=== PATIENT | male | born 1975 | race Caucasian/White ===

== ENCOUNTER 2018-06-25 14:58 | Emergency (ER) | payer SELFPAY ==
--- NOTE | 2018-06-25 15:42 | ER ---
Nurse's Notes [facility] Name: James Dupree Age: 42 yrs Sex: Male : 1975 Arrival Date: 06/25/2018 Time: 15:02 Bed 16 Private MD: None, None Diagnosis: anxiety Presentation: 06/25 15:22 Presenting complaint: Patient states: im having withdrawals from alcohol; last drink hj was yesterday at 5 pm; been drinking all day fo the last 2 weeks; reports abd pain; anxiety, shakiness; nausea;. Transition of care: patient was not received from another setting of care. Onset of symptoms was June 25, 2018. Risk Assessment: Do you want to hurt yourself or someone else? Patient reports no desire to harm self or others. Initial Sepsis Screen: Does the patient meet any 2 criteria? No. Patient's initial sepsis screen is negative. Does the patient have a suspected source of infection? No. Patient's initial sepsis screen is negative. Care prior to arrival: None. 15:22 Method Of Arrival: Ambulatory 15:22 Acuity: DORETHA 3 hj Triage Assessment: 15:24 General: Appears in no apparent distress. uncomfortable, Behavior is calm, cooperative, hj appropriate for age. Pain: Complains of pain in abdomen. Historical: - Allergies: 15:24 No Known Allergies; hj - Home Meds: 15:24 None [Active]; hj - PMHx: 15:24 Alcoholism; hj - PSHx: 15:24 None; hj - Immunization history:: Adult Immunizations not up to date. - Social history:: Smoking status: Patient uses tobacco products, Patient uses alcohol, on a daily basis. patient/guardian reports chronic longstanding heavy alcohol consumption. - Ebola Screening: : Patient negative for fever greater than or equal to 101.5 degrees Fahrenheit, and additional compatible Ebola Virus Disease symptoms Patient denies exposure to infectious person Patient denies travel to an Ebola-affected area in the 21 days before illness onset. Screenin:24 Abuse screen: Denies threats or abuse. Denies injuries from another. Nutritional hj screening: No deficits noted. Tuberculosis screening: No symptoms or risk factors identified. Fall Risk None identified. Assessment: 15:26 General: Appears in no apparent distress. Behavior is anxious. Pain: Denies pain. tw2 Neuro: Level of Consciousness is awake, alert, obeys commands, Oriented to person, place, time, situation. Cardiovascular: Heart tones S1 S2 Patient's skin is warm and dry. Respiratory: Airway is patent Respiratory effort is even, unlabored, Respiratory pattern is regular, symmetrical, Breath sounds are clear bilaterally. GI: No signs and/or symptoms were reported involving the gastrointestinal system. : No signs and/or symptoms were reported regarding the genitourinary system. EENT: No signs and/or symptoms were reported regarding the EENT system. Derm: No signs and/or symptoms reported regarding the dermatologic system. Musculoskeletal: Reports "i feel cem jittery and shaky but i just drank for like 2 weeks straight". 15:31 Reassessment: Dr. Hallman at bedside at this time. tw2 16:16 Reassessment: Patient appears in no apparent distress at this time. No changes from tw2 previously documented assessment. Patient and/or family updated on plan of care and expected duration. Pain level reassessed. Patient is alert, oriented x 3, equal unlabored respirations, skin warm/dry/pink. Psych: 15:26 Subjective: no apparent distress, pt seeking help today to prevent having withdrawals. tw2 Objective: Patient is cooperative. Interventions: pts vs stable. Suicide Risk Assessment: Sad Person Scale: Sex of patient: Male: Score 1 point. Age of patient: Score 0 point if patient falls outside of specified age parameters. Depression: Score 0 point if signs of depression are not present. Previous Attempt: Score 0 point if patient has not previously attempted suicide. Substance Abuse: Score 1 point if patient abuses alcohol or drugs. Rational Thinking: Score 0 point if patient has rational thinking. Social Support: Score 0 if social support is present/available. Organized Plan: Score 0 if patient did not have an organized plan in place. Relationship: Score 1 point if patient is , , , or for a single male Chronic Sickness: Score 0 point if patient does not have a chronic illness, debilitating, or severe disorder. Safety Checks: No visitors are present at this time. Patient uses Last use was yesterday at 5pm. 15:58 Commitment: Patient will be a voluntary commitment. tw2 Vital Signs: 15:25 BP 128 / 79; Pulse 79; Resp 18; Temp 97.7(O); Pulse Ox 100% on R/A; Weight 77.11 kg; hj Height 5 ft. 8 in. (172.72 cm); Pain 7/10; 16:16 BP 131 / 92; Pulse 67; Resp 17; Pulse Ox 100% on R/A; tw2 15:25 Body Mass Index 25.85 (77.11 kg, 172.72 cm) ED Course: 15:02 Patient arrived in ED. mr 15:02 None, None is Private Physician. mr 15:19 Tomasz Hallman MD is Attending Physician. ps1 15:23 Triage completed. hj 15:24 Arm band placed on left wrist. hj 15:26 Bed in low position. Call light in reach. Pulse ox on. NIBP on. tw2 15:31 Jaymie Huntley RN is Primary Nurse. tw2 15:54 Awaitin min observations after PO medication admin PRIOR to discharge. tw2 16:18 No provider procedures requiring assistance completed. Patient did not have IV access tw2 during this emergency room visit. Administered Medications: 15:54 Drug: Valium 5 mg Route: PO; tw2 16:16 Follow up: Response: No adverse reaction tw2 Outcome: 15:42 Discharge ordered by . ps1 16:18 Discharged to home ambulatory. tw2 16:18 Condition: stable 16:18 Discharge instructions given to patient, Instructed on discharge instructions, follow up and referral plans. no drinking with medication, no driving heavy equipment, medication usage, Demonstrated understanding of instructions, follow-up care, medications, Prescriptions given X 1. 16:18 Patient left the ED. tw2 Signatures: Josselyn Palm AlliJim RN RN Jaymie Huntley RN RN tw2 Tomasz Hallman MD MD ps1 Corrections: (The following items were deleted from the chart) 15:27 15:25 Pulse 79bpm; Resp 18bpm; Pulse Ox 100% RA; Temp 97.7F Oral; 77.11 kg; Height 5 hj ft. 8 in.; BMI: 25.8; Pain 7/10; hj 15:58 15:26 Patient uses Last use was Monday at 5pm. tw2 tw2
--- NOTE | 2018-06-25 15:43 | EDPHYS ---
Physician Documentation [facility] Name: James Dupree Age: 42 yrs Sex: Male : 1975 Arrival Date: 06/25/2018 Time: 15:02 Bed 16 Private MD: None, None ED Physician Tomasz Hallman HPI: 06/25 15:38 This 42 yrs old Male presents to ER via Ambulatory with complaints of ETOH ps1 Abuse. 15:38 patient has a history of group home alcohol abuse. He states that he has not had a drink ps1 since yesterday. He was attempting to get into [facility] for detox and was sent for evaluation of withdrawal. Patient states that he is anxious and tremulous. No hx of alcohol withdrawal seizures. . Historical: - Allergies: 15:24 No Known Allergies; hj - Home Meds: 15:24 None [Active]; hj - PMHx: 15:24 Alcoholism; hj - PSHx: 15:24 None; hj - Immunization history:: Adult Immunizations not up to date. - Social history:: Smoking status: Patient uses tobacco products, Patient uses alcohol, on a daily basis. patient/guardian reports chronic longstanding heavy alcohol consumption. - Ebola Screening: : Patient negative for fever greater than or equal to 101.5 degrees Fahrenheit, and additional compatible Ebola Virus Disease symptoms Patient denies exposure to infectious person Patient denies travel to an Ebola-affected area in the 21 days before illness onset. ROS: 15:38 Constitutional: Negative for fever, chills, and weight loss, Eyes: Negative for injury, ps1 pain, redness, and discharge, ENT: Negative for injury, pain, and discharge, Cardiovascular: Negative for chest pain, palpitations, and edema, Respiratory: Negative for shortness of breath, cough, wheezing, and pleuritic chest pain, Abdomen/GI: Negative for abdominal pain, nausea, vomiting, diarrhea, and constipation, MS/Extremity: Negative for injury and deformity, Skin: Negative for injury, rash, and discoloration, Neuro: Negative for headache, weakness, numbness, tingling, and seizure. 15:38 Psych: Positive for anxiety, tremor. Exam: 15:38 Constitutional: This is a well developed, well nourished patient who is awake, alert, ps1 and in no acute distress. Head/Face: Normocephalic, atraumatic. Eyes: Pupils equal round and reactive to light, extra-ocular motions intact. Lids and lashes normal. Conjunctiva and sclera are non-icteric and not injected. Chest/axilla: Normal chest wall appearance and motion. Nontender with no deformity. No lesions are appreciated. Cardiovascular: Regular rate and rhythm. No gallops, murmurs, or rubs. Normal PMI, no JVD. No pulse deficits. Respiratory: Lungs have equal breath sounds bilaterally, clear to auscultation and percussion. No rales, rhonchi or wheezes noted. No increased work of breathing, no retractions or nasal flaring. Abdomen/GI: Soft, non-tender, with normal bowel sounds. No distension or tympany. No guarding or rebound. No evidence of tenderness throughout. Skin: Warm, dry with normal turgor. Normal color with no rashes, no lesions, and no evidence of cellulitis. Neuro: Awake and alert, GCS 15, oriented to person, place, time, and situation. Cranial nerves II-XII grossly intact. Sensory grossly intact. 15:38 Psych: patient appears mildly anxious. He has slight tremor. CIWA score of 2. . Vital Signs: 15:25 BP 128 / 79; Pulse 79; Resp 18; Temp 97.7(O); Pulse Ox 100% on R/A; Weight 77.11 kg; hj Height 5 ft. 8 in. (172.72 cm); Pain 7/10; 16:16 BP 131 / 92; Pulse 67; Resp 17; Pulse Ox 100% on R/A; tw2 15:25 Body Mass Index 25.85 (77.11 kg, 172.72 cm) MDM: 15:42 Patient medically screened. ps1 Administered Medications: 15:54 Drug: Valium 5 mg Route: PO; tw2 16:16 Follow up: Response: No adverse reaction tw2 Disposition: 06/25/18 15:42 Discharged to Home. Impression: anxiety. - Condition is Stable. - Discharge Instructions: Alcohol Withdrawal, [id number]. - Prescriptions for chlordiazepoxide HCl 10 mg Oral capsule - take 1 capsule by ORAL route 3 times per day; 10 capsule. - Medication Reconciliation Form, Thank You Letter, Antibiotic Education, Prescription Opioid Use form. - Follow up: Private Physician; When: As needed; Reason: Recheck today's complaints, Continuance of care, Re-evaluation by your physician. Follow up: Emergency Department; When: As needed; Reason: Worsening of condition. - Problem is new. - Symptoms have improved. Signatures: Jim Carson, RN RN hj Jaymie Huntley RN RN tw2 Tomasz Hallman MD MD ps1 Corrections: (The following items were deleted from the chart) 16:18 15:42 06/25/2018 15:42 Discharged to Home. Impression: anxiety. Condition is Stable. tw2 Forms are Medication Reconciliation Form, Thank You Letter, Antibiotic Education, Prescription Opioid Use. Follow up: Private Physician; When: As needed; Reason: Recheck today's complaints, Continuance of care, Re-evaluation by your physician. Follow up: Emergency Department; When: As needed; Reason: Worsening of condition. Problem is new. Symptoms have improved. ps1
[2018-06-25] MEDS ORDERED: DIAZEPAM 5 MG TABLET ONE (16:00)
[2018-06-25 16:52] VITALS: TEMP 97.7; O2SAT 100
[2018-06-25 16:53] VITALS: BP 131/92
== END 2018-06-25 16:18 | disposition home or self-care (01) ==
LOC: ER 14:58
DX: F10.180 Alcohol abuse with alcohol-induced anxiety disorder (principal); Z72.0 Tobacco use
CPT/HCPCS: 99284

== ENCOUNTER 2018-08-27 19:10 | Emergency (ER) | payer OTHER, SELFPAY ==
--- NOTE | 2018-08-27 20:40 | ER ---
Nurse's Notes [facility] Name: James Dupree Age: 42 yrs Sex: Male : 1975 Arrival Date: 08/27/2018 Time: 19:15 Bed 17 Private MD: Diagnosis: Alcohol dependence with alcohol-induced anxiety disorder Presentation: 08/27 19:45 Presenting complaint: Patient states: drinks 12 pack daily, last drink at 1700. pt c/o ak1 abd cramps today. pt stated he wants Antabuse to take, "it worked before". Transition of care: patient was not received from another setting of care. Onset of symptoms is unknown. Risk Assessment: Do you want to hurt yourself or someone else? Patient reports no desire to harm self or others. Initial Sepsis Screen: Does the patient meet any 2 criteria? No. Patient's initial sepsis screen is negative. Does the patient have a suspected source of infection? No. Patient's initial sepsis screen is negative. Care prior to arrival: None. 19:45 Method Of Arrival: Ambulatory ak1 19:45 Acuity: DORETHA 3 ak1 Triage Assessment: 19:48 General: Appears in no apparent distress. Behavior is calm, cooperative. Pain: ak1 Complains of pain in abdomen. EENT: No signs and/or symptoms were reported regarding the EENT system. Neuro: Level of Consciousness is awake, alert, obeys commands, Oriented to person, place, time, situation, Nursing Home Administrator are equal bilaterally Moves all extremities. Gait is steady, Speech is normal, Facial symmetry appears normal. Cardiovascular: No deficits noted. Respiratory: No deficits noted. GI: Reports cramping, nausea. : No signs and/or symptoms were reported regarding the genitourinary system. Derm: No signs and/or symptoms reported regarding the dermatologic system. Musculoskeletal: No signs and/or symptoms reported regarding the musculoskeletal system. Historical: - Allergies: 19:48 No Known Allergies; ak1 - Home Meds: 19:48 None [Active]; ak1 - PMHx: 19:48 Alcoholism; ak1 - PSHx: 19:48 None; ak1 - Immunization history:: Adult Immunizations unknown. - Social history:: Smoking status: Patient/guardian denies using tobacco, Patient/guardian denies using street drugs, IV drugs, The patient lives with family. - Ebola Screening: : No symptoms or risks identified at this time. - Family history:: not pertinent. Screenin:49 Abuse screen: Denies threats or abuse. Denies injuries from another. Nutritional ak1 screening: No deficits noted. Tuberculosis screening: No symptoms or risk factors identified. Fall Risk None identified. Assessment: 20:03 General: Appears in no apparent distress. Behavior is calm, cooperative. Pain: ed1 Complains of pain in abdomen Pain currently is 0 out of 10 on a pain scale. at worst was 6 out of 10 on a pain scale. Quality of pain is described as crampy, Pain began 4 hours ago. Is intermittent, lasting a few minutes. Neuro: Level of Consciousness is awake, alert, obeys commands, Oriented to person, place, time, situation, Nursing Home Administrator are equal bilaterally Moves all extremities. Full function Gait is steady, Speech is normal, Facial symmetry appears normal, Pupils are PERRLA, Intact Denies weakness blurred vision dizziness, headache. Cardiovascular: Denies chest pain, Heart tones S1 S2 present Capillary refill < 3 seconds in bilateral fingers Patient's skin is warm and dry. Respiratory: Airway is patent Respiratory effort is even, unlabored, Respiratory pattern is regular, symmetrical, Breath sounds are clear bilaterally. GI: Abdomen is non-distended, Bowel sounds present X 4 quads. Abd is soft and non tender X 4 quads. Reports lower abdominal pain, upper abdominal pain, cramping, nausea, Patient currently denies cramping, vomiting. : No signs and/or symptoms were reported regarding the genitourinary system. EENT: No signs and/or symptoms were reported regarding the EENT system. Derm: Skin is intact, is healthy with good turgor, Skin is dry, Skin is normal, Skin temperature is warm. Musculoskeletal: Circulation, motion, and sensation intact. Range of motion: intact in all extremities. 20:56 Reassessment: Patient appears in no apparent distress at this time. No changes from ed1 previously documented assessment. Patient and/or family updated on plan of care and expected duration. Pain level reassessed. Patient is alert, oriented x 3, equal unlabored respirations, skin warm/dry/pink. Vital Signs: 19:48 BP 141 / 93; Pulse 80; Resp 16; Temp 98.3(O); Pulse Ox 99% on R/A; Weight 77.11 kg (R); ak1 Height 5 ft. 9 in. (175.26 cm) (R); Pain 0/10; 20:56 BP 143 / 90; Pulse 78; Resp 19; Pulse Ox 100% on R/A; Pain 0/10; ed1 19:48 Body Mass Index 25.10 (77.11 kg, 175.26 cm) ak1 ED Course: 19:15 Patient arrived in ED. es 19:18 Patient's name was called from ER lobby. No response. ak1 19:35 Patient's name was called from ER lobby. No response. ak1 19:47 Triage completed. ak1 19:48 Arm band placed on Patient placed in waiting room, Patient notified of wait time. ak1 19:49 Patient has correct armband on for positive identification. ak1 20:02 Sherly Alcantara, RN is Primary Nurse. ed1 20:03 Awaiting ED provider evaluation. ed1 20:12 Vanessa Allred MD is Attending Physician. ma2 20:56 No provider procedures requiring assistance completed. Patient did not have IV access ed1 during this emergency room visit. Administered Medications: No medications were administered Outcome: 20:39 Discharge ordered by . ma2 20:56 Discharged to home ambulatory. ed1 20:56 Condition: good 20:56 Discharge instructions given to patient, Instructed on discharge instructions, follow up and referral plans. medication usage, Demonstrated understanding of instructions, follow-up care, medications, Prescriptions given X 2. 20:58 Patient left the ED. ed1 Signatures: Lisa Rocha Erika, RN RN ed1 Francine Narvaez RN RN ak1 Vanessa Allred MD MD wi2
--- NOTE | 2018-08-27 20:40 | EDPHYS ---
Physician Documentation [facility] Name: James Dupree Age: 42 yrs Sex: Male : 1975 Arrival Date: 08/27/2018 Time: 19:15 Bed 17 Private MD: ED Physician Vanessa Allred HPI: 08/27 20:38 This 42 yrs old Male presents to ER via Ambulatory with complaints of ma2 Anxiety, WITHDRAWAL. 20:38 heavy alcohol drinking . Onset: The symptoms/episode began/occurred gradually, 2 day(s) ma2 ago. Severity of symptoms: At their worst the symptoms were mild in the emergency department the symptoms are unchanged. The patient has experienced similar episodes in the past. Historical: - Allergies: 19:48 No Known Allergies; ak1 - Home Meds: 19:48 None [Active]; ak1 - PMHx: 19:48 Alcoholism; ak1 - PSHx: 19:48 None; ak1 - Immunization history:: Adult Immunizations unknown. - Social history:: Smoking status: Patient/guardian denies using tobacco, Patient/guardian denies using street drugs, IV drugs, The patient lives with family. - Ebola Screening: : No symptoms or risks identified at this time. - Family history:: not pertinent. ROS: 20:38 Constitutional: Negative for fever, chills, and weight loss, Cardiovascular: Negative ma2 for chest pain, palpitations, and edema, Abdomen/GI: Negative for abdominal pain, nausea, diarrhea, and constipation. 20:38 Psych: Positive for anxiety. 20:38 All other systems are negative. Exam: 20:38 Constitutional: This is a well developed, well nourished patient who is awake, alert, ma2 and in no acute distress. Chest/axilla: Normal chest wall appearance and motion. Nontender with no deformity. No lesions are appreciated. Cardiovascular: Regular rate and rhythm with a normal S1 and S2. No gallops, murmurs, or rubs. Normal PMI, no JVD. No pulse deficits. Respiratory: Lungs have equal breath sounds bilaterally, clear to auscultation and percussion. No rales, rhonchi or wheezes noted. No increased work of breathing, no retractions or nasal flaring. Abdomen/GI: Soft, non-tender, with normal bowel sounds. No distension or tympany. No guarding or rebound. No evidence of tenderness throughout. Skin: Warm, dry with normal turgor. Normal color with no rashes, no lesions, and no evidence of cellulitis. MS/ Extremity: Pulses equal, no cyanosis. Neurovascular intact. Full, normal range of motion. Neuro: Awake and alert, GCS 15, oriented to person, place, time, and situation. Cranial nerves II-XII grossly intact. Motor strength 5/5 in all extremities. Sensory grossly intact. Cerebellar exam normal. Normal gait. Vital Signs: 19:48 BP 141 / 93; Pulse 80; Resp 16; Temp 98.3(O); Pulse Ox 99% on R/A; Weight 77.11 kg (R); ak1 Height 5 ft. 9 in. (175.26 cm) (R); Pain 0/10; 20:56 BP 143 / 90; Pulse 78; Resp 19; Pulse Ox 100% on R/A; Pain 0/10; ed1 19:48 Body Mass Index 25.10 (77.11 kg, 175.26 cm) ak1 MDM: 20:12 Patient medically screened. ma2 20:38 Differential Diagnosis alcohol withdrawal mild, ulikley dt or pancreatitis or si . Data ma2 reviewed: vital signs, nurses notes. Counseling: I had a detailed discussion with the patient and/or guardian regarding: the historical points, exam findings, and any diagnostic results supporting the discharge/admit diagnosis, the presence of at least one elevated blood pressure reading (>120/80) during this emergency department visit, the need for outpatient follow up. Administered Medications: No medications were administered Disposition: 08/27/18 20:39 Discharged to Home. Impression: Alcohol dependence with alcohol-induced anxiety disorder. - Condition is Stable. - Discharge Instructions: Finding Treatment for Addiction, Alcohol Use Disorder. - Prescriptions for Valium 10 mg Oral Tablet - take 1 tablet by ORAL route every 8 hours As needed; 20 tablet. Zofran 4 mg Oral Tablet - take 1 tablet by ORAL route every 12 hours As needed; 20 tablet. - Medication Reconciliation Form, Thank You Letter, Antibiotic Education, Prescription Opioid Use form. - Follow up: Private Physician; When: Tomorrow; Reason: Continuance of care. Signatures: Sherly Alcantara RN RN ed1 Francine Narvaez RN RN ak1 Vanessa Allred MD MD ma2 Corrections: (The following items were deleted from the chart) 20:58 20:39 08/27/2018 20:39 Discharged to Home. Impression: Alcohol dependence with ed1 alcohol-induced anxiety disorder. Condition is Stable. Forms are Medication Reconciliation Form, Thank You Letter, Antibiotic Education, Prescription Opioid Use. Follow up: Private Physician; When: Tomorrow; Reason: Continuance of care. ma2
== END 2018-08-27 20:58 | disposition home or self-care (01) ==
LOC: ER 19:10
DX: F10.280 Alcohol dependence with alcohol-induced anxiety disorder (principal)
CPT/HCPCS: 99282

== ENCOUNTER 2019-02-14 09:13 | Emergency (ER) | payer OTHER ==
[2019-02-14] MEDS ORDERED: NA CHLORIDE 0.9% 1,000 ML ONE (09:22)
[2019-02-14] MEDS ORDERED: DIAZEPAM 10 MG/2 ML INJ SYRINGE ONE ×2 (09:28→11:16)
[2019-02-14] MEDS ORDERED: ONDANSETRON 4 MG/2 ML VIAL ONE (09:28)
[2019-02-14 09:41] LABS: Absolute Lymphocytes (CBC) 1.8 K/uL (0.7-4.9); Hematocrit 45.9 % (39.6-49.0); Lymphocytes % 28.9 % (15.3-44.8); MPV 7.7 fL (7.6-11.3); RBC Red Blood Cell Count 4.78 M/uL (4.33-5.43)
[2019-02-14] MEDS ORDERED: NA CHLORIDE 0.9% 1,000 ML with FOLIC ACID 1 MG, THIAMINE HCL 100 MG, MULTIVITAMINS INJ ... IV SCH ×4 (09:45)
[2019-02-14 10:04] LABS: BUN Blood Urea Nitrogen 6 mg/dL (7-18); Bicarbonate 25 mmol/L (21-32); Glucose Level 87 mg/dL (74-106); Potassium 3.7 mmol/L (3.5-5.1); Sodium Level 142 mmol/L (136-145)
[2019-02-14] MEDS ORDERED: PROMETHAZINE 25 MG/ML VIAL ONE (11:15)
--- NOTE | 2019-02-14 12:01 | EDPHYS ---
Physician Documentation [facility] Name: James Dupree Age: 43 yrs Sex: Male : 1975 Arrival Date: 02/14/2019 Time: 09:17 Bed 7 Private MD: ED Physician Dakota Holliday HPI: 02/14 10:35 This 43 yrs old Male presents to ER via Unassigned with complaints of ETOH rn Abuse, nausea/vomiting. 10:35 The patient presents to the emergency department with nausea, vomiting. Onset: The rn symptoms/episode began/occurred yesterday. Possible causes: cessation of ETOH. The symptoms are aggravated by nothing. The symptoms are alleviated by nothing. Associated signs and symptoms: Pertinent positives: nausea, vomiting, Pertinent negatives: fever. Severity of symptoms: At their worst the symptoms were moderate in the emergency department the symptoms are unchanged. The patient has experienced similar episodes in the past. Reports alcoholic, binging lately, decided to stop drinking last night, since then sick to his stomach with vomiting, can't keep food down, hasn't been eating even prior to that, wants to quit. . Historical: - Allergies: 09:18 No Known Allergies; sg - PMHx: 09:18 Alcoholism; sg - PSHx: 09:18 None; sg - Immunization history:: Adult Immunizations up to date. - Social history:: Smoking status: Patient/guardian denies using tobacco. - Ebola Screening: : Patient negative for fever greater than or equal to 101.5 degrees Fahrenheit, and additional compatible Ebola Virus Disease symptoms Patient denies exposure to infectious person Patient denies travel to an Ebola-affected area in the 21 days before illness onset No symptoms or risks identified at this time. - Family history:: not pertinent. - Hospitalizations: : No recent hospitalization is reported. ROS: 10:35 Constitutional: Negative for fever, chills, and weight loss, Eyes: Negative for injury, rn pain, redness, and discharge, Neck: Negative for injury, pain, and swelling, Cardiovascular: Negative for chest pain, palpitations, and edema, Respiratory: Negative for shortness of breath, cough, wheezing, and pleuritic chest pain, Abdomen/GI: Negative for diarrhea, and constipation, MS/Extremity: Negative for injury and deformity, Skin: Negative for injury, rash, and discoloration, Neuro: Negative for headache, weakness, numbness, tingling, and seizure. Exam: 10:35 Constitutional: Thin male, appears anxious Head/Face: Normocephalic, atraumatic. rn Eyes: Pupils equal round and reactive to light, extra-ocular motions intact. Lids and lashes normal. Conjunctiva and sclera are non-icteric and not injected. Cornea within normal limits. Periorbital areas with no swelling, redness, or edema. ENT: dry MM Neck: Trachea midline, no thyromegaly or masses palpated, and no cervical lymphadenopathy. Supple, full range of motion without nuchal rigidity, or vertebral point tenderness. No Meningismus. Cardiovascular: Regular rate and rhythm. No pulse deficits. Respiratory: No increased work of breathing, no retractions or nasal flaring. Abdomen/GI: soft, non-tender MS/ Extremity: Pulses equal, no cyanosis. Neurovascular intact. Full, normal range of motion. Equal circumference. Neuro: Awake and alert, GCS 15, oriented to person, place, time, and situation. Cranial nerves II-XII grossly intact. Motor strength 5/5 in all extremities. Sensory grossly intact. Cerebellar exam normal. NO tongue fasciculations, no ext tremor. Vital Signs: 09:18 BP 124 / 84; Pulse 65; Resp 16; Temp 97.6; Pulse Ox 100% on R/A; Pain 7/10; sg 13:41 BP 127 / 86; Pulse 89; Resp 16; Pulse Ox 100% on R/A; Pain 0/10; iw MDM: 09:21 Patient medically screened. rn 11:57 Differential diagnosis: alcoholic ketosis, early withdrawal, malnutrition. Data rn reviewed: vital signs, nurses notes, lab test result(s), and as a result, I will discharge patient. Counseling: I had a detailed discussion with the patient and/or guardian regarding: the historical points, exam findings, and any diagnostic results supporting the discharge/admit diagnosis, lab results, the need for outpatient follow up, to return to the emergency department if symptoms worsen or persist or if there are any questions or concerns that arise at home. Response to treatment: the patient's symptoms have markedly improved after treatment, and as a result, I will discharge patient. Special discussion: I discussed with the patient/guardian in detail that at this point there is no indication for admission to the hospital. It is understood, however, that if the symptoms persist or worsen the patient needs to return immediately for re-evaluation. ED course: Had long discussion with patient, maybe relative early withdrawal, still some ETOH in system, normal vitals, bloodwork ok, no indication for emergent admission.. 02/14 09:22 Order name: Glucose, Ancillary Testing EDMS 02/14 09:22 Order name: CBC with Diff; Complete Time: 10:33 rn 02/14 09:22 Order name: Basic Metabolic Panel; Complete Time: 10:33 rn 02/14 09:22 Order name: ETOH Level; Complete Time: 10:33 rn 02/14 09:22 Order name: Ketone, Serum; Complete Time: :33 rn 02/14 09:22 Order name: IV Start; Complete Time: 09:23 rn Administered Medications: 09:35 Drug: Valium 10 mg Route: IVP; Site: left antecubital; sg 10:45 Follow up: Response: No adverse reaction; No change in condition sg 09:39 Drug: NS 0.9% 1000 ml Route: IV; Rate: 1000 ml; Site: left antecubital; sg 10:35 Follow up: Response: No adverse reaction; IV Status: Completed infusion sg 09:54 Drug: Banana Bag - (NS 0.9% 1000 ml, foLIC Acid 1 mg, Thiamine 100 mg, Multivitamin 1 aa5 amp) Route: IV; Rate: calculated rate; Site: left antecubital; 13:45 Follow up: Response: No adverse reaction; IV Status: Completed infusion; Order to sg discontinue infusion; IV Intake: 750ml 11:15 Drug: Valium 10 mg Route: IVP; Site: left antecubital; sg 13:40 Follow up: Response: No adverse reaction; Marked relief of symptoms iw 11:15 Drug: Phenergan 12.5 mg Route: IVP; Site: left antecubital; sg 13:41 Follow up: Response: No adverse reaction; Nausea is decreased iw 13:40 Not Given (Patient Refused): Zofran 4 mg IVP once; over 2 minutes iw Disposition: 02/14/19 12:00 Discharged to Home. Impression: Alcohol abuse, Vomiting, unspecified, Dehydration. - Condition is Stable. - Discharge Instructions: Alcohol Withdrawal, Dehydration, Adult, Nausea and Vomiting, Adult, Alcohol Abuse and Nutrition. - Prescriptions for Zofran ODT 4 mg Oral tablet,disintegrating - place 1 tablet by TRANSLINGUAL route every 8 hours As needed; 20 tablet. Valium 2 mg Oral Tablet - take 1 tablet by ORAL route every 8 hours As needed; 10 tablet. - Medication Reconciliation Form, Thank You Letter, Antibiotic Education, Prescription Opioid Use form. - Follow up: Private Physician; When: As needed; Reason: Recheck today's complaints, Re-evaluation by your physician. - Problem is new. - Symptoms have improved. Signatures: Dispatcher [employer] EDMS Matteo Scott RN Garima Lundberg RN Dakota Del Cid MD MD rn Calderon, Audri, RN RN aa5 Corrections: (The following items were deleted from the chart) 13:40 09:22 Urine Dipstick-Ancillary ordered. cristina cedillo 13:43 12:00 02/14/2019 12:00 Discharged to Home. Impression: Alcohol abuse; Vomiting, iw unspecified; Dehydration. Condition is Stable. Forms are Medication Reconciliation Form, Thank You Letter, Antibiotic Education, Prescription Opioid Use. Follow up: Private Physician; When: As needed; Reason: Recheck today's complaints, Re-evaluation by your physician. Problem is new. Symptoms have improved. rn
--- NOTE | 2019-02-14 12:01 | ER ---
Nurse's Notes [facility] Name: James Dupree Age: 43 yrs Sex: Male : 1975 Arrival Date: 02/14/2019 Time: 09:17 Bed 7 Private MD: Diagnosis: Alcohol abuse;Vomiting, unspecified;Dehydration Presentation: 02/14 09:19 Risk Assessment: Do you want to hurt yourself or someone else? Patient reports no sg desire to harm self or others. Initial Sepsis Screen: Does the patient meet any 2 criteria? No. Patient's initial sepsis screen is negative. Does the patient have a suspected source of infection? No. Patient's initial sepsis screen is negative. Care prior to arrival: Medication(s) given: Normal saline infusion, 100 mL zofran 4 mg, IV initiated. 18 GA, in the left antecubital area. 09:19 Acuity: DORETHA 3 sg 13:43 Method Of Arrival: EMS iw Historical: - Allergies: 09:18 No Known Allergies; sg - PMHx: 09:18 Alcoholism; sg - PSHx: 09:18 None; sg - Immunization history:: Adult Immunizations up to date. - Social history:: Smoking status: Patient/guardian denies using tobacco. - Ebola Screening: : Patient negative for fever greater than or equal to 101.5 degrees Fahrenheit, and additional compatible Ebola Virus Disease symptoms Patient denies exposure to infectious person Patient denies travel to an Ebola-affected area in the 21 days before illness onset No symptoms or risks identified at this time. - Family history:: not pertinent. - Hospitalizations: : No recent hospitalization is reported. Screenin:43 Abuse screen: Denies threats or abuse. Denies injuries from another. Nutritional sg screening: No deficits noted. Tuberculosis screening: No symptoms or risk factors identified. Never had TB. Fall Risk None identified. Assessment: 09:40 Reassessment: pt reports last alcohol use last night around 1999, pt reports his normal sg alcohol intake is beer drinking from 0500 throughout the day until sleeps at night. General: Appears in no apparent distress. well groomed, well developed, well nourished, Behavior is calm, cooperative, appropriate for age. Pain: Complains of pain in abdomen Quality of pain is described as aching. Neuro: Level of Consciousness is awake, alert, obeys commands, Oriented to person, place, time, Research Clerk are equal bilaterally Moves all extremities. Gait is steady, Speech is normal. Neuro: Reports tremors in the legs. Cardiovascular: Capillary refill is brisk in bilateral fingers Patient's skin is warm and dry. Chest pain is denied. Respiratory: Airway is patent Respiratory effort is even, unlabored, Respiratory pattern is regular, symmetrical, Denies cough, shortness of breath labored breathing. GI: Abdomen is flat, non-distended, Bowel sounds present X 4 quads. Reports nausea, vomiting. : No signs and/or symptoms were reported regarding the genitourinary system. EENT: No signs and/or symptoms were reported regarding the EENT system. Derm: Skin is pink, warm \T\ dry. Musculoskeletal: Circulation, motion, and sensation intact. Range of motion: intact in all extremities. 09:50 Reassessment: pt requesting we notify inés, a friend, that he is in the ED. sg 10:00 Reassessment: Patient appears in no apparent distress at this time. Inés contacted at sg [phone], notified pt in the department, Inés states that to please notify her if pt discharged to home because he has no place to go and she would like to help. 13:41 Reassessment: Patient appears in no apparent distress at this time. Patient and/or iw family updated on plan of care and expected duration. Pain level reassessed. Patient is alert, oriented x 3, equal unlabored respirations, skin warm/dry/pink. 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 Patient states feeling better. Patient states symptoms have improved. Vital Signs: 09:18 BP 124 / 84; Pulse 65; Resp 16; Temp 97.6; Pulse Ox 100% on R/A; Pain 7/10; sg 13:41 BP 127 / 86; Pulse 89; Resp 16; Pulse Ox 100% on R/A; Pain 0/10; iw ED Course: 09:17 Patient arrived in ED. sg 09:19 Triage completed. sg 09:19 Matteo Scott RN is Primary Nurse. sg 09:19 Arm band placed on. sg 09:21 Dakota Holliday MD is Attending Physician. rn 09:38 Initial lab(s) drawn, by me, sent to lab. Maintain EMS IV. Dressing intact. Good blood sg return noted. Site clean \T\ dry. Gauge \T\ site: 18 g. IV is patent, is intact, with fluids infusing freely, with good blood return. 13:42 No provider procedures requiring assistance completed. IV discontinued, intact, iw bleeding controlled, No redness/swelling at site. Pressure dressing applied. Administered Medications: 09:35 Drug: Valium 10 mg Route: IVP; Site: left antecubital; sg 10:45 Follow up: Response: No adverse reaction; No change in condition sg 09:39 Drug: NS 0.9% 1000 ml Route: IV; Rate: 1000 ml; Site: left antecubital; sg 10:35 Follow up: Response: No adverse reaction; IV Status: Completed infusion sg 09:54 Drug: Banana Bag - (NS 0.9% 1000 ml, foLIC Acid 1 mg, Thiamine 100 mg, Multivitamin 1 aa5 amp) Route: IV; Rate: calculated rate; Site: left antecubital; 13:45 Follow up: Response: No adverse reaction; IV Status: Completed infusion; Order to sg discontinue infusion; IV Intake: 750ml 11:15 Drug: Valium 10 mg Route: IVP; Site: left antecubital; sg 13:40 Follow up: Response: No adverse reaction; Marked relief of symptoms iw 11:15 Drug: Phenergan 12.5 mg Route: IVP; Site: left antecubital; sg 13:41 Follow up: Response: No adverse reaction; Nausea is decreased iw 13:40 Not Given (Patient Refused): Zofran 4 mg IVP once; over 2 minutes iw Intake: 13:45 IV: 750ml; Total: 750ml. sg Outcome: 12:00 Discharge ordered by . rn 13:42 Discharged to home ambulatory, with friend. iw 13:42 Condition: good 13:42 Discharge instructions given to patient, Instructed on discharge instructions, follow up and referral plans. medication usage, Demonstrated understanding of instructions, follow-up care, medications, Prescriptions given X 2. 13:43 Patient left the ED. iw Signatures: Matteo Scott RN KATHLEEN Garima Morrow RN RN Dakota Holliday MD MD rn Calderon, Audri, RN RN aa5
[2019-02-14 13:57] VITALS: TEMP 97.6; O2SAT 100
[2019-02-14 13:58] VITALS: BP 127/86
== END 2019-02-14 13:43 | disposition home or self-care (01) ==
LOC: ER 09:13
DX: F10.20 Alcohol dependence, uncomplicated (principal); E86.0 Dehydration
CPT/HCPCS: 96365; 85025; 80048; 36415; 80320; 82010; 82962; 96375; 99284; 96366; J2550; J3411; J3360 ×2; J7030 ×2; J2405

== ENCOUNTER 2019-09-15 15:42 | Emergency (ER) | payer SELFPAY ==
[2019-09-15] MEDS ORDERED: LIDOCAINE 1% MPF 5 ML VIAL ONE (15:55)
[2019-09-15] MEDS ORDERED: TETANUS & DIPHTHERIA TOX,ADULT 0.5 ML VIAL ONE (15:55)
--- NOTE | 2019-09-15 16:47 | EDPHYS ---
Physician Documentation [facility] Name: James Dupree Age: 44 yrs Sex: Male : 1975 Arrival Date: 09/15/2019 Time: 15:42 Bed 5 Private MD: ED Physician Dakota Holliday HPI: 09/14 15:58 This 44 yrs old Male presents to ER via Ambulatory with complaints of Left pm1 Hand Laceration. 15:58 The patient or guardian reports a laceration, irregular. The complaints affect the palm pm1 of left hand at base of left 2nd finger. Context: The problem was sustained outdoors, resulted from catching a throwing knife. Onset: The symptoms/episode began/occurred just prior to arrival. Modifying factors: The symptoms are alleviated by pressure to area, the symptoms are aggravated by nothing. Associated signs and symptoms: Pertinent negatives: cyanosis distally, decreased sensation distally, numbness distally, tingling distally. The patient has not experienced similar symptoms in the past. It is unknown whether or not the patient has recently seen a physician. Patient and his friend were playing catch with a throwing knife. Historical: - Allergies: 16:02 No Known Allergies; jl7 - Home Meds: 16:02 None [Active]; jl7 - PMHx: 16:02 Alcoholism; jl7 - PSHx: 16:02 None; jl7 - Immunization history:: Adult Immunizations up to date. - Social history:: Smoking status: unknown. ROS: 16:05 Constitutional: Negative for fever, chills, and weight loss, Cardiovascular: Negative pm1 for chest pain, palpitations, and edema, Respiratory: Negative for shortness of breath, cough, wheezing, and pleuritic chest pain. 16:05 MS/extremity: Positive for injury or acute deformity, laceration, of the palm of left hand, Negative for decreased range of motion, deformity. 16:05 Skin: Positive for laceration(s), of the left hand. 16:05 Neuro: Negative for numbness, tingling. Exam: 16:05 Constitutional: This is a well developed, well nourished patient who is awake, alert, pm1 and in no acute distress. Head/Face: Normocephalic, atraumatic. Chest/axilla: Normal chest wall appearance and motion. Nontender with no deformity. No lesions are appreciated. Cardiovascular: Regular rate and rhythm with a normal S1 and S2. No gallops, murmurs, or rubs. Normal PMI, no JVD. No pulse deficits. Respiratory: Lungs have equal breath sounds bilaterally, clear to auscultation and percussion. No rales, rhonchi or wheezes noted. No increased work of breathing, no retractions or nasal flaring. Back: No spinal tenderness. No costovertebral tenderness. Full range of motion. 16:05 Skin: Appearance: normal except for affected area, injury, laceration(s), the wound is approximately 2.5 cm(s), with a depth of 0.5 cm(s), of the palm of left hand. 16:05 Musculoskeletal/extremity: ROM: full active range of motion, in the left little finger, pm1 left ring finger, left middle finger, left index finger and left thumb. Vital Signs: 16:01 BP 125 / 92; Pulse 97; Resp 19 S; Pulse Ox 93% on R/A; jl7 16:56 BP 119 / 76; Pulse 94; Resp 16; Pulse Ox 97% ; ca1 Laceration: 16:40 Wound Repair of 2.5cm ( 1.0in ) subcutaneous laceration to palm of left hand. pm1 Irregularly shaped.. Distal neuro/vascular/tendon intact. Anesthesia: Local anesthetic administered with 3 mls of 1% lidocaine. Wound prep: Extensive cleansing with hibiclenz by me, Wound irrigation with saline by me, Wound explored extensively, Copious irrigation. Skin closed with 6 4-0 Prolene using simple sutures and sterile technique. Dressed with Neosporin, 4x4's. Patient tolerated well. MDM: 15:49 Patient medically screened. pm1 16:40 Data reviewed: vital signs. Counseling: I had a detailed discussion with the patient pm1 and/or guardian regarding: the historical points, exam findings, and any diagnostic results supporting the discharge/admit diagnosis, the need for outpatient follow up, to return to the emergency department if symptoms worsen or persist or if there are any questions or concerns that arise at home. 09/14 15:59 Order name: Prolene, Sutures; Complete Time: 16:01 pm1 09/14 15:59 Order name: Dressing - Wound; Complete Time: 16: pm1 09/14 15:59 Order name: Gloves, Sterile; Complete Time: 16:01 pm1 09/14 15:59 Order name: Setup Suture Tray; Complete Time: 16:01 pm1 Administered Medications: 16:00 Drug: Tetanus-Diphtheria Toxoid Adult 0.5 ml {Research Engineer: [email or web address]. Exp: jl7 06/27/2021. Lot #: [id number]. } Route: IM; Site: left deltoid; 16:15 Follow up: Response: No adverse reaction jl7 16:30 Drug: Lidocaine (1 %) 5 ml {Note: administered by Mayda.} Volume: 5 ml; Route: jl7 Infiltration; 17:00 Follow up: Response: No adverse reaction jl7 Disposition: 09/15/19 16:47 Discharged to Home. Impression: Laceration without foreign body of left hand. - Condition is Stable. - Discharge Instructions: Laceration Care, Adult. - Prescriptions for Keflex 500 mg Oral Capsule - take 1 capsule by ORAL route every 8 hours for 10 days; 30 capsule. - Medication Reconciliation Form, Thank You Letter, Antibiotic Education, Prescription Opioid Use form. - Follow up: Emergency Department; When: As needed; Reason: Worsening of condition. Follow up: Private Physician; When: 2 - 3 days; Reason: Recheck today's complaints, Continuance of care, Re-evaluation by your physician. - Problem is new. - Symptoms have improved. - Notes: Your sutures will need to be removed in 10-14 days Addendum: 09/17/2019 19:44 Co-signature as Attending Physician, Dakota Holliday MD. r n Signatures: Dakota Holliday MD MD rn Marinas, Patrick, NP HEART DOCTOR pm1 Shanti Hayden RN RN jl7 Corrections: (The following items were deleted from the chart) 09/14 19:19 16:47 09/15/2019 16:47 Discharged to Home. Impression: Laceration without foreign body jl7 of left hand. Condition is Stable. Forms are Medication Reconciliation Form, Thank You Letter, Antibiotic Education, Prescription Opioid Use. Follow up: Emergency Department; When: As needed; Reason: Worsening of condition. Follow up: Private Physician; When: 2 - 3 days; Reason: Recheck today's complaints, Continuance of care, Re-evaluation by your physician. Problem is new. Symptoms have improved. pm1
--- NOTE | 2019-09-15 16:47 | ER ---
Nurse's Notes [facility] Name: James Dupree Age: 44 yrs Sex: Male : 1975 Arrival Date: 09/15/2019 Time: 15:42 Bed 5 Private MD: Diagnosis: Laceration without foreign body of left hand Presentation: 09/14 15:51 Chief complaint: Patient states: laceration to left hand, friend was using a throwing iw knife and patient grabbed a hold of it. bleeding controlled, pt has been drinking today. Coronavirus screen: Proceed with normal triage. Ebola Screen: Patient negative for fever greater than or equal to 101.5 degrees Fahrenheit, and additional compatible Ebola Virus Disease symptoms Patient denies exposure to infectious person. Patient denies travel to an Ebola-affected area in the 21 days before illness onset. No symptoms or risks identified at this time. 15:51 Method Of Arrival: Ambulatory iw 15:55 Risk Assessment: Do you want to hurt yourself or someone else? Patient reports no iw desire to harm self or others. 15:55 Acuity: DORETHA 4 iw 16:01 Initial Sepsis Screen: Does the patient meet any 2 criteria? No. Patient's initial jl7 sepsis screen is negative. Does the patient have a suspected source of infection? No. Patient's initial sepsis screen is negative. Onset of symptoms was September 15, 2019. Historical: - Allergies: 16:02 No Known Allergies; jl7 - Home Meds: 16:02 None [Active]; jl7 - PMHx: 16:02 Alcoholism; jl7 - PSHx: 16:02 None; jl7 - Immunization history:: Adult Immunizations up to date. - Social history:: Smoking status: unknown. Screenin:00 Abuse screen: Denies threats or abuse. Denies injuries from another. Nutritional ca1 screening: No deficits noted. Tuberculosis screening: No symptoms or risk factors identified. Fall Risk None identified. Assessment: 16:00 General: Appears in no apparent distress. uncomfortable, Behavior is cooperative, ca1 crying. Pain: Complains of pain in left hand. Neuro: Level of Consciousness is awake, alert, obeys commands, Oriented to person, place, time, situation. Cardiovascular: Patient's skin is warm and dry. Respiratory: Airway is patent Respiratory effort is even, unlabored, Respiratory pattern is regular, symmetrical. Derm: Skin is pink, warm \\T\\ dry. Injury Description: Laceration sustained to left hand a small amount of bleeding noted at this time. 16:10 Reassessment: Pt reports "I drank a lot of alcohol today.". jl7 16:50 Reassessment: Attempted to discharge pt, pt hard to wake. Once he woke up he reports he jl7 doesn't have a ride here and doesn't know his rides phone number. Pt will be discharged once his ride is here. 18:00 Reassessment: Pt's friend Ian ([phone]) stated he will be here in 20 minutes to jl7 pick him up. 19:10 Reassessment: Attempted to call Ian back, no answer at this time. Pt sitting in bed jl7 eating a sandwich. Charge nurse notified. 19:18 Reassessment: Pt A\\T\\Ox4, discharged, ambulated out of ER with steady gate. jl7 Vital Signs: 16:01 BP 125 / 92; Pulse 97; Resp 19 S; Pulse Ox 93% on R/A; jl7 16:56 BP 119 / 76; Pulse 94; Resp 16; Pulse Ox 97% ; ca1 ED Course: 15:42 Patient arrived in ED. ag5 15:46 Romeo Hughes NP is PHCP. pm1 15:46 Dakota Holliday MD is Attending Physician. pm1 15:55 Triage completed. iw 16:00 Shanti Hayden, KATHLEEN is Primary Nurse. jl7 16:00 Patient has correct armband on for positive identification. Bed in low position. Call ca1 light in reach. Side rails up X2. teletypesetter monitor on. Pulse ox on. NIBP on. Warm blanket given. 16:02 Arm band placed on right wrist. jl7 16:30 Assist provider with laceration repair on left hand that was between 2.6 to 7.5 cm jl7 using sutures. Set up tray. Performed by Romeo Hughes NP Patient tolerated well. 16:54 Patient did not have IV access during this emergency room visit. ca1 Administered Medications: 16:00 Drug: Tetanus-Diphtheria Toxoid Adult 0.5 ml {Lime Burner: [employer]. Exp: jl7 06/27/2021. Lot #: [id number]. } Route: IM; Site: left deltoid; 16:15 Follow up: Response: No adverse reaction jl7 16:30 Drug: Lidocaine (1 %) 5 ml {Note: administered by Romeo.ANATOLY.} Volume: 5 ml; Route: jl7 Infiltration; 17:00 Follow up: Response: No adverse reaction jl7 Outcome: 16:47 Discharge ordered by MD. pm1 19:19 Discharged to home jl7 19:19 Condition: stable 19:19 Discharge instructions given to patient, Instructed on discharge instructions, follow up and referral plans. medication usage, Demonstrated understanding of instructions, follow-up care, medications, Prescriptions given X 1. 19:19 Patient left the ED. jl7 Signatures: Garima Morrow RN RN iw Romeo Hughes NP [employer] FINISHER pm1 Shanti Hayden RN RN jl7 Megha Wright RN RN ca1 Kamini Marinelli ag5 Corrections: (The following items were deleted from the chart) 16:57 16:54 No provider procedures requiring assistance completed. ca1 jl7 19:19 19:19 Discharge instructions given to patient, Instructed on discharge instructions, jl7 follow up and referral plans. medication usage, Demonstrated understanding of instructions, follow-up care, medications, Prescriptions given X 2, jl7
[2019-09-15 19:27] VITALS: BP 119/76; O2SAT 97
== END 2019-09-15 19:19 | disposition home or self-care (01) ==
LOC: ER 15:42
PROC: 0JQK0ZZ Repair Left Hand Subcutaneous Tissue and Fascia, Open Approach (ICD-10-PCS; principal; 2019-09-15)
DX: S61.412A Laceration without foreign body of left hand, initial encounter (principal); W26.0XXA Contact with knife, initial encounter; Y93.89 Activity, other specified; Y92.9 Unspecified place or not applicable; Z23 Encounter for immunization
CPT/HCPCS: 90471; 90714; 99284

== ENCOUNTER 2019-09-25 03:40 | Emergency (ER) | payer SELFPAY ==
[2019-09-25] MEDS ORDERED: NA CHLORIDE 0.9% 1,000 ML ONE ×2 (03:54→06:31)
--- NOTE | 2019-09-25 04:46 | ER ---
Nurse's Notes [facility] Name: James Dupree Age: 44 yrs Sex: Male : 1975 Arrival Date: 09/25/2019 Time: 03:41 Bed 3 Private MD: Diagnosis: Poisoning by and adverse effect of heroin;Alcohol abuse with intoxication Presentation: 09/24 03:48 Chief complaint: EMS states: Reports they were called out by pt's friends for overdose ea of heroine and alcohol. EMS reported pt was having agonal respirations. 18 G to LAC initiated by EMS 3 mg of narcan administered, and pt was placed on non rebreather. EMS reports pt woke up and was A and O x 3. Coronavirus screen: Proceed with normal triage. Ebola Screen: No symptoms or risks identified at this time. Initial Sepsis Screen: Does the patient meet any 2 criteria? No. Patient's initial sepsis screen is negative. Does the patient have a suspected source of infection? No. Patient's initial sepsis screen is negative. Risk Assessment: Do you want to hurt yourself or someone else? Patient reports no desire to harm self or others. Onset of symptoms. 03:48 Method Of Arrival: EMS: [facility] ea 03:48 Acuity: DORETHA 3 ea Triage Assessment: 03:58 General: Appears slender, Behavior is cooperative. Pain: Denies pain. Neuro: Level of ea Consciousness is Groggy. Oriented to person, place, situation. Cardiovascular: Patient's skin is warm and dry. Respiratory: Airway is patent Respiratory effort is even, unlabored, Respiratory pattern is regular, symmetrical. Derm: Skin is pink, warm \T\ dry. Historical: - Allergies: 03:58 No Known Allergies; ea - PMHx: 03:58 Alcoholism; ea - PSHx: 03:58 None; ea - Immunization history:: Adult Immunizations up to date. - Family history:: not pertinent. - Social history:: Smoking status: unknown Patient uses alcohol. - Hospitalizations: : No recent hospitalization is reported. Screenin:56 Abuse screen: Denies threats or abuse. Nutritional screening: No deficits noted. ea Tuberculosis screening: No symptoms or risk factors identified. Fall Risk None identified. Assessment: 03:59 Reassessment: see triage assessment. ea 04:00 Reassessment: Pt resting with eyes closed, respirations even and unlabored, chest ea expansions even and symmetrical. No s/s of pain or discomfort noted at this time. 05:50 Reassessment: Pt resting with eyes closed, respirations even and symmetrical, no s/s of ea pain or discomfort noted at this time. Attempted to call Arun Pitt (friend) [phone] for ride home, will try again later. 06:25 Reassessment: Patient appears in no apparent distress at this time. Patient is alert, rr5 oriented x 3, equal unlabored respirations, skin warm/dry/pink. complaints of nausea, ED provider aware with order made and carried out. 07:15 Reassessment: Patient appears in no apparent distress at this time. Patient is alert, rr5 oriented x 3, equal unlabored respirations, skin warm/dry/pink. discharge instruction given and instruction without complaints made, assisted via wheelchair endorsed to arun (friend) Patient states feeling better. Patient states symptoms have improved. Vital Signs: 03:48 BP 136 / 97; Pulse 113; Resp 14; Temp 96.6; Pulse Ox 100% on R/A; Weight 74.84 kg; ea Height 5 ft. 8 in. (172.72 cm); 05:56 BP 154 / 58; Pulse 58; Resp 18; Pulse Ox 95% on R/A; ea 06:00 BP 137 / 65; Pulse 56; Resp 18; Temp 97; Pulse Ox 95% ; ea 06:33 BP 110 / 80; Pulse 105; Resp 19; Pulse Ox 99% ; rr5 03:48 Body Mass Index 25.09 (74.84 kg, 172.72 cm) ea ED Course: 03:41 Patient arrived in ED. rn 03:41 Dakota Holliday MD is Attending Physician. rn 03:55 Inserted saline lock: 18 gauge in right hand, using aseptic technique. Blood collected. rr5 03:56 Triage completed. ea 03:56 Arm band placed on right wrist. ea 03:57 Patient has correct armband on for positive identification. Bed in low position. Call ea light in reach. Side rails up X2. 04:06 Litzy Don, KATHLEEN is Primary Nurse. ea 06:09 No provider procedures requiring assistance completed. ea 06:55 IV discontinued, intact, bleeding controlled, No redness/swelling at site. Pressure ea dressing applied. Administered Medications: 03:52 Drug: NS 0.9% 1000 ml Route: IV; Rate: 1000 ml; Site: left antecubital; ea 07:15 Follow up: IV Status: Completed infusion; IV Intake: 1000ml ea 06:32 Drug: Zofran (Ondansetron) 4 mg Route: IVP; Site: left antecubital; rr5 07:00 Follow up: Response: No adverse reaction ea 06:33 Drug: NS 0.9% 1000 ml Route: IV; Rate: 1 bolus; Site: left antecubital; rr5 Intake: 07:15 IV: 1000ml; Total: 1000ml. ea Outcome: 04:45 Discharge ordered by . rn 07:12 Discharged to home via wheelchair. ea 07:12 Condition: stable 07:12 Discharge instructions given to patient, Instructed on discharge instructions, follow up and referral plans. Demonstrated understanding of instructions, follow-up care. 07:15 Patient left the ED. ea Signatures: Dakota Holliday MD MD rn Antunez, Elena, RN RN ea Roque, Raymond RN RN rr5 Corrections: (The following items were deleted from the chart) 06:16 05:50 Reassessment: Pt resting with eyes closed, respirations even and symmetrical, no ea s/s of pain or discomfort noted at this time. Attempted to call Arun Pitt (friend) for ride home, will try again later. ea
--- NOTE | 2019-09-25 04:46 | EDPHYS ---
Physician Documentation [facility] Name: James Dupree Age: 44 yrs Sex: Male : 1975 Arrival Date: 09/25/2019 Time: 03:41 Bed 3 Private MD: ED Physician Dakota Holliday HPI: 09/24 03:52 This 44 yrs old Male presents to ER via Unassigned with complaints of rn overdose. 03:52 The patient presents to the emergency department after a known overdose, a result of rn recreational substance abuse. Context: Method: it is confirmed or suspected that the patient injected a substance, heroin, Time: the patient's OD/poisoning occurred at an unknown time, Extent: Severity of symptoms: At their worst the symptoms were severe in the emergency department the symptoms have improved. The patient has not experienced similar symptoms in the past. Reports was with friends, they talked him into using heroin for the first time, friend called 911 because was unresponsive, given 3mg narcan and woke up, talking, no seizure. Denies other drugs. Admits to ETOH. Well known to this ER for ETOH use. Patient denies pain or trauma. Feels better. . Historical: - Allergies: 03:58 No Known Allergies; ea - PMHx: 03:58 Alcoholism; ea - PSHx: 03:58 None; ea - Immunization history:: Adult Immunizations up to date. - Family history:: not pertinent. - Social history:: Smoking status: unknown Patient uses alcohol. - Hospitalizations: : No recent hospitalization is reported. ROS: 03:52 Constitutional: Negative for fever, chills, and weight loss, Eyes: Negative for injury, rn pain, redness, and discharge, Neck: Negative for injury, pain, and swelling, Cardiovascular: Negative for chest pain, palpitations, and edema, Respiratory: Negative for shortness of breath, cough, wheezing, and pleuritic chest pain, Abdomen/GI: Negative for abdominal pain, vomiting, diarrhea, and constipation, MS/Extremity: Negative for injury and deformity, Skin: Negative for injury, rash, and discoloration, Neuro: Negative for headache, weakness, numbness, tingling, and seizure, Psych: Negative for suicide ideation, homicidal ideation, and hallucinations. Exam: 03:52 Constitutional: This is a well developed, well nourished patient who is awake, alert, rn and in no acute distress. Head/Face: Normocephalic, atraumatic. Eyes: Pupils equal round and reactive to light, extra-ocular motions intact. Lids and lashes normal. Conjunctiva and sclera are non-icteric and not injected. Cornea within normal limits. Periorbital areas with no swelling, redness, or edema. ENT: dry MM Cardiovascular: Tachycardic, regular Respiratory: Speaking full sentences. No increased work of breathing, no retractions or nasal flaring. Abdomen/GI: soft, non-tender MS/ Extremity: Pulses equal, no cyanosis. Neurovascular intact. Full, normal range of motion. Equal circumference. Neuro: Awake and alert, GCS 15, oriented to person, place, time, and situation. Cranial nerves II-XII grossly intact. Motor strength 5/5 in all extremities. Sensory grossly intact. Cerebellar exam normal. Vital Signs: 03:48 BP 136 / 97; Pulse 113; Resp 14; Temp 96.6; Pulse Ox 100% on R/A; Weight 74.84 kg; ea Height 5 ft. 8 in. (172.72 cm); 05:56 BP 154 / 58; Pulse 58; Resp 18; Pulse Ox 95% on R/A; ea 06:00 BP 137 / 65; Pulse 56; Resp 18; Temp 97; Pulse Ox 95% ; ea 06:33 BP 110 / 80; Pulse 105; Resp 19; Pulse Ox 99% ; rr5 03:48 Body Mass Index 25.09 (74.84 kg, 172.72 cm) ea MDM: 03:41 Patient medically screened. rn 04:43 Differential diagnosis: Ingestion/exposure to heroin. Data reviewed: vital signs, rn nurses notes, lab test result(s), EKG, and as a result, I will discharge patient. Counseling: I had a detailed discussion with the patient and/or guardian regarding: the historical points, exam findings, and any diagnostic results supporting the discharge/admit diagnosis, lab results, the need for outpatient follow up, to return to the emergency department if symptoms worsen or persist or if there are any questions or concerns that arise at home. Response to treatment: the patient's symptoms have markedly improved after treatment, the patient's condition has returned to base line, the patient is now symptom free, patient is well hydrated. and as a result, I will discharge patient. Special discussion: I discussed with the patient/guardian in detail that at this point there is no indication for admission to the hospital. It is understood, however, that if the symptoms persist or worsen the patient needs to return immediately for re-evaluation. ED course: Pt improved, awake and alert, improved vitals, + ETOH and heroin intoxication, will dc home with instructions to avoid drugs/ETOH.. 09/24 03:42 Order name: ETOH Level; Complete Time: 04:43 rn 09/24 03:58 Order name: Glucose, Ancillary Testing; Complete Time: 04:43 EDMS 09/24 03:42 Order name: IV Start; Complete Time: 03:52 rn 09/24 03:42 Order name: Glucose Level; Complete Time: 03:52 rn Administered Medications: 03:52 Drug: NS 0.9% 1000 ml Route: IV; Rate: 1000 ml; Site: left antecubital; ea 07:15 Follow up: IV Status: Completed infusion; IV Intake: 1000ml ea 06:32 Drug: Zofran (Ondansetron) 4 mg Route: IVP; Site: left antecubital; rr5 07:00 Follow up: Response: No adverse reaction ea 06:33 Drug: NS 0.9% 1000 ml Route: IV; Rate: 1 bolus; Site: left antecubital; rr5 Disposition: 09/25/19 04:45 Discharged to Home. Impression: Poisoning by and adverse effect of heroin, Alcohol abuse with intoxication. - Condition is Stable. - Discharge Instructions: Alcohol Intoxication, Drug Overdose. - Medication Reconciliation Form, Thank You Letter, Antibiotic Education, Prescription Opioid Use form. - Follow up: Private Physician; When: As needed; Reason: Recheck today's complaints, Re-evaluation by your physician. - Problem is new. - Symptoms have improved. Signatures: Dispatcher [employer] EDMS Dakota Holliday MD MD rn Antunez, Elena, RN RN ea Roque, Raymond, RN RN rr5 Corrections: (The following items were deleted from the chart) 03:55 03:52 Constitutional: Negative for fever, chills, and weight loss, Eyes: Negative for rn injury, pain, redness, and discharge, Neck: Negative for injury, pain, and swelling, Cardiovascular: Negative for chest pain, palpitations, and edema, Respiratory: Negative for shortness of breath, cough, wheezing, and pleuritic chest pain, Abdomen/GI: Negative for abdominal pain, vomiting, diarrhea, and constipation, MS/Extremity: Negative for injury and deformity, Skin: Negative for injury, rash, and discoloration, Neuro: Negative for headache, weakness, numbness, tingling, and seizure, Psych: Negative for depression, anxiety, suicide ideation, homicidal ideation, and hallucinations, rn 07:15 04:45 09/25/2019 04:45 Discharged to Home. Impression: Poisoning by and adverse effect ea of heroin; Alcohol abuse with intoxication. Condition is Stable. Discharge Instructions: Drug Overdose. Forms are Medication Reconciliation Form, Thank You Letter, Antibiotic Education, Prescription Opioid Use. Follow up: Private Physician; When: As needed; Reason: Recheck today's complaints, Re-evaluation by your physician. Problem is new. Symptoms have improved. rn
[2019-09-25] MEDS ORDERED: ONDANSETRON 4 MG/2 ML VIAL ONE (06:36)
[2019-09-25 07:25] VITALS: TEMP 97
[2019-09-25 07:26] VITALS: BP 110/80; O2SAT 99
--- NOTE | 2019-09-25 12:50 | EKG ---
Test Date: 2019-09-25 Test Time: 03:53:47 National Sales Manager: CASE MEASUREMENT RESULTS: Intervals: Rate: 107 SD: 162 QRSD: 90 QT: 334 QTc: 445 [place]: P: 76 SD: 162 QRS: 94 T: 60 INTERPRETIVE STATEMENTS: Sinus tachycardia Rightward axis Borderline ECG Compared to ECG 06/21/2014 03:13:54 Right-axis deviation now present Sinus rhythm no longer present Electronically Signed On 09-25-19 12:49:42 CDT by Henry Negron
--- NOTE | 2019-09-25 12:50 | EKG ---
Test Date: 2019-09-25 Test Time: 03:54:27 Bicycle Repairer: CASE MEASUREMENT RESULTS: Intervals: Rate: 111 NH: 162 QRSD: 84 QT: 332 QTc: 451 [place]: P: 62 NH: 162 QRS: 93 T: 55 INTERPRETIVE STATEMENTS: Sinus tachycardia Rightward axis Borderline ECG Compared to ECG 09/25/2019 03:53:47 No significant changes Electronically Signed On 09-25-19 12:49:41 CDT by Henry Negron
== END 2019-09-25 07:15 | disposition home or self-care (01) ==
LOC: ER 03:40
DX: T40.1X1A Poisoning by heroin, accidental (unintentional), initial encounter (principal); F10.129 Alcohol abuse with intoxication, unspecified; X58.XXXA Exposure to other specified factors, initial encounter
CPT/HCPCS: 36415; 80320; 82947; 93005; 96361; 96374; 99284; J2405; J7030

== ENCOUNTER 2019-09-25 13:57 | Emergency (ER) | payer SELFPAY ==
--- NOTE | 2019-09-25 14:15 | ER ---
Nurse's Notes [facility] Name: James Dupree Age: 44 yrs Sex: Male : 1975 Arrival Date: 09/25/2019 Time: 14:00 Bed 20 Private MD: Diagnosis: Anxiety disorder, unspecified Presentation: 09/24 14:10 Chief complaint: Patient states: Severe anxiety after using Heroin for the first time ss last night. Pt states, "I've been drinking for three days straight, and I don't know what was in that needle, but I can't sleep and my anxiety is all messed up." PT reports he was seen in ER last night and given a prescription, but did not get it filled.". Coronavirus screen: Patient denies a cough. Patient reports shortness of breath or difficulty breathing. Patient denies measured and/or subjective temperature greater than 100.4F prior to today's visit. Patient denies travel on a cruise ship or to a country the [facility] currently lists as an affected area. Patient denies contact with known and/or suspected case of COVID-19. Ebola Screen: Patient denies exposure to infectious person. Patient denies travel to an Ebola-affected area in the 21 days before illness onset. Initial Sepsis Screen: Does the patient meet any 2 criteria? No. Patient's initial sepsis screen is negative. Does the patient have a suspected source of infection? No. Patient's initial sepsis screen is negative. Risk Assessment: Do you want to hurt yourself or someone else? Patient reports no desire to harm self or others. Onset of symptoms was September 24, 2019. 14:10 Method Of Arrival: Ambulatory ss 14:10 Acuity: DORETHA 4 ss Historical: - Allergies: 14:14 No Known Allergies; ss - PMHx: 14:14 Alcoholism; ss - PSHx: 14:14 None; ss - Immunization history:: Adult Immunizations up to date. - Social history:: Smoking status: Patient denies any tobacco usage or history of. Patient uses alcohol, on a daily basis. IV drugs, heroin. Screenin:42 Abuse screen: Denies threats or abuse. Denies injuries from another. Nutritional ss screening: No deficits noted. Tuberculosis screening: Never had TB. Fall Risk None identified. Assessment: 14:03 General: Appears uncomfortable, Behavior is cooperative, anxious, restless, Denies ss fever, feeling ill, fatigue. Pain: Denies pain. Neuro: Level of Consciousness is awake, alert, obeys commands, Oriented to person, place, time, situation, Moves all extremities. Full function Gait is steady, Speech is normal, Facial symmetry appears normal, Pupils are PERRLA. Cardiovascular: Capillary refill < 3 seconds is brisk in bilateral fingers. Respiratory: Airway is patent Respiratory effort is even, unlabored, Respiratory pattern is regular, symmetrical. GI: Abdomen is non-distended. : No signs and/or symptoms were reported regarding the genitourinary system. EENT: Nares are clear Oral mucosa is moist. Derm: Skin is intact, is healthy with good turgor, Skin is dry, Skin is pink, warm \\T\\ dry. normal. Musculoskeletal: Circulation, motion, and sensation intact. Range of motion: intact in all extremities, Swelling absent. 14:42 Reassessment: Patient appears anxious, is shaking intermittently. Pt is up for ss discharge, but is attempting to get ahold of family or friend that he can go be with while he comes down from the drugs he took last night. Vital Signs: 14:10 BP 143 / 91; Pulse 103; Resp 19; Temp 97.8(TE); Pulse Ox 99% on R/A; Pain 0/10; ss 14:55 BP 129 / 75; Pulse 79; Resp 17; ss ED Course: 14:00 Patient arrived in ED. mr 14:01 Tomasz Hallman MD is Attending Physician. ps1 14:13 Triage completed. ss 14:14 Arm band placed on right wrist. ss 14:17 Mercedes Barboza, RN is Primary Nurse. 14:19 Patient has correct armband on for positive identification. Bed in low position. Call mh5 light in reach. Side rails up X 1. Pulse ox on. NIBP on. 14:41 No provider procedures requiring assistance completed. Patient did not have IV access ss during this emergency room visit. Administered Medications: 14:18 Drug: hydrOXYzine 50 mg Route: PO; ss 14:55 Follow up: Response: No adverse reaction; No adverse reaction, pt reports that anxiety ss has decreased minimally Outcome: 14:14 Discharge ordered by . ps1 14:41 Condition: stable ss 14:41 Discharge instructions given to patient, Instructed on discharge instructions, follow up and referral plans. Demonstrated understanding of instructions, follow-up care. 14:54 Discharged to home ambulatory. 14:55 Patient left the ED. Signatures: Josselyn Palm Shelby, RN RN Ambar Negrete [facility] Tomasz Hallman MD MD ps1 Harris, Amy, RN RN
--- NOTE | 2019-09-25 14:15 | EDPHYS ---
Physician Documentation [facility] Name: James Dupree Age: 44 yrs Sex: Male : 1975 Arrival Date: 09/25/2019 Time: 14:00 Bed 20 Private MD: ED Physician Tomasz Hallman HPI: 09/24 14:10 This 44 yrs old Male presents to ER via Unassigned with complaints of Anxiety.ps1 14:10 patient is a known alcoholic that used heroin last night. Was given narcan. Now anxious ps1 about situation. Currently staying in a hotel but now stating that he is not going to pay. Wants somewhere to stay to chill out. Stating he is anxious.. Historical: - Allergies: 14:14 No Known Allergies; ss - PMHx: 14:14 Alcoholism; ss - PSHx: 14:14 None; ss - Immunization history:: Adult Immunizations up to date. - Social history:: Smoking status: Patient denies any tobacco usage or history of. Patient uses alcohol, on a daily basis. IV drugs, heroin. ROS: 14:10 Constitutional: Negative for fever, chills, and weight loss, Eyes: Negative for injury, ps1 pain, redness, and discharge, Cardiovascular: Negative for chest pain, palpitations, and edema, Abdomen/GI: Negative for abdominal pain, nausea, vomiting, diarrhea, and constipation, MS/Extremity: Negative for injury and deformity. 14:10 Psych: Positive for anxiety. Exam: 14:10 Constitutional: This is a well developed, well nourished patient who is awake, alert, ps1 and in no acute distress. Head/Face: Normocephalic, atraumatic. ENT: Nares patent. No nasal discharge, no septal abnormalities noted. Tympanic membranes are normal and external auditory canals are clear. Oropharynx with no redness, swelling, or masses, exudates, or evidence of obstruction, uvula midline. Mucous membranes moist. 14:10 Chest/axilla: Inspection: normal. 14:10 Cardiovascular: Rate: normal. 14:10 Respiratory: Respirations: normal. 14:10 Musculoskeletal/extremity: ROM: no acute changes. 14:10 Skin: Appearance: normal. Several tattoos. . 14:10 Psych: Behavior/mood is anxious, no SI/HI. Vital Signs: 14:10 BP 143 / 91; Pulse 103; Resp 19; Temp 97.8(TE); Pulse Ox 99% on R/A; Pain 0/10; ss 14:55 BP 129 / 75; Pulse 79; Resp 17; ss MDM: 14:10 Data reviewed: vital signs, nurses notes, and as a result, I will discharge patient. ps1 Counseling: I had a detailed discussion with the patient and/or guardian regarding: the historical points, exam findings, and any diagnostic results supporting the discharge/admit diagnosis, to return to the emergency department if symptoms worsen or persist or if there are any questions or concerns that arise at home. 14:14 Patient medically screened. ps1 Administered Medications: 14:18 Drug: hydrOXYzine 50 mg Route: PO; ss 14:55 Follow up: Response: No adverse reaction; No adverse reaction, pt reports that anxiety ss has decreased minimally Disposition: 09/25/19 14:14 Discharged to Home. Impression: Anxiety disorder, unspecified. - Condition is Stable. - Discharge Instructions: Panic Attacks, [id number]. - Medication Reconciliation Form, Thank You Letter, Antibiotic Education, Prescription Opioid Use form. - Problem is new. - Symptoms are unchanged. Signatures: Elba Kong RN RN ss Tomasz Hallman MD MD ps1 Corrections: (The following items were deleted from the chart) 14:55 14:14 09/25/2019 14:14 Discharged to Home. Impression: Anxiety disorder, unspecified. ss Condition is Stable. Forms are Medication Reconciliation Form, Thank You Letter, Antibiotic Education, Prescription Opioid Use. Problem is new. Symptoms are unchanged. ps1
[2019-09-25] MEDS ORDERED: hydrOXYzine HCL 25 MG TAB ONE (14:22)
[2019-09-25 15:01] VITALS: TEMP 97.8; O2SAT 99
[2019-09-25 15:03] VITALS: BP 129/75
== END 2019-09-25 14:55 | disposition home or self-care (01) ==
LOC: ER 13:57
DX: F41.9 Anxiety disorder, unspecified (principal); F10.20 Alcohol dependence, uncomplicated
CPT/HCPCS: 99283

== ENCOUNTER 2020-01-12 04:03 | Emergency (ER) | payer SELFPAY ==
--- NOTE | 2020-01-12 06:32 | ER ---
Nurse's Notes [facility] Name: James Dupree Age: 44 yrs Sex: Male : 1975 Arrival Date: 01/12/2020 Time: 04:04 Bed 19 Private MD: Diagnosis: Acute upper respiratory infection, unspecified Presentation: 01/11 04:10 Chief complaint: EMS states: Pt just got home from [place] now having SOB, cough, wh scratchy throat and chest pain. Pt denies fever. Coronavirus screen: Client denies travel out of the [place] in the last 14 days. cough unrelated to allergies, shortness of breath, sore throat, Client presents with at least one sign or symptom that may indicate coronavirus-19. Standard/surgical mask placed on the client. Ebola Screen: Patient negative for fever greater than or equal to 101.5 degrees Fahrenheit, and additional compatible Ebola Virus Disease symptoms Patient denies exposure to infectious person. Initial Sepsis Screen: Does the patient meet any 2 criteria? No. Patient's initial sepsis screen is negative. Does the patient have a suspected source of infection? Yes: Productive cough/pneumonia. Risk Assessment: Do you want to hurt yourself or someone else? Patient reports no desire to harm self or others. Onset of symptoms was January 12, 2020. 04:10 Method Of Arrival: EMS: [facility] 04:10 Acuity: DORETHA 3 Historical: - Allergies: 04:33 No Known Allergies; - Home Meds: 04:33 None [Active]; - PMHx: 04:33 None; - PSHx: 04:33 None; - Immunization history:: Adult Immunizations up to date. - Social history:: Smoking status: Patient/guardian denies using Patient uses alcohol, occasionally. Screenin:34 Abuse screen: Denies threats or abuse. Denies injuries from another. Nutritional screening: No deficits noted. Tuberculosis screening: No symptoms or risk factors identified. Fall Risk None identified. Assessment: 04:33 General: Appears in no apparent distress. Behavior is calm, cooperative, appropriate for age. Pain: Complains of pain in chest Pain does not radiate. Pain currently is 4 out of 10 on a pain scale. Quality of pain is described as pressure, Pain began 1 day ago. Neuro: Level of Consciousness is awake, alert, obeys commands, Oriented to person, place, time, situation, Appropriate for age. Cardiovascular: Heart tones S1 S2 Rhythm is regular. Respiratory: Airway is patent Respiratory effort is even, unlabored, Respiratory pattern is regular, symmetrical, Breath sounds are clear bilaterally. Respiratory: Reports shortness of breath cough that is. GI: Abdomen is flat, non-distended. : No signs and/or symptoms were reported regarding the genitourinary system. EENT: No signs and/or symptoms were reported regarding the EENT system. Derm: Skin is intact, is healthy with good turgor, Skin is pink, warm \T\ dry. normal. Musculoskeletal: Circulation, motion, and sensation intact. 05:35 Reassessment: Patient appears in no apparent distress at this time. No changes from previously documented assessment. Patient and/or family updated on plan of care and expected duration. Pain level reassessed. Patient is alert, oriented x 3, equal unlabored respirations, skin warm/dry/pink. 06:40 Reassessment: Patient appears in no apparent distress at this time. No changes from previously documented assessment. Patient and/or family updated on plan of care and expected duration. Pain level reassessed. Patient is alert, oriented x 3, equal unlabored respirations, skin warm/dry/pink. Vital Signs: 04:10 BP 136 / 93; Pulse 73; Resp 18; Temp 98.5; Pulse Ox 100% ; Weight 72.57 kg; Height 5 wh ft. 9 in. (175.26 cm); 05:30 BP 131 / 93; Pulse 78; Resp 18; Pulse Ox 100% on R/A; wh 06:40 BP 132 / 95; Pulse 79; Resp 18; Pulse Ox 100% on R/A; wh 04:10 Body Mass Index 23.63 (72.57 kg, 175.26 cm) ED Course: 04:04 Patient arrived in ED. cl3 04:05 Nancy Sesay is Primary Nurse. wh 04:06 Deo Aceves MD is Attending Physician. tw4 04:32 Triage completed. wh 04:34 Arm band placed on right wrist. 04:35 Patient has correct armband on for positive identification. Bed in low position. Call light in reach. Side rails up X 1. Pulse ox on. NIBP on. 05:52 Chest Single View In Process Unspecified. EDMS 06:41 No provider procedures requiring assistance completed. Patient did not have IV access during this emergency room visit. Administered Medications: No medications were administered Outcome: 06:32 Discharge ordered by . glory4 06:42 Discharged to home ambulatory. 06:42 Condition: stable 06:42 Discharge instructions given to patient, Instructed on discharge instructions, follow up and referral plans. medication usage, POC Demonstrated understanding of instructions, follow-up care, medications, POC Prescriptions given X 1. 06:42 Patient left the ED. Addendum: 01/15/2020 15:37 Addendum: COVID-19 Result: Negative result given to RN to notify pt. Attempted to s s contact pt regarding negative COVID-19 swab results. Unable to leave voice mail due to the number provided was either not a working number, the voice mail has not been set up, or the voice mailbox is full.. Other: not a working number. Signatures: Dispatcher [facility] HospitalElba Fernandez RN RN ss Nancy Sesay Terrence, MD MD tw4 Gayle Chen cl3 Corrections: (The following items were deleted from the chart) 15:37 15:36 Addendum: COVID-19 Result: Negative result given to RN to notify pt. Notified pt ss of negative COVID 19 swab results. Pt advised that even with a negative test result they should remain in isolation until symptom free for 3 days without medication. Pt also advised to return to the ED for worsening symptoms. ss
--- NOTE | 2020-01-12 06:33 | EDPHYS ---
Physician Documentation [facility] Name: James Dupree Age: 44 yrs Sex: Male : 1975 Arrival Date: 01/12/2020 Time: 04:04 Bed 19 Private MD: ED Physician Deo Aceves HPI: 01/11 05:49 This 44 yrs old Male presents to ER via EMS with complaints of Covid+. tw4 05:49 The patient or guardian reports cough. Onset: The symptoms/episode began/occurred tw4 today. Severity of symptoms: At their worst the symptoms were moderate, in the emergency department the symptoms are unchanged. Modifying factors: The symptoms are alleviated by nothing, the symptoms are aggravated by nothing. The patient has not experienced similar symptoms in the past. Historical: - Allergies: 04:33 No Known Allergies; wh - Home Meds: 04:33 None [Active]; wh - PMHx: 04:33 None; wh - PSHx: 04:33 None; - Immunization history:: Adult Immunizations up to date. - Social history:: Smoking status: Patient/guardian denies using Patient uses alcohol, occasionally. ROS: 05:49 Constitutional: Negative for fever, chills, and weight loss, Eyes: Negative for injury, tw4 pain, redness, and discharge, Cardiovascular: Negative for chest pain, palpitations, and edema, Abdomen/GI: Negative for abdominal pain, nausea, vomiting, diarrhea, and constipation, Back: Negative for injury and pain, MS/Extremity: Negative for injury and deformity, Skin: Negative for injury, rash, and discoloration, Neuro: Negative for headache, weakness, numbness, tingling, and seizure. 05:49 Respiratory: Positive for cough, shortness of breath. Exam: 05:49 Constitutional: This is a well developed, well nourished patient who is awake, alert, tw4 and in no acute distress. Head/Face: Normocephalic, atraumatic. Chest/axilla: Normal chest wall appearance and motion. Nontender with no deformity. No lesions are appreciated. Cardiovascular: Regular rate and rhythm with a normal S1 and S2. No gallops, murmurs, or rubs. Normal PMI, no JVD. No pulse deficits. Abdomen/GI: Soft, non-tender, with normal bowel sounds. No distension or tympany. No guarding or rebound. No evidence of tenderness throughout. Back: No spinal tenderness. No costovertebral tenderness. Full range of motion. MS/ Extremity: Pulses equal, no cyanosis. Neurovascular intact. Full, normal range of motion. Neuro: Awake and alert, GCS 15, oriented to person, place, time, and situation. Cranial nerves II-XII grossly intact. Motor strength 5/5 in all extremities. Sensory grossly intact. Cerebellar exam normal. Normal gait. Vital Signs: 04:10 BP 136 / 93; Pulse 73; Resp 18; Temp 98.5; Pulse Ox 100% ; Weight 72.57 kg; Height 5 wh ft. 9 in. (175.26 cm); 05:30 BP 131 / 93; Pulse 78; Resp 18; Pulse Ox 100% on R/A; wh 06:40 BP 132 / 95; Pulse 79; Resp 18; Pulse Ox 100% on R/A; wh 04:10 Body Mass Index 23.63 (72.57 kg, 175.26 cm) MDM: 04:17 Patient medically screened. tw4 05:49 Differential Diagnosis: Obstructed Airway Bronchitis Influenza Upper Respiratory tw4 Infection Pharyngitis Otitis Media. Data reviewed: vital signs, nurses notes. Data interpreted: Pulse oximetry: Interpretation: normal. Counseling: I had a detailed discussion with the patient and/or guardian regarding: the historical points, exam findings, and any diagnostic results supporting the discharge/admit diagnosis, lab results. Special discussion: I discussed with the patient/guardian in detail that at this point there is no indication for admission to the hospital. It is understood, however, that if the symptoms persist or worsen the patient needs to return immediately for re-evaluation. 01/11 04:07 Order name: COVID-19 tw4 01/11 05:01 Order name: Influenza Screen (A ; Complete Time: 06:30 EDMS 01/11 05:01 Order name: Group A Streptococcus Rapid Sc; Complete Time: 06:30 EDMS 01/11 05:01 Order name: CORONAVIRUS EDMS 01/11 04:07 Order name: Document PUI#; Complete Time: 04:44 tw4 01/11 04:07 Order name: Droplet/Contact Precautions; Complete Time: 04:44 tw4 01/11 04:07 Order name: Labs collected and sent; Complete Time: 04:44 tw4 01/11 04:07 Order name: [facility] [id number]/ ; Complete Time: 04:44 tw4 01/11 04:07 Order name: O2 Per Protocol; Complete Time: 04:44 tw4 01/11 04:51 Order name: Chest Single View [facility] 01/11 06:21 Order name: Throat Culture [facility] 01/11 04:15 Order name: EKG - Nurse/Tech; Complete Time: 04:43 EC:49 Rate is 75 beats/min. Rhythm is regular. QRS [place] is Normal. [place] interval is normal. QRS tw4 interval is normal. QT interval is normal. No Q waves. T waves are Normal. No ST changes noted. Clinical impression: Normal ECG. Interpreted by me. Reviewed by me. Administered Medications: No medications were administered Disposition: 01/12/20 06:32 Discharged to Home. Impression: Acute upper respiratory infection, unspecified. - Condition is Stable. - Discharge Instructions: Viral Respiratory Infection, Cool Mist Vaporizer. - Prescriptions for Tessalon Perles 100 mg Oral Capsule - take 1 capsule by ORAL route every 8 hours As needed; 15 capsule. - Medication Reconciliation Form, Thank You Letter, Antibiotic Education, Prescription Opioid Use form. - Follow up: Private Physician; When: Upon discharge from the Emergency Department; Reason: Recheck today's complaints, Continuance of care, Re-evaluation by your physician. - Problem is new. - Symptoms have improved. Signatures: Dispatcher [employer] [facility] Nancy Sesay Deo Aceves MD MD tw4 Corrections: (The following items were deleted from the chart) 06:42 06:32 01/12/2020 06:32 Discharged to Home. Impression: Acute upper respiratory wh infection, unspecified. Condition is Stable. Forms are Medication Reconciliation Form, Thank You Letter, Antibiotic Education, Prescription Opioid Use. Follow up: Private Physician; When: Upon discharge from the Emergency Department; Reason: Recheck today's complaints, Continuance of care, Re-evaluation by your physician. Problem is new. Symptoms have improved. tw4
[2020-01-12 06:48] VITALS: TEMP 98.5; O2SAT 100
[2020-01-12 06:51] VITALS: BP 132/95
--- NOTE | 2020-01-12 08:19 | RAD REPORT ---
EXAM DESCRIPTION: [place] Single View01/12/2020 5:52 am CLINICAL HISTORY: Chest pain COMPARISON: 2008 FINDINGS: The lungs appear clear of acute infiltrate. The heart is normal size IMPRESSION: No acute abnormalities displayed
== END 2020-01-12 06:42 | disposition home or self-care (01) ==
LOC: ER 04:03
DX: J06.9 Acute upper respiratory infection, unspecified (principal); Z20.828 Contact with and (suspected) exposure to other viral communicable diseases
CPT/HCPCS: 71045; 87070; 87081; 87804; 93005; 99284; U0001

== ENCOUNTER 2020-02-16 14:30 | Emergency (ER) | payer SELFPAY ==
[2020-02-16] MEDS ORDERED: DIAZEPAM 5 MG TABLET ONE (15:11)
[2020-02-16 15:14] LABS: Barbiturates NEGATIVE (NEGATIVE); Benzodiazepines NEGATIVE (NEGATIVE); Cocaine NEGATIVE (NEGATIVE); METHAMPHETAM NEGATIVE (NEGATIVE); Methadone NEGATIVE (NEGATIVE); Opiates NEGATIVE (NEGATIVE); Phencyclidine NEGATIVE (NEGATIVE); THC Cannibis POSITIVE (NEGATIVE)
--- NOTE | 2020-02-16 15:29 | EDPHYS ---
Physician Documentation [facility] Name: James Dupree Age: 44 yrs Sex: Male : 1975 Arrival Date: 02/16/2020 Time: 14:32 Bed 8 Private MD: ED Physician Vanessa Allred HPI: 02/15 15:02 This 44 yrs old Male presents to ER via EMS with complaints of Chest Pain, snw Drug Abuse. 15:02 Onset: The symptoms/episode began/occurred suddenly. Associated signs and symptoms: snw Pertinent positives: chest pain. Modifying factors: The patient symptoms are alleviated by nothing, the patient symptoms are aggravated by stimulation. The patient has experienced similar episodes in the past, multiple times. It is unknown whether or not the patient has recently seen a physician. pt states he usually just drinks too much ETOH, last night after a 4 day binge, pt used meth. Pt c/o chest pain, anxiety, insomnia.. Historical: - Allergies: 14:32 No Known Allergies; aa5 - PMHx: 14:32 Alcoholism; Seizures; aa5 - PSHx: 14:32 None; aa5 - Immunization history:: Adult Immunizations. - Social history:: Smoking status: Patient denies any tobacco usage or history of. Patient uses alcohol, on a daily basis. claims drinking about a 6 pack/day. street drugs, marijuana, Methamphetamine (Meth). ROS: 15:02 Eyes: Negative for injury, pain, redness, and discharge, ENT: Negative for injury, snw pain, and discharge, Neck: Negative for injury, pain, and swelling. 15:02 Respiratory: Negative for shortness of breath, cough, wheezing, and pleuritic chest pain, Abdomen/GI: Negative for abdominal pain, nausea, vomiting, diarrhea, and constipation, Back: Negative for injury and pain, : Negative for injury, bleeding, discharge, and swelling, MS/Extremity: Negative for injury and deformity, Skin: Negative for injury, rash, and discoloration, Neuro: Negative for headache, weakness, numbness, tingling, and seizure. 15:02 Constitutional: Positive for body aches. 15:02 Cardiovascular: Positive for chest pain, of the chest. 15:02 Psych: Positive for anxiety, drug dependence, alcohol dependence. Exam: 15:00 Head/Face: Normocephalic, atraumatic. Eyes: Pupils equal round and reactive to light, snw extra-ocular motions intact. Lids and lashes normal. Conjunctiva and sclera are non-icteric and not injected. Cornea within normal limits. Periorbital areas with no swelling, redness, or edema. ENT: Nares patent. No nasal discharge, no septal abnormalities noted. Tympanic membranes are normal and external auditory canals are clear. Oropharynx with no redness, swelling, or masses, exudates, or evidence of obstruction, uvula midline. Mucous membranes moist. Neck: Trachea midline, no thyromegaly or masses palpated, and no cervical lymphadenopathy. Supple, full range of motion without nuchal rigidity, or vertebral point tenderness. No Meningismus. Chest/axilla: Normal chest wall appearance and motion. Nontender with no deformity. No lesions are appreciated. 15:00 Respiratory: Lungs have equal breath sounds bilaterally, clear to auscultation and percussion. No rales, rhonchi or wheezes noted. No increased work of breathing, no retractions or nasal flaring. Abdomen/GI: Soft, non-tender, with normal bowel sounds. No distension or tympany. No guarding or rebound. No evidence of tenderness throughout. Back: No spinal tenderness. No costovertebral tenderness. Full range of motion. Skin: Warm, dry with normal turgor. Normal color with no rashes, no lesions, and no evidence of cellulitis. MS/ Extremity: Pulses equal, no cyanosis. Neurovascular intact. Full, normal range of motion. Neuro: Awake and alert, GCS 15, oriented to person, place, time, and situation. Cranial nerves II-XII grossly intact. Motor strength 5/5 in all extremities. Sensory grossly intact. Cerebellar exam normal. Normal gait. 15:00 Constitutional: The patient appears alert, awake, anxious. 15:00 Cardiovascular: Rate: tachycardic, Rhythm: regular, Pulses: no pulse deficits are appreciated. 15:00 Psych: Behavior/mood is anxious, remorseful. Affect is calm, Oriented to person, place, time. Vital Signs: 14:32 BP 141 / 86; Pulse 100; Resp 28 S; Temp 97.9(O); Pulse Ox 100% on R/A; aa5 15:22 BP 138 / 91; Pulse 77; Resp 22 S; Pulse Ox 100% on R/A; ca1 MDM: 14:41 Patient medically screened. snw 15:04 Response to treatment: the patient's symptoms have mildly improved after treatment. snw Special discussion: Based on the patient's history, exam, and Dx evaluation, there is no indication for emergent intervention or inpatient Tx. It is understood by the patient/guardian that if the Sx's persist or worsen they need to return immediately for re-evaluation. I have referred the patient to see his PCP for further evaluation of high blood pressure. Based on the history and exam findings, there is no indication for further emergent testing or inpatient evaluation. I discussed with the patient/guardian the need to see the primary care provider for further evaluation of the symptoms. I discussed with the patient/guardian the need to see the psychiatrist for further evaluation of the symptoms. ED course: pt states he is going back to rehab. 15:29 Data reviewed: vital signs, nurses notes. Data interpreted: Pulse oximetry: on room air snw is 100 %. Interpretation: normal. 02/15 14:38 Order name: Troponin I; Complete Time: 15:26 snw 02/15 14:38 Order name: UDS; Complete Time: 15:14 snw 02/15 14:38 Order name: EKG; Complete Time: 14:38 snw 02/15 14:38 Order name: EKG - Nurse/Tech; Complete Time: 14:46 snw EC:12 Rate is 73 beats/min. Rhythm is regular. [place] interval is normal. QRS interval is normal. snw Clinical impression: NSR w/ Non-specific ST/T Changes. Administered Medications: 14:56 Drug: Valium 10 mg Route: PO; ca1 15:47 Follow up: Response: No adverse reaction; Anxiety decreased ca1 Disposition: 16:23 Co-signature as Attending Physician, Vanessa Allred MD. ma2 Disposition: 02/16/20 15:28 Discharged to Home. Impression: Alcohol abuse, Adverse effect of other psychostimulants - amphetamines. - Condition is Stable. - Discharge Instructions: Nonspecific Chest Pain, Self-Destructive Behavior, Generalized Anxiety Disorder. - Medication Reconciliation Form, Thank You Letter, Antibiotic Education, Prescription Opioid Use form. - Follow up: Emergency Department; When: As needed; Reason: Worsening of condition. Follow up: Private Physician; When: 2 - 3 days; Reason: Recheck today's complaints, Continuance of care, Re-evaluation by your physician. Signatures: Dispatcher [employer] Criss Shah, [facility]OG[facility] NURSE-[facility] Teresita Hoffman, RN RN aa5 Vanessa Allred MD MD ma2 Megha Wright RN RN ca1 Corrections: (The following items were deleted from the chart) 15:56 15:28 02/16/2020 15:28 Discharged to Home. Impression: Alcohol abuse; Adverse effect of ca1 other psychostimulants - amphetamines. Condition is Stable. Discharge Instructions: Nonspecific Chest Pain, Self-Destructive Behavior, Generalized Anxiety Disorder. Forms are Medication Reconciliation Form, Thank You Letter, Antibiotic Education, Prescription Opioid Use. Follow up: Emergency Department; When: As needed; Reason: Worsening of condition. Follow up: Private Physician; When: 2 - 3 days; Reason: Recheck today's complaints, Continuance of care, Re-evaluation by your physician. snw
--- NOTE | 2020-02-16 15:29 | ER ---
Nurse's Notes [facility] Name: James Dupree Age: 44 yrs Sex: Male : 1975 Arrival Date: 02/16/2020 Time: 14:32 Bed 8 Private MD: Diagnosis: Alcohol abuse;Adverse effect of other psychostimulants-amphetamines Presentation: 02/15 14:32 Chief complaint: Patient states: "I was drinking last night and did some aa5 methamphetamines and now I am feeling very dizzy and nauseated and I just don't feel good". Pt restless and anxious during triage. Pt c/o chest pressure. 14:32 Coronavirus screen: Client denies travel out of the [place] in the last 14 days. At this aa5 time, the client does not indicate any symptoms associated with coronavirus-19. The client reports previous COVID testing was negative. Ebola Screen: Patient negative for fever greater than or equal to 101.5 degrees Fahrenheit, and additional compatible Ebola Virus Disease symptoms. Initial Sepsis Screen: Does the patient meet any 2 criteria? No. Patient's initial sepsis screen is negative. Does the patient have a suspected source of infection? No. Patient's initial sepsis screen is negative. Risk Assessment: Do you want to hurt yourself or someone else? Patient reports no desire to harm self or others. Onset of symptoms was February 16, 2020. 14:32 Acuity: DORETHA 3 aa5 14:32 Method Of Arrival: EMS: [facility] aa5 Historical: - Allergies: 14:32 No Known Allergies; aa5 - PMHx: 14:32 Alcoholism; Seizures; aa5 - PSHx: 14:32 None; aa5 - Immunization history:: Adult Immunizations. - Social history:: Smoking status: Patient denies any tobacco usage or history of. Patient uses alcohol, on a daily basis. claims drinking about a 6 pack/day. street drugs, marijuana, Methamphetamine (Meth). Screenin:19 Abuse screen: Denies threats or abuse. Denies injuries from another. Nutritional ca1 screening: No deficits noted. Tuberculosis screening: No symptoms or risk factors identified. Fall Risk IV access (20 points). Assessment: 15:19 General: Appears in no apparent distress. comfortable, Behavior is cooperative, ca1 anxious, fussy. Pain: Complains of pain in chest Pain does not radiate. Pain began. Neuro: Level of Consciousness is awake, alert, obeys commands, Oriented to person, place, time, situation, Appropriate for age. Cardiovascular: Heart tones S1 S2 present Capillary refill < 3 seconds Patient's skin is warm and dry. Rhythm is sinus rhythm. Respiratory: Airway is patent Trachea midline Respiratory effort is even, unlabored, Respiratory pattern is regular, symmetrical. GI: Abdomen is flat, non-distended, Bowel sounds present X 4 quads. Abd is soft and non tender X 4 quads. : No signs and/or symptoms were reported regarding the genitourinary system. EENT: No signs and/or symptoms were reported regarding the EENT system. Derm: Skin is intact, is healthy with good turgor, Skin is pink, warm \\T\\ dry. Musculoskeletal: Circulation, motion, and sensation intact. Capillary refill < 3 seconds. 15:45 General: Behavior is calm, cooperative, appropriate for age. ca1 15:46 Reassessment: Patient appears in no apparent distress at this time. Patient is alert, ca1 oriented x 3, equal unlabored respirations, skin warm/dry/pink. Vital Signs: 14:32 BP 141 / 86; Pulse 100; Resp 28 S; Temp 97.9(O); Pulse Ox 100% on R/A; aa5 15:22 BP 138 / 91; Pulse 77; Resp 22 S; Pulse Ox 100% on R/A; ca1 ED Course: 14:32 Patient arrived in ED. ca1 14:32 Arm band placed on. aa5 14:35 [facility]C [facility]. snw 14:36 Vanessa Allred MD is Attending Physician. snw 14:42 Megha Wright, KATHLEEN is Primary Nurse. ca1 14:48 Patient has correct armband on for positive identification. Bed in low position. Call 5 light in reach. Side rails up X2. Warm blanket given. classroom monitor on. Pulse ox on. NIBP on. 14:48 EKG done, by ED staff, reviewed by Criss GRIJALVA. Inserted saline lock: 20 gauge mh5 in right upper arm, using aseptic technique. 14:50 Triage completed. aa5 14:56 UDS Sent. mh5 14:56 Troponin I Sent. mh5 15:19 Patient maintains SpO2 saturation greater than 95% on room air. ca1 15:54 No provider procedures requiring assistance completed. IV discontinued, intact, ca1 bleeding controlled, No redness/swelling at site. Pressure dressing applied. Administered Medications: 14:56 Drug: Valium 10 mg Route: PO; ca1 15:47 Follow up: Response: No adverse reaction; Anxiety decreased ca1 Outcome: 15:28 Discharge ordered by . mallika 15:54 Discharged to home ambulatory. ca1 15:54 Condition: stable 15:54 Discharge instructions given to patient, Instructed on discharge instructions, follow up and referral plans. Demonstrated understanding of instructions, follow-up care. 15:56 Patient left the ED. ca1 Signatures: Criss Carey, MIDDLEWARE DEVELOPER-C MIDDLEWARE DEVELOPER-Csnw Teresita Hoffman, KATHLEEN RN Ambar Rocha [facility] Megha Wright RN RN ca1
[2020-02-17 13:26] VITALS: TEMP 97.9; O2SAT 100
[2020-02-17 13:27] VITALS: BP 138/91
--- NOTE | 2020-02-18 20:04 | EKG ---
Test Date: 2020-02-16 Test Time: 14:34:03 Pump And Still Operator: ANI MEASUREMENT RESULTS: Intervals: Rate: 73 PA: 154 QRSD: 88 QT: 388 QTc: 427 [place]: P: 55 PA: 154 QRS: 99 T: 76 INTERPRETIVE STATEMENTS: Sinus rhythm with premature supraventricular complexes Rightward axis Borderline ECG Compared to ECG 01/12/2020 04:09:12 Atrial premature complex(es) now present Right-axis deviation now present Electronically Signed On 02-18-20 19:59:44 CDT by Henry Negron
== END 2020-02-16 15:56 | disposition home or self-care (01) ==
LOC: ER 14:30
DX: F10.20 Alcohol dependence, uncomplicated (principal); T43.625A Adverse effect of amphetamines, initial encounter
CPT/HCPCS: 36415; 80307; 84484; 93005; 99285

== ENCOUNTER 2020-08-27 12:10 | Emergency (ER) | payer SELFPAY ==
--- OUTSIDE RECORDS SUMMARY | 2020-08-27 12:13 | XMS REPORT | Continuity of Care Document ---
:1975 Author Organization [facility] t Address [address] [place] [address] Care Team Providers Name Role Phone Quinn REYES W Attending Clinician Problems This patient has no known problems. Allergies, Adverse Reactions, Alerts This patient has no known allergies or adverse reactions. Medications This patient has no known medications. Procedures This patient has no known procedures. Encounters Start End Encounter Admission Attending Care Care Encounter Source Date/Time Date/Time Type Type Clinicians Facility Department ID 2020-07-09 2020-07-10 Emergency Romeo Ball [facility] [id number] 23:44:00 06:08:00 Patricia Doe [id number] [place] [id number] [place] [id number] Results This patient has no known results.
[2020-08-27 12:58] LABS: Absolute Lymphocytes (CBC) 0.8 K/uL (0.7-4.9); Basophils % 0.3 % (0-1.3); Hematocrit 42.5 % (39.6-49.0); Lymphocytes % 11.7 % (15.3-44.8); MPV 7.8 fL (7.6-11.3); RBC Red Blood Cell Count 4.22 M/uL (4.33-5.43)
[2020-08-27 13:13] LABS: Protime INR 1.03
--- NOTE | 2020-08-27 13:17 | RAD REPORT ---
EXAM DESCRIPTION: RAD - Chest Single View - 08/27/2020 1:00 pm CLINICAL HISTORY: CHEST PAIN, left side COMPARISON: Portable January 2020 TECHNIQUE: AP portable chest image was obtained 08/27/2020 1:00 pm . FINDINGS: No focal lung parenchymal process. Interstitial pattern matches comparison. Heart and vasc ulature are normal. No measurable pleural effusion and no pneumothorax. No acute bony abnormality see n. No acute aortic findings suspected. IMPRESSION: No acute cardiopulmonary process. No significant change from comparison study.
[2020-08-27] MEDS ORDERED: NA CHLORIDE 0.9% 1,000 ML ONE (13:23)
[2020-08-27] MEDS ORDERED: FOLIC ACID 1 MG, THIAMINE HCL 100 MG, MULTIVITAMINS INJ 10 ML in NA CHLORIDE 0.9% 1,000 ML IV ONE (13:30)
[2020-08-27] MEDS ORDERED: LORazepam 2 MG/ML VIAL ONE ×2 (13:32→16:14)
[2020-08-27] MEDS ORDERED: DIPHENHYDRAMINE 50 MG/ML VIAL ONE (16:43)
[2020-08-27] MEDS ORDERED: HALOPERIDOL LACT 5 MG/ML INJ ONE (16:43)
[2020-08-27 18:47] LABS: Barbiturates NEGATIVE (NEGATIVE); Benzodiazepines NEGATIVE (NEGATIVE); Cocaine NEGATIVE (NEGATIVE); METHAMPHETAM POSITIVE (NEGATIVE); Methadone NEGATIVE (NEGATIVE); Opiates NEGATIVE (NEGATIVE); Phencyclidine NEGATIVE (NEGATIVE); THC Cannibis NEGATIVE (NEGATIVE)
[2020-08-27 19:01] LABS: ALT/SGPT 36 U/L (12-78); AST/SGOT 55 U/L (15-37); BUN Blood Urea Nitrogen 9 mg/dL (7-18); Bicarbonate 25 mmol/L (21-32); Bilirubin Direct 0.6 mg/dL (0-0.2); Bilirubin Total 2.1 mg/dL (0.2-1.0); Glucose Level 79 mg/dL (74-106); Magnesium 1.9 mg/dL (1.8-2.4); NT PRO-BNP 14 pg/mL (<125); Potassium 3.9 mmol/L (3.5-5.1); Sodium Level 137 mmol/L (136-145); Troponin (Emerg Dept Use Only) < 0.02 ng/mL (0.0-0.045)
[2020-08-27 19:02] LABS: Alkaline Phosphatase ND U/L (45-117)
--- NOTE | 2020-08-27 20:39 | ER ---
Nurse's Notes [facility] Name: James Dupree Age: 44 yrs Sex: Male : 1975 Arrival Date: 08/27/2020 Time: 12:13 Bed 17 Private MD: Diagnosis: Drug abuse counseling and surveillance;Hallucinations, unspecified Presentation: 08/27 12:13 Chief complaint: EMS states: Pt c/o Left lateral chest pain that began today, pain does vg1 not radiate. Coronavirus screen: Client denies travel out of the [place] in the last 14 days. Ebola Screen: Patient negative for fever greater than or equal to 101.5 degrees Fahrenheit, and additional compatible Ebola Virus Disease symptoms. Initial Sepsis Screen: Does the patient meet any 2 criteria? No. Patient's initial sepsis screen is negative. Does the patient have a suspected source of infection? No. Patient's initial sepsis screen is negative. Risk Assessment: Do you want to hurt yourself or someone else? Patient reports no desire to harm self or others. Onset of symptoms was August 27, 2020. 12:13 Method Of Arrival: EMS: [facility] vg1 12:13 Acuity: DORETHA 2 vg1 Historical: - Allergies: 12:15 No Known Allergies; vg1 - PMHx: 12:15 Alcoholism; Seizures; vg1 - Immunization history:: Adult Immunizations up to date. - Social history:: Smoking status: Patient denies any tobacco usage or history of. Patient uses alcohol, on a daily basis. street drugs, Methamphetamine (Meth). Screenin:18 Abuse screen: Denies threats or abuse. Nutritional screening: No deficits noted. vg1 Tuberculosis screening: No symptoms or risk factors identified. Fall Risk No fall in past 12 months (0 pts). No secondary diagnosis (0 pts). IV access (20 points). Ambulatory Aid- None/Bed Rest/Nurse Assist (0 pts). Gait- Normal/Bed Rest/Wheelchair (0 pts) Mental Status- Oriented to own ability (0 pts). Total Lopez Fall Scale indicates No Risk (0-24 pts). Assessment: 12:16 General: Appears in no apparent distress. uncomfortable, Behavior is agitated, anxious. vg1 Pain: Complains of pain in left lateral anterior chest Pain does not radiate. Pain currently is 7 out of 10 on a pain scale. Quality of pain is described as sharp, Pain began 1 hour ago. Neuro: Level of Consciousness is awake, alert, obeys commands, Oriented to person, place, time, situation. Cardiovascular: Patient's skin is warm and dry. Chest pain quality is sharp. Respiratory: Airway is patent Respiratory effort is even, unlabored, Respiratory pattern is regular, symmetrical. GI: Pt is actively vomiting Reports nausea. : No signs and/or symptoms were reported regarding the genitourinary system. EENT: No signs and/or symptoms were reported regarding the EENT system. Derm: Skin is intact, Skin is pink, warm \T\ dry. Musculoskeletal: Circulation, motion, and sensation intact. 13:44 Reassessment: Patient appears in no apparent distress at this time. No changes from 1 previously documented assessment. Patient and/or family updated on plan of care and expected duration. Pain level reassessed. Patient is alert, oriented x 3, equal unlabored respirations, skin warm/dry/pink. 14:10 Reassessment: Pt is having visual hallucinations. Stated there is another woman in the vg1 room; there is no other person in the room at the time. Pt denies SI, HI. Provider notified. 14:51 Reassessment: Patient appears in no apparent distress at this time. Patient and/or vg1 family updated on plan of care and expected duration. Pain level reassessed. Patient is alert, oriented x 3, equal unlabored respirations, skin warm/dry/pink. Denies Chest pain but stated that chest feels sore. 15:55 Reassessment: pt with visual hallucinations, getting out of bed, thinks there is a man iw coming through the window, pt appears agitated despite verbal reassurance, LAUREEN Ruiz notified, verbal order for Ativan 2 mg IVP given now. 16:16 Reassessment: pt still agitated, out of bed, sees people trying to come through window, iw LAUREEN Ruiz at bedside to assess pt. 16:34 Reassessment: new orders given per MAR, security at bedside to watch pt. Pt appears iw drowsy, fighting sleep. 16:40 Reassessment: pt sleeping, respirations even and unlabored, VSS, still tachycardic. iw 17:09 Reassessment: Reassessment: pt remains sleeping, respirations even and unlabored, VSS. iw 18:26 Reassessment: straight cath urine collected, attempt X 2, UDS sent to lab , pt iw tolerated fairly , pt sleeping after procedure. Vital Signs: 12:13 BP 129 / 86; Pulse 125; Resp 22; Temp 98.2; Pulse Ox 100% on R/A; Weight 72.57 kg; vg1 Height 5 ft. 9 in. (175.26 cm); Pain 7/10; 13:45 BP 138 / 86; Pulse 120; Resp 20; Pulse Ox 100% on R/A; vg1 14:52 BP 133 / 92; Pulse 108; Resp 18; Pulse Ox 100% on R/A; vg1 16:38 BP 129 / 81; Pulse 113; Resp 16; Pulse Ox 100% on R/A; iw 17:08 BP 118 / 78; Pulse 106; Resp 18 S; Pulse Ox 97% on R/A; iw 17:35 BP 118 / 78; Pulse 103; Resp 16 S; Pulse Ox 99% on R/A; iw 18:24 BP 115 / 71; Pulse 106; Resp 16; Pulse Ox 99% on R/A; iw 12:13 Body Mass Index 23.63 (72.57 kg, 175.26 cm) vg1 ED Course: 12:13 Patient arrived in ED. vg1 12:15 Triage completed. vg1 12:18 Patient has correct armband on for positive identification. Bed in low position. Call vg1 light in reach. Side rails up X 1. 12:18 school lunch monitor on. Pulse ox on. NIBP on. vg1 12:18 Patient maintains SpO2 saturation greater than 95% on room air. vg1 12:32 Blanca Lovell, RN is Primary Nurse. vg1 12:32 Joseph Ruby PA is PHCP. jr8 12:32 Deo Aceves MD is Attending Physician. jr8 12:35 Inserted saline lock: 22 gauge in left forearm, using aseptic technique. Blood kj1 collected. 12:42 Lab(s) recollected, by ED staff, sent to lab. kj1 13:00 XRAY Chest (1 view) In Process Unspecified. EDMS 13:51 Lab(s) recollected, by me, sent to lab. vg1 15:00 Arm band placed on. iw 18:25 Primary Nurse role handed off by Blanca Lovell, KATHLEEN iw 18:25 Garima Morrow, RN is Primary Nurse. iw 18:25 UDS Sent. iw 21:35 No provider procedures requiring assistance completed. IV discontinued, intact, em bleeding controlled, No redness/swelling at site. Pressure dressing applied. Administered Medications: 13:12 Drug: NS 0.9% 1000 ml Route: IV; Rate: 1000 ml; Site: left wrist; vg1 13:43 Drug: Ativan 1 mg Route: IVP; Site: left wrist; vg1 16:00 Follow up: Response: No adverse reaction iw 14:04 Drug: Banana Bag - (NS 0.9% 1000 ml, foLIC Acid 1 mg, Thiamine 100 mg, Multivitamin 1 vg1 amp) Route: IV; Rate: 500 ml/hr; Site: left wrist; 16:00 Drug: Ativan 2 mg Route: IVP; Site: left wrist; iw 18:01 Follow up: Response: No adverse reaction iw 16:31 Drug: HALdol 5 mg Route: IVP; Site: left forearm; iw 18:01 Follow up: Response: No adverse reaction iw 16:31 Drug: Benadryl 25 mg Route: IVP; Site: left forearm; iw 18:01 Follow up: Response: No adverse reaction Outcome: 20:39 Discharge ordered by MD. croft 21:35 Discharged to home ambulatory. em 21:35 Condition: improved 21:35 Discharge instructions given to patient, Instructed on discharge instructions, follow up and referral plans. Demonstrated understanding of instructions, follow-up care. 21:36 Patient left the ED. em Signatures: Dispatcher [employer] Arnulfo Alvarez RN RN em Garima Morrow RN RN Joseph Ruby PA PA jr8 Jackson, Kandis kj1 Blanca Lovell, KATHLEEN RN vg1 Corrections: (The following items were deleted from the chart) 12:32 12:13 Acuity: DORETHA 3 vg1 vg1 14:15 14:10 Reassessment: Pt is having visual hallucinations. Provider notified. vg1 vg1 16:39 16:38 Pulse 113bpm; Resp 16bpm; Pulse Ox 100% RA; iw iw 18:24 17:09 Reassessment: iw iw 18 18:24 BP 115 / 7; iw iw
--- NOTE | 2020-08-27 20:39 | EDPHYS ---
Physician Documentation [facility] Name: James Dupree Age: 44 yrs Sex: Male : 1975 Arrival Date: 08/27/2020 Time: 12:13 Bed 17 Private MD: ED Physician Deo Aceves HPI: 08/27 20:37 This 44 yrs old Male presents to ER via EMS with complaints of Chest Pain. jr8 13:05 Associated signs and symptoms: Pertinent positives: chest pain, Anxiety. Patient guerda reports drinking for 5 days straight and did meth yesterday. He now has CP, anxiety, and cant stop moving. . Historical: - Allergies: 12:15 No Known Allergies; vg1 - PMHx: 12:15 Alcoholism; Seizures; vg1 - Immunization history:: Adult Immunizations up to date. - Social history:: Smoking status: Patient denies any tobacco usage or history of. Patient uses alcohol, on a daily basis. street drugs, Methamphetamine (Meth). ROS: 13:08 Constitutional: Positive for Anxiety. jr8 13:08 Cardiovascular: Positive for chest pain, with movement, palpitations. 13:08 Respiratory: Positive for shortness of breath. 13:08 Neuro: Positive for Anxiety. 20:37 All other systems are negative. jr8 Exam: 13:09 Abdomen/GI: Soft, non-tender, with normal bowel sounds. No distension or tympany. No jr8 guarding or rebound. No evidence of tenderness throughout. Skin: Warm, dry with normal turgor. Normal color with no rashes, no lesions, and no evidence of cellulitis. 13:09 Constitutional: The patient appears diaphoretic, smells of alcohol, restless. 13:09 Cardiovascular: Rate: tachycardic, actual rate is 127 bpm, Rhythm: regular. 13:09 Neuro: Orientation: is normal, Mentation: is normal, Memory: is normal. 13:09 Psych: Behavior/mood is anxious. 20:37 Eyes: Pupils equal round and reactive to light, extra-ocular motions intact. Lids and jr8 lashes normal. Conjunctiva and sclera are non-icteric and not injected. Cornea within normal limits. Periorbital areas with no swelling, redness, or edema. ENT: Nares patent. No nasal discharge, no septal abnormalities noted. Tympanic membranes are normal and external auditory canals are clear. Oropharynx with no redness, swelling, or masses, exudates, or evidence of obstruction, uvula midline. Mucous membranes moist. Neck: Trachea midline, no thyromegaly or masses palpated, and no cervical lymphadenopathy. Supple, full range of motion without nuchal rigidity, or vertebral point tenderness. No Meningismus. Vital Signs: 12:13 BP 129 / 86; Pulse 125; Resp 22; Temp 98.2; Pulse Ox 100% on R/A; Weight 72.57 kg; vg1 Height 5 ft. 9 in. (175.26 cm); Pain 7/10; 13:45 BP 138 / 86; Pulse 120; Resp 20; Pulse Ox 100% on R/A; vg1 14:52 BP 133 / 92; Pulse 108; Resp 18; Pulse Ox 100% on R/A; vg1 16:38 BP 129 / 81; Pulse 113; Resp 16; Pulse Ox 100% on R/A; iw 17:08 BP 118 / 78; Pulse 106; Resp 18 S; Pulse Ox 97% on R/A; iw 17:35 BP 118 / 78; Pulse 103; Resp 16 S; Pulse Ox 99% on R/A; iw 18:24 BP 115 / 71; Pulse 106; Resp 16; Pulse Ox 99% on R/A; iw 12:13 Body Mass Index 23.63 (72.57 kg, 175.26 cm) vg1 MDM: 12:32 Patient medically screened. [facility] 13:11 Data reviewed: vital signs, nurses notes, lab test result(s), EKG, radiologic studies. jr8 Data interpreted: monitor car operator: rate is 127 beats/min, rhythm is regular, Pulse oximetry: on room air is 100 %. Interpretation: normal. 20:36 Counseling: I had a detailed discussion with the patient and/or guardian regarding: the jr8 historical points, exam findings, and any diagnostic results supporting the discharge/admit diagnosis, lab results, the need for outpatient follow up, a family practitioner, to return to the emergency department if symptoms worsen or persist or if there are any questions or concerns that arise at home. ED course: Patient after having haldol and sleeping for 4 hours, now is alert and oriented x 4 with no hallucinations. Feels much better. Will d/c home to f/u with PCP. Counseled him on drug abuse and rehabilitation . 08/27 12:34 Order name: Basic Metabolic Panel [facility] 08/27 12:34 Order name: CBC with Diff [facility] 08/27 12:34 Order name: LFT's [facility] 08/27 12:34 Order name: Magnesium [facility] 08/27 12:34 Order name: NT PRO-BNP; Complete Time: 19:11 [facility] 08/27 12:34 Order name: PT-INR; Complete Time: 13:14 [facility] 08/27 12:34 Order name: Troponin (emerg Dept Use Only); Complete Time: 19:11 8 08/27 12:34 Order name: ETOH Level; Complete Time: 13:38 [facility] 08/27 12:34 Order name: UDS; Complete Time: 18:48 [facility] 08/27 12:34 Order name: TSH; Complete Time: 19:11 [facility] 08/27 12:35 Order name: Basic Metabolic Panel; Complete Time: 19:11 [facility] 08/27 12:35 Order name: CBC with Automated Diff; Complete Time: 13:01 [facility] 08/27 12:35 Order name: Liver (Hepatic) Function; Complete Time: 19:11 EDMS 08/27 12:35 Order name: Magnesium; Complete Time: 19:11 EDNM 08/27 12:34 Order name: XRAY Chest (1 view); Complete Time: 13:20 [facility] 08/27 12:34 Order name: EKG; Complete Time: 12:35 [facility] 08/27 12:34 Order name: Cardiac monitoring; Complete Time: 12:42 [facility] 08/27 12:34 Order name: EKG - Nurse/Tech; Complete Time: 12:42 [facility] 08/27 12:34 Order name: IV Saline Lock; Complete Time: 12:42 8 08/27 12:34 Order name: Labs collected and sent; Complete Time: 12:42 [facility] 08/27 12:34 Order name: O2 Per Protocol; Complete Time: 12:42 [facility] 08/27 12:34 Order name: O2 Sat Monitoring; Complete Time: 12:42 [facility] 08/27 13:27 Order name: Labs - recollect needed: chemistry recollect; Complete Time: 13:43 eb Administered Medications: 13:12 Drug: NS 0.9% 1000 ml Route: IV; Rate: 1000 ml; Site: left wrist; vg1 13:43 Drug: Ativan 1 mg Route: IVP; Site: left wrist; vg1 16:00 Follow up: Response: No adverse reaction iw 14:04 Drug: Banana Bag - (NS 0.9% 1000 ml, foLIC Acid 1 mg, Thiamine 100 mg, Multivitamin 1 vg1 amp) Route: IV; Rate: 500 ml/hr; Site: left wrist; 16:00 Drug: Ativan 2 mg Route: IVP; Site: left wrist; iw 18:01 Follow up: Response: No adverse reaction iw 16:31 Drug: HALdol 5 mg Route: IVP; Site: left forearm; iw 18:01 Follow up: Response: No adverse reaction iw 16:31 Drug: Benadryl 25 mg Route: IVP; Site: left forearm; iw 18:01 Follow up: Response: No adverse reaction iw Disposition: 08/28 19:33 Co-signature as Attending Physician, Deo Aceves MD I agree with the assessment and 4 plan of care. Disposition: 08/27/20 20:39 Discharged to Home. Impression: Drug abuse counseling and surveillance, Hallucinations, unspecified. - Condition is Stable. - Discharge Instructions: Drug Overdose, Drug Toxicity. - Medication Reconciliation Form, Thank You Letter, Antibiotic Education, Prescription Opioid Use form. - Follow up: Private Physician; When: 5 - 6 days; Reason: Recheck today's complaints, Continuance of care, Re-evaluation by your physician. - Problem is new. - Symptoms have improved. Signatures: Dispatcher [employer] Arnulfo Alvarez RN RN Garima Morrow RN RN Elba Kong RN RN ss Roszak, Josh, PA PA 8 Deo Aceves MD MD tw4 Conchis Howell Victoria, RN RN vg1 Corrections: (The following items were deleted from the chart) 08/27 21:36 20:39 08/27/2020 20:39 Discharged to Home. Impression: Drug abuse counseling and em surveillance; Hallucinations, unspecified. Condition is Stable. Forms are Medication Reconciliation Form, Thank You Letter, Antibiotic Education, Prescription Opioid Use. Follow up: Private Physician; When: 5 - 6 days; Reason: Recheck today's complaints, Continuance of care, Re-evaluation by your physician. Problem is new. Symptoms have improved. jr8
[2020-08-27 21:59] VITALS: TEMP 98.2
[2020-08-27 22:08] VITALS: O2SAT 99
[2020-08-27 22:10] VITALS: BP 115/71
== END 2020-08-27 21:36 | disposition home or self-care (01) ==
LOC: ER 12:10
DX: R44.3 Hallucinations, unspecified (principal); Z71.51 Drug abuse counseling and surveillance of drug abuser; F10.20 Alcohol dependence, uncomplicated
CPT/HCPCS: 36415; 71045; 80048; 80076; 80307; 80320; 83735; 83880; 84443; 84484; 85025; 85610; 93005; 99285; J1200; J1630; J3411; J7030

== ENCOUNTER 2021-02-14 09:19 | Emergency (ER) | payer SELFPAY ==
--- OUTSIDE RECORDS SUMMARY | 2021-02-14 09:22 | XMS REPORT | Continuity of Care Document ---
:1975 Author Organization [facility] t Address [address] [place] [address] Care Team Providers Name Role Phone Quinn [...] Clinicians Facility Department ID 2020-07-09 2020-07-10 Emergency Romoe Ball [facility] [id number] 23:44:00 06:08:00 Patricia Doe [id number] [place] [id number] [place] [id number] Results This patient has no known results.
[2021-02-14] MEDS ORDERED: ONDANSETRON 4 MG/2 ML VIAL ONE (11:14)
[2021-02-14] MEDS ORDERED: LORazepam 2 MG/ML VIAL ONE (11:14)
[2021-02-14] MEDS ORDERED: MULTIVITAMINS 10 ML VIAL (INJ) IV ONE (11:14)
[2021-02-14] MEDS ORDERED: NA CHLORIDE 0.9% 2,000 ML ONE (11:15)
[2021-02-14 11:49] LABS: Basophils % 0.9 % (0-1.3); Hematocrit 47.8 % (39.6-49.0); Lymphocytes % 18.5 % (15.3-44.8); MPV 7.7 fL (7.6-11.3); RBC Red Blood Cell Count 4.88 M/uL (4.33-5.43)
[2021-02-14 11:58] LABS: Protime INR 1.01
[2021-02-14 12:03] LABS: ALT/SGPT 53 U/L (12-78); Albumin 4.3 g/dL (3.4-5.0); Alkaline Phosphatase 70 U/L (45-117); BUN Blood Urea Nitrogen 8 mg/dL (7-18); Bicarbonate 22 mmol/L (21-32); Bilirubin Direct 0.2 mg/dL (0-0.2); Glucose Level 79 mg/dL (74-106); Protein, Total 8.7 g/dL (6.4-8.2); Sodium Level 141 mmol/L (136-145)
[2021-02-14 12:05] LABS: AST/SGOT 54 U/L (15-37); Potassium 3.6 mmol/L (3.5-5.1)
[2021-02-14 14:05] LABS: Urine Blood Negative (Negative); Urine Glucose Negative (Negative); Urine Protein 1+ (Negative); Urine Specific Gravity 1.025 (1.005-1.030); Urine pH 6.5 (5.0-7.0)
[2021-02-14 14:15] LABS: Troponin I < 0.02 ng/mL (0.0-0.045)
[2021-02-14 14:20] LABS: Barbiturates NEGATIVE (NEGATIVE); Benzodiazepines NEGATIVE (NEGATIVE); Cocaine NEGATIVE (NEGATIVE); METHAMPHETAM POSITIVE (NEGATIVE); Methadone NEGATIVE (NEGATIVE); Opiates NEGATIVE (NEGATIVE); Phencyclidine NEGATIVE (NEGATIVE); THC Cannibis NEGATIVE (NEGATIVE)
[2021-02-14 14:49] LABS: Urine Appearance CLEAR (Clear); Urine Bilirubin NEGATIVE (Negative); Urine Blood NEGATIVE (Negative); Urine Color YELLOW (Yellow); Urine Glucose NEGATIVE (Negative); Urine Microscopic Reflex ORDER UMIC; Urine Protein TRACE (Negative); Urine pH 6.5 (5.0-7.0)
[2021-02-14 14:56] LABS: Urine Bacteria NONE SEEN /HPF (NONE SEEN); Urine RBC NONE SEEN /HPF (NONE SEEN)
--- NOTE | 2021-02-14 15:50 | ER ---
Nurse's Notes [facility] Name: James Dupree Age: 45 yrs Sex: Male : 1975 Arrival Date: 02/14/2021 Time: 13:03 Bed 16 Private MD: Diagnosis: Alcohol abuse;Other stimulant abuse-Methamphetamine abuse Presentation: 02/14 13:06 Chief complaint: Patient states: Complaint of N/V after drinking heavily x 5 days and ch5 doing Smoking Meth last night. Coronavirus screen: Vaccine status: Patient reports being unvaccinated. Ebola Screen: Patient negative for fever greater than or equal to 101.5 degrees Fahrenheit, and additional compatible Ebola Virus Disease symptoms Patient denies exposure to infectious person. Patient denies travel to an Ebola-affected area in the 21 days before illness onset. Initial Sepsis Screen: Does the patient meet any 2 criteria? No. Patient's initial sepsis screen is negative. Does the patient have a suspected source of infection? No. Patient's initial sepsis screen is negative. Risk Assessment: Do you want to hurt yourself or someone else? Patient reports no desire to harm self or others. Onset of symptoms is unknown. 13:06 Method Of Arrival: Ambulatory 5 13:06 Acuity: DORETHA 2 5 Triage Assessment: 13:09 General: Appears uncomfortable, Behavior is anxious. Pain: Complains of pain in scalp. ch5 - Immunization history:: Adult Immunizations unknown. - Social history:: Smoking status: Patient uses alcohol, street drugs, Methamphetamine (Meth). Screenin:37 Abuse screen: Denies threats or abuse. Denies injuries from another. Nutritional 5 screening: No deficits noted. Tuberculosis screening: No symptoms or risk factors identified. Fall Risk None identified. Assessment: 13:37 Reassessment: HR 88, resting in bed. Call light in reach. 5 Vital Signs: 13:06 BP 129 / 92; Pulse 88; Resp 18; Temp 98; Pulse Ox 99% ; Weight 77.11 kg; Height 5 ft. ch5 10 in. (177.80 cm); Pain 0/10; 13:36 BP 129 / 92; Pulse 82; Resp 18; Pulse Ox 100% on R/A; ch5 14:12 BP 134 / 93; Pulse 90; Resp 18; Pulse Ox 98% on R/A; ch5 14:54 BP 133 / 89; Pulse 86; Resp 18; Pulse Ox 99% on R/A; ch5 13:06 Body Mass Index 24.39 (77.11 kg, 177.80 cm) ch5 ED Course: 13:03 Patient arrived in ED. iw 13:05 Romeo Hughes NP is PHCP. pm1 13:05 Mary Phan MD is Attending Physician. pm1 13:05 James Peña, RN is Primary Nurse. ch5 13:08 Triage completed. ch5 13:09 Arm band placed on left wrist. EKG completed in triage. Results shown to MD. ch5 13:37 No provider procedures requiring assistance completed. Inserted saline lock: 22 gauge ch5 in left wrist, using aseptic technique. 14:54 Patient has correct armband on for positive identification. Side rails up X 1. ch5 Administered Medications: No medications were administered Outcome: 15:23 Discharge ordered by MD. pm1 15:51 Discharged to home ch5 15:51 Condition: good 15:51 Discharge instructions given to Prescriptions given X 2. 15:52 Patient left the ED. ch5 Signatures: Garima Morrow, RN RN Romeo Hughes NP LOOM TUNER pm1 James Peña RN RN [facility]
--- NOTE | 2021-02-14 15:50 | EDPHYS ---
Physician Documentation [facility] Name: James Dupree Age: 45 yrs Sex: Male : 1975 Arrival Date: 02/14/2021 Time: 13:03 Bed 16 Private MD: ED Physician Mary Phan HPI: 02/14 15:21 This 45 yrs old Male presents to ER via Ambulatory with complaints of Chest pm1 pain. 15:21 The patient or guardian reports chest pain that is located primarily in the mid-sternal pm1 area. 15:21 Onset: last night. The pain does not radiate. Associated signs and symptoms: Pertinent pm1 positives: nausea, vomiting, For the past 5 days due to alcohol consumption. Chest pain onset yesterday after use of methamphetamine. The chest pain is described as burning. Duration: The patient or guardian reports a single episode, that is still ongoing. Modifying factors: the symptoms are aggravated by Use of methamphetamine. The patient has not experienced similar symptoms in the past, Denies prior methamphetamine use. Patient uses alcohol every weekend. The patient has not recently seen a physician. - Immunization history:: Adult Immunizations unknown. - Social history:: Smoking status: Patient uses alcohol, street drugs, Methamphetamine (Meth). ROS: 15:21 Constitutional: Negative for fever, chills, and weight loss. pm1 15:21 Respiratory: Negative for shortness of breath, cough, wheezing, and pleuritic chest pain. 15:21 Back: Negative for injury and pain, MS/Extremity: Negative for injury and deformity, Skin: Negative for injury, rash, and discoloration, Neuro: Negative for headache, weakness, numbness, tingling, and seizure. 15:21 Cardiovascular: Positive for chest pain, Negative for edema, palpitations. 15:21 Abdomen/GI: Positive for nausea and vomiting, Negative for abdominal pain, diarrhea, constipation. 15:21 All other systems are negative. Exam: 15:21 Constitutional: This is a well developed, well nourished patient who is awake, alert, pm1 and in no acute distress. Head/Face: Normocephalic, atraumatic. Cardiovascular: Regular rate and rhythm with a normal S1 and S2. No gallops, murmurs, or rubs. Normal PMI, no JVD. No pulse deficits. Respiratory: Lungs have equal breath sounds bilaterally, clear to auscultation and percussion. No rales, rhonchi or wheezes noted. No increased work of breathing, no retractions or nasal flaring. 15:21 Skin: Warm, dry with normal turgor. Normal color with no rashes, no lesions, and no evidence of cellulitis. MS/ Extremity: Pulses equal, no cyanosis. Neurovascular intact. Full, normal range of motion. 15:21 Eyes: Exam is negative for acute changes, Extraocular movements: no acute changes, Sclera: no acute changes, icterus, is not appreciated. 15:21 ENT: Exam is negative for acute changes, Mouth: Lips: normal, Oral mucosa: normal, pink and intact, moist. 15:21 Abdomen/GI: Exam negative for acute changes, Inspection: abdomen appears normal, Palpation: abdomen is soft and non-tender, in all quadrants. 15:21 Neuro: Exam negative for acute changes, Orientation: is normal, Mentation: is normal, Motor: is normal, moves all fours. Vital Signs: 13:06 BP 129 / 92; Pulse 88; Resp 18; Temp 98; Pulse Ox 99% ; Weight 77.11 kg; Height 5 ft. ch5 10 in. (177.80 cm); Pain 0/10; 13:36 BP 129 / 92; Pulse 82; Resp 18; Pulse Ox 100% on R/A; ch5 14:12 BP 134 / 93; Pulse 90; Resp 18; Pulse Ox 98% on R/A; ch5 14:54 BP 133 / 89; Pulse 86; Resp 18; Pulse Ox 99% on R/A; ch5 13:06 Body Mass Index 24.39 (77.11 kg, 177.80 cm) ch5 MDM: 13:06 Patient medically screened. pm1 15:21 Data reviewed: vital signs. Data interpreted: Pulse oximetry: on room air is 99 %. pm1 Interpretation: normal. Counseling: I had a detailed discussion with the patient and/or guardian regarding: the historical points, exam findings, and any diagnostic results supporting the discharge/admit diagnosis, lab results, the need for outpatient follow up, to return to the emergency department if symptoms worsen or persist or if there are any questions or concerns that arise at home. 18:03 ED course: Called fede Scanlon of patient. No answer and mailbox is full. She and pm1 the patient requested she be called for the covid results. 18:08 Counseling: I had a detailed discussion with the patient and/or guardian regarding: lab pm1 results, Covid result reported to the patient when he called back. 02/14 14:57 Order name: COVID-19 : Document "Date of Symptom Onset" if Symptomatic. pm1 02/14 15:45 Order name: CBC with Automated Diff; Complete Time: 16:48 EDMS 02/14 15:45 Order name: Basic Metabolic Panel; Complete Time: 16:48 EDMS 02/14 15:45 Order name: Liver (Hepatic) Function; Complete Time: 16:48 EDMS 02/14 15:45 Order name: Troponin I; Complete Time: 16:48 EDMS 02/14 15:45 Order name: Protime (+INR); Complete Time: 16:48 EDMS 02/14 15:45 Order name: PTT, Activated Partial Thromb; Complete Time: 16:48 EDMS 02/14 15:45 Order name: Urinalysis; Complete Time: 16:48 EDMS 02/14 15:45 Order name: Urine Microscopic Only; Complete Time: 16:48 EDMS 02/14 15:45 Order name: Urine Drug Screen; Complete Time: 16:48 EDMS 02/14 15:45 Order name: Urine Dipstick-Ancillary; Complete Time: 16:48 EDMS Administered Medications: No medications were administered Disposition Summary: 02/14/21 15:23 Discharge Ordered Location: Home pm1 Problem: new pm1 Symptoms: have improved pm1 Condition: Stable pm1 Diagnosis - Alcohol abuse pm1 - Other stimulant abuse - Methamphetamine abuse pm1 Followup: pm1 - With: Emergency Department - When: As needed - Reason: Worsening of condition Followup: pm1 - With: Private Physician - When: 2 - 3 days - Reason: Recheck today's complaints, Continuance of care, Re-evaluation by your physician Discharge Instructions: - Discharge Summary Sheet pm1 - Alcohol Use Disorder pm1 - Alcohol Abuse and Nutrition pm1 - Methamphetamines Use Disorder pm1 - Alcohol Abuse and Dependence Information, Adult pm1 Forms: - Medication Reconciliation Form pm1 - Thank You Letter pm1 - Antibiotic Education pm1 - Prescription Opioid Use pm1 Prescriptions: - chlordiazepoxide HCl 25 mg Oral capsule - take 1 capsule by ORAL route every 6 hours for 5 days Day 1: Librium 25 mg pm1 every 6 hours scheduled, Day 2: LIbrium 25 mg every 8 hours scheduled, Day 3: Librium 25 mg every 12 hours, Day 4: Librium 25 mg at bedtime scheduled, Day 5: Librium 25 mg at bedtime scheduled; 11 capsule; Refills: 0, Product Selection Permitted - Pepcid 20 mg Oral Tablet - take 1 tablet by ORAL route every 12 hours for 10 days; 20 tablet; Refills: 0, pm1 Product Selection Permitted Addendum: 02/16/2021 08:53 Co-signature as Attending Physician, Mary Phan MD I agree with the assessment and s p3 plan of care. Signatures: Dispatcher [employer] EDRI Romeo Hughes, DISTRIBUTION DISPATCHER DISTRIBUTION DISPATCHER pm1 Mary Phan MD MD sp3 James Peña RN RN ch5
[2021-02-14 18:23] VITALS: TEMP 98
[2021-02-14 18:26] VITALS: BP 133/89; O2SAT 99
--- NOTE | 2021-02-16 11:01 | EKG ---
Test Date: 2021-02-14 Test Time: 10:13:38 Biometrician: ANI MEASUREMENT RESULTS: Intervals: Rate: 119 GA: 160 QRSD: 82 QT: 320 QTc: 450 [place]: P: 71 GA: 160 QRS: 95 T: 64 INTERPRETIVE STATEMENTS: Sinus tachycardia Rightward axis Borderline ECG Compared to ECG 08/27/2020 12:21:07 No significant changes Electronically Signed On 02-16-21 10:54:37 CDT by Henry Negron
== END 2021-02-14 15:52 | disposition home or self-care (01) ==
LOC: ER 09:19
DX: U07.1 COVID-19 (principal); F10.10 Alcohol abuse, uncomplicated; F15.10 Other stimulant abuse, uncomplicated
CPT/HCPCS: 36415; 80048; 80076; 80307; 81003; 81015; 84484; 85025; 85610; 85730; 93005; 99283; J2405; J7030; U0003

== ENCOUNTER 2021-04-18 06:26 | Emergency (ER) | payer SELFPAY ==
[2021-04-18] MEDS ORDERED: THIAMINE 200 MG/2 ML INJ ONE (06:45)
[2021-04-18] MEDS ORDERED: LORazepam 2 MG/ML VIAL ONE (06:45)
[2021-04-18] MEDS ORDERED: MULTIVITAMINS 10 ML VIAL (INJ) IV ONE (06:46)
[2021-04-18] MEDS ORDERED: ONDANSETRON 4 MG/2 ML VIAL ONE (06:46)
[2021-04-18] MEDS ORDERED: FOLIC ACID 5 MG/ML VIAL ONE (06:48)
[2021-04-18] MEDS ORDERED: NA CHLORIDE 0.9% 2,000 ML ONE (06:48)
[2021-04-18 06:58] LABS: Absolute Lymphocytes (CBC) 1.1 K/uL (0.7-4.9); Hematocrit 46.5 % (39.6-49.0); Lymphocytes % 20.5 % (15.3-44.8); MPV 6.9 fL (7.6-11.3); RBC Red Blood Cell Count 4.62 M/uL (4.33-5.43)
[2021-04-18 07:01] LABS: Protime INR 0.92
[2021-04-18 07:21] LABS: ALT/SGPT 35 U/L (12-78); AST/SGOT 55 U/L (15-37); Albumin 4.3 g/dL (3.4-5.0); Alkaline Phosphatase 87 U/L (45-117); BUN Blood Urea Nitrogen 7 mg/dL (7-18); Bicarbonate 29 mmol/L (21-32); Bilirubin Direct 0.2 mg/dL (0-0.2); Bilirubin Total 0.6 mg/dL (0.2-1.0); Glucose Level 105 mg/dL (74-106); Potassium 3.8 mmol/L (3.5-5.1); Protein, Total 8.9 g/dL (6.4-8.2); Sodium Level 142 mmol/L (136-145)
--- NOTE | 2021-04-18 07:43 | ER ---
Nurse's Notes [facility] Name: James Dupree Age: 45 yrs Sex: Male : 1975 Arrival Date: 04/18/2021 Time: 06:28 Bed 20 Private MD: Diagnosis: Alcohol abuse Presentation: 04/18 06:37 Chief complaint: Patient states: " alcohol withdrawals" Have drank a case of beer dc2 everyday for 5 days. Last drink yesterday ( Monday at 7pm). Went to bed and woke up at 3am today and doesn't feel well , co N \\T\\ V. Coronavirus screen: Vaccine status: Patient reports being unvaccinated. Ebola Screen: Patient negative for fever greater than or equal to 101.5 degrees Fahrenheit, and additional compatible Ebola Virus Disease symptoms Patient denies exposure to infectious person. Patient denies travel to an Ebola-affected area in the 21 days before illness onset. Initial Sepsis Screen: Does the patient meet any 2 criteria? No. Patient's initial sepsis screen is negative. Does the patient have a suspected source of infection? No. Patient's initial sepsis screen is negative. Risk Assessment: Do you want to hurt yourself or someone else? Patient reports no desire to harm self or others. Onset of symptoms was April 18, 2021 at 03:00. 06:37 Method Of Arrival: Ambulatory dc2 06:37 Acuity: DORETHA 3 dc2 Historical: - Allergies: 06:35 No Known Allergies; dc2 - Home Meds: 06:35 None [Active]; dc2 - PMHx: 06:35 None; dc2 - PSHx: 06:35 None; dc2 - Immunization history:: Adult Immunizations up to date, Client reports having NOT received the Covid vaccine. Flu vaccine is not up to date. - Social history:: Smoking status: Patient/guardian denies using street drugs, IV drugs, tobacco products. Screenin:40 Abuse screen: Denies threats or abuse. Denies injuries from another. Nutritional dc2 screening: No deficits noted. Tuberculosis screening: No symptoms or risk factors identified. Never had TB. Fall Risk None identified. No fall in past 12 months (0 pts). Assessment: 06:40 General: Appears uncomfortable, slender, well groomed, Behavior is cooperative, dc2 anxious, restless, Attempting to vomit, gagging. No emesis. . 06:40 Pain: Denies pain. Neuro: No deficits noted. Level of Consciousness is awake, alert, dc2 obeys commands, Oriented to person, place, time, situation. Cardiovascular: No deficits noted. Denies chest pain, shortness of breath, Heart tones present. Respiratory: No deficits noted. Airway is patent Breath sounds are clear bilaterally. GI: Bowel sounds present X 4 quads. Reports nausea, Patient currently denies pain, vomiting. : No signs and/or symptoms were reported regarding the genitourinary system. Derm: No deficits noted. No signs and/or symptoms reported regarding the dermatologic system. Skin is intact, is healthy with good turgor. Musculoskeletal: No deficits noted. No signs and/or symptoms reported regarding the musculoskeletal system. Vital Signs: 06:37 Temp 98.1; Weight 74.84 kg; Height 5 ft. 9 in. (175.26 cm); Pain 0/10; dc2 06:45 BP 142 / 94; Pulse 76; Resp 24; Temp 98.1; Pulse Ox 100% on R/A; Pain 0/10; dc2 07:30 BP 140 / 89; Pulse 85; Resp 18; Temp 98.2; Pulse Ox 100% ; sl2 08:00 BP 136 / 88; Pulse 98; Resp 18; Temp 98.2; Pulse Ox 100% ; sl2 06:37 Body Mass Index 24.37 (74.84 kg, 175.26 cm) dc2 ED Course: 06:28 Patient arrived in ED. wm 06:34 Brianda Scott [facility]NP-C [facility] kb 06:34 Sherman Esquivel MD is Attending Physician. kb 06:39 Triage completed. dc2 06:45 Inserted saline lock: 20 gauge in right upper arm, using aseptic technique. Blood dc2 collected. 06:45 Arm band placed on right wrist. dc2 06:45 Patient has correct armband on for positive identification. Placed in gown. Bed in low dc2 position. Call light in reach. Side rails up X 1. conveyor monitor on. Pulse ox on. NIBP on. Door closed. Lights dimmed. 06:55 Acetaminophen Sent. dc2 06:55 Basic Metabolic Panel Sent. dc2 06:55 CBC with Diff Sent. dc2 06:55 ETOH Level Sent. dc2 06:55 Hepatic Function Sent. dc2 06:55 PT-INR Sent. dc2 06:55 Ptt, Activated Sent. dc2 06:55 Salicylate Sent. dc2 07:00 No provider procedures requiring assistance completed. dc2 07:05 Report given to KATHLEEN Ludwig. dc2 07:31 Vani iMr RN is Primary Nurse. sl2 08:24 IV discontinued, intact, bleeding controlled, No redness/swelling at site. Pressure sl2 dressing applied. Administered Medications: 06:50 Drug: NS 0.9% 1000 ml Route: IV; Rate: 1000 ml; Infused Over: 1 hrs; Site: right upper dc2 arm; Delivery: Primary tubing; 07:45 Follow up: IV Status: Completed infusion; IV Intake: 1000ml sl2 06:51 Drug: Zofran (Ondansetron) 4 mg Route: IVP; Site: right upper arm; dc2 07:30 Follow up: Response: No adverse reaction sl2 06:51 Drug: Ativan (LORazepam) 1 mg Route: IVP; Site: right upper arm; dc2 07:30 Follow up: Response: No adverse reaction sl2 07:02 Drug: Banana Bag - (NS 0.9% 1000 ml, foLIC Acid 1 mg, Thiamine 100 mg, Multivitamin 1 dc2 amp) Route: IV; Rate: calculated rate; Site: right upper arm; Delivery: Primary tubing; 07:50 Follow up: Response: No adverse reaction; IV Status: Completed infusion; IV Intake: sl2 1000ml Intake: 07:45 IV: 1000ml; Total: 1000ml. sl2 07:50 IV: 1000ml; Total: 2000ml. sl2 Outcome: 07:43 Discharge ordered by MD. granados 08:24 Discharged to home ambulatory. sl2 08:24 Condition: stable 08:24 Discharge instructions given to patient, Instructed on discharge instructions, follow up and referral plans. medication usage, Demonstrated understanding of instructions, follow-up care, medications, Prescriptions given X 1. 08:33 Patient left the ED. sl2 Signatures: Brianda Scott, CABLE SPLICER APPRENTICE-C CABLE SPLICER APPRENTICE-CkRajani Mix, KATHLEEN Bang RN ky2 Vani Mir RN RN 2
--- NOTE | 2021-04-18 07:43 | EDPHYS ---
Physician Documentation [facility] Name: James Dupree Age: 45 yrs Sex: Male : 1975 Arrival Date: 04/18/2021 Time: 06:28 Bed 20 Private MD: ED Physician Sherman Esquivel HPI: 04/18 06:38 This 45 yrs old Male presents to ER via Unassigned with complaints of Alcohol kb Withdrawal. 06:38 The patient presents to the emergency department alcohol ingestion. Context: Method: kb the patient has a confirmed or suspected ingestion, of alcohol, Time: over the last 5 days, Extent: moderate ingestion, the OD/poisoning occurred at at home. Associated signs and symptoms: Pertinent positives: nausea, vomiting. Severity of symptoms: At their worst the symptoms were moderate in the emergency department the symptoms are unchanged. The patient has experienced a previous episode. The patient has not recently seen a physician. Pt states he has been drinking beers nonstop for the last 5 days. States he stopped at 1900 last night and decided that he wasn't going to drink anymore. Reports he woke up at 0300 with nausea and vomiting that hasn't stopped. States he feels like he's falling when he lays down. . Historical: - Allergies: 06:35 No Known Allergies; dc2 - Home Meds: 06:35 None [Active]; dc2 - PMHx: 06:35 None; dc2 - PSHx: 06:35 None; dc2 - Immunization history:: Adult Immunizations up to date, Client reports having NOT received the Covid vaccine. Flu vaccine is not up to date. - Social history:: Smoking status: Patient/guardian denies using street drugs, IV drugs, tobacco products. ROS: 06:40 Constitutional: Negative for fever, chills, and weight loss. kb 06:40 Abdomen/GI: Positive for nausea and vomiting, Negative for abdominal pain. 06:40 Neuro: Positive for dizziness. 06:40 All other systems are negative. Exam: 06:40 Constitutional: This is a well developed, well nourished patient who is awake, alert, kb and in no acute distress. Head/Face: Normocephalic, atraumatic. ENT: Moist Mucous membranes Cardiovascular: Regular rate and rhythm with a normal S1 and S2. No gallops, murmurs, or rubs. No pulse deficits. Respiratory: Respirations even and unlabored. No increased work of breathing, no retractions or nasal flaring. Abdomen/GI: Soft, non-tender. No distention Skin: Warm, dry with normal turgor. Normal color. MS/ Extremity: Pulses equal, no cyanosis. Neurovascular intact. Full, normal range of motion. Neuro: Awake and alert, GCS 15, oriented to person, place, time, and situation. Moves all extremities. Normal gait. Psych: Awake, alert, with orientation to person, place and time. Behavior, mood, and affect are within normal limits. 06:47 ECG was reviewed by the Attending Physician. kb Vital Signs: 06:37 Temp 98.1; Weight 74.84 kg; Height 5 ft. 9 in. (175.26 cm); Pain 0/10; dc2 06:45 BP 142 / 94; Pulse 76; Resp 24; Temp 98.1; Pulse Ox 100% on R/A; Pain 0/10; dc2 07:30 BP 140 / 89; Pulse 85; Resp 18; Temp 98.2; Pulse Ox 100% ; sl2 08:00 BP 136 / 88; Pulse 98; Resp 18; Temp 98.2; Pulse Ox 100% ; sl2 06:37 Body Mass Index 24.37 (74.84 kg, 175.26 cm) dc2 MDM: 06:34 Patient medically screened. kb 06:38 Data reviewed: vital signs, nurses notes. Data interpreted: Pulse oximetry: on room air kb is 100 %. Interpretation: normal. 07:35 Counseling: I had a detailed discussion with the patient and/or guardian regarding: the kb historical points, exam findings, and any diagnostic results supporting the discharge/admit diagnosis, lab results, the need for outpatient follow up, a family practitioner, to return to the emergency department if symptoms worsen or persist or if there are any questions or concerns that arise at home. 07:46 ED course: MANUFACTURING CONTROLS ENGINEER aware reviewed. . kb 04/18 06:37 Order name: Acetaminophen; Complete Time: 07:24 kb 04/18 06:37 Order name: Basic Metabolic Panel; Complete Time: 07:24 kb 04/18 06:37 Order name: CBC with Diff; Complete Time: 07:05 kb 04/18 06:37 Order name: ETOH Level; Complete Time: 07:24 kb 04/18 06:37 Order name: Hepatic Function; Complete Time: 07:24 kb 04/18 06:37 Order name: PT-INR; Complete Time: 07:05 kb 04/18 06:37 Order name: Ptt, Activated; Complete Time: 07:05 kb 04/18 06:37 Order name: Salicylate; Complete Time: 07:24 kb 04/18 06:37 Order name: EKG; Complete Time: 06:38 kb 04/18 06:37 Order name: EKG - Nurse/Tech; Complete Time: 06:53 kb 04/18 06:37 Order name: IV Saline Lock; Complete Time: 06:54 kb 04/18 06:37 Order name: Labs collected and sent; Complete Time: 06:54 kb EC:47 Rate is 83 beats/min. Rhythm is regular. QRS [place] is Normal. LA interval is normal at kb 152 msec. QRS interval is normal at 94 msec. QT interval is normal at 354 msec. Administered Medications: 06:50 Drug: NS 0.9% 1000 ml Route: IV; Rate: 1000 ml; Infused Over: 1 hrs; Site: right upper sd2 arm; Delivery: Primary tubing; 07:45 Follow up: IV Status: Completed infusion; IV Intake: 1000ml sl2 06:51 Drug: Zofran (Ondansetron) 4 mg Route: IVP; Site: right upper arm; dc2 07:30 Follow up: Response: No adverse reaction sl2 06:51 Drug: Ativan (LORazepam) 1 mg Route: IVP; Site: right upper arm; dc2 07:30 Follow up: Response: No adverse reaction sl2 07:02 Drug: Banana Bag - (NS 0.9% 1000 ml, foLIC Acid 1 mg, Thiamine 100 mg, Multivitamin 1 dc2 amp) Route: IV; Rate: calculated rate; Site: right upper arm; Delivery: Primary tubing; 07:50 Follow up: Response: No adverse reaction; IV Status: Completed infusion; IV Intake: sl2 1000ml Disposition Summary: 04/18/21 07:43 Discharge Ordered Location: Home kb Condition: Stable kb Diagnosis - Alcohol abuse kb Followup: kb - With: Emergency Department - When: As needed - Reason: Worsening of condition Followup: kb - With: Private Physician - When: 2 - 3 days - Reason: Recheck today's complaints, Continuance of care, Re-evaluation by your physician Discharge Instructions: - Discharge Summary Sheet kb - Alcohol Intoxication, [id number] kb - Alcohol Withdrawal Syndrome, [id number] kb Forms: - Medication Reconciliation Form kb - Thank You Letter kb - Antibiotic Education kb - Prescription Opioid Use kb - Work release form eb Prescriptions: - chlordiazepoxide HCl 10 mg Oral capsule - take 1 capsule by ORAL route 4 times per day; 16 capsule; Refills: 0, Product kb Selection Permitted - Zofran 4 mg Oral Tablet - take 1 tablet by ORAL route every 6 hours As needed; 20 tablet; Refills: 0, kb Product Selection Permitted Addendum: 04/20/2021 07:03 Co-signature as Attending Physician, Sherman newsome Signatures: Dispatcher [employer] EDTX Brianda Scott, LIFE SCIENCE TEACHER-C LIFE SCIENCE TEACHER-Sherman Lorenzo MD MD pkl Polina, KATHLEEN Bang RN dc2 Vani Mir RN sl2 Corrections: (The following items were deleted from the chart) 04/18 07:43 07:43 Alcohol abuse with intoxication kb kb
[2021-04-18 08:48] VITALS: O2SAT 100
[2021-04-18 08:50] VITALS: TEMP 98.2
[2021-04-18 08:52] VITALS: BP 136/88
--- NOTE | 2021-04-19 18:28 | EKG ---
Test Date: 2021-04-18 Test Time: 07:46:26 Ag Equipment Field Service Technician: TUNG MEASUREMENT RESULTS: Intervals: Rate: 83 VA: 152 QRSD: 94 QT: 354 QTc: 415 [place]: P: 59 [place]: 152 QRS: 76 T: 60 INTERPRETIVE STATEMENTS: Normal sinus rhythm with sinus arrhythmia Normal ECG Compared to ECG 02/14/2021 10:13:38 Sinus tachycardia no longer present Right-axis deviation no longer present Electronically Signed On 04-19-21 18:23:55 CRULLER MAKER MACHINE by Henry Negron
--- OUTSIDE RECORDS SUMMARY | 2021-04-24 15:01 | XMS REPORT | Continuity of Care Document ---
:1975 Author Organization [facility] t Address [address] [place] [address] Care Team Providers Name Role Phone Patricia Ball MD Attending Clinician Patricia BALL Attending Clinician Unavailable Payers Payer Name Policy Type Policy Number Effective Date Expiration Date elian [place] [facility] [id number] 2012 00:00:00 [facility] [id number] 2012 00:00:00 Problems This patient has no known problems. Allergies, Adverse Reactions, Alerts Allergy Allergy Status Severity Reaction(s) Onset Inactive Treating Comm ents Source Name Type Date Date Clinician NO KNOWN Drug Active [facility] ALLERGIE Class [facility] Medications This patient has no known medications. Procedures This patient has no known procedures. Encounters Start End Encounter Admission Attending Care Care Encounter Source Date/Time Date/Time Type Type Clinicians Facility Department ID 2020-07-09 2020-07-10 Emergency Romeo Ball [facility] [id number] 23:44:00 06:08:00 Patricia Doe [id number] [place] [id number] [place] [id number] 2020-07-09 2020-07-09 Emergency X ROMEO BALL [facility] ERT [id number] [facility] 23:44:00 23:44:00 [facility] Results This patient has no known results.
== END 2021-04-18 08:33 | disposition home or self-care (01) ==
LOC: ER 06:26
DX: F10.10 Alcohol abuse, uncomplicated (principal)
CPT/HCPCS: 36415; 80048; 80076; 80320; 80329; 85025; 85610; 85730; 93005; 96365; 96375; 99284; J2405; J3411; J7030

== ENCOUNTER 2021-04-26 09:47 | Emergency (ER) | payer SELFPAY ==
--- OUTSIDE RECORDS SUMMARY | 2021-04-26 09:50 | XMS REPORT | Continuity of Care Document ---
:1975 Author Organization [facility] t Address [address] [place] [address] Care Team Providers Name Role Phone Patricia Ball MD Attending Clinician Patricia BALL Attending Clinician Unavailable Payers Payer Name Policy Type Policy Number Effective Date Expiration Date [facility] [id number] 2012 00:00:00 [facility] [id number] 2012 00:00:00 Problems This patient has no known problems. Allergies, Adverse Reactions, Alerts Allergy Allergy Status Severity Reaction(s) Onset Inactive Treating Comm ents Source Name Type Date Date Clinician NO KNOWN Drug Active [facility] ALLERGIE Class [facility] Medications This patient has no known medications. Procedures This patient has no known procedures. Encounters Start End Encounter Admission Attending Care Care Encounter Source Date/Time Date/Time Type Type Clinicians Facility Department ID 2020-07-09 2020-07-10 Emergency Romeo Ball [facility] [id number] 23:44:00 06:08:00 Patricia Doe [id number] [place] [id number] [place] [id number] 2020-07-09 2020-07-09 Emergency X ROMEO BALL [facility] ERT [id number] [facility] 23:44:00 23:44:00 [facility] Results This patient has no known results.
[2021-04-26] MEDS ORDERED: ONDANSETRON 4 MG/2 ML VIAL ONE (10:08)
[2021-04-26] MEDS ORDERED: Ringers Lactate 1,000 ML IV ONE (10:08)
[2021-04-26] MEDS ORDERED: LORazepam 2 MG/ML VIAL ONE ×2 (10:20→11:23)
[2021-04-26 10:35] LABS: RBC Red Blood Cell Count 4.53 M/uL (4.33-5.43)
[2021-04-26 10:36] LABS: Absolute Lymphocytes (CBC) 1.4 K/uL (0.7-4.9); Basophils % 0.5 % (0-1.3); Hematocrit 45.3 % (39.6-49.0); MPV 7.4 fL (7.6-11.3)
[2021-04-26 10:40] LABS: Protime INR 0.92
[2021-04-26] MEDS ORDERED: NA CHLORIDE 0.9% 1,000 ML with FOLIC ACID 1 MG, THIAMINE HCL 100 MG, MULTIVITAMINS INJ ... IV ONE ×4 (11:00)
[2021-04-26 11:04] LABS: ALT/SGPT 34 U/L (12-78); AST/SGOT 65 U/L (15-37); Albumin 4.2 g/dL (3.4-5.0); Alkaline Phosphatase 86 U/L (45-117); BUN Blood Urea Nitrogen 7 mg/dL (7-18); Bicarbonate 20 mmol/L (21-32); Bilirubin Direct 0.3 mg/dL (0-0.2); Glucose Level 87 mg/dL (74-106); Potassium 3.7 mmol/L (3.5-5.1); Protein, Total 8.7 g/dL (6.4-8.2); Sodium Level 143 mmol/L (136-145)
[2021-04-26 11:22] LABS: Urine Blood Negative (Negative); Urine Glucose Negative (Negative); Urine Protein 1+ (Negative); Urine Specific Gravity >=1.030 (1.005-1.030); Urine pH 6.5 (5.0-7.0)
[2021-04-26] MEDS ORDERED: PROMETHAZINE INJ 25 MG/ML AMP ONE (11:23)
[2021-04-26 12:24] LABS: Barbiturates NEGATIVE (NEGATIVE); Benzodiazepines POSITIVE (NEGATIVE); Cocaine NEGATIVE (NEGATIVE); METHAMPHETAM NEGATIVE (NEGATIVE); Methadone NEGATIVE (NEGATIVE); Opiates NEGATIVE (NEGATIVE); Phencyclidine NEGATIVE (NEGATIVE); THC Cannibis NEGATIVE (NEGATIVE)
--- NOTE | 2021-04-26 14:37 | EDPHYS ---
Physician Documentation [facility] Name: James Dupree Age: 45 yrs Sex: Male : 1975 Arrival Date: 04/26/2021 Time: 09:48 Bed 6 Private MD: ED Physician Dakota Holliday HPI: 04/26 13:38 This 45 yrs old Male presents to ER via Ambulatory with complaints of Alcohol jr8 Withdrawal. 13:38 Onset: The symptoms/episode began/occurred acutely, today. The patient has experienced jr8 similar episodes in the past, a few times. The patient has not recently seen a physician. This is a 45-year-old male patient with a history of alcohol abuse and withdrawal in the past that came into the emergency room today in acute withdrawal. Last alcoholic beverage was last night. Stated that he had at minimum to 12 packs of beer per night for the last 3 nights. Stated that he started to vomit at home and cannot stop.. Historical: - Allergies: 09:56 No Known Allergies; tw2 - Home Meds: 09:55 None [Active]; tw2 - PMHx: 09:55 None; tw2 - PSHx: 09:55 None; tw2 - Immunization history:: Client reports having NOT received the Covid vaccine. - Social history:: Patient uses alcohol, on a daily basis. claims drinking about a 6 pack/day. Smoking status: . ROS: 13:38 Eyes: Negative for injury, pain, redness, and discharge, ENT: Negative for injury, jr8 pain, and discharge, Neck: Negative for injury, pain, and swelling, Cardiovascular: Negative for chest pain, palpitations, and edema, Respiratory: Negative for shortness of breath, cough, wheezing, and pleuritic chest pain. 13:38 Back: Negative for injury and pain, MS/Extremity: Negative for injury and deformity, Skin: Negative for injury, rash, and discoloration. 13:38 Neuro: Negative for headache, weakness, numbness, tingling, and seizure. 13:38 Abdomen/GI: Positive for nausea and vomiting, Negative for abdominal pain. 13:38 Psych: Positive for anxiety, alcohol dependence. Exam: 13:38 Eyes: Pupils equal round and reactive to light, extra-ocular motions intact. Lids and jr8 lashes normal. Conjunctiva and sclera are non-icteric and not injected. Cornea within normal limits. Periorbital areas with no swelling, redness, or edema. ENT: Nares patent. No nasal discharge, no septal abnormalities noted. Tympanic membranes are normal and external auditory canals are clear. Oropharynx with no redness, swelling, or masses, exudates, or evidence of obstruction, uvula midline. Mucous membranes moist. Neck: Trachea midline, no thyromegaly or masses palpated, and no cervical lymphadenopathy. Supple, full range of motion without nuchal rigidity, or vertebral point tenderness. No Meningismus. 13:38 Respiratory: Lungs have equal breath sounds bilaterally, clear to auscultation and percussion. No rales, rhonchi or wheezes noted. No increased work of breathing, no retractions or nasal flaring. Abdomen/GI: Soft, non-tender, with normal bowel sounds. No distension or tympany. No guarding or rebound. No evidence of tenderness throughout. Back: No spinal tenderness. No costovertebral tenderness. Full range of motion. Skin: Warm, dry with normal turgor. Normal color with no rashes, no lesions, and no evidence of cellulitis. MS/ Extremity: Pulses equal, no cyanosis. Neurovascular intact. Full, normal range of motion. Neuro: Awake and alert, GCS 15, oriented to person, place, time, and situation. Cranial nerves II-XII grossly intact. Motor strength 5/5 in all extremities. Sensory grossly intact. 13:38 Cardiovascular: Rate: tachycardic, Rhythm: regular, Pulses: Pulses are 2+ in right radial artery and left radial artery. Heart sounds: normal, normal S1and S2, no S3 or S4, no murmur, no rub, no gallop, Edema: is not appreciated, JVD: is not appreciated. 13:38 Psych: Behavior/mood is anxious, Affect is calm, Oriented to person, place, time, Patient has no thoughts/intents to harm self or others. Judgement / Insight is normal. Memory is normal. Delusions/hallucinations are not present. Vital Signs: 09:56 Pulse 162; Resp 20; Temp 98.1(O); Pulse Ox 100% on R/A; Weight 74.84 kg (R); Height 5 tw2 ft. 9 in. (175.26 cm); Pain 8/10; 10:01 BP 129 / 92; tw2 11:32 BP 131 / 93; Pulse 138; Resp 20; Pulse Ox 100% ; jl7 13:40 BP 138 / 94; Pulse 116; Resp 18; Pulse Ox 99% ; jl7 09:56 Body Mass Index 24.37 (74.84 kg, 175.26 cm) tw2 MDM: 09:58 Patient medically screened. 8 13:38 Data reviewed: vital signs, nurses notes, lab test result(s), EKG. Data interpreted: jr8 Pulse oximetry: on room air is 99 %. Interpretation: normal. Counseling: I had a detailed discussion with the patient and/or guardian regarding: the historical points, exam findings, and any diagnostic results supporting the discharge/admit diagnosis, lab results. 14:35 ED course: Patient overall feeling markedly better. More stable but still slightly jr8 tachycardic. Discussed with patient that it would be better if he were to be observed overnight as he was acutely withdrawing. Patient was wanting to go home and rest. Patient understands that we cannot continue benzo treatment at home at this time. Patient understands this and knows that he can come back at any point time if he were to acutely worsen.. 04/26 10:07 Order name: Acetaminophen [facility] 04/26 10:07 Order name: Basic Metabolic Panel [facility] 04/26 10:07 Order name: CBC with Diff; Complete Time: 11:16 [facility] 04/26 10:07 Order name: ETOH Level; Complete Time: 11:16 [facility] 04/26 10:07 Order name: Hepatic Function; Complete Time: 11:16 [facility] 04/26 10:07 Order name: PT-INR; Complete Time: 11:16 [facility] 04/26 10:07 Order name: Ptt, Activated; Complete Time: 11:16 [facility] 04/26 10:07 Order name: Salicylate; Complete Time: 11:16 [facility] 04/26 10:07 Order name: Urine Drug Screen; Complete Time: 12:31 [facility] 04/26 10:07 Order name: Acetaminophen Level; Complete Time: 11:16 EDMN 04/26 10:07 Order name: Basic Metabolic Panel; Complete Time: 11:16 EDMN 04/26 11:21 Order name: Urine Dipstick-Ancillary; Complete Time: 11:27 EDMS 04/26 10:07 Order name: EKG; Complete Time: 10: jr8 04/26 10:07 Order name: EKG - Nurse/Tech; Complete Time: 10:16 8 04/26 10:07 Order name: IV Saline Lock; Complete Time: 10:16 8 04/26 10:07 Order name: Labs collected and sent; Complete Time: 10: jr8 04/26 10:07 Order name: Suicide Screening ([place]); Complete Time: :04/26 10:07 Order name: Urine Dipstick-Ancillary (obtain specimen); Complete Time: 11:22 jr8 Administered Medications: 10:16 Drug: Ringers - Lactated Ringers Solution 1000 ml Route: IV; Rate: bolus; Site: left as6 hand; 12:00 Follow up: IV Status: Completed infusion; IV Intake: 1000ml jl7 10:16 Drug: Zofran (Ondansetron) 4 mg Route: IVP; Site: left hand; as6 11:15 Follow up: Response: No adverse reaction; Nausea unchanged as6 10:22 Drug: Ativan (LORazepam) 1 mg Route: IVP; Site: left hand; as6 11:10 Follow up: Response: No adverse reaction; Anxiety unchanged; RASS: Restless (+1) as6 10:40 Drug: Banana Bag - (NS 0.9% 1000 ml, foLIC Acid 1 mg, Thiamine 100 mg, Multivitamin 1 as6 amp) Route: IV; Rate: 500 ml/hr; Site: left hand; 12:40 Follow up: IV Status: Completed infusion; IV Intake: 1000ml jl7 11:29 Drug: Ativan (LORazepam) 2 mg Route: IVP; Site: left hand; as6 11:30 Drug: Promethazine 12.5 mg Route: IVP; Site: left hand; as6 Disposition: 15:26 Co-signature as Attending Physician, Dakota Holliday MD I agree with the assessment and rn plan of care. Attestation: The patient's history, exam findings, diagnostics, and a summary of any interventions or procedures was reviewed in detail with Joseph GARDUNO. Disposition Summary: 04/26/21 14:36 Discharge Ordered Location: Home jr8 Problem: new jr8 Symptoms: have improved jr8 Condition: Stable jr8 Diagnosis - Alcohol dependence with withdrawal jr8 Followup: jr8 - With: Private Physician - When: 2 - 3 days - Reason: Recheck today's complaints, Continuance of care, Re-evaluation by your physician Discharge Instructions: - Discharge Summary Sheet jr8 - Alcohol Withdrawal Syndrome jr8 Forms: - Medication Reconciliation Form jr8 - Thank You Letter jr8 - Antibiotic Education jr8 - Prescription Opioid Use jr8 Prescriptions: - chlordiazepoxide HCl 25 mg Oral capsule - take 2 capsule by ORAL route 4 times per day; 24 capsule; Refills: 0, Product jr8 Selection Permitted - Zofran 4 mg Oral Tablet - take 1 tablet by ORAL route every 12 hours As needed; 20 tablet; Refills: 0, jr8 Product Selection Permitted Signatures: Dispatcher [employer] EDDakota Cortes MD MD rn Roszak, Josh, PA PA jr8 Jaymie Huntley RN RN tw2 Maximino Bruce RN RN as6 Shanti Hayden RN jl7 Corrections: (The following items were deleted from the chart) 09:56 09:55 PMHx: None; tw2 tw2
--- NOTE | 2021-04-26 14:37 | ER ---
Nurse's Notes [facility] Name: James Dupree Age: 45 yrs Sex: Male : 1975 Arrival Date: 04/26/2021 Time: 09:48 Bed 6 Private MD: Diagnosis: Alcohol dependence with withdrawal Presentation: 04/26 09:51 Note pt in restroom at this time. tw2 09:55 Chief complaint: Patient states: drank all weekend cases of beer. i normally drink tw2 until i get this way and i cant drink no more. Coronavirus screen: At this time, the client does not indicate any symptoms associated with coronavirus-19. Onset of symptoms was April 26, 2021. 09:55 Method Of Arrival: Ambulatory tw2 09:55 Acuity: DORETHA 2 tw2 09:57 Ebola Screen: Patient denies travel to an Ebola-affected area in the 21 days before tw2 illness onset. Initial Sepsis Screen: Does the patient meet any 2 criteria? HR > 90 bpm. Does the patient have a suspected source of infection? No. Patient's initial sepsis screen is negative. Risk Assessment: Do you want to hurt yourself or someone else? Patient reports no desire to harm self or others. Triage Assessment: 09:56 General: Appears uncomfortable, Behavior is agitated, anxious. Pain: Complains of pain tw2 in chest and abdomen. GI: Pt is actively vomiting. Historical: - Allergies: 09:56 No Known Allergies; tw2 - Home Meds: 09:55 None [Active]; tw2 - PMHx: 09:55 None; tw2 - PSHx: 09:55 None; tw2 - Immunization history:: Client reports having NOT received the Covid vaccine. - Social history:: Patient uses alcohol, on a daily basis. claims drinking about a 6 pack/day. Smoking status: . Screenin:51 Abuse screen: Denies threats or abuse. Nutritional screening: No deficits noted. tw2 Tuberculosis screening: No symptoms or risk factors identified. Fall Risk None identified. Assessment: 10:10 General: Appears uncomfortable, ill, Behavior is anxious, restless. Pain: Complains of as6 pain in abdomen. Neuro: Level of Consciousness is awake, alert, obeys commands, Oriented to person, place, time, situation, Reports headache. Cardiovascular: Capillary refill < 3 seconds. Respiratory: Airway is patent Respiratory effort is even, unlabored, Respiratory pattern is regular, symmetrical. GI: Reports lower abdominal pain, upper abdominal pain, nausea, vomiting, since this morning. Derm: Skin is clammy, diaphoretic, Skin is pale. 11:15 Reassessment: pt still vomiting and anxious, notified joseph, new order for Ativan and as6 Phenergan. 14:46 Reassessment: Patient is alert, oriented x 3, equal unlabored respirations, skin aa5 warm/dry/pink. Patient states feeling better. Vital Signs: 09:56 Pulse 162; Resp 20; Temp 98.1(O); Pulse Ox 100% on R/A; Weight 74.84 kg (R); Height 5 tw2 ft. 9 in. (175.26 cm); Pain 8/10; 10:01 BP 129 / 92; tw2 11:32 BP 131 / 93; Pulse 138; Resp 20; Pulse Ox 100% ; jl7 13:40 BP 138 / 94; Pulse 116; Resp 18; Pulse Ox 99% ; jl7 09:56 Body Mass Index 24.37 (74.84 kg, 175.26 cm) tw2 ED Course: 09:48 Patient arrived in ED. as 09:51 Arm band placed on. tw2 09:55 Triage completed. tw2 09:58 Maximino Bruce, KATHLEEN is Primary Nurse. as6 09:58 Joseph Ruby PA is PHCP. jr8 09:58 Dakota Holliday MD is Attending Physician. jr8 10:20 Inserted saline lock: 20 gauge in left hand, using aseptic technique. Blood collected. as6 Missed attempt(s): 20 gauge in left wrist. Bleeding controlled, band aid applied, catheter tip intact. 10:41 Basic Metabolic Panel Sent. mh5 10:41 Acetaminophen Level Sent. mh5 10:41 Acetaminophen Sent. mh5 10:41 Basic Metabolic Panel Sent. mh5 10:42 Patient has correct armband on for positive identification. Bed in low position. Call as6 light in reach. Side rails up X 1. Seizure precautions initiated. Pulse ox on. NIBP on. 14:46 No provider procedures requiring assistance completed. IV discontinued, intact, aa5 bleeding controlled, No redness/swelling at site. Pressure dressing applied. Administered Medications: 10:16 Drug: Ringers - Lactated Ringers Solution 1000 ml Route: IV; Rate: bolus; Site: left as6 hand; 12:00 Follow up: IV Status: Completed infusion; IV Intake: 1000ml jl7 10:16 Drug: Zofran (Ondansetron) 4 mg Route: IVP; Site: left hand; as6 11:15 Follow up: Response: No adverse reaction; Nausea unchanged as6 10:22 Drug: Ativan (LORazepam) 1 mg Route: IVP; Site: left hand; as6 11:10 Follow up: Response: No adverse reaction; Anxiety unchanged; RASS: Restless (+1) as6 10:40 Drug: Banana Bag - (NS 0.9% 1000 ml, foLIC Acid 1 mg, Thiamine 100 mg, Multivitamin 1 as6 amp) Route: IV; Rate: 500 ml/hr; Site: left hand; 12:40 Follow up: IV Status: Completed infusion; IV Intake: 1000ml jl7 11:29 Drug: Ativan (LORazepam) 2 mg Route: IVP; Site: left hand; as6 11:30 Drug: Promethazine 12.5 mg Route: IVP; Site: left hand; as6 Intake: 12:00 IV: 1000ml; Total: 1000ml. jl7 12:40 IV: 1000ml; Total: 2000ml. jl7 Outcome: 14:36 Discharge ordered by . jr8 14:46 Discharged to home ambulatory, with significant other. aa5 14:46 Condition: improved 14:46 Discharge instructions given to patient, Instructed on discharge instructions, follow up and referral plans. medication usage, Demonstrated understanding of instructions, follow-up care, medications, Prescriptions given X 2. 14:47 Patient left the ED. aa5 Signatures: Edna Negrete Audri RN RN aa5 Joseph Ruby PA PA jr8 Jaymie Huntley RN RN tw2 Ambar Negrete 5 Shanti Hayden RN RN jl7 Maximino Bruce RN RN as6 Corrections: (The following items were deleted from the chart) 09:56 09:55 PMHx: None; tw2 tw2 11:38 10:43 Reassessment: as6 as6
[2021-04-26 15:42] VITALS: TEMP 98.1
[2021-04-26 15:43] VITALS: BP 138/94; O2SAT 99
--- NOTE | 2021-04-27 16:55 | EKG ---
Test Date: 2021-04-26 Test Time: 10:16:54 Personal Financial Counselor: HERMILA MEASUREMENT RESULTS: Intervals: Rate: 142 CA: 148 QRSD: 80 QT: 266 QTc: 409 [place]: P: 72 CA: 148 QRS: 118 T: 51 INTERPRETIVE STATEMENTS: Sinus tachycardia Left posterior fascicular block Anterior infarct, age undetermined Abnormal ECG Compared to ECG 04/18/2021 07:46:26 Left posterior fascicular block now present Myocardial infarct finding now present Sinus rhythm no longer present Sinus arrhythmia no longer present Electronically Signed On 04-27-21 16:51:29 AUTOMATIC CHIEF by Henry Negron
== END 2021-04-26 14:47 | disposition home or self-care (01) ==
LOC: ER 09:47
DX: F10.239 Alcohol dependence with withdrawal, unspecified (principal)
CPT/HCPCS: 36415; 80048; 80076; 80307; 80320; 80329; 81003; 85025; 85610; 85730; 93005; 96365; 96375; 99284; J2405; J2550; J3411; J7030; J7120

== ENCOUNTER 2021-07-21 12:29 | Emergency (ER) | payer OTHER, SELFPAY ==
--- OUTSIDE RECORDS SUMMARY | 2021-07-21 12:35 | XMS REPORT | Continuity of Care Document ---
:1975 Author Organization [facility] t Address [address] [place] [address] Care Team Providers Name Role Phone Rajan Phan Attending Clinician Unavailable Quinn REYES, W Attending Clinician Patricia BALL Attending Clinician Unavailable Payers Payer Name Policy Type Policy Number Effective Date Expiration Date S elian [employer] [employer] [facility] [id number] 2012 00:00:00 [facility] [id number] 2012 00:00:00 Problems This patient has no known problems. Allergies, Adverse Reactions, Alerts Allergy Allergy Status Severity Reaction(s) Onset Inactive Treating Comm ents Source Name Type Date Date Clinician NO KNOWN Drug Active [facility]ERG[facility] Class [facility] Medications This patient has no known medications. Procedures This patient has no known procedures. Encounters Start End Encounter Admission Attending Care Care Encounter Source Date/Time Date/Time Type Type Clinicians Facility Department ID 2021-07-07 Outpatient JOHN Phan [facility] [id number] [facility] 14:15:22 Zi [id number] [facility] 2021-07-09 2021-07-09 [facility] [id number] [facility] 2021-05-10 2021-05-10 ambulatory [facility] [id number] [facility] 2021-05-05 2021-05-05 ambulatory [facility] [id number] [facility] 2021-04-29 2021-04-29 ambulatory [facility] [id number] [facility] 2021-04-29 2021-04-29 ambulatory [facility] [id number] [facility] 2020-07-09 2020-07-10 Emergency Romeo Ball [facility] [id number] 23:44:00 06:08:00 [place] [id number] [place] [id number] [place] [id number] 2020-07-09 2020-07-09 Emergency X ROMEO BALL [facility] ERT [id number] [facility] 23:44:00 23:44:00 [facility] Results This patient has no known results.
[2021-07-21 13:32] LABS: Protime INR 0.91
[2021-07-21 13:48] LABS: Absolute Lymphocytes (CBC) 1.3 K/uL (0.7-4.9); Lymphocytes % 34.9 % (15.3-44.8); MPV 6.9 fL (7.6-11.3); RBC Red Blood Cell Count 4.48 M/uL (4.33-5.43)
[2021-07-21 13:55] LABS: ALT/SGPT 104 U/L (12-78); AST/SGOT 170 U/L (15-37); Albumin 3.8 g/dL (3.4-5.0); Alkaline Phosphatase 92 U/L (45-117); BUN Blood Urea Nitrogen 5 mg/dL (7-18); Bicarbonate 24 mmol/L (21-32); Bilirubin Direct 0.3 mg/dL (0-0.2); Glucose Level 71 mg/dL (74-106); Lipase 219 U/L (73-393); NT PRO-BNP 9 pg/mL (<125); Potassium 3.4 mmol/L (3.5-5.1); Sodium Level 137 mmol/L (136-145)
[2021-07-21] MEDS ORDERED: THIAMINE 200 MG/2 ML INJ ONE (13:56)
[2021-07-21] MEDS ORDERED: KETOROLAC 30 MG/ML INJ ONE (13:56)
[2021-07-21] MEDS ORDERED: ONDANSETRON 4 MG/2 ML VIAL ONE (13:57)
[2021-07-21] MEDS ORDERED: BACI/NEOMYCIN/POLY OINT 15GM TOP ONE (13:58)
[2021-07-21] MEDS ORDERED: TETANUS & DIPHTHERIA TOX,ADULT 0.5 ML VIAL ONE (13:58)
--- NOTE | 2021-07-21 13:59 | RAD REPORT ---
EXAM DESCRIPTION: CT - Head C Spine Cap W Con - 07/21/2021 1:45 pm CLINICAL HISTORY: PAIN, altered mental status, unresponsive, head, neck, chest and abdomen pain COMPARISON: No comparisons TECHNIQUE: Axial [address] head images were obtained. Axial [address] cervical spine images were obtaine d with sagittal and coronal reconstruction images reviewed. During dynamic enhancement of 100mL non-i onic contrast, axial 5 mm images of the chest, abdomen and pelvis were obtained. Biphasic technique p erformed of the abdomen and pelvis. All CT scans are performed using dose optimization technique as appropriate and may include automated exposure control or mA/KV adjustment according to patient size. FINDINGS: No intracranial hemorrhage, mass or edema. No midline shift or abnormal fluid collection. Mastoid air cells are clear. Mucosal thickening is seen throughout the paranasal sinuses without ai r-fluid levels identified. No skull fracture. CT cervical spine imaging shows normal height. Normal alignment of the vertebrae. C4-5, C5-6 and C6-7 disc space narrowing present. Facet joint degenerative changes are present. Uncovertebral joint hype rtrophy causes a mild right foraminal stenosis C4-5. Bilateral foraminal stenosis present at C5-6 and C6-7. This is mild in degree. No paraspinal mass or hematoma seen. Central canal detail is inherentl y limited. Concerns for traumatic disc herniation or traumatic cord injury can be further addressed w ith MR imaging. CT chest shows no pneumothorax, pulmonary contusion or pleural fluid collection. No mediastinal hemat tao and the aorta and pulmonary arteries are unremarkable. No chest will mass or abnormal axillary fi nding. No displaced rib fracture or other significant bony finding. CT abdomen and pelvis show no injury to solid abdominal viscera. Gallbladder and biliary tree are unr emarkable. No bowel injury or significant finding. No free air, free fluid or abnormal stranding. Uri nary broader is quite full with the dome of the bladder extending superiorly to the level of the umbi licus. No prostate enlargement or focal prostate abnormality. No significant bony finding. No significant vascular finding. IMPRESSION: No significant CT Head finding. No significant CT Cervical Spine finding. No significant CT Chest finding. No acute traumatic injury to the abdomen or pelvis. Urinary bladder is quite full with the dome exten ding to the level of the umbilicus.
--- NOTE | 2021-07-21 14:11 | ER ---
Nurse's Notes [facility] Name: James Dupree Age: 45 yrs Sex: Male : 1975 Arrival Date: 07/21/2021 Time: 12:34 Bed 18 Private MD: Diagnosis: Fall on same level, unspecified;Contusion of right front wall of thorax;Unspecified injury of head, initial encounter-contusion / abrasion;Alcohol abuse with intoxication;Hypokalemia Presentation: 07/21 13:00 Chief complaint: Patient states: Found unresponsive on the floor of [employer] parking. [facility] doesn't know how patient got on the floor. Abrasion noted on forehead HR 87 139/86 99% Blood glucose 89, no STEMI ETCO2 38, ETOH positive. Received 1000 ml NS . 13:00 Coronavirus screen: Vaccine status:. Ebola Screen: No symptoms or risks identified at [facility] this time. Initial Sepsis Screen: Does the patient meet any 2 criteria? No. Patient's initial sepsis screen is negative. Does the patient have a suspected source of infection? No. Patient's initial sepsis screen is negative. Risk Assessment: Do you want to hurt yourself or someone else? Patient reports no desire to harm self or others. Onset of symptoms is unknown. 13:00 Method Of Arrival: EMS: [facility] 13:00 Acuity: DORETHA 3 ke Triage Assessment: 13:00 General: Behavior is uncooperative. Pain: Unable to use pain scale. Patient is [facility] disoriented. 14:41 General: Appears ill. [facility] - Immunization history:: Adult Immunizations unknown, Last tetanus immunization:. - Family history:: not pertinent. - Social history:: Patient uses alcohol, on a daily basis. unable to assess, Smoking status: unknown. Screenin:41 Abuse screen: Denies threats or abuse. Nutritional screening: No deficits noted. [facility] Tuberculosis screening: No symptoms or risk factors identified. Fall Risk Fall in past 12 months (25 points). Secondary diagnosis (15 points) IV access (20 points). Gait- Mental Status-. Assessment: 13:44 General: see triage note. [facility] [place] Coma Score: 12:56 Eye Response: spontaneous(4). Verbal Response: oriented(5). Motor Response: obeys rivka commands(6). Total: 15. 13:01 Eye Response: spontaneous(4). Verbal Response: oriented(5). Motor Response: obeys rivka commands(6). Total: 15. ED Course: 12:34 Patient arrived in ED. jl7 12:35 Nahid Stark MD is Attending Physician. rivka 12:42 Romeo Eid, RN is Primary Nurse. bp 13:43 Triage completed. ke1 13:44 CT Traumagram (Head C Spine CAP W Con) In Process Unspecified. EDMS 14:17 XRAY Chest (1 view) In Process Unspecified. EDMS 14:43 Arm band placed on right wrist. ke1 14:44 No provider procedures requiring assistance completed. IV discontinued. ke1 14:45 Patient has correct armband on for positive identification. Fall risk band placed. 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 Exp: ke1 10/23/2022. Lot #: [id number]. } Route: IM; Site: left deltoid; 14:32 Drug: Neosporin (knvafoax-pdjiijifli-qgfmghppz) Ointment 1 application Route: Topical; ke1 Site: affected area; Outcome: 14:11 Discharge ordered by . rivka 14:38 Patient left the ED. ke1 14:40 Discharged to home ke1 14:40 Condition: improved 14:40 Discharge instructions given to patient, Patient refused to take instructions + prescriptions at discharge Signatures: Dispatcher [employer] EDMS Nahid Stark MD MD cha Leal, Jahala, RN RN jl7 Romeo Eid, KATHLEEN WANG Marily Rondon RN RN ke1 Corrections: (The following items were deleted from the chart) 13:43 13:19 Chief complaint: Patient states: Found unresponsive on the floor of [employer] [facility] parking. EMS doesn't know how patient got on the floor. Abrasion noted on forehead HR 87 139/86 99% Blood glucose 89, no STEMI ETCO2 38, ETOH positive. Received 1000 ml NS . ke1
--- NOTE | 2021-07-21 14:12 | EDPHYS ---
Physician Documentation [facility] Name: James Dupree Age: 45 yrs Sex: Male : 1975 Arrival Date: 07/21/2021 Time: 12:34 Bed 18 Private MD: ED Physician Nahid Stark HPI: 07/21 12:56 This 45 yrs old Male presents to ER via Unassigned with complaints of rivka Unresponsive. 12:56 The patient or guardian reports abrasion, swelling, tenderness. The complaints affect rivka the top of head and forehead. Context of injury: The problem was sustained at a parking lot. Onset: The symptoms/episode began/occurred just prior to arrival. Associated signs and symptoms: Loss of consciousness: This patient did not experience any loss of consciousness. Pertinent positives: patient admits to or smells of alcohol consumption. Details of fall: The patient fell from an upright position, while standing, while walking. Associated injuries: The patient sustained injury to the head, injury to the chest. Severity of symptoms: At their worst the symptoms were mild, in the emergency department the symptoms are unchanged. - Immunization history:: Adult Immunizations unknown, Last tetanus immunization:. - Family history:: not pertinent. - Social history:: Patient uses alcohol, on a daily basis. unable to assess, Smoking status: unknown. ROS: 12:56 Constitutional: Negative for fever, chills, and weight loss, Eyes: Negative for injury, rivka pain, redness, and discharge, ENT: Negative for injury, pain, and discharge, Neck: Negative for injury, pain, and swelling, Cardiovascular: Negative for chest pain, palpitations, and edema, Respiratory: Negative for shortness of breath, cough, wheezing, and pleuritic chest pain, Back: Negative for injury and pain, : Negative for injury, bleeding, discharge, and swelling, MS/Extremity: Negative for injury and deformity, Skin: Negative for injury, rash, and discoloration, Neuro: Negative for headache, weakness, numbness, tingling, and seizure, Psych: Negative for depression, anxiety, suicide ideation, homicidal ideation, and hallucinations, Allergy/Immunology: Negative for hives, rash, and allergies, Endocrine: Negative for neck swelling, polydipsia, polyuria, polyphagia, and marked weight changes, Hematologic/Lymphatic: Negative for swollen nodes, abnormal bleeding, and unusual bruising. 12:56 Abdomen/GI: Positive for abdominal pain, of the right upper quadrant and right lower quadrant. Exam: 12:56 Constitutional: This is a well developed, well nourished patient who is awake, alert, rivka and in no acute distress. Eyes: Pupils equal round and reactive to light, extra-ocular motions intact. Lids and lashes normal. Conjunctiva and sclera are non-icteric and not injected. Cornea within normal limits. Periorbital areas with no swelling, redness, or edema. ENT: Nares patent. No nasal discharge, no septal abnormalities noted. Tympanic membranes are normal and external auditory canals are clear. Oropharynx with no redness, swelling, or masses, exudates, or evidence of obstruction, uvula midline. Mucous membranes moist. Neck: Trachea midline, no thyromegaly or masses palpated, and no cervical lymphadenopathy. Supple, full range of motion without nuchal rigidity, or vertebral point tenderness. No Meningismus. Cardiovascular: Regular rate and rhythm with a normal S1 and S2. No gallops, murmurs, or rubs. Normal PMI, no JVD. No pulse deficits. Respiratory: Lungs have equal breath sounds bilaterally, clear to auscultation and percussion. No rales, rhonchi or wheezes noted. No increased work of breathing, no retractions or nasal flaring. Abdomen/GI: Soft, non-tender, with normal bowel sounds. No distension or tympany. No guarding or rebound. No evidence of tenderness throughout. Back: No spinal tenderness. No costovertebral tenderness. Full range of motion. Male : Normal genitalia with no discharge or lesions. Skin: Warm, dry with normal turgor. Normal color with no rashes, no lesions, and no evidence of cellulitis. MS/ Extremity: Pulses equal, no cyanosis. Neurovascular intact. Full, normal range of motion. Neuro: Awake and alert, GCS 15, oriented to person, place, time, and situation. Cranial nerves II-XII grossly intact. Motor strength 5/5 in all extremities. Sensory grossly intact. Cerebellar exam normal. Normal gait. Psych: Awake, alert, with orientation to person, place and time. Behavior, mood, and affect are within normal limits. 12:56 Head/face: Noted is abrasion(s), that are moderate, of the top of head and forehead. 12:56 Chest/axilla: Inspection: normal, Palpation: tenderness, that is moderate, of the right supraclavicular area, right clavicle, anterior aspect of right upper chest, right lateral anterior chest, right lateral posterior chest and right breast. 14:20 ECG was reviewed by the Attending Physician. [facility] Coma Score: 12:56 Eye Response: spontaneous(4). Verbal Response: oriented(5). Motor Response: obeys rivka commands(6). Total: 15. 13:01 Eye Response: spontaneous(4). Verbal Response: oriented(5). Motor Response: obeys rivka commands(6). Total: 15. MDM: 12:35 Patient medically screened. [facility] 13:01 Differential diagnosis: Contusion of Hematoma on Laceration of Intracranial bleed- rivka Concussion Blunt Chest Trauma Chest Wall Contusion Pneumomediastinum Pneumopericardium Pneumothorax Pulmonary Contusion Rib Fracture. Differential diagnosis: abrasion, closed head injury, contusion, fracture, sprain. Data reviewed: vital signs, nurses notes, lab test result(s), EKG, radiologic studies, CT scan, plain films. Data interpreted: residential monitor: rate is 86 beats/min, rhythm is regular, Pulse oximetry: on room air is 110 %. Test interpretation: by ED physician or midlevel provider: ECG, plain radiologic studies. Counseling: I had a detailed discussion with the patient and/or guardian regarding: the historical points, exam findings, and any diagnostic results supporting the discharge/admit diagnosis, lab results, radiology results, the need for outpatient follow up, for definitive care, 07/21 12:48 Order name: Basic Metabolic Panel [facility] 07/21 12:48 Order name: CBC with Diff; Complete Time: 13:59 [facility] 07/21 12:48 Order name: LFT's 07/21 12:48 Order name: Magnesium 07/21 12:48 Order name: NT PRO-BNP 07/21 12:48 Order name: PT-INR; Complete Time: 13:59 [facility] 07/21 12:48 Order name: Troponin HS [facility] 07/21 12:48 Order name: Acetaminophen 07/21 12:48 Order name: ETOH Level; Complete Time: 13:59 [facility] 07/21 12:48 Order name: Ptt, Activated; Complete Time: 13:59 [facility] 07/21 12:48 Order name: Salicylate [facility] 07/21 12:48 Order name: Lipase [facility] 07/21 12:49 Order name: Basic Metabolic Panel EDMS 07/21 12:48 Order name: XRAY Chest (1 view) [facility] 07/21 12:48 Order name: EKG; Complete Time: 12:49 [facility] 07/21 12:48 Order name: Cardiac monitoring [facility] 07/21 12:48 Order name: EKG - Nurse/Tech [facility] 07/21 12:48 Order name: IV Saline Lock [facility] 07/21 12:48 Order name: Labs collected and sent [facility] 07/21 12:48 Order name: O2 Per Protocol [facility] 07/21 12:48 Order name: O2 Sat Monitoring [facility] 07/21 12:48 Order name: CT Traumagram (Head C Spine CAP W Con) [facility] 07/21 12:48 Order name: Suicide Screening ([place]); Complete Time: 13:50 [facility] EC:20 Rate is 85 beats/min. Rhythm is regular. QRS [place] is Normal. AL interval is normal. QRS rivka interval is normal. QT interval is normal. No Q waves. T waves are Normal. No ST changes noted. Clinical impression: Normal ECG and No evidence of ischemia. Interpreted by me. Reviewed by me. 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 Exp: ke1 10/23/2022. Lot #: [id number]. } Route: IM; Site: left deltoid; 14:32 Drug: Neosporin (baicocss-efdjyafidi-jssbqyanc) Ointment 1 application Route: Topical; ke1 Site: affected area; Disposition Summary: 07/21/21 14:11 Discharge Ordered Location: Home rivka Problem: new rivka Symptoms: have improved rivka Condition: Stable rivka Diagnosis - Fall on same level, unspecified rivka - Contusion of right front wall of thorax rivka - Unspecified injury of head, initial encounter - contusion / abrasion rivka - Alcohol abuse with intoxication rivka - Hypokalemia rivka Followup: rivka - With: Private Physician - When: 2 - 3 days - Reason: Recheck today's complaints, Continuance of care, Re-evaluation by your physician Discharge Instructions: - Discharge Summary Sheet rivka - Alcohol Intoxication rivka - Chest Wall Pain rivka - Head Injury, Adult rivka - Fall Prevention in the Home, Adult rivka - Potassium Content of Foods rivka - Chest Wall Pain, Wmmq-nt-Hrsw rivka - Alcohol Intoxication, Khoj-at-Vtxz rivka - Alcohol Abuse and Nutrition rivka - Head Injury, Adult, Zowi-bw-Nxts rivka - Hypokalemia rivka Forms: - Medication Reconciliation Form rivka - Thank You Letter rivka - Antibiotic Education rivka - Prescription Opioid Use rivka Prescriptions: - Ibuprofen 600 mg Oral Tablet - take 1 tablet by ORAL route every 6 hours As needed take with food; 20 tablet; rivka Refills: 0, Product Selection Permitted Signatures: Dispatcher [employer] Nahid Rivera MD MD cha Ebrottie, Kouassi RN RN ke1
--- NOTE | 2021-07-21 14:32 | RAD REPORT ---
EXAM DESCRIPTION: RAD - Chest Single View - 07/21/2021 2:17 pm CLINICAL HISTORY: BLUNT CHEST TRAUMA COMPARISON: Chest Single View dated 08/27/2020; Chest Single View dated 01/12/2020; CHEST SINGLE VIEW d ated 01/06/2009 FINDINGS: Lines: None. Lungs: No evidence of edema or pneumonia. Pleural: No significant pleural effusions or pneumothorax. Cardiac: The heart size is within normal limits. Bones: No acute fractures. Other: IMPRESSION: No acute cardiopulmonary disease.
== END 2021-07-21 14:38 | disposition home or self-care (01) ==
LOC: ER 12:29
DX: S00.81XA Abrasion of other part of head, initial encounter (principal); F10.129 Alcohol abuse with intoxication, unspecified; S20.211A Contusion of right front wall of thorax, initial encounter; E87.6 Hypokalemia; W18.30XA Fall on same level, unspecified, initial encounter
CPT/HCPCS: 36415; 70450; 71045; 71260; 72125; 74177; 80048; 80076; 80320; 80329; 82565; 83690; 83735; 83880; 84484; 85025; 85610; 85730; 90471; 90714; 96374; 96375; 99284; J2405; J3411; Q9967

== ENCOUNTER 2021-07-30 19:59 | Emergency (ER) | payer SELFPAY ==
--- OUTSIDE RECORDS SUMMARY | 2021-07-30 20:01 | XMS REPORT | Continuity of Care Document ---
:1975 Author Organization [facility] t Address [address] [place] [address] Care Team Providers Name Role Phone Rajan Phan Attending Clinician Unavailable Quinn REYES, W Attending Clinician Patricia BALL Attending Clinician Unavailable Payers Payer Name Policy Type Policy Number Effective Date Expiration Date S elian [employer] [id number] 2012 00:00:00 [facility] [id number] 2012 00:00:00 Problems This patient has no known problems. Allergies, Adverse Reactions, Alerts Allergy Allergy Status Severity Reaction(s) Onset Inactive Treating Comm ents Source Name Type Date Date Clinician NO KNOWN Drug Active [facility] ALLERGIE Class ity of S [facility] Medications This patient has no known medications. Procedures This patient has no known procedures. Encounters Start End Encounter Admission Attending Care Care Encounter Source Date/Time Date/Time Type Type Clinicians Facility Department ID 2021-07-07 Outpatient JOHN Phan [facility] [id number] 14:15:22 Zi [id number] [facility] 2021-07-09 2021-07-09 amb[facility] [id number] [facility] 2021-05-10 2021-05-10 [facility] [id number] [facility] 2021-05-05 2021-05-05 ambulatory [facility] [id number] [facility] 2021-04-29 2021-04-29 ambulatory [facility] [id number] [facility] 2021-04-29 2021-04-29 ambulatory [facility] [id number] [facility] 2020-07-09 2020-07-10 Emergency Romeo Ball [facility] [id number] 23:44:00 06:08:00 [place] [id number] [place] [id number] [place] [id number] 2020-07-09 2020-07-09 Emergency X ROMEO BALL [facility] ERT [id number] [facility] 23:44:00 23:44:00 [facility] Results This patient has no known results.
--- NOTE | 2021-07-30 21:23 | ER ---
Nurse's Notes [facility] Name: James Dupree Age: 45 yrs Sex: Male : 1975 Arrival Date: 07/30/2021 Time: 20:01 Bed 19 Private MD: Diagnosis: Depression, homeless Presentation: 07/30 20:45 Chief complaint: Patient states: States feeling depressed, "I don't like life, I have ll3 no where to live, I've been homeless for about 3-5 days", "I feel like a failure". Coronavirus screen: Vaccine status: Patient reports receiving the 2nd dose of the covid vaccine. At this time, the client does not indicate any symptoms associated with coronavirus-19. Ebola Screen: No symptoms or risks identified at this time. Initial Sepsis Screen: Does the patient meet any 2 criteria? No. Patient's initial sepsis screen is negative. Does the patient have a suspected source of infection? No. Patient's initial sepsis screen is negative. Risk Assessment: Do you want to hurt yourself or someone else? Patient reports no desire to harm self or others. Onset of symptoms is unknown. 20:45 Method Of Arrival: Law Enforcement: [employer] ll3 20:45 Acuity: DORETHA 4 ll3 Triage Assessment: 20:48 General: Appears in no apparent distress. comfortable, Behavior is calm, cooperative, ll3 combative, Smells of alcohol. Pain: Denies pain. Neuro: Level of Consciousness is awake, alert, obeys commands, Oriented to person, place, time, situation. Neuro: Reports States feeling depressed. Cardiovascular: Patient's skin is warm and dry. Respiratory: Respiratory effort is even, unlabored, Respiratory pattern is regular, symmetrical. Derm: Skin is pink, warm \\T\\ dry. Historical: - Allergies: 20:48 No Known Allergies; ll3 - Home Meds: 20:48 propranolol 20 mg/5 mL (4 mg/mL) Oral soln nightly [Active]; Protonix 20 mg Oral TbEC ll3 [Active]; gabapentin 300 mg oral cap [Active]; - PMHx: 20:48 None; ll3 - PSHx: 20:48 None; ll3 - Immunization history:: Client reports receiving the 2nd dose of the Covid vaccine. - Social history:: Smoking status: Patient reports the use of cigarette tobacco products, denies chronic smoking, but will smoke occasionally. Screenin:31 Abuse screen: Denies threats or abuse. Denies injuries from another. Nutritional sm5 screening: No deficits noted. Tuberculosis screening: No symptoms or risk factors identified. Fall Risk None identified. Assessment: 21:28 General: Appears in no apparent distress. Behavior is cooperative. Neuro: Level of sm5 Consciousness is awake, alert, Oriented to person, place, time, situation. Cardiovascular: Capillary refill < 3 seconds Patient's skin is warm and dry. Respiratory: No deficits noted. Airway is patent Trachea midline Respiratory effort is even, unlabored. Psych: 21:32 [place] Suicide Severity Screening: In the past month, have you wished you were sm5 or wished you could go to sleep and not wake up? Patient responds "No." "In the past month, have you actually had any thoughts of killing yourself?" Patient responds "no." "In your lifetime, have you ever done anything, started to do anything, or prepared to do anything to end your life?" Patient responds "no.". Subjective: Delusions are denied, Hallucinations are denied. Objective: Patient is cooperative, Speech is normal. Interventions: Urine collected and sent for urine drug test. Safety Checks: Personal items have been removed. Door is open. Patient uses. Patient uses of beer. Commitment: none. Vital Signs: 20:45 BP 133 / 85; Pulse 88; Resp 17; Pulse Ox 100% on R/A; Weight 72.57 kg (R); Height 5 ft. ll3 8 in. (172.72 cm) (R); Pain 0/10; 20:45 Body Mass Index 24.33 (72.57 kg, 172.72 cm) ll3 ED Course: 20:01 Patient arrived in ED. ja2 20:05 Dandre Pandey MD is Attending Physician. kdr 20:48 Triage completed. ll3 20:48 Arm band placed on Patient placed in an exam room, on a stretcher, in view of staff 3 members, on oxygen, on manager cardiac cath, on pulse oximetry. 20:50 Sun Church RN is Primary Nurse. sm5 21:32 Patient has correct armband on for positive identification. Bed in low position. Side sm5 rails up X2. 21:32 No provider procedures requiring assistance completed. Patient did not have IV access sm5 during this emergency room visit. 21:33 Alcohol Serum/Plasma Sent. 5 21:33 ETOH Level Sent. 5 21:34 UDS Sent. 5 Administered Medications: No medications were administered Outcome: 21:22 Discharge ordered by . kdr 21:33 Discharged to home ambulatory. 5 21:33 Condition: stable 21:33 Discharge instructions given to patient, Instructed on discharge instructions, follow up and referral plans. Demonstrated understanding of instructions, follow-up care. 21:34 Patient left the ED. 5 Signatures: Dandre Pandey MD MD kdr Alexander, Jessica ja2 Loubet, Lynsea RN RN 3 Sun Church RN RN 5
--- NOTE | 2021-07-30 21:23 | EDPHYS ---
Physician Documentation [facility] Name: James Dupree Age: 45 yrs Sex: Male : 1975 Arrival Date: 07/30/2021 Time: 20:01 Bed 19 Private MD: ED Physician Dandre Pandey HPI: 07/30 21:26 This 45 yrs old Male presents to ER via Law Enforcement with complaints of Psych kdr Problem. 21:26 The patient presents to the emergency department with depression, Patient has long kdr history of depression is currently homeless. He is still drinking states his last drink was earlier today he states that he is not had suicidal thoughts nor has he had any prior attempts at suicide either. In reviewing his record of his visits to date to this facility, none have seemed to indicate that he is a threat to himself or others. Historical: - Allergies: 20:48 No Known Allergies; ll3 - Home Meds: 20:48 propranolol 20 mg/5 mL (4 mg/mL) Oral soln nightly [Active]; Protonix 20 mg Oral TbEC ll3 [Active]; gabapentin 300 mg oral cap [Active]; - PMHx: 20:48 None; ll3 - PSHx: 20:48 None; ll3 - Immunization history:: Client reports receiving the 2nd dose of the Covid vaccine. - Social history:: Smoking status: Patient reports the use of cigarette tobacco products, denies chronic smoking, but will smoke occasionally. ROS: 21:26 Constitutional: Negative for fever, chills, and weight loss, Eyes: Negative for injury, kdr pain, redness, and discharge, Neck: Negative for injury, pain, and swelling, Cardiovascular: Negative for chest pain, palpitations, and edema, Respiratory: Negative for shortness of breath, cough, wheezing, and pleuritic chest pain, Abdomen/GI: Negative for abdominal pain, nausea, vomiting, diarrhea, and constipation, Back: Negative for injury and pain, MS/Extremity: Negative for injury and deformity, Skin: Negative for injury, rash, and discoloration, Allergy/Immunology: Negative for hives, rash, and allergies, Endocrine: Negative for neck swelling, polydipsia, polyuria, polyphagia, and marked weight changes, Hematologic/Lymphatic: Negative for swollen nodes, abnormal bleeding, and unusual bruising. 21:26 Psych: Positive for depression, alcohol dependence, Negative for auditory hallucinations, visual hallucinations, homicidal ideation, suicide gesture, suicidal ideation. Exam: 21:26 Constitutional: This is a well developed, well nourished patient who is awake, alert, kdr and in no acute distress. 21:26 Psych: Behavior/mood is pleasant, cooperative, depressed, Affect is calm, flat, Oriented to person, place, time, Oriented to situation. Patient has no thoughts/intents to harm self or others. Judgement / Insight is Delusions/hallucinations are not present. Vital Signs: 20:45 BP 133 / 85; Pulse 88; Resp 17; Pulse Ox 100% on R/A; Weight 72.57 kg (R); Height 5 ft. ll3 8 in. (172.72 cm) (R); Pain 0/10; 20:45 Body Mass Index 24.33 (72.57 kg, 172.72 cm) ll3 MDM: 21:22 Patient medically screened. kdr 21:30 Data reviewed: vital signs, nurses notes. Counseling: I had a detailed discussion with kdr the patient and/or guardian regarding: the historical points, exam findings, and any diagnostic results supporting the discharge/admit diagnosis, the need for outpatient follow up. 07/30 20:52 Order name: UDS [facility] 07/30 20:52 Order name: ETOH Level [facility] 07/30 20:53 Order name: Urine Drug Screen [facility] 07/30 20:53 Order name: Alcohol Serum/Plasma EDHI Administered Medications: No medications were administered Disposition Summary: 07/30/21 21:22 Discharge Ordered Location: Home kdr Problem: an ongoing problem kdr Symptoms: are unchanged kdr Condition: Stable kdr Diagnosis - Depression, homeless kdr Followup: kdr - With: Private Physician - When: 2 - 3 days - Reason: Wound Recheck, Recheck today's complaints, Continuance of care, Re-evaluation by your physician Discharge Instructions: - Discharge Summary Sheet kdr - Managing Depression, Adult kdr Forms: - Medication Reconciliation Form kdr - Thank You Letter kdr Signatures: Dispatcher [employer] Dandre Phelps MD MD kdr Loubet, Lynsea RN RN ll3
[2021-07-30 21:30] LABS: Barbiturates NEGATIVE (NEGATIVE); Benzodiazepines NEGATIVE (NEGATIVE); Cocaine NEGATIVE (NEGATIVE); METHAMPHETAM NEGATIVE (NEGATIVE); Methadone NEGATIVE (NEGATIVE); Opiates NEGATIVE (NEGATIVE); Phencyclidine NEGATIVE (NEGATIVE); THC Cannibis NEGATIVE (NEGATIVE)
[2021-07-30 21:39] VITALS: BP 133/85; O2SAT 100
== END 2021-07-30 21:34 | disposition home or self-care (01) ==
LOC: ER 19:59
DX: F32.A Depression, unspecified (principal); Z59.00 Homelessness unspecified; F17.210 Nicotine dependence, cigarettes, uncomplicated
CPT/HCPCS: 36415; 80307; 80320; 99285

== ENCOUNTER 2021-09-01 14:14 | Emergency (ER) | payer SELFPAY ==
--- OUTSIDE RECORDS SUMMARY | 2021-09-01 14:17 | XMS REPORT | Continuity of Care Document ---
:1975 Author Organization [facility] t Address [address] [place] [address] Care Team Providers Name Role Phone Rajan Phan Attending Clinician Unavailable Quinn REYES, W Attending Clinician Patricia BALL Attending Clinician Unavailable Payers Payer Name Policy Type Policy Number Effective Date Expiration Date S elian [employer] [id number] 2012 00:00:00 [facility] [id number] 2012 00:00:00 Problems This patient has no known problems. Allergies, Adverse Reactions, Alerts Allergy Allergy Status Severity Reaction(s) Onset Inactive Treating Comm ents Source Name Type Date Date Clinician NO KNOWN Drug Active [facility] ALLERG[facility] Class ity of S [facility] Medications This patient has no known medications. Procedures This patient has no known procedures. Encounters Start End Encounter Admission Attending Care Care Encounter Source Date/Time Date/Time Type Type Clinicians Facility Department ID 2021-07-07 Outpatient JOHN Phan [facility] [id number] [address] 14:15:22 Zi [id number] [facility] 2021-07-09 2021-07-09 amb[facility] [id number] [facility] 2021-05-10 2021-05-10 ambulatory [facility] [id number] [facility] 2021-05-05 2021-05-05 ambulatory [facility] [id number] [facility] 2021-04-29 2021-04-29 ambulatory [facility] [id number] [facility] 2021-04-29 2021-04-29 ambulatory [facility] [id number] [facility] 2020-07-09 2020-07-10 Emergency Romeo Ball [facility] [id number] 23:44:00 06:08:00 [place] [id number] [place] [id number] [place] [id number] 2020-07-09 2020-07-09 Emergency X ROMEO BALL [facility] ERT [id number] [facility] 23:44:00 23:44:00 [facility] Results This patient has no known results.
[2021-09-01] MEDS ORDERED: DIAZEPAM 10 MG/2 ML INJ SYRINGE ONE (14:55)
[2021-09-01] MEDS ORDERED: FOLIC ACID 1 MG, THIAMINE HCL 100 MG, MULTIVITAMINS INJ 10 ML in NA CHLORIDE 0.9% 1,000 ML IV ONE (15:00)
[2021-09-01 15:05] LABS: Urine Blood 1+ (Negative); Urine Glucose Negative (Negative); Urine Protein 2+ (Negative); Urine Specific Gravity >=1.030 (1.005-1.030)
[2021-09-01 15:07] LABS: Absolute Lymphocytes (CBC) 1.2 K/uL (0.7-4.9); Hematocrit 47.9 % (39.6-49.0); Lymphocytes % 12.5 % (15.3-44.8); MPV 7.3 fL (7.6-11.3); RBC Red Blood Cell Count 4.75 M/uL (4.33-5.43)
[2021-09-01 15:20] LABS: Protime INR 0.95
[2021-09-01 15:21] LABS: Barbiturates NEGATIVE (NEGATIVE); Benzodiazepines NEGATIVE (NEGATIVE); Cocaine NEGATIVE (NEGATIVE); METHAMPHETAM NEGATIVE (NEGATIVE); Methadone NEGATIVE (NEGATIVE); Opiates NEGATIVE (NEGATIVE); Phencyclidine NEGATIVE (NEGATIVE); THC Cannibis POSITIVE (NEGATIVE)
[2021-09-01 15:48] LABS: ALT/SGPT 36 U/L (12-78); AST/SGOT 74 U/L (15-37); Albumin 4.4 g/dL (3.4-5.0); Alkaline Phosphatase 97 U/L (45-117); BUN Blood Urea Nitrogen 6 mg/dL (7-18); Bicarbonate 23 mmol/L (21-32); Bilirubin Direct 0.3 mg/dL (0-0.2); Bilirubin Total 1.2 mg/dL (0.2-1.0); Glucose Level 92 mg/dL (74-106); Potassium 3.5 mmol/L (3.5-5.1); Protein, Total 8.8 g/dL (6.4-8.2); Sodium Level 138 mmol/L (136-145)
[2021-09-01] MEDS ORDERED: HALOPERIDOL LACT 5 MG/ML INJ ONE (16:05)
--- NOTE | 2021-09-01 17:22 | EDPHYS ---
Physician Documentation [facility] Name: James Dupree Age: 46 yrs Sex: Male : 1975 Arrival Date: 09/01/2021 Time: 14:19 Bed 8 Private MD: ED Physician Dakota Holliday HPI: 09/01 14:44 This 46 yrs old Male presents to ER via Ambulatory with complaints of Alcohol jmm Withdrawal. 14:44 The patient presents to the emergency department with vomiting. Onset: The jmm symptoms/episode began/occurred acutely, this morning. This is a 46-year-old male with a history of alcoholism that presents emerged part with complaints of vomiting abdominal pain, anxiety. Patient states that he last drank alcohol earlier this morning around 3:57 AM. Patient states that he is withdrawing.. Historical: - Allergies: 14:27 No Known Allergies; ab2 - PMHx: 14:27 Alcoholism; ab2 - PSHx: 14:27 None; ab2 - Immunization history:: Adult Immunizations up to date. - Social history:: Smoking status: unknown Patient uses alcohol, on a daily basis. patient/guardian reports recent binge of alcohol consumption. ROS: 14:44 Constitutional: Negative for fever, chills, and weight loss, Cardiovascular: Negative jmm for chest pain, palpitations, and edema, Respiratory: Negative for shortness of breath, cough, wheezing, and pleuritic chest pain. 14:44 Abdomen/GI: Positive for vomiting. 14:44 All other systems are negative. Exam: 14:44 Constitutional: This is a well developed, well nourished patient who is awake, alert, jmm and in no acute distress. Head/Face: atraumatic. Eyes: EOMI, no conjunctival erythema appreciated ENT: Moist Mucus Membranes Neck: Trachea midline, Supple Chest/axilla: Normal chest wall appearance and motion. 14:44 Respiratory: Normal respirations, no respiratory distress appreciated Abdomen/GI: Non distended, soft Skin: General appearance color normal MS/ Extremity: Moves all extremities, no obvious deformities appreciated, no edema noted to the lower extremities Neuro: Awake and alert Psych: Behavior is normal, Mood is normal, Patient is cooperative and pleasant 14:44 Constitutional: The patient appears alert, awake, anxious. 14:44 Cardiovascular: Rate: tachycardic, Rhythm: regular. 14:44 Abdomen/GI: Inspection: abdomen appears normal, Bowel sounds: normal, Palpation: abdomen is soft and non-tender, in all quadrants. Vital Signs: 14:24 BP 135 / 85; Pulse 154; Resp 17; Temp 98.8(TE); Weight 74.84 kg; Height 5 ft. 9 in. ab2 (175.26 cm); Pain 7/10; 15:23 Pulse 117; Pulse Ox 99% on R/A; ap3 15:45 BP 143 / 105; Pulse 105; Resp 22 S; Pulse Ox 97% on R/A; jg9 16:04 BP 145 / 107; Pulse 107; Resp 20 S; Pulse Ox 100% on R/A; jg9 17:00 BP 158 / 90; Pulse 88; Resp 17 S; Pulse Ox 99% on R/A; jg9 14:24 Body Mass Index 24.37 (74.84 kg, 175.26 cm) ab2 MDM: 14:44 Patient medically screened. kim 17:19 Data reviewed: vital signs, nurses notes. Counseling: I had a detailed discussion with kim the patient and/or guardian regarding: the historical points, exam findings, and any diagnostic results supporting the discharge/admit diagnosis, lab results, the need for outpatient follow up, to return to the emergency department if symptoms worsen or persist or if there are any questions or concerns that arise at home. Response to treatment: the patient's symptoms have markedly improved after treatment. Refusal of service: The patient/guardian displays adequate decision making capability and despite a detailed discussion of alternatives, benefits, risks, and consequences refuses: Admission to the hospital for further work-up and treatment. 09/01 14:45 Order name: Acetaminophen; Complete Time: 15:56 [facility] 09/01 14:45 Order name: Basic Metabolic Panel; Complete Time: 15:56 [facility] 09/01 14:45 Order name: CBC with Diff; Complete Time: 15:26 [facility] 09/01 14:45 Order name: ETOH Level; Complete Time: 15:56 [facility] 09/01 14:45 Order name: Hepatic Function; Complete Time: 15:56 [facility] 09/01 14:45 Order name: PT-INR; Complete Time: 15:56 [facility] 09/01 14:45 Order name: Ptt, Activated; Complete Time: 15:56 [facility] 09/01 14:45 Order name: Salicylate; Complete Time: 15:56 [facility] 09/01 14:45 Order name: Urine Drug Screen; Complete Time: 15:56 [facility] 09/01 14:48 Order name: Lipase; Complete Time: 15:56 [facility] 09/01 15:05 Order name: Urine Dipstick-Ancillary; Complete Time: 15:26 [facility] 09/01 14:45 Order name: EKG; Complete Time: 14:46 [facility] 09/01 14:45 Order name: EKG - Nurse/Tech; Complete Time: 15:24 [facility] 09/01 14:45 Order name: IV Saline Lock; Complete Time: 14:49 [facility] 09/01 14:45 Order name: Labs collected and sent; Complete Time: 14:49 [facility] 09/01 14:45 Order name: Urine Dipstick-Ancillary (obtain specimen); Complete Time: 15:24 [facility] Administered Medications: 14:58 Drug: Valium (diazepam) 5 mg Route: IVP; Site: right antecubital; ap3 15:28 Follow up: Response: No adverse reaction ap3 15:28 Drug: Banana Bag - (NS 0.9% 1000 ml, foLIC Acid 1 mg, Thiamine 100 mg, Multivitamin 1 ap3 amp) Route: IV; Rate: calculated rate; Site: right antecubital; 16:07 Follow up: IV Status: Completed infusion; IV Intake: 1000ml ss 16:07 Drug: HALdol (haloperidol) 5 mg Route: IVP; Site: right antecubital; ss 17:03 Follow up: Response: No adverse reaction jg9 Disposition: 18:46 Co-signature as Attending Physician, Dakota Holliday MD. rn Disposition Summary: 09/01/21 17:21 Discharge Ordered Location: Home jm Condition: Stable jmm Diagnosis - Alcohol abuse jmm - Tachycardia jmm Followup: [facility] - With: Private Physician - When: 2 - 3 days - Reason: Recheck today's complaints, Continuance of care, Re-evaluation by your physician Discharge Instructions: - Discharge Summary Sheet jmm - Alcohol Withdrawal Syndrome jmm - Delirium Tremens jmm Forms: - Medication Reconciliation Form jm - Thank You Letter jmm - Antibiotic Education jmm - Prescription Opioid Use jmm Prescriptions: - chlordiazepoxide HCl 5 mg Oral capsule - take 1 capsule by ORAL route 3 times per day; 30 capsule; Refills: 0, Product [facility] Selection Permitted - ondansetron 4 mg Oral tablet,disintegrating - place 1 tablet by TRANSLINGUAL route every 4-6 hours; 20 tablet; Refills: 0, [facility] Product Selection Permitted Signatures: Dispatcher [employer] Pedro Boucher PA PA [facility] Dakota Holliday MD MD rn Smirch, Shelby, RN RN ss Prokisch, Amanda, RN RN ap3 Trevor Arciniega Jennifer RN jg9
--- NOTE | 2021-09-01 17:22 | ER ---
Nurse's Notes [facility] Name: James Dupree Age: 46 yrs Sex: Male : 1975 Arrival Date: 09/01/2021 Time: 14:19 Bed 8 Private MD: Diagnosis: Alcohol abuse;Tachycardia Presentation: 09/01 14:24 Chief complaint: Patient states: "Im going through alcoholic withdrawal." Pt states ab2 last drink was at 2100 last night. Pt states since he was 18 he will binge drink and then stop and do it again but wants help this time. Coronavirus screen: Vaccine status: Patient reports receiving the 2nd dose of the covid vaccine. Client denies travel out of the [place] in the last 14 days. At this time, the client does not indicate any symptoms associated with coronavirus-19. Ebola Screen: Patient negative for fever greater than or equal to 101.5 degrees Fahrenheit, and additional compatible Ebola Virus Disease symptoms Patient denies exposure to infectious person. Patient denies travel to an Ebola-affected area in the 21 days before illness onset. No symptoms or risks identified at this time. Initial Sepsis Screen: Does the patient meet any 2 criteria? HR > 90 bpm. Does the patient have a suspected source of infection? No. Patient's initial sepsis screen is negative. Risk Assessment: Do you want to hurt yourself or someone else? Patient reports no desire to harm self or others. Onset of symptoms is unknown. 14:24 Method Of Arrival: Ambulatory ab2 14:24 Acuity: DORETHA 3 ab2 Triage Assessment: 14:28 General: Appears in no apparent distress. uncomfortable, Behavior is anxious. Pain: ab2 Complains of pain in abdomen Pain currently is 7 out of 10 on a pain scale. Historical: - Allergies: 14:27 No Known Allergies; ab2 - PMHx: 14:27 Alcoholism; ab2 - PSHx: 14:27 None; ab2 - Immunization history:: Adult Immunizations up to date. - Social history:: Smoking status: unknown Patient uses alcohol, on a daily basis. patient/guardian reports recent binge of alcohol consumption. Screenin:05 Abuse screen: Denies threats or abuse. Denies injuries from another. Nutritional jg9 screening: Hx of alcoholism. 16:06 Tuberculosis screening: No symptoms or risk factors identified. Fall Risk None jg9 identified. Assessment: 15:23 General: Appears distressed, Behavior is anxious, restless. Neuro: Level of ap3 Consciousness is awake, alert, obeys commands. Cardiovascular: Patient's skin is warm and dry. Respiratory: Airway is patent Respiratory effort is even, unlabored, Respiratory pattern is regular, symmetrical. 15:23 Reassessment: Patient and/or family updated on plan of care and expected duration. Pain ap3 level reassessed. Patient is alert, oriented x 3, equal unlabored respirations, skin warm/dry/pink. patient pacing in room. patient educated on need to remain in bed for safety. Patients bed is locked in lowest position, side rails up X's 2, call light is within reach. 16:19 Reassessment: Patient and/or family updated on plan of care and expected duration. Pain ap3 level reassessed. Patient is alert, oriented x 3, equal unlabored respirations, skin warm/dry/pink. 17:03 Reassessment: Patient is alert, oriented x 3, equal unlabored respirations, skin jg9 warm/dry/pink. Patient states feeling better. Patient states symptoms have improved. Patient reports he is feeling better and ready to leave, he has to meet someone at 1800. Vital Signs: 14:24 BP 135 / 85; Pulse 154; Resp 17; Temp 98.8(TE); Weight 74.84 kg; Height 5 ft. 9 in. ab2 (175.26 cm); Pain 7/10; 15:23 Pulse 117; Pulse Ox 99% on R/A; ap3 15:45 BP 143 / 105; Pulse 105; Resp 22 S; Pulse Ox 97% on R/A; jg9 16:04 BP 145 / 107; Pulse 107; Resp 20 S; Pulse Ox 100% on R/A; jg9 17:00 BP 158 / 90; Pulse 88; Resp 17 S; Pulse Ox 99% on R/A; jg9 14:24 Body Mass Index 24.37 (74.84 kg, 175.26 cm) ab2 ED Course: 14:19 Patient arrived in ED. kz 14:27 Triage completed. ab2 14:28 Arm band placed on right wrist. ab2 14:32 Pedro Alberts PA is PHCP. [facility] 14:33 Dakota Holliday MD is Attending Physician. [facility] 14:58 Kamila Barahona, RN is Primary Nurse. ap3 16:06 Patient has correct armband on for positive identification. Bed in low position. Call jg9 light in reach. 17:03 No apparent distress. Resting quietly. jg9 17:38 No provider procedures requiring assistance completed. IV discontinued, intact, ap3 bleeding controlled, No redness/swelling at site. Pressure dressing applied. Administered Medications: 14:58 Drug: Valium (diazepam) 5 mg Route: IVP; Site: right antecubital; ap3 15:28 Follow up: Response: No adverse reaction ap3 15:28 Drug: Banana Bag - (NS 0.9% 1000 ml, foLIC Acid 1 mg, Thiamine 100 mg, Multivitamin 1 ap3 amp) Route: IV; Rate: calculated rate; Site: right antecubital; 16:07 Follow up: IV Status: Completed infusion; IV Intake: 1000ml ss 16:07 Drug: HALdol (haloperidol) 5 mg Route: IVP; Site: right antecubital; ss 17:03 Follow up: Response: No adverse reaction jg9 Intake: 16:07 IV: 1000ml; Total: 1000ml. ss Outcome: 17:21 Discharge ordered by MD. [facility] 17:38 Discharged to home ambulatory. ap3 17:38 Condition: improved 17:38 Discharge instructions given to patient, Instructed on discharge instructions, follow up and referral plans. medication usage, Demonstrated understanding of instructions, follow-up care, medications, Prescriptions given X 2. 17:38 Patient left the ED. ap3 Signatures: Pedro Alberts PA PA [facility] Elba Kong RN RN ss Kamila Barahona RN RN ap3 Marlin Park RN RN jg9 Trevor Arciniega Kelly kz
[2021-09-01 17:56] VITALS: TEMP 98.8
[2021-09-01 18:01] VITALS: BP 158/90; O2SAT 99
--- NOTE | 2021-09-02 07:44 | EKG ---
Test Date: 2021-09-01 Test Time: 14:57:52 Veneer Lathe Operator: [place] MEASUREMENT RESULTS: Intervals: Rate: 119 [place]: 158 QRSD: 82 QT: 314 QTc: 441 [place]fall: P: 74 [place]: 158 QRS: 100 T: 57 INTERPRETIVE STATEMENTS: Sinus tachycardia Rightward axis Borderline ECG Compared to ECG 07/21/2021 14:15:09 Right-axis deviation now present Sinus rhythm no longer present Electronically Signed On 09-02-21 07:41:30 CDT by Henry Negron
== END 2021-09-01 17:38 | disposition home or self-care (01) ==
LOC: ER 14:14
DX: F10.20 Alcohol dependence, uncomplicated (principal); R00.0 Tachycardia, unspecified
CPT/HCPCS: 36415; 80048; 80076; 80307; 80320; 80329; 81003; 83690; 85025; 85610; 85730; 93005; 96365; 96375; 99283; J1630; J3360; J3411; J7030

== ENCOUNTER 2021-09-20 17:08 | Emergency (ER) | payer SELFPAY ==
--- OUTSIDE RECORDS SUMMARY | 2021-09-20 17:10 | XMS REPORT | Continuity of Care Document ---
:1975 Author Organization [facility] t Address [address] [place] [address] Care Team Providers Name Role Phone Rajan Phan Attending Clinician Unavailable Quinn REYES, W Attending Clinician Patricia BALL Attending Clinician Unavailable Payers Payer Name Policy Type Policy Number Effective Date Expiration Date S elian [employer] H [id number] 2012 00:00:00 [facility] [id number] 2012 00:00:00 Problems This patient has no known problems. Allergies, Adverse Reactions, Alerts Allergy Allergy Status Severity Reaction(s) Onset Inactive Treating Comm ents Source Name Type Date Date Clinician NO KNOWN Drug Active [facility] ALLERG[facility] Class ity of S [facility] Medications This patient has no known medications. Procedures This patient has no known procedures. Encounters Start End Encounter Admission Attending Care Care Encounter Source Date/Time Date/Time Type Type Clinicians Facility Department ID 2021-07-07 Outpatient JOHN Phna [facility] [id number] 14:15:22 Zi [id number] [facility] 2021-07-09 2021-07-09 [facility] [id number] [facility] 2021-05-10 2021-05-10 ambulatory [facility] [id number] [facility] 2021-05-05 2021-05-05 ambulatory [facility] [id number] [facility] 2021-04-29 2021-04-29 ambulatory [facility] [id number] [facility] 2021-04-29 2021-04-29 ambulatory [facility] [id number] [facility] 2020-07-09 2020-07-10 Emergency Romeo Ball [facility] [id number] 23:44:00 06:08:00 [place] [id number] [place] [id number] [place] [id number] 2020-07-09 2020-07-09 Emergency X ROMEO BALL [facility] ERT [id number] [facility] 23:44:00 23:44:00 [facility] Results This patient has no known results.
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
[2021-09-20 18:00] LABS: Absolute Lymphocytes (CBC) 1.1 K/uL (0.7-4.9); Hematocrit 43.4 % (39.6-49.0); Lymphocytes % 30.4 % (15.3-44.8); MPV 6.5 fL (7.6-11.3)
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
[2021-09-20 18:16] LABS: Protime INR 0.85
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
[2021-09-20 18:29] LABS: ALT/SGPT 59 U/L (12-78); AST/SGOT 85 U/L (15-37); Albumin 3.7 g/dL (3.4-5.0); Alkaline Phosphatase 104 U/L (45-117); BUN Blood Urea Nitrogen 4 mg/dL (7-18); Bicarbonate 26 mmol/L (21-32); Bilirubin Direct 0.2 mg/dL (0-0.2); Bilirubin Total 0.7 mg/dL (0.2-1.0); Glucose Level 120 mg/dL (74-106); Potassium 3.4 mmol/L (3.5-5.1); Protein, Total 7.6 g/dL (6.4-8.2); Sodium Level 138 mmol/L (136-145)
[2021-09-20 21:28] VITALS: BP 128/76; TEMP 97.6; O2SAT 99
== END 2021-09-20 18:28 | disposition home or self-care (01) ==
LOC: ER 17:08
DX: Z04.71 Encounter for examination and observation following alleged adult physical abuse (principal); M79.641 Pain in right hand; F10.229 Alcohol dependence with intoxication, unspecified; Z72.0 Tobacco use
CPT/HCPCS: 70450; 72125; 80048; 80076; 80320; 80329; 85025; 85610; 85730; 93005; 99284

== ENCOUNTER 2021-11-29 21:54 | Emergency (ER) | payer SELFPAY ==
--- OUTSIDE RECORDS SUMMARY | 2021-11-29 22:28 | XMS REPORT | Continuity of Care Document ---
:1975 Author Organization [facility] t Address [address] [place] [address] Care Team Providers Name Role Phone Rajan Phan Attending Clinician Unavailable Quinn REYES W Attending Clinician Patricia BALL Attending Clinician Unavailable Payers Payer Name Policy Type Policy Number Effective Date Expiration Date S elian [employer] [facility] [id number] 2012 00:00:00 [facility] [id number] 2012 00:00:00 Problems This patient has no known problems. Allergies, Adverse Reactions, Alerts Allergy Allergy Status Severity Reaction(s) Onset Inactive Treating Comm ents Source Name Type Date Date Clinician NO KNOWN Drug Active [facility] ALLERGIE Class ity of [facility] Medications This patient has no known medications. Procedures This patient has no known procedures. Encounters Start End Encounter Admission Attending Care Care Encounter Source Date/Time Date/Time Type Type Clinicians Facility Department ID 2021-07-[address] [facility] [id number] Common 14:15:22 Zi [id number] [facility] 2021-07-09 2021-07-09 [facility] [id number] Common 00:00:00 00:00:00 [facility] 2021-05-10 2021-05-[address] [facility] [id number] Common 00:00:00 00:00:00 [facility] 2021-05-05 2021-05-05 ambulatory [facility] [id number] Common 00:00:00 00:00:00 [facility] 2021-04-29 2021-04-29 ambulatory [facility] [id number] Common 00:00:00 00:00:00 [facility] 2021-04-29 2021-04-29 ambulatory [facility] [id number] Common 00:00:00 00:00:00 [facility] 2020-07-09 2020-07-10 Emergency Romeo Ball [id number] 23:44:00 06:08:00 Patricia Doe [id number] [place] [id number] [place] [id number] 2020-07-09 2020-07-09 Emergency X ROMEO BALL [facility] ERT [id number] [facility] 23:44:00 23:44:00 [facility] Results This patient has no known results.
[2021-11-29] MEDS ORDERED: MULTIVITAMINS 10 ML VIAL (INJ) IV ONE (23:45)
[2021-11-29] MEDS ORDERED: THIAMINE 200 MG/2 ML INJ ONE (23:45)
[2021-11-29] MEDS ORDERED: NA CHLORIDE 0.9% 1,000 ML ONE (23:45)
[2021-11-29] MEDS ORDERED: FOLIC ACID 5 MG/ML VIAL ONE (23:46)
[2021-11-30 01:00] LABS: Absolute Lymphocytes (CBC) 1.4 K/uL (0.7-4.9); Hematocrit 43.9 % (39.6-49.0); Lymphocytes % 26.7 % (15.3-44.8); MPV 6.6 fL (7.6-11.3)
[2021-11-30 01:01] LABS: Protime INR 0.97
[2021-11-30 01:11] LABS: Barbiturates NEGATIVE (NEGATIVE); Benzodiazepines NEGATIVE (NEGATIVE); Cocaine NEGATIVE (NEGATIVE); METHAMPHETAM POSITIVE (NEGATIVE); Methadone NEGATIVE (NEGATIVE); Opiates NEGATIVE (NEGATIVE); Phencyclidine NEGATIVE (NEGATIVE); THC Cannibis NEGATIVE (NEGATIVE)
[2021-11-30] MEDS ORDERED: MAGNES/ALUMIN/SIMET 30ML UCUP ONE (01:11)
[2021-11-30] MEDS ORDERED: LIDOCAINE VISCOUS 2% SOLN 15 ML UDC ONE (01:11)
[2021-11-30 01:29] LABS: ALT/SGPT 29 U/L (12-78); AST/SGOT 40 U/L (15-37); Albumin 4.4 g/dL (3.4-5.0); Alkaline Phosphatase 71 U/L (45-117); BUN Blood Urea Nitrogen 7 mg/dL (7-18); Bicarbonate 27 mmol/L (21-32); Bilirubin Direct 0.2 mg/dL (0-0.2); Bilirubin Total 0.6 mg/dL (0.2-1.0); Glomerular Filtration Rate 91 ml/min (=/>90); Glucose Level 90 mg/dL (74-106); Potassium 3.3 mmol/L (3.5-5.1); Protein, Total 8.5 g/dL (6.4-8.2); Sodium Level 139 mmol/L (136-145); Troponin High Sensitivity 4.3 pg/mL (<58.9)
--- NOTE | 2021-11-30 01:35 | EDPHYS ---
Physician Documentation [facility] Name: James Dupree Age: 46 yrs Sex: Male : 1975 Arrival Date: 11/29/2021 Time: 21:59 Bed 18 Private MD: ED Physician Dandre Pandey HPI: 11/29 22:23 This 46 yrs old Male presents to ER via Ambulatory with complaints of Chest Pain, pm1 Breathing Difficulty, Headache. 22:23 The patient or guardian reports chest pain that is located primarily in the mid-sternal pm1 area. Onset: this morning. The pain does not radiate. Associated signs and symptoms: Pertinent positives: headache, shortness of breath. The chest pain is described as a pressure, sharp. Duration: The patient or guardian reports a single episode, that is still ongoing. Modifying factors: the symptoms are aggravated by Abuse, patient smokes meth this morning prior to chest pain and has been drinking vodka. Severity of pain: in the emergency department the pain is actually worse. The patient has not experienced similar symptoms in the past. The patient has not recently seen a physician. Historical: - Allergies: 22:23 No Known Allergies; ld1 - Home Meds: 22:23 Protonix 20 mg Oral TbEC [Active]; ld1 - PMHx: 22:23 Alcoholism; Drug abuse; ld1 - PSHx: 22:23 None; ld1 - Immunization history:: Adult Immunizations up to date, Client reports having NOT received the Covid vaccine. - Social history:: Smoking status: Patient denies any tobacco usage or history of. Patient uses street drugs, marijuana, Methamphetamine (Meth). ROS: 22:23 Constitutional: Negative for fever, chills, and weight loss. pm1 22:23 Abdomen/GI: Negative for abdominal pain, nausea, vomiting, diarrhea, and constipation, Back: Negative for injury and pain, MS/Extremity: Negative for injury and deformity, Skin: Negative for injury, rash, and discoloration. 22:23 Cardiovascular: Positive for chest pain, Negative for edema. 22:23 Respiratory: Positive for shortness of breath. 22:23 Neuro: Positive for headache. 22:23 All other systems are negative. Exam: 22:23 Constitutional: This is a well developed, well nourished patient who is awake, alert, pm1 and in no acute distress. Head/Face: Normocephalic, atraumatic. 22:23 Back: No spinal tenderness. No costovertebral tenderness. Full range of motion. Skin: Warm, dry with normal turgor. Normal color with no rashes, no lesions, and no evidence of cellulitis. MS/ Extremity: Pulses equal, no cyanosis. Neurovascular intact. Full, normal range of motion. 22:23 Cardiovascular: Exam negative for acute changes, Rate: tachycardic, Rhythm: regular, Pulses: no pulse deficits are appreciated, Heart sounds: normal, Edema: is not appreciated. 22:23 Respiratory: Exam negative for acute changes, respiratory distress, shortness of breath. 22:23 Abdomen/GI: Exam negative for acute changes, Inspection: abdomen appears normal, Palpation: abdomen is soft and non-tender, in all quadrants. 22:23 Neuro: Exam negative for acute changes, Orientation: is normal, Mentation: is normal. Vital Signs: 22:21 BP 134 / 94; Pulse 112; Resp 18; Temp 98.6(TE); Pulse Ox 98% on R/A; Weight 72.57 kg; ld1 Height 5 ft. 9 in. (175.26 cm); Pain 7/10; 11/30 01:47 BP 140 / 88; Pulse 81; Resp 19; Pulse Ox 99% on R/A; lg3 11/29 22:21 Body Mass Index 23.63 (72.57 kg, 175.26 cm) ld1 MDM: 11/29 22:26 Data reviewed: vital signs. pm1 22:27 Patient medically screened. pm1 11/30 01:34 Counseling: I had a detailed discussion with the patient and/or guardian regarding: the pm1 historical points, exam findings, and any diagnostic results supporting the discharge/admit diagnosis, lab results, radiology results, the need for outpatient follow up, a family practitioner, alcohol and drug rehabilitation, to return to the emergency department if symptoms worsen or persist or if there are any questions or concerns that arise at home. 11/29 22:24 Order name: Acetaminophen pm1 11/29 22:24 Order name: Basic Metabolic Panel pm1 11/29 22:24 Order name: CBC with Diff; Complete Time: 01:11 pm1 11/29 22:24 Order name: ETOH Level; Complete Time: 01:19 pm11/29 22:24 Order name: Hepatic Function pm11/29 22:24 Order name: PT-INR; Complete Time: 01:05 pm11/29 22:24 Order name: Ptt, Activated; Complete Time: 01:05 pm11/29 22:24 Order name: Salicylate; Complete Time: 01:13 pm11/29 22:24 Order name: Urine Drug Screen; Complete Time: 01:12 pm11/29 22:24 Order name: EKG; Complete Time: 22:25 pm11/29 22:24 Order name: Troponin High Sensitivity pm11/29 22:24 Order name: EKG - Nurse/Tech; Complete Time: 22:24 pm11/29 22:24 Order name: IV Saline Lock; Complete Time: 00:12 pm11/29 22:24 Order name: Labs collected and sent; Complete Time: 00:53 pm1 Administered Medications: 11/29 23:55 Drug: Banana Bag - (NS 0.9% 1000 ml, foLIC Acid 1 mg, Thiamine 100 mg, Multivitamin 1 as6 amp) Route: IV; Rate: calculated rate; Site: left hand; 11/30 01:18 Follow up: Response: No adverse reaction; IV Status: Completed infusion; IV Intake: lg3 200ml 01:09 Drug: GI Cocktail without - (Maalox Suspension 30 ml, Lidocaine Liquid 2 % 15 lg3 ml) Route: PO; 01:09 Follow up: Response: No adverse reaction lg3 01:47 Drug: Ativan (LORazepam) 1 mg Route: PO; lg3 01:47 Follow up: Response: No adverse reaction; RASS: Alert and Calm (0) lg3 Disposition: 06:49 Co-signature as Attending Physician, Dandre Pandey MD I agree with the assessment and kdr plan of care. Disposition Summary: 11/30/21 01:34 Discharge Ordered Location: Home pm1 Problem: new pm1 Symptoms: have improved pm1 Condition: Stable pm1 Diagnosis - Chest pain, unspecified pm1 - Other stimulant abuse - methamphetamine abuse pm1 - Alcohol abuse pm1 Followup: pm1 - With: Emergency Department - When: As needed - Reason: Worsening of condition Followup: pm1 - With: Private Physician - When: 2 - 3 days - Reason: Recheck today's complaints, Continuance of care, Re-evaluation by your physician Discharge Instructions: - Discharge Summary Sheet pm1 - Nonspecific Chest Pain, Adult pm1 - Alcohol Abuse and Nutrition pm1 - Methamphetamines Use Disorder pm1 Forms: - Medication Reconciliation Form pm1 - Thank You Letter pm1 - Antibiotic Education pm1 - Prescription Opioid Use pm1 Signatures: Dispatcher [employer] EDDandre Alexander MD MD kdr Marinas, Patrick, NP MOUNTING MACHINE OPERATOR pm1 Alexandra Aleman RN RN lg3 Susu Mchugh RN RN ld1 Maximino Bruce RN RN as6
--- NOTE | 2021-11-30 01:35 | ER ---
Nurse's Notes [facility] Name: James Dupree Age: 46 yrs Sex: Male : 1975 Arrival Date: 11/29/2021 Time: 21:59 Bed 18 Private MD: Diagnosis: Chest pain, unspecified;Other stimulant abuse-methamphetamine abuse;Alcohol abuse Presentation: 11/29 22:21 Chief complaint: Patient states: Drug abuse this morning - c/o headache, anxiety, chest ld1 pain, jittery feeling. Alcohol abuse. Coronavirus screen: At this time, the client does not indicate any symptoms associated with coronavirus-19. Ebola Screen: No symptoms or risks identified at this time. Initial Sepsis Screen: Does the patient meet any 2 criteria? No. Patient's initial sepsis screen is negative. Does the patient have a suspected source of infection? No. Patient's initial sepsis screen is negative. Risk Assessment: Do you want to hurt yourself or someone else? Patient reports no desire to harm self or others. Onset of symptoms was November 29, 2021. 22:21 Method Of Arrival: Ambulatory ld1 22:21 Acuity: DORETHA 3 ld1 Triage Assessment: 22:23 General: Appears in no apparent distress. uncomfortable, Behavior is cooperative, ld1 anxious. Pain: Complains of pain in chest Pain does not radiate. Pain currently is 10 out of 10 on a pain scale. Quality of pain is described as throbbing. EENT: No signs and/or symptoms were reported regarding the EENT system. Neuro: Level of Consciousness is awake, alert, obeys commands, Oriented to person, place, time, situation. Cardiovascular: Capillary refill < 3 seconds Patient's skin is warm and dry. Rhythm is sinus tachycardia. Respiratory: Airway is patent Respiratory effort is even, unlabored. GI: Abdomen is flat, non-distended. : No signs and/or symptoms were reported regarding the genitourinary system. Derm: No signs and/or symptoms reported regarding the dermatologic system. Musculoskeletal: No signs and/or symptoms reported regarding the musculoskeletal system. Historical: - Allergies: 22:23 No Known Allergies; ld1 - Home Meds: 22:23 Protonix 20 mg Oral TbEC [Active]; ld1 - PMHx: 22:23 Alcoholism; Drug abuse; ld1 - PSHx: 22:23 None; ld1 - Immunization history:: Adult Immunizations up to date, Client reports having NOT received the Covid vaccine. - Social history:: Smoking status: Patient denies any tobacco usage or history of. Patient uses street drugs, marijuana, Methamphetamine (Meth). Screenin/21 00:00 Abuse screen: Denies threats or abuse. Denies injuries from another. Nutritional lg3 screening: No deficits noted. Tuberculosis screening: No symptoms or risk factors identified. Fall Risk None identified. Assessment: 00:00 General: Appears in no apparent distress. uncomfortable, Behavior is anxious, fussy. lg3 Pain: Complains of pain in mid-sternal area and chest Pain began 1 day ago. Neuro: No deficits noted. Varela Agitation-Sedation Scale (RASS): +1 Restless Level of Consciousness is awake, alert, obeys commands, Oriented to person, place, time, situation. Cardiovascular: Reports chest pain, Capillary refill < 3 seconds Clubbing of nail beds is absent JVD is absent Patient's skin is warm and dry. Respiratory: No deficits noted. Airway is patent Trachea midline Respiratory effort is even, unlabored, Respiratory pattern is regular, symmetrical. GI: No deficits noted. No signs and/or symptoms were reported involving the gastrointestinal system. Abdomen is round non-distended. : No deficits noted. No signs and/or symptoms were reported regarding the genitourinary system. EENT: No deficits noted. No signs and/or symptoms were reported regarding the EENT system. Derm: Skin is intact, is healthy with good turgor, Skin is diaphoretic, Skin temperature is warm. Musculoskeletal: No deficits noted. No signs and/or symptoms reported regarding the musculoskeletal system. Circulation, motion, and sensation intact. Range of motion: intact in all extremities. 01:14 General: Appears in no apparent distress. Behavior is agitated, anxious, fussy, lg3 restless, uncooperative. 01:15 General: pt uncooperative with treatment at this time stating "nobody is listening to lg3 me. i am fixing to have a seizure or something." denies any previous history of seizures. pt currently compulsively cleaning room and pacing. . Vital Signs: 11/29 22:21 BP 134 / 94; Pulse 112; Resp 18; Temp 98.6(TE); Pulse Ox 98% on R/A; Weight 72.57 kg; ld1 Height 5 ft. 9 in. (175.26 cm); Pain 7/10; 11/30 01:47 BP 140 / 88; Pulse 81; Resp 19; Pulse Ox 99% on R/A; lg3 11/29 22:21 Body Mass Index 23.63 (72.57 kg, 175.26 cm) ld1 ED Course: 11/29 21:59 Patient arrived in ED. ag3 22:23 Triage completed. ld1 22:23 Romeo Hughes, ANATOLY is PHCP. pm1 22:23 Dandre Pandey MD is Attending Physician. pm1 22:23 Arm band placed on right wrist. EKG completed in triage. Results shown to MD. ld1 23:34 Alexandra Aleman, RN is Primary Nurse. lg3 23:50 Inserted saline lock: 22 gauge in left hand, using aseptic technique. as6 11/30 00:00 Patient has correct armband on for positive identification. Bed in low position. Call lg3 light in reach. Client placed on continuous cardiac and pulse oximetry monitoring. NIBP monitoring applied. 00:00 Patient maintains SpO2 saturation greater than 95% on room air. lg3 00:08 No provider procedures requiring assistance completed. Patient did not have IV access lg3 during this emergency room visit. 00:53 Troponin High Sensitivity Sent. lg3 00:54 Acetaminophen Sent. lg3 00:54 Basic Metabolic Panel Sent. lg3 00:54 CBC with Diff Sent. lg3 00:54 ETOH Level Sent. lg3 00:54 PT-INR Sent. lg3 00:54 Ptt, Activated Sent. lg3 00:54 Salicylate Sent. lg3 00:54 Urine Drug Screen Sent. lg3 Administered Medications: 11/29 23:55 Drug: Banana Bag - (NS 0.9% 1000 ml, foLIC Acid 1 mg, Thiamine 100 mg, Multivitamin 1 as6 amp) Route: IV; Rate: calculated rate; Site: left hand; 11/30 01:18 Follow up: Response: No adverse reaction; IV Status: Completed infusion; IV Intake: lg3 200ml 01:09 Drug: GI Cocktail without - (Maalox Suspension 30 ml, Lidocaine Liquid 2 % 15 lg3 ml) Route: PO; 01:09 Follow up: Response: No adverse reaction lg3 01:47 Drug: Ativan (LORazepam) 1 mg Route: PO; lg3 01:47 Follow up: Response: No adverse reaction; RASS: Alert and Calm (0) lg3 Medication: 00:00 VIS not applicable for this client. lg3 Intake: 01:18 IV: 200ml; Total: 200ml. lg3 Outcome: 01:34 Discharge ordered by MD. pm1 01:50 Discharged to home ambulatory. lg3 01:50 Condition: stable 01:50 Discharge instructions given to patient, Instructed on discharge instructions, Demonstrated understanding of instructions. 01:51 Patient left the ED. lg3 Signatures: Romeo Hughes, RACK PUSHER RACK PUSHER pm1 Medina Cabrera ag3 Alexandra Aleman RN RN lg3 Susu Mchugh RN RN ld1 Maximino Bruce RN RN as6 Corrections: (The following items were deleted from the chart) 01:17 01:15 General: pt uncooperative with treatment at this time stating "nobody is lg3 listening to me. i am fixing to have a seizure or something." denies any previous history of seizures. pt currently compulsively cleaning room and pacing in room. . lg3 01:49 00:08 Condition: stable lg3 lg3 01:49 00:08 Discharged to home ambulatory, with significant other, lg3 lg3 01:49 00:08 Discharge instructions given to patient, Instructed on discharge instructions, lg3 Demonstrated understanding of instructions, lg3
[2021-11-30] MEDS ORDERED: LORAZEPAM 1 MG TABLET ONE (01:43)
[2021-11-30 03:11] VITALS: TEMP 98.6
[2021-11-30 03:15] VITALS: BP 140/88; O2SAT 99
--- NOTE | 2021-12-01 07:23 | EKG ---
Test Date: 2021-11-29 Test Time: 22:17:03 Round Cutter Operator: GABRIEL MEASUREMENT RESULTS: Intervals: Rate: 110 OR: 174 QRSD: 90 QT: 330 QTc: 446 [place]: P: 76 OR: 174 QRS: 97 T: 75 INTERPRETIVE STATEMENTS: Sinus tachycardia Rightward axis Borderline ECG Compared to ECG 09/01/2021 14:57:52 No significant changes Electronically Signed On 12-01-21 07:19:04 CDT by Hnery Negron
== END 2021-11-30 01:51 | disposition home or self-care (01) ==
LOC: ER 21:54
DX: R07.9 Chest pain, unspecified (principal); F15.10 Other stimulant abuse, uncomplicated; F10.20 Alcohol dependence, uncomplicated
CPT/HCPCS: 36415; 80048; 80076; 80307; 80320; 80329; 84484; 85025; 85610; 85730; 93005; 96365; 99285; J3411; J7030

== ENCOUNTER 2022-03-24 14:44 | Emergency (ER) | payer SELFPAY ==
--- OUTSIDE RECORDS SUMMARY | 2022-03-24 14:46 | XMS REPORT | Continuity of Care Document ---
:1975 Author Organization [facility] t Address [address] [place] [address] Care Team Providers Name Role Phone MUNA AHMADI Primary Care Physician Unavailable Zi Phan Attending Clinician Unavailable Carlos Cramer Attending Clinician CARLOS MARADIAGA Attending Clinician Unavailable Janice Jurado RN Attending Clinician Unavailable Rosalind Ball MD Attending Clinician ROSALIND BALL Attending Clinician Unavailable Payers Payer Name Policy Type Policy Number Effective Date Expiration Date S ource Problems Condition Condition Condition Status Onset Resolution Last Treating Co mments Source Name Details Category Date Date Treatment Clinician Date No known No known Disease Unive rs active active ity of problems problems [facility] Allergies, Adverse Reactions, Alerts Allergy Allergy Status Severity Reaction(s) Onset Inactive Treating Comm ents Source Name Type Date Date Clinician NO KNOWN Drug Active Univers ALLERGIE Class ity of S [facility] Social History Social Habit Start Date Stop Date Quantity Comments Source Exposure to 2021-12-09 2021-12-19 Yes [facility] SARS-CoV-2 (event) 00:00:00 11:33:00 Medica l Branch Sex Assigned At [birth year] [facility] [place] 00:00:00 00:00:00 Medical Branch Smoking Status Start Date Stop Date Source Tobacco smoking consumption [facility] unknown Branch Medications Ordered Filled Start Stop Current Ordering Indication Dosage Frequency Signature Comments Components Source Medication Medication Date Date Medication? Clinician (SIG) Name Name ondansetron No 4mg 4 mg, Univ ers (ZOFRAN-ODT 7-10 07-10 Oral, ity of ) 17:45: 16:43 ONCE, 1 [place] disintegrat 00 :00 dose, On Medi madeline ing tablet [place] 4 mg 12/19/21 at 1245, Routine ondansetron Yes [id number] 4mg Take 1 Univers 4 mg 7-10 tablet by ity of disintegrat 00:00: mouth [place] ing tablet 00 every 8 Medica l (eight) Branch hours as needed for Nausea and Vomiting (N/V). ondansetron Yes [id number] 4mg Take 1 Univers 4 mg 7-10 tablet by ity of disintegrat 00:00: mouth [place] ing tablet 00 every 8 Medica l (eight) Branch hours as needed for Nausea and Vomiting (N/V). Vital Signs Vital Name Observation Time Observation Value Comments Source Systolic [facility] 2021-12-19 16:46:11 [facility] 2021-12-19 16:46:11 98 mm[Hg] [facility] Heart rate 2021-12-19 16:32:00 107 /min [facility] Body temperature 2021-12-19 16:32:00 37.11 Yamile [facility] Respiratory rate 2021-12-19 16:32:00 20 /min [facility] Body height 2021-12-19 16:32:00 175.3 cm [facility] Body weight 2021-12-19 16:32:00 72.576 kg [facility] BMI 2021-12-19 16:32:00 23.63 kg/m2 [facility] Oxygen saturation in 2021-12-19 16:32:00 99 /min [facility] Arterial blood by [place] [employer] [facility] Pulse oximetry Branch Procedures This patient has no known procedures. Encounters Start End Encounter Admission Attending Care Care Encounter Source Date/Time Date/Time Type Type Clinicians Facility Department ID 2021-07-07 Outpatient Phan, STLMLC STLMLC [id number] Common 14:15:22 [facility] [id number] [facility] 2021-12-19 2021-12-19 Emergency [facility] [id number] Univers 11:37:00 12:29:00 Carlos LATONIA [id number] i ty [facility] [id number] [facility] [id number] [facility] 084 Branch 2021-12-19 2021-12-19 Emergency X [facility] ERT [id number] Univers 11:37:00 12:29:00 CARLOS christybabatunde [facility] 2021-12-19 2021-12-19 Letter Janice Jurado [id number] Univers 00:00:00 00:00:00 (Out) CELIA [id number] it [facility] [id number] [facility] [id number] [facility] 019 Branch 2021-07-09 2021-07-09 ambulatory STLMLC STLMLC [id number] Common 00:00:00 00:00:00 [facility] 2021-05-10 2021-05-10 ambulatory STLMLC STLMLC [id number] Common 00:00:00 00:00:00 [facility] 2021-05-05 2021-05-05 ambulatory STLMLC STLMLC [id number] Common 00:00:00 00:00:00 [facility] 2021-04-29 2021-04-29 ambulatory STLMLC STLMLC [id number] Common 00:00:00 00:00:00 [facility] 2021-04-29 2021-04-29 ambulatory STLMLC STLMLC [id number] Common 00:00:00 00:00:00 [facility] 2020-07-09 2020-07-10 Emergency Rosalind Ball [facility] [id number] 23:44:00 06:08:00 [place] [id number] [place] [id number] [place] [id number] 2020-07-09 2020-07-09 Emergency X ROSALIND BALL [facility] [id number] Univers 23:44:00 23:44:00 [facility] Results This patient has no known results.
[2022-03-24] MEDS ORDERED: ZIPRASIDONE MESYLA 20 MG/VIAL IM ONE (15:17)
--- NOTE | 2022-03-24 17:37 | ER ---
Nurse's Notes [facility] Name: James Dupree Age: 46 yrs Sex: Male : 1975 Arrival Date: 03/24/2022 Time: 14:50 Bed 20 Private MD: Diagnosis: Bipolar disorder, unspecified Presentation: 03/24 14:56 Chief complaint: Patient states: he is here because he is out of his pysch meds and mb8 feels like he is spinning, denies SI or HI. Coronavirus screen: Vaccine status: Patient reports receiving the 2nd dose of the covid vaccine. Ebola Screen: Patient negative for fever greater than or equal to 101.5 degrees Fahrenheit, and additional compatible Ebola Virus Disease symptoms Patient denies exposure to infectious person. Patient denies travel to an Ebola-affected area in the 21 days before illness onset. Initial Sepsis Screen: Does the patient meet any 2 criteria? No. Patient's initial sepsis screen is negative. Does the patient have a suspected source of infection? No. Patient's initial sepsis screen is negative. Risk Assessment: Do you want to hurt yourself or someone else? Patient reports no desire to harm self or others. 14:56 Method Of Arrival: EMS mb8 14:56 Acuity: DORETHA 3 mb8 Historical: - PMHx: 14:58 Alcoholism; drug abuse; mb8 - Social history:: Smoking status: Patient reports the use of cigarette tobacco products. - Family history:: not pertinent. - Hospitalizations: : No recent hospitalization is reported. Screenin:59 Abuse screen: Denies threats or abuse. Denies injuries from another. Nutritional mb8 screening: No deficits noted. Tuberculosis screening: No symptoms or risk factors identified. Fall Risk None identified. Assessment: 14:59 Pain: Denies pain. Neuro: Level of Consciousness is awake, alert, obeys commands, mb8 Oriented to person, place, time, situation, Appropriate for age. 16:02 Reassessment: Patient and/or family updated on plan of care and expected duration. Pain mb8 level reassessed. Patient is alert, oriented x 3, equal unlabored respirations, skin warm/dry/pink. Patient states feeling better. 17:10 Reassessment: Patient and/or family updated on plan of care and expected duration. Pain mb8 level reassessed. Patient is alert, oriented x 3, equal unlabored respirations, skin warm/dry/pink. 17:31 General: Patient was wanting to be transferred to psych hospital for help. I went to [facility] obtain blood and covid sample as ordered. Patient refused blood work and covid swab and reports he just wants to go home now. . Psych: 14:59 [facility] Suicide Severity Screening: In the past month, have you wished you were mb or wished you could go to sleep and not wake up? Patient responds "No." "In the past month, have you actually had any thoughts of killing yourself?" Patient responds "no." "In your lifetime, have you ever done anything, started to do anything, or prepared to do anything to end your life?" Patient responds "no.". Subjective: Patient's mood is anxious Delusions are denied, Hallucinations are denied. Objective: Patient is cooperative, restless, Speech is normal. Pt denies substance abuse. Vital Signs: 14:56 BP 135 / 74; Pulse 88; Resp 16; Temp 97; Pulse Ox 99% ; Pain 0/10; mb8 15:27 BP 126 / 92; Pulse 66; Resp 18; Pulse Ox 98% on R/A; mb8 16:02 BP 130 / 70; Pulse 70; Resp 14; Pulse Ox 98% ; mb8 17:09 BP 116 / 68; Pulse 90; Resp 14; Pulse Ox 100% on R/A; mb8 ED Course: 14:50 Patient arrived in ED. iw 14:56 Dakota Holliday MD is Attending Physician. rn 14:56 Kalyan Arvizu RN is Primary Nurse. mb8 14:58 Triage completed. mb8 14:59 Arm band placed on. mb8 14:59 No provider procedures requiring assistance completed. mb8 17:46 Patient did not have IV access during this emergency room visit. mb8 Administered Medications: 15:26 Drug: Geodon (ziprasidone) 10 mg Route: IM; Site: left deltoid; mb8 17:47 Follow up: Response: No adverse reaction; Marked relief of symptoms mb8 Medication: 14:59 VIS not applicable for this client. mb8 Outcome: 17:36 Discharge ordered by . rn 17:46 Discharged to home ambulatory. mb8 17:46 Condition: stable 17:46 Discharge instructions given to patient, Instructed on discharge instructions, follow up and referral plans. medication usage, Demonstrated understanding of instructions, follow-up care, medications, Prescriptions given X 2. 17:47 Patient left the ED. mb8 Signatures: Garima Morrow RN RN iw Nieto, Roman, MD MD rn Bates, Michael, RN RN mb8
--- NOTE | 2022-03-24 17:37 | EDPHYS ---
Physician Documentation [facility] Name: James Dupree Age: 46 yrs Sex: Male : 1975 Arrival Date: 03/24/2022 Time: 14:50 Bed 20 Private MD: ED Physician Dakota Holliday HPI: 03/24 15:28 This 46 yrs old Male presents to ER via EMS with complaints of Psych Problem. rn 15:28 The patient presents to the emergency department with anxiety, over unknown rn circumstances. Onset: The symptoms/episode began/occurred at an unknown time. Associated signs and symptoms: Pertinent positives; anxiety, Pertinent negatives: fever, hallucinations, homicidal ideation, suicide ideation. Severity of symptoms: At their worst the symptoms were moderate in the emergency department the symptoms have improved. The patient has experienced similar episodes in the past. The patient has not recently seen a physician. Pt reports off his meds, feels like he is "cycling" with his bipolar disorder. The place he was staying closed, and he is feeling very anxious and emotional. Denies suicidal ideation and homicidal ideation. Denies medical illness. States does not want to be transferred to psychiatric facility as he does not see them as helpful. . Historical: - PMHx: 14:58 Alcoholism; drug abuse; mb8 - Social history:: Smoking status: Patient reports the use of cigarette tobacco products. - Family history:: not pertinent. - Hospitalizations: : No recent hospitalization is reported. ROS: 15:28 Constitutional: Negative for fever, chills, and weight loss, Eyes: Negative for injury, rn pain, redness, and discharge, Cardiovascular: Negative for chest pain, palpitations, and edema, Respiratory: Negative for shortness of breath, cough, wheezing, and pleuritic chest pain, Abdomen/GI: Negative for abdominal pain, nausea, vomiting, diarrhea, and constipation, Back: Negative for injury and pain, MS/Extremity: Negative for injury and deformity, Skin: Negative for injury, rash, and discoloration, Neuro: Negative for headache, weakness, numbness, tingling, and seizure, Psych: Negative for uicide ideation, homicidal ideation, and hallucinations Exam: 15:28 Constitutional: This is a well developed, well nourished patient who is awake, alert, rn and in no acute distress. Head/Face: Normocephalic, atraumatic. Cardiovascular: Regular rate and rhythm. No pulse deficits. Respiratory: No increased work of breathing, no retractions or nasal flaring. Abdomen/GI: Soft, non-tender Skin: Warm, dry MS/ Extremity: Pulses equal, no cyanosis. Neuro: Awake and alert, GCS 15, oriented to person, place, time, and situation. Vital Signs: 14:56 BP 135 / 74; Pulse 88; Resp 16; Temp 97; Pulse Ox 99% ; Pain 0/10; mb8 15:27 BP 126 / 92; Pulse 66; Resp 18; Pulse Ox 98% on R/A; mb8 16:02 BP 130 / 70; Pulse 70; Resp 14; Pulse Ox 98% ; mb8 17:09 BP 116 / 68; Pulse 90; Resp 14; Pulse Ox 100% on R/A; mb8 MDM: 14:56 Patient medically screened. rn 16:31 ED course: Pt calm and resting. No acute distress. Stable vitals. . rn 17:33 Differential diagnosis: anxiety, bipolar disorder. Data reviewed: vital signs, nurses rn notes, old medical records, and as a result, I will discharge patient. Counseling: I had a detailed discussion with the patient and/or guardian regarding: the historical points, exam findings, and any diagnostic results supporting the discharge/admit diagnosis, the need for outpatient follow up, to return to the emergency department if symptoms worsen or persist or if there are any questions or concerns that arise at home. Response to treatment: the patient's symptoms have markedly improved after treatment. ED course: Pt states feels much better after Geodon. Pt still denies suicidal or homicidal ideations. Does not want to be transferred for psychiatric care. [facility] has money for refills. . 03/24 17:26 Order name: EKG; Complete Time: 17:27 rn 03/24 17:26 Order name: EKG - Nurse/Tech rn 03/24 17:26 Order name: IV Saline Lock rn 03/24 17:26 Order name: SARS RAPID rn 03/24 17:26 Order name: Labs collected and sent rn 03/24 17:26 Order name: Suicide Screening ([place]) rn 03/24 17:26 Order name: Urine Dipstick-Ancillary (obtain specimen) rn Administered Medications: 15:26 Drug: Geodon (ziprasidone) 10 mg Route: IM; Site: left deltoid; mb8 17:47 Follow up: Response: No adverse reaction; Marked relief of symptoms mb8 Disposition Summary: 03/24/22 17:36 Discharge Ordered Location: Home rn Problem: an ongoing problem rn Symptoms: have improved rn Condition: Stable rn Diagnosis - Bipolar disorder, unspecified rn Followup: rn - With: Private Physician - When: As needed - Reason: Recheck today's complaints, Re-evaluation by your physician Discharge Instructions: - Discharge Summary Sheet rn - Managing Bipolar Disorder rn Forms: - Medication Reconciliation Form rn - Thank You Letter rn - Antibiotic internet sourcer - Prescription Opioid Use rn Prescriptions: - Geodon 20 mg Oral capsule - take 1 capsule by ORAL route 2 times per day with food; 30 capsule; Refills: 0, rn Product Selection Permitted - buspirone 5 mg Oral tablet - take 1 tablet by ORAL route 2 times per day; 30 tablet; Refills: 0, Product rn Selection Permitted Signatures: Dispatcher [employer] Dakota Vallejo MD MD rn Bates, Michael, RN RN mb8
[2022-03-24 17:51] VITALS: TEMP 97
[2022-03-24 17:55] VITALS: BP 116/68; O2SAT 100
== END 2022-03-24 17:47 | disposition home or self-care (01) ==
LOC: ER 14:44
DX: F31.9 Bipolar disorder, unspecified (principal); F17.210 Nicotine dependence, cigarettes, uncomplicated
CPT/HCPCS: 96372; 99284; J3486

== ENCOUNTER 2022-03-29 14:42 | Emergency (ER) | payer SELFPAY ==
--- OUTSIDE RECORDS SUMMARY | 2022-03-29 14:46 | XMS REPORT | Continuity of Care Document ---
:1975 Author Organization [facility] t Address [address] [place] [address] Care Team Providers Name Role Phone MUNA AHMADI Primary Care Physician Unavailable Zi Phan Attending Clinician Unavailable Carlos Cramer Attending Clinician CARLOS MARADIAGA Attending Clinician Unavailable Adrien WANG, Janice Attending Clinician Unavailable Rosalind Ball MD Attending Clinician ROSALIND BALL Attending Clinician Unavailable Payers Payer Name Policy Type Policy Number Effective Date Expiration Date Ann plummer Ambetter from [id number] 2021 Common [facility] 00:00:00 - [facility] Ambetter from [id number] 2021 Common [facility] 00:00:00 - [facility] Ambetter from [id number] 2021 Common Spi [facility] 00:00:00 - [facility] Ambetter from [id number] 2021 Common Spi [facility] 00:00:00 - [facility] Problems Condition Condition Condition Status Onset Resolution Last Treating Co mments Source Name Details Category Date Date Treatment Clinician Date [id number] Panic Problem Active 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 [id number] Generalize Problem Active Com mon d anxiety Spirit disorder - [facility] [id number] Gastroesop Problem Active Co mmon hageal Spirit reflux - [facility] disease [facility] esophagiti [facility] unspecifie d whether hemorrhage [id number] Alcohol Problem Active Commo n withdrawal Spirit syndrome - [facility] with complicati [facility] [id number] Alcohol Problem Active Comm on dependence Spirit with - [facility]I unspecifie [facility] alcohol-in Medica l duced Center disorder No known No known Disease Unive rs active active ity of problems problems [facility] Allergies, Adverse Reactions, Alerts Allergy Allergy Status Severity Reaction(s) Onset Inactive Treating Comm ents Source Name Type Date Date Clinician NO KNOWN Drug Active Univers ALLERGIE Class ity of S [facility] Social History Social Habit Start Date Stop Date Quantity Comments Source History of Tobacco Common Spirit - [facility] Use [facility] Sex Assigned At Common Sp hamida - [facility] Exposure to 2021-12-09 2021-12-19 Yes [facility] SARS-CoV-2 (event) 00:00:00 11:33:00 Medica l Branch Smoking Status Start Date Stop Date Source Tobacco smoking consumption [facility] Never Smoker Common [facility] Medications Ordered Filled Start Stop Current Ordering Indication Dosage Frequency Signature Comments Components Source Medication Medication Date Date Medication? Clinician (SIG) Name Name ondansetron 2021- No 4mg 4 mg, Univ ers (ZOFRAN-ODT 12-19 Oral, ity of ) 17:45: 16:43 ONCE, 1 [place] disintegrat 00 :00 dose, On Medi madeline ing tablet [place] [facility] 4 mg 12/19/21 at 1245, Routine ondansetron Yes [id number] 4mg Take 1 Univers 4 mg 7-10 tablet by ity of disintegrat 00:00: mouth [place] ing tablet 00 every 8 Medica l (eight) Branch hours as needed for Nausea and Vomiting (N/V). ondansetron Yes [id number] 4mg Take 1 Univers 4 mg 7-10 tablet by ity of disintegrat 00:00: mouth [place] ing tablet 00 every 8 Medica l (eight) Branch hours as needed for Nausea and Vomiting (N/V). Pantoprazol Pantoprazol 2020-06 No 1{table QD Pantoprazo e Sodium 40 e Sodium 40 1-18 t} le Sodium MG MG 00:00: 40 MG 00 chlordiazeP chlordiazeP 2020-06 No chlordiaze OXIDE HCl OXIDE HCl 1-18 POXIDE HCl 25 MG 25 MG 00:00: 25 MG 00 Pantoprazol Pantoprazol 2020-06 No 1{table QD Pantoprazo e Sodium 40 e Sodium 40 1-18 t} le Sodium MG MG 00:00: 40 MG 00 chlordiazeP chlordiazeP 2020-06 No chlordiaze OXIDE HCl OXIDE HCl 1-18 POXIDE HCl 25 MG 25 MG 00:00: 25 MG 00 Pantoprazol Pantoprazol 2020-06 No 1{table QD Pantoprazo e Sodium 40 e Sodium 40 1-18 t} le Sodium MG MG 00:00: 40 MG 00 chlordiazeP chlordiazeP 2020-06 No chlordiaze OXIDE HCl OXIDE HCl 1-18 POXIDE HCl 25 MG 25 MG 00:00: 25 MG 00 Pantoprazol Pantoprazol 2020-06 No 1{table QD Pantoprazo e Sodium 40 e Sodium 40 1-18 t} le Sodium MG MG 00:00: 40 MG 00 chlordiazeP chlordiazeP 2020-06 No chlordiaze OXIDE HCl OXIDE HCl 1-18 POXIDE HCl 25 MG 25 MG 00:00: 25 MG 00 chlordiazeP chlordiazeP 2020-06 No chlordiaze OXIDE HCl OXIDE HCl 1-18 POXIDE HCl 25 MG 25 MG 00:00: 25 MG 00 Zofran Zofran No Zofran Librium Librium No Librium ALPRAZolam ALPRAZolam No 1{table ALPRAZolam 0.25 MG 0.25 MG t} 0.25 MG Protonix Protonix No Protonix Ondansetron Ondansetron No 1{table QD Ondansetro HCl 4 MG HCl 4 MG t_as_ne n HCl 4 MG eded} Zofran Zofran No Zofran Librium Librium No Librium ALPRAZolam ALPRAZolam No 1{table ALPRAZolam 0.25 MG 0.25 MG t} 0.25 MG Protonix Protonix No Protonix Ondansetron Ondansetron No 1{table QD Ondansetro HCl 4 MG HCl 4 MG t_as_ne n HCl 4 MG eded} Zofran Zofran No Zofran Librium Librium No Librium ALPRAZolam ALPRAZolam No 1{table ALPRAZolam 0.25 MG 0.25 MG t} 0.25 MG Protonix Protonix No Protonix Ondansetron Ondansetron No 1{table QD Ondansetro HCl 4 MG HCl 4 MG t_as_ne n HCl 4 MG eded} Zofran Zofran No Zofran Librium Librium No Librium ALPRAZolam ALPRAZolam No 1{table ALPRAZolam 0.25 MG 0.25 MG t} 0.25 MG Protonix Protonix No Protonix Ondansetron Ondansetron No 1{table QD Ondansetro HCl 4 MG HCl 4 MG t_as_ne n HCl 4 MG eded} Zofran Zofran No Zofran Librium Librium No Librium ALPRAZolam ALPRAZolam No 1{table ALPRAZolam 0.25 MG 0.25 MG t} 0.25 MG Pantoprazol Pantoprazol No Pantoprazo e Sodium 40 e Sodium 40 le Sodium MG MG 40 MG Protonix Protonix No Protonix Ondansetron Ondansetron No 1{table QD Ondansetro HCl 4 MG HCl 4 MG t_as_ne n HCl 4 MG eded} Vital Signs Vital Name Observation Time Observation Value Comments Source Systolic blood 2021-12-19 16:46:11 134 mm[Hg] [facility] [place] [facility] Diastolic blood 2021-12-19 16:46:11 98 mm[Hg] [facility] Heart rate 2021-12-19 16:32:00 107 /min [facility] Body temperature 2021-12-19 16:32:00 37.11 [facility] Respiratory rate 2021-12-19 16:32:00 20 /min [facility] Body height 2021-12-19 16:32:00 175.3 cm Universi [facility] Body weight 2021-12-19 16:32:00 72.576 kg Universi [facility] BMI 2021-12-19 16:32:00 23.63 kg/m2 [facility] Oxygen saturation in 2021-12-19 16:32:00 99 /min [facility] blood by [facility] Pulse oximetry Branch blood pressure 2021-04-29 14:00:00 70 mm[Hg] Common [facility] diastolic [facility] height 2021-04-29 14:00:00 69 [in_i] [facility] weight 2021-04-29 14:00:00 175.1 [lb_av] [facility] temperature 2021-04-29 14:00:00 98.2 [degF] [facility] bmi 2021-04-29 14:00:00 25.85 kg/m2 [facility] oximetry 2021-04-29 14:00:00 97 % [facility] respiratory rate 2021-04-29 14:00:00 18 /min Comm on [facility] blood pressure 2021-04-29 14:00:00 135 mm[Hg] Common [facility] systolic [facility] Procedures This patient has no known procedures. Encounters Start End Encounter Admission Attending Care Care Encounter Source Date/Time Date/Time Type Type Clinicians Facility Department ID 2021-07-07 Outpatient Phan, [facility] [id number] Common 14:15:22 [facility] [address] [facility] 2021-12-19 2021-12-19 Emergency [facility], [facility] [id number] Univers 11:37:00 12:29:00 Carlos DOE [id number] i ty [facility] [id number] [facility] [id number] [facility] 084 Branch 2021-12-19 2021-12-19 Emergency X HIREN, [facility] ERT [id number] Univers 11:37:00 12:29:00 CARLOS hutchison [facility] 2021-12-19 2021-12-19 Letter Janice Jurado [id number] Univers 00:00:00 00:00:00 (Out) CELIA [id number] [facility] [id number] [facility] as [id number] [address] 2021-07-09 2021-07-09 (TEL) STLMLC STLMLC [id number] Co mmon 00:00:00 00:00:00 [facility] 2021-05-10 2021-05-10 (TEL) STLMLC STLMLC [id number] Co mmon 00:00:00 00:00:00 [facility] 2021-05-05 2021-05-05 (TEL) STLMLC STLMLC [id number] Co mmon 00:00:00 00:00:00 [facility] 2021-04-29 2021-04-29 OFFICE STLMLC STLMLC [id number] Co mmon 00:00:00 00:00:00 VISIT NEW Spir it PT LEVEL 4 [facility] 2021-04-29 2021-04-29 (TEL) STLMLC STLMLC [id number] Co mmon 00:00:00 00:00:00 [facility] 2020-07-09 2020-07-10 Emergency Rosalind Ball [facility] [id number] 23:44:00 06:08:00 Patricia Doe [id number] [place] [id number] [place] [id number] 2020-07-09 2020-07-09 Emergency X ORSALIND BALL [facility] ERT [id number] Univers 23:44:00 23:44:00 [facility] Results This patient has no known results.
--- NOTE | 2022-03-29 15:35 | ER ---
Nurse's Notes [facility] Name: James Dupree Age: 46 yrs Sex: Male : 1975 Arrival Date: 03/29/2022 Time: 14:43 Bed Waiting Private MD: Diagnosis: Alcohol abuse counseling and surveillance Presentation: 03/29 14:50 Chief complaint: Patient states: CP for a few days. Dry heaves, anxiety, shaky today. ll1 Hasn't drank alcohol in two days. Coronavirus screen: Vaccine status: Patient reports receiving the 1st dose of the Covid vaccine. Client denies travel out of the [place] in the last 14 days. At this time, the client does not indicate any symptoms associated with coronavirus-19. Ebola Screen: Patient denies travel to an Ebola-affected area in the 21 days before illness onset. Initial Sepsis Screen: Does the patient meet any 2 criteria? No. Patient's initial sepsis screen is negative. 14:50 Method Of Arrival: Ambulatory ll1 14:52 Initial Sepsis Screen: Does the patient have a suspected source of infection? No. ll1 Patient's initial sepsis screen is negative. Risk Assessment: Do you want to hurt yourself or someone else? Patient reports no desire to harm self or others. Onset of symptoms was March 27, 2022. 14:52 Acuity: DORETHA 3 ll1 Triage Assessment: 14:52 General: Appears uncomfortable, Behavior is cooperative, appropriate for age. Pain: ll1 Complains of pain in chest. Cardiovascular: Reports chest pain. GI: Reports nausea, vomiting. Historical: - Allergies: 14:52 No Known Drug Allergies; ll1 - PMHx: 14:52 Alcoholism; drug abuse; ll1 - PSHx: 14:52 None; ll1 - Immunization history:: Client reports receiving the 2nd dose of the Covid vaccine. - Social history:: Smoking status: Patient/guardian denies using tobacco, Stopped _ months ago .2. Screenin:32 Abuse screen: Denies threats or abuse. Nutritional screening: No deficits noted. ll1 Tuberculosis screening: No symptoms or risk factors identified. Fall Risk Total Lopez Fall Scale indicates No Risk (0-24 pts). Assessment: 15:34 Pain: Pain does not radiate. Pain began suddenly. ll1 Vital Signs: 14:50 BP 145 / 92; Pulse 68; Resp 17; Temp 97.5; Pulse Ox 100% ; Weight 72.57 kg; Height 5 ll1 ft. 8 in. (172.72 cm); Pain 8/10; 14:50 Body Mass Index 24.33 (72.57 kg, 172.72 cm) ll1 ED Course: 14:43 Patient arrived in ED. am2 14:52 Triage completed. ll1 15:00 Arm band placed on. EKG completed in triage. Results shown to MD. ss 15:16 Criss Carey FNP-C is PHCP. snw 15:16 Nahid Stark MD is Attending Physician. snw 15:33 Patient has correct armband on for positive identification. Bed in low position. Call ll1 light in reach. Side rails up X 1. Cardiac monitoring not applicable on this patient. 15:33 No provider procedures requiring assistance completed. Patient did not have IV access ll1 during this emergency room visit. Patient maintains SpO2 saturation greater than 95% on room air. Administered Medications: 15:34 Not Given (Patient Refused): Valium (diazepam) 10 mg PO once snw 15:34 Not Given (Patient Refused): Phenergan (promethazine) 25 mg IM once snw Medication: 15:34 VIS not applicable for this client. ll1 Outcome: 15:33 Discharged to home ambulatory. ll1 15:33 Condition: stable 15:33 Discharge instructions given to patient, Instructed on discharge instructions, follow up and referral plans. Demonstrated understanding of instructions, follow-up care. 15:35 Discharge ordered by MD. snw 15:38 Patient left the ED. ll1 Signatures: Criss Carey FNP-C ACCOUNT SUPPORT SPECIALIST-Csnw Elba Kong, RN RN Kamila Higginbotham amAshu Galindo RN RN ll1
--- NOTE | 2022-03-29 15:35 | EDPHYS ---
Physician Documentation [facility] Name: James Dupree Age: 46 yrs Sex: Male : 1975 Arrival Date: 03/29/2022 Time: 14:43 Bed Waiting Private MD: ROBERTO Physician Nahid Stark HPI: 03/29 16:17 This 46 yrs old Male presents to ER via Ambulatory with complaints of Chest snw Pain, Anxiety, Alcohol Withdrawal. 16:17 The patient presents to the emergency department with anxiety, a history of substance snw abuse, Alcohol for long duration, binged this weekend. Onset: The symptoms/episode began/occurred acutely. Associated signs and symptoms: Pertinent positives; anxiety, chest pain. Severity of symptoms: At their worst the symptoms were moderate severe in the emergency department the symptoms have resolved and did so earlier today. The patient has experienced similar episodes in the past, chronically. It is unknown whether or not the patient has recently seen a physician. Historical: - Allergies: 14:52 No Known Drug Allergies; ll1 - PMHx: 14:52 Alcoholism; drug abuse; ll1 - PSHx: 14:52 None; ll1 - Immunization history:: Client reports receiving the 2nd dose of the Covid vaccine. - Social history:: Smoking status: Patient/guardian denies using tobacco, Stopped _ months ago .2. ROS: 16:14 Eyes: Negative for injury, pain, redness, and discharge, ENT: Negative for injury, snw pain, and discharge, Neck: Negative for injury, pain, and swelling, Cardiovascular: Negative for chest pain, palpitations, and edema, Respiratory: Negative for shortness of breath, cough, wheezing, and pleuritic chest pain, Abdomen/GI: Negative for abdominal pain, nausea, vomiting, diarrhea, and constipation, Back: Negative for injury and pain, : Negative for injury, bleeding, discharge, and swelling, MS/Extremity: Negative for injury and deformity, Skin: Negative for injury, rash, and discoloration. 16:14 Constitutional: Positive for panic attack. 16:14 Neuro: Positive for pt reports he had a dangerous, alcohol fueled weekend. Pt made it back down to the area from [place] last pm and will go to [facility] tomorrow via a Sponsor. States this am he had a panic attack and came to the ED for eval but feels better now and would like to leave. Exam: 15:00 Constitutional: This is a well developed, well nourished patient who is awake, alert, snw and in no acute distress. Head/Face: Normocephalic, atraumatic. Eyes: Pupils equal round and reactive to light, extra-ocular motions intact. Lids and lashes normal. Conjunctiva and sclera are non-icteric and not injected. Cornea within normal limits. Periorbital areas with no swelling, redness, or edema. ENT: Nares patent. No nasal discharge, no septal abnormalities noted. Tympanic membranes are normal and external auditory canals are clear. Oropharynx with no redness, swelling, or masses, exudates, or evidence of obstruction, uvula midline. Mucous membranes moist. Neck: Trachea midline, no thyromegaly or masses palpated, and no cervical lymphadenopathy. Supple, full range of motion without nuchal rigidity, or vertebral point tenderness. No Meningismus. Chest/axilla: Normal chest wall appearance and motion. Nontender with no deformity. No lesions are appreciated. Cardiovascular: Regular rate and rhythm with a normal S1 and S2. No gallops, murmurs, or rubs. Normal PMI, no JVD. No pulse deficits. Respiratory: Lungs have equal breath sounds bilaterally, clear to auscultation and percussion. No rales, rhonchi or wheezes noted. No increased work of breathing, no retractions or nasal flaring. Abdomen/GI: Soft, non-tender, with normal bowel sounds. No distension or tympany. No guarding or rebound. No evidence of tenderness throughout. Back: No spinal tenderness. No costovertebral tenderness. Full range of motion. Skin: Warm, dry with normal turgor. Normal color with no rashes, no lesions, and no evidence of cellulitis. MS/ Extremity: Pulses equal, no cyanosis. Neurovascular intact. Full, normal range of motion. Neuro: Awake and alert, GCS 15, oriented to person, place, time, and situation. Cranial nerves II-XII grossly intact. Motor strength 5/5 in all extremities. Sensory grossly intact. Cerebellar exam normal. Normal gait. Psych: Awake, alert, with orientation to person, place and time. Behavior, mood, and affect are within normal limits. Vital Signs: 14:50 BP 145 / 92; Pulse 68; Resp 17; Temp 97.5; Pulse Ox 100% ; Weight 72.57 kg; Height 5 ll1 ft. 8 in. (172.72 cm); Pain 8/10; 14:50 Body Mass Index 24.33 (72.57 kg, 172.72 cm) ll1 MDM: 15:25 Patient medically screened. snw 16:16 Data reviewed: vital signs, nurses notes. Data interpreted: Pulse oximetry: on room air snw is 100 %. Interpretation: normal. Counseling: I had a detailed discussion with the patient and/or guardian regarding: the historical points, exam findings, and any diagnostic results supporting the discharge/admit diagnosis, the presence of at least one elevated blood pressure reading (>120/80) during this emergency department visit, the need for outpatient follow up, to return to the emergency department if symptoms worsen or persist or if there are any questions or concerns that arise at home. Special discussion: Based on the history and exam findings, there is no indication for further emergent testing or inpatient evaluation. I discussed with the patient/guardian the need to see the psychiatrist for further evaluation of the symptoms, [facility]. 03/29 15:00 Order name: EKG; Complete Time: 15:00 ss 03/29 15:00 Order name: EKG - Nurse/Tech; Complete Time: 15:00 ss EC:00 Rate is 72 beats/min. Rhythm is regular. ME interval is normal. QRS interval is normal. snw QT interval is normal. Clinical impression: NSR w/ Non-specific ST/T Changes. Administered Medications: 15:34 Not Given (Patient Refused): Valium (diazepam) 10 mg PO once snw 15:34 Not Given (Patient Refused): Phenergan (promethazine) 25 mg IM once snw Disposition Summary: 03/29/22 15:35 Discharge Ordered Location: Home snw Condition: Stable snw Diagnosis - Alcohol abuse counseling and surveillance snw Followup: snw - With: Emergency Department - When: As needed - Reason: Worsening of condition Followup: snw - With: Private Physician - When: Tomorrow - Reason: Recheck today's complaints, Continuance of care, Re-evaluation by your physician Discharge Instructions: - Discharge Summary Sheet snw - Alcohol Use Disorder snw - Alcohol Abuse and Nutrition snw Forms: - Medication Reconciliation Form snw - Thank You Letter snw - Antibiotic Education snw - Prescription Opioid Use snw Signatures: Criss Carey, BONUS CLERK-C BONUS CLERK-Csnw Elba Kong, RN RN ss Ashu Chen RN RN ll1
[2022-03-29 16:12] VITALS: BP 145/92; TEMP 97.5; O2SAT 100
--- NOTE | 2022-03-31 16:19 | EKG ---
Test Date: 2022-03-29 Test Time: 15:00:50 [employer]: THERON MEASUREMENT RESULTS: Intervals: Rate: 72 RI: 150 QRSD: 102 QT: 394 QTc: 431 [place]: P: 34 RI: 150 QRS: 94 T: 71 INTERPRETIVE STATEMENTS: Normal sinus rhythm with sinus arrhythmia Rightward axis Borderline ECG Compared to ECG 11/29/2021 22:17:03 Sinus tachycardia no longer present Electronically Signed On 03-31-22 16:15:52 CDT by Hubert Prajapati
== END 2022-03-29 15:38 | disposition home or self-care (01) ==
LOC: ER 14:42
DX: Z71.41 Alcohol abuse counseling and surveillance of alcoholic (principal)
CPT/HCPCS: 93005; 99284

== ENCOUNTER 2022-06-27 14:28 | Emergency (ER) | payer SELFPAY ==
--- OUTSIDE RECORDS SUMMARY | 2022-06-27 14:31 | XMS REPORT | Continuity of Care Document ---
:1975 Author Organization [facility] t Address [address] [place] [address] Care Team Providers Name Role Phone MUNA AHMADI Primary Care Physician Unavailable Zi Phan Attending Clinician Unavailable Carlos Cramer Attending Clinician CARLOS HOLM Attending Clinician Unavailable Janice Jurado RN Attending Clinician Unavailable Rosalind Ball MD Attending Clinician ROSALIND BALL Attending Clinician Unavailable Payers Payer Name Policy Type Policy Number Effective Date Expiration Date Ann plummer Ambetter from [id number] 2021 [facility] 00:00:00 - [facility] Ambetter from [id number] 2021 [facility] 00:00:00 - [facility] Ambetter from [id number] 2021 Common [facility]pi [facility] 00:00:00 - [facility] Ambetter from [id number] 2021 Common Spi [facility] 00:00:00 - [facility] Problems Condition Condition Condition Status Onset Resolution Last Treating Co mments Source Name Details Category Date Date Treatment Clinician Date [id number] Panic Problem Active Common disorder Spirit [episodic - [facility] paroxysmal St anxiety] [facility] [id number] Generalize Problem Active Com mon d anxiety Spirit disorder - [facility] [id number] Gastroesop Problem Active Co mmon hageal Spirit reflux - [facility] disease with [facility] esophagiti [facility] Center unspecifie d whether hemorrhage [id number] Alcohol Problem Active Commo n withdrawal Spirit syndrome - [facility] with complicati [facility] [id number] Alcohol Problem Active Comm on dependence Spirit with - CHI unspecifie [facility] alcohol-in Medica l duced Center disorder No known No known Disease Unive rs active active ity of problems problems [facility] Allergies, Adverse Reactions, Alerts Allergy Allergy Status Severity Reaction(s) Onset Inactive Treating Comm ents Source Name Type Date Date Clinician NO KNOWN Drug Active Univers ALLERGIE Class ity of S [facility] Social History Social Habit Start Date Stop Date Quantity Comments Source History of Tobacco Common Spirit - [facility] Use [facility] Sex Assigned At Common Sp hamida - CHI [facility] Exposure to 2021-12-09 2021-12-19 Yes [facility] SARS-CoV-2 (event) 00:00:00 11:33:00 Medica l Branch Smoking Status Start Date Stop Date Source Tobacco smoking consumption [facility] Branch Never Smoker [facility] Medications Ordered Filled Start Stop Current Ordering Indication Dosage Frequency Signature Comments Components Source Medication Medication Date Date Medication? Clinician (SIG) Name Name ondansetron 2021- No 4mg 4 mg, Univ ers (ZOFRAN-ODT -12-19 Oral, ity of ) 17:45: 16:43 ONCE, 1 [place] disintegrat 00 :00 dose, On Medi madeline ing tablet [place] 4 mg 12/19/21 at 1245, Routine ondansetron Yes [id number] 4mg Take 1 Univers 4 mg 7-10 tablet by ity of disintegrat 00:00: mouth [place] ing tablet 00 every 8 Medica l (eight) Branch hours as needed for Nausea and Vomiting (N/V). ondansetron Yes [id number] 4mg Take 1 Univers 4 mg 7-10 [...] Source Systolic blood 2021-12-19 16:46:11 134 mm[Hg] [facility] Diastolic blood 2021-12-19 16:46:11 98 mm[Hg] [facility] Heart rate 2021-12-19 16:32:00 107 /min General acute hospital Body temperature 2021-12-19 16:32:00 37.11 Yamile [facility] Res[facility] rate 2021-12-19 16:32:00 20 /min [facility] Body height 2021-12-19 16:32:00 175.3 cm [facility] Body weight 2021-12-19 16:32:00 72.576 kg Universi [facility] BMI 2021-12-19 16:32:00 23.63 kg/m2 [facility] Oxygen saturation in 2021-12-19 16:32:00 99 /min [facility] blood by [facility] Pulse oximetry Branch height 2021-04-29 14:00:00 69 [in_i] [facility] weight 2021-04-29 14:00:00 175.1 [lb_av] [facility] temperature 2021-04-29 14:00:00 98.2 [degF] [facility] bmi 2021-04-29 14:00:00 25.85 kg/m2 [facility] oximetry 2021-04-29 14:00:00 97 % [facility] respiratory rate 2021-04-29 14:00:00 18 /min Comm on [facility] blood pressure 2021-04-29 14:00:00 135 mm[Hg] Common [facility] systolic [facility] blood pressure 2021-04-29 14:00:00 70 mm[Hg] [facility] diastolic [facility] Procedures This patient has no known procedures. Encounters Start End Encounter Admission Attending Care Care Encounter Source Date/Time Date/Time Type Type Clinicians Facility Department ID 2021-07-07 [facility] [id number] Common 14:15:22 Replaced By [facility] [address] [facility] 2022-04-01 2022-04-01 Outpatient SFA SFA [id number] Thiago 15:13:12 15:13:12 1021 F Vini 2021-12-19 2021-12-19 Emergency Holm, [facility] [[email or web address]] [id number] [facility] 11:37:00 12:29:00 Carlos LINCOLN [id number] i ty of [place] [id number] [facility] [id number] Medi madeline 084 Branch 2021-12-19 2021-12-19 Emergency X HIREN [facility] [[email or web address] ERT [id number] Univers 11:37:00 12:29:00 CARLOS [facility] 2021-12-19 2021-12-19 Janice Beckman [id number] Univers 00:00:00 00:00:00 (Out) CELIA [id number] it [facility] [id number] [facility] as [id number] [facility] 019 Branch 2021-07-09 2021-07-09 (TEL) STLMLC STLMLC [id number] Co mmon 00:00:00 00:00:00 [facility] 2021-05-10 2021-05-10 (TEL) STLMLC STLMLC [id number] Co mmon 00:00:00 00:00:00 [facility] 2021-05-05 2021-05-05 (TEL) STLMLC STLMLC [id number] Co mmon 00:00:00 00:00:00 [facility] 2021-04-29 2021-04-29 OFFICE STLMLC STLMLC [id number] Co mmon 00:00:00 00:00:00 VISIT [facility] it PT LEVEL 4 [facility] 2021-04-29 2021-04-29 (TEL) STLMLC STLMLC [id number] Co mmon 00:00:00 00:00:00 [facility] 2020-07-09 2020-07-10 Emergency Rosalind Ball [facility] [[email or web address]] [id number] 23:44:00 06:08:00 W N[place] [id number] [place] [id number] [place] [id number] 2020-07-09 2020-07-09 Emergency X ROSALIND BALL [facility] [[email or web address]] ERT [id number] Univers 23:44:00 23:44:00 it[facility] Results This patient has no known results.
[2022-06-27] MEDS ORDERED: DIPHENHYDRAMINE 25 MG TAB/CAP ONE (14:45)
[2022-06-27] MEDS ORDERED: dexAMETHasone 10 MG/ML VIAL ONE (14:45)
--- NOTE | 2022-06-27 15:14 | RAD REPORT ---
EXAM DESCRIPTION: RAD - Hand Right 3 View - 06/27/2022 2:58 pm CLINICAL HISTORY: SWELLING COMPARISON: Hand Right 3 View dated 09/20/2021 FINDINGS: Abnormal configuration of the fifth metacarpal likely related to a previous fracture with bony remodeling. No acute fracture seen.
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
--- NOTE | 2022-06-27 15:21 | ER ---
Nurse's Notes [facility] Name: James Dupree Age: 46 yrs Sex: Male : 1975 Arrival Date: 06/27/2022 Time: 14:30 Bed 12 Private MD: Diagnosis: Allergic contact dermatitis due to plants, except food;Contusion of right hand Presentation: 06/27 14:33 Chief complaint: Patient states: poison lurdes 4 days ago; both arms and legs. Coronavirus [facility] screen: Vaccine status: Patient reports being unvaccinated. Client denies travel out of the [place] in the last 14 days. Ebola Screen: Patient negative for fever greater than or equal to 101.5 degrees Fahrenheit, and additional compatible Ebola Virus Disease symptoms Patient denies exposure to infectious person. Patient denies travel to an Ebola-affected area in the 21 days before illness onset. Onset: The symptoms/episode began/occurred today. Anaphylaxis evaluation, no signs or symptoms of anaphylaxis were noted. Initial Sepsis Screen: Does the patient meet any 2 criteria? No. Patient's initial sepsis screen is negative. Does the patient have a suspected source of infection? No. Patient's initial sepsis screen is negative. Risk Assessment: Do you want to hurt yourself or someone else? Patient reports no desire to harm self or others. 14:33 Method Of Arrival: Ambulatory [facility] 14:33 Acuity: DORETHA 3 5 15:32 Onset of symptoms was June 25, 2022. kr3 Triage Assessment: 14:36 General: Appears in no apparent distress. Behavior is calm, cooperative, appropriate [facility] for age. Pain: Complains of pain in left hand. Historical: - PMHx: 14:36 Alcoholism; drug abuse; 5 - Immunization history:: Adult Immunizations up to date. - Social history:: Smoking status: Patient denies any tobacco usage or history of. Screenin:30 [facility] ED Fall Risk Assessment (Adult) History of falling in the last 3 months, kr3 including since admission No falls in past 3 months (0 pts) Confusion or Disorientation No (0 pts) Intoxicated or Sedated No (0 pts) Impaired Gait No (0 pts) Mobility Assist Device Used No (0 pt) Altered Elimination No (0 pt) Score/Fall Risk Level 0 - 2 = Low Risk. Abuse screen: Denies threats or abuse. Nutritional screening: No deficits noted. Tuberculosis screening: No symptoms or risk factors identified. Assessment: 15:31 Respiratory: Airway is patent Respiratory effort is even, unlabored. kr3 15:32 Respiratory: kr3 Vital Signs: 14:33 BP 132 / 95; Pulse 78; Resp 18; Temp 98.6; Pulse Ox 97% ; Weight 74.84 kg; Height 5 ft. jh5 9 in. (175.26 cm); Pain 6/10; 14:33 Body Mass Index 24.37 (74.84 kg, 175.26 cm) 5 ED Course: 14:30 Patient arrived in ED. am2 14:30 Marlin Ayala FNP is [facility]. jh7 14:30 Yuval Dewitt MD is Attending Physician. 7 14:36 Triage completed. 5 14:36 Arm band placed on right wrist. 5 14:39 Julianne Rose, KATHLEEN is Primary Nurse. kr3 15:00 XRAY Hand RIGHT 3 View In Process Unspecified. EDMS 15:31 Bed in low position. Call light in reach. Side rails up X 1. kr3 15:31 No provider procedures requiring assistance completed. Patient did not have IV access kr3 during this emergency room visit. Administered Medications: 14:50 Drug: Decadron (dexamethasone) 10 mg Route: IM; Site: right deltoid; kr3 15:33 Follow up: Response: No adverse reaction kr3 14:50 Drug: Benadryl (diphenhydrAMINE) 25 mg Route: PO; kr3 15:33 Follow up: Response: No adverse reaction kr3 Medication: 15:31 VIS not applicable for this client. kr3 Outcome: 15:20 Discharge ordered by . jh7 15:27 Patient left the ED. kr3 15:31 Discharged to home ambulatory. kr3 15:31 Condition: stable 15:31 Discharge instructions given to patient, Instructed on discharge instructions, follow up and referral plans. medication usage, Demonstrated understanding of instructions, follow-up care, medications, Prescriptions given X 2. Signatures: Dispatcher [employer] [facility] Kamila Higginbotham am2 France Cedeno RN RN 5 Marlin Ayala FNP [employer] [facility] Julianne Rose, KATHLEEN RN 3
[2022-06-27 15:43] VITALS: BP 132/95; TEMP 98.6; O2SAT 97
== END 2022-06-27 15:27 | disposition home or self-care (01) ==
LOC: ER 14:28
DX: L23.7 Allergic contact dermatitis due to plants, except food (principal); S60.221A Contusion of right hand, initial encounter
CPT/HCPCS: 96372; 99283; J1100

== ENCOUNTER 2022-07-01 21:11 | Emergency (ER) | payer SELFPAY ==
--- OUTSIDE RECORDS SUMMARY | 2022-07-01 21:15 | XMS REPORT | Continuity of Care Document ---
:1975 Author Organization [facility] t Address [address] [place] [address] Care Team Providers Name Role Phone MUNA AHMADI Primary Care Physician Unavailable Zi Phan Attending Clinician Unavailable Carlos Cramer Attending Clinician CARLOS HOLM Attending Clinician Unavailable Janice Jurado RN Attending Clinician Unavailable Rosalind Ball MD Attending Clinician ROSALIND BALL Attending Clinician Unavailable Payers Payer Name Policy Type Policy Number Effective Date Expiration Date Ann plummer Ambetter from [id number] 2021 [facility] 00:00:00 - [facility] Ambetter from [id number] 2021 [facility] 00:00:00 - [facility] Ambetter from [id number] 2021 [facility] 00:00:00 - [facility] Ambetter from [id number] 2021 [facility] 00:00:00 - [facility] Problems Condition Condition Condition Status Onset Resolution Last Treating Co mments Source Name Details Category Date Date Treatment Clinician Date [id number] Panic Problem Active Common disorder Spirit [episodic - [facility] paroxysmal [facility] anxiety] [facility] [id number] Generalize Problem Active Com mon d anxiety Spirit disorder - [facility] [id number] Gastroesop Problem Active Co mmon hageal Spirit reflux - [facility] disease [facility] esophagiti [facility] unspecifie d whether hemorrhage [id number] Alcohol Problem Active Commo n withdrawal Spirit syndrome - [facility] with complicati [facility] [id number] Alcohol Problem Active Comm on dependence Spirit with - [facility] unspecifie [facility] alcohol-in Medica l duced Center disorder No known No known Disease Unive rs active active ity of problems problems [facility] Allergies, Adverse Reactions, Alerts Allergy Allergy Status Severity Reaction(s) Onset Inactive Treating Comm ents Source Name Type Date Date Clinician NO KNOWN Drug Active Univers ALLERGIE Class ity of S [facility] Social History Social Habit Start Date Stop Date Quantity Comments Source History of Tobacco Common Spirit - [facility] Use [facility] Sex Assigned At Common Sp hamida - [facility] Exposure to 2021-12-09 2021-12-19 Yes [facility] SARS-CoV-2 (event) 00:00:00 11:33:00 Medica l Branch Smoking Status Start Date Stop Date Source Tobacco smoking consumption [facility] Never Smoker Common Spirit [facility] Medications Ordered Filled Start Stop Current Ordering Indication Dosage Frequency Signature Comments Components Source Medication Medication Date Date Medication? Clinician (SIG) Name Name ondansetron 2021- No 4mg 4 mg, Univ ers (ZOFRAN-ODT 12-19 Oral, ity of ) 17:45: 16:43 ONCE, 1 [place] disintegrat 00 :00 dose, On Medi madeline ing tablet [place] [facility] 4 mg 12/19/21 at 1245, Routine ondansetron Yes [id number] 4mg Take 1 Univers 4 mg 7-10 tablet by ity of disintegrat 00:00: mouth [place] ing tablet 00 every 8 Medica l (eight) Branch hours as needed for Nausea and Vomiting (N/V). ondansetron Yes [id number] 4mg Take 1 Univers 4 mg 7-10 [...] Source Systolic blood 2021-12-19 16:46:11 134 mm[Hg[facility] Diastolic blood 2021-12-19 16:46:11 98 mm[Hg] [facility] rate 2021-12-19 16:32:00 107 /min [facility] Body temperature 2021-12-19 16:32:00 37.11 Yamile [facility] Respiratory rate 2021-12-19 16:32:00 20 /min [facility] Body height 2021-12-19 16:32:[address] [facility] Body weight 2021-12-19 16:32:[address] [facility] BMI 2021-12-19 16:32:00 23.63 kg/m2 [facility] Oxygen saturation in 2021-12-19 16:32:00 99 /min [facility] blood by [facility] Pulse oximetry Branch blood pressure 2021-04-29 14:00:00 135 mm[Hg] Common [facility] - systolic [facility] blood pressure 2021-04-29 14:00:00 70 mm[Hg] Common [facility] - diastolic [facility] height 2021-04-29 14:00:00 69 [in_i] [facility] weight 2021-04-29 14:00:00 175.1 [lb_av] [facility] temperature 2021-04-29 14:00:00 98.2 [degF] [facility] bmi 2021-04-29 14:00:00 25.85 kg/m2 [facility] oximetry 2021-04-29 14:00:00 97 % [facility] respiratory rate 2021-04-29 14:00:00 18 /min Comm on [facility] [place] Procedures This patient has no known procedures. Encounters Start End Encounter Admission Attending Care Care Encounter Source Date/Time Date/Time Type Type Clinicians Facility Department ID 2021-07-[address] [facility] [id number] Common 14:15:22 [facility] [id number] [facility] [place] 2022-04-01 2022-04-01 Outpatient SFA SFA [id number] Thiago 15:13:12 15:13:12 1021 F Vini 2021-12-19 2021-12-19 Emergency Holm, [facility] [id number] [facility] 11:37:00 12:29:00 Carlos LINCOLN [id number] i ty of [place] [id number] [facility] [id number] [facility] 084 Branch 2021-12-19 2021-12-19 Emergency X HIREN [facility] ERT [id number] Univers 11:37:00 12:29:00 CARLOS ity [facility] 2021-12-19 2021-12-19 Janice Beckman [id number] Univers 00:00:00 00:00:00 (Out) CELIA [id number] it y [facility] [id number] [facility] as [id number] [address] 2021-07-09 2021-07-09 (TEL) STLMLC STLMLC [id number] Co mmon 00:00:00 00:00:00 [facility] [place] 2021-05-10 2021-05-10 (TEL) STLMLC STLMLC [id number] Co mmon 00:00:00 00:00:00 [facility] [place] 2021-05-05 2021-05-05 (TEL) STLMLC STLMLC [id number] Co mmon 00:00:00 00:00:00 [facility] [place] 2021-04-29 2021-04-29 (TEL) STLMLC STLMLC [id number] Co mmon 00:00:00 00:00:00 [facility] [place] 2021-04-29 2021-04-29 OFFICE STLMLC STLMLC [id number] Co mmon 00:00:00 00:00:00 VISIT [facility] it PT LEVEL 4 - [facility] 2020-07-09 2020-07-10 Emergency Rosalind Ball [facility] [id number] 23:44:00 06:08:00 W [place] [id number] [place] [id number] [place] [id number] [facility] 2020-07-09 2020-07-09 Emergency X ROSALIND BALL [facility] ERT [id number] Univers 23:44:00 23:44:00 ity [facility] Results This patient has no known results.
--- NOTE | 2022-07-01 23:50 | ER ---
Nurse's Notes [facility] Name: James Dupree Age: 46 yrs Sex: Male : 1975 Arrival Date: 07/01/2022 Time: 21:11 Bed 17 Private MD: Diagnosis: Allergic contact dermatitis, unspecified cause;Dermatitis, unspecified Presentation: 07/01 22:04 Chief complaint: Patient states: rash started a few days ago. i came in and got a lg3 steroid shot. i have quit drinking and it has gotten worse. i have a constant headache and feel like i have a fever, im depressed and im pretty sure im going through alcohol withdraws. Coronavirus screen: Client denies travel out of the [place] in the last 14 days. At this time, the client does not indicate any symptoms associated with coronavirus-19. Ebola Screen: No symptoms or risks identified at this time. Initial Sepsis Screen: Does the patient meet any 2 criteria? No. Patient's initial sepsis screen is negative. Does the patient have a suspected source of infection? No. Patient's initial sepsis screen is negative. Risk Assessment: Do you want to hurt yourself or someone else? Patient reports no desire to harm self or others. Onset of symptoms is unknown. 22:04 Method Of Arrival: Ambulatory lg3 22:04 Acuity: DORETHA 4 lg3 Triage Assessment: 22:08 General: Appears in no apparent distress. comfortable, Behavior is cooperative, lg3 anxious. Pain: Denies pain. EENT: No deficits noted. No signs and/or symptoms were reported regarding the EENT system. Neuro: No deficits noted. Varela Agitation-Sedation Scale (RASS): 0 - Alert and Calm Level of Consciousness is awake, alert, obeys commands, Oriented to person, place, time, situation. Cardiovascular: No deficits noted. Denies chest pain, shortness of breath, Capillary refill < 3 seconds Clubbing of nail beds is absent JVD is absent Patient's skin is warm and dry. Respiratory: No deficits noted. Airway is patent Trachea midline Respiratory effort is even, unlabored, Respiratory pattern is regular, symmetrical. GI: Reports upper abdominal pain, cramping, epigastric pain, indigestion, nausea. : No deficits noted. No signs and/or symptoms were reported regarding the genitourinary system. Derm: Rash noted that is red, urticaria, on back and left arm. Musculoskeletal: Circulation, motion, and sensation intact. Range of motion: intact in all extremities. Historical: - Allergies: 22:08 No Known Allergies; lg3 - Home Meds: 22:08 None [Active]; lg3 - PMHx: 22:08 Alcoholism; drug abuse; lg3 - PSHx: 22:08 None; lg3 - Immunization history:: Adult Immunizations up to date, Client reports receiving the 1st dose of the Covid vaccine, Flu vaccine is not up to date. - Social history:: Smoking status: Patient reports the use of cigarette tobacco products, smokes one-half pack cigarettes per day, Patient uses alcohol, patient/guardian reports chronic longstanding heavy alcohol consumption. - Family history:: not pertinent. Screenin/21 00:12 Abuse screen: Denies threats or abuse. Denies injuries from another. Nutritional ha1 screening: No deficits noted. Tuberculosis screening: No symptoms or risk factors identified. Assessment: 07/01 22:18 General: Appears uncomfortable, Behavior is calm, cooperative. Neuro: Level of ha1 Consciousness is awake, alert, obeys commands, Oriented to person, place, time, situation. Cardiovascular: Patient's skin is warm and dry. Respiratory: Airway is patent Respiratory effort is even, unlabored, Respiratory pattern is regular, symmetrical. Derm: Rash noted that is itchy, red, on left arm. 22:18 GI: No signs and/or symptoms were reported involving the gastrointestinal system. : ha1 No signs and/or symptoms were reported regarding the genitourinary system. 23:18 Reassessment: Patient and/or family updated on plan of care and expected duration. Pain ha1 level reassessed. Patient is alert, oriented x 3, equal unlabored respirations, skin warm/dry/pink. 07/02 00:13 Reassessment: Patient and/or family updated on plan of care and expected duration. Pain ha1 level reassessed. Patient is alert, oriented x 3, equal unlabored respirations, skin warm/dry/pink. Patient states symptoms have improved. Vital Signs: 07/01 22:04 BP 129 / 96; Pulse 87; Resp 19 S; Temp 98.5(O); Pulse Ox 99% on R/A; Weight 72.57 kg lg3 (R); Height 5 ft. 8 in. (172.72 cm) (R); Pain 0/10; 22:17 BP 129 / 90; Pulse 87; Resp 16 S; Pulse Ox 99% on R/A; ha1 23:18 BP 133 / 85; Pulse 87; Resp 16 S; Pulse Ox 99% on R/A; ha1 22:04 Body Mass Index 24.33 (72.57 kg, 172.72 cm) lg3 ED Course: 21:11 Patient arrived in ED. [email or web address] 21:17 Nahid Stark MD is Attending Physician. [facility] 22:08 Triage completed. lg3 22:08 Arm band placed on right wrist. lg3 22:16 Patient has correct armband on for positive identification. Placed in gown. Bed in low ha1 position. Call light in reach. Side rails up X 1. Adult w/ patient. 23:24 Sabine Henry, RN is Primary Nurse. ha1 07/02 00:12 No provider procedures requiring assistance completed. ha1 00:13 Patient did not have IV access during this emergency room visit. ha1 Administered Medications: 07/01 23:36 Drug: Pepcid (famotidine) 40 mg Route: PO; ha1 07/02 00:10 Follow up: Response: No adverse reaction ha1 07/01 23:39 Drug: Decadron (dexamethasone) 10 mg Route: IM; Site: right ventrogluteal; ha1 07/02 00:10 Follow up: Response: No adverse reaction ha1 00:11 Drug: Benadryl (diphenhydrAMINE) 50 mg Route: IM; Site: right ventrogluteal; 1 Medication: 00:13 VIS not applicable for this client. ha1 Outcome: 07/01 23:49 Discharge ordered by . [facility] 07/02 00:12 Condition: stable ha1 00:12 Discharged to home ambulatory. ha1 00:12 Discharge instructions given to patient. 00:13 Patient left the ED. ha1 Signatures: Nahid Stark MD MD cha Gibson, Lacie, KATHLEEN RN 3 Marlin Jordan j6 Sabine Henry RN RN ha1
--- NOTE | 2022-07-01 23:50 | EDPHYS ---
Physician Documentation [facility] Name: James Dupree Age: 46 yrs Sex: Male : 1975 Arrival Date: 07/01/2022 Time: 21:11 Bed 17 Private MD: ROBERTO Physician Nahid Stark HPI: 07/01 23:35 This 46 yrs old Male presents to ER via Ambulatory with complaints of Rash. rivka 23:35 The patient's rash thought to be caused by Dermatitis. The rash is located on the back, rivka chest, right arm and left arm. The rash can be described as erythematous, raised. Onset: The symptoms/episode began/occurred 5 day(s) ago. Associated signs and symptoms: Pertinent positives: burning sensation, itching. Severity of symptoms: At their worst the symptoms were mild in the emergency department the symptoms are unchanged. Treatment given at home: Benadryl. The patient has experienced similar episodes in the past, multiple times. Historical: - Allergies: 22:08 No Known Allergies; lg3 - Home Meds: 22:08 None [Active]; lg3 - PMHx: 22:08 Alcoholism; drug abuse; lg3 - PSHx: 22:08 None; lg3 - Immunization history:: Adult Immunizations up to date, Client reports receiving the 1st dose of the Covid vaccine, Flu vaccine is not up to date. - Social history:: Smoking status: Patient reports the use of cigarette tobacco products, smokes one-half pack cigarettes per day, Patient uses alcohol, patient/guardian reports chronic longstanding heavy alcohol consumption. - Family history:: not pertinent. ROS: 23:35 Constitutional: Negative for fever, chills, and weight loss, Eyes: Negative for injury, rivka pain, redness, and discharge, ENT: Negative for injury, pain, and discharge, Neck: Negative for injury, pain, and swelling, Cardiovascular: Negative for chest pain, palpitations, and edema, Respiratory: Negative for shortness of breath, cough, wheezing, and pleuritic chest pain, Abdomen/GI: Negative for abdominal pain, nausea, vomiting, diarrhea, and constipation, Back: Negative for injury and pain, : Negative for injury, bleeding, discharge, and swelling, MS/Extremity: Negative for injury and deformity, Neuro: Negative for headache, weakness, numbness, tingling, and seizure, Psych: Negative for depression, anxiety, suicide ideation, homicidal ideation, and hallucinations, Allergy/Immunology: Negative for hives, rash, and allergies, Endocrine: Negative for neck swelling, polydipsia, polyuria, polyphagia, and marked weight changes. 23:35 Skin: Positive for erythema, of the chest, right arm and left arm. Exam: 23:35 Constitutional: This is a well developed, well nourished patient who is awake, alert, rivka and in no acute distress. Head/Face: Normocephalic, atraumatic. Eyes: Pupils equal round and reactive to light, extra-ocular motions intact. Lids and lashes normal. Conjunctiva and sclera are non-icteric and not injected. Cornea within normal limits. Periorbital areas with no swelling, redness, or edema. ENT: Nares patent. No nasal discharge, no septal abnormalities noted. Tympanic membranes are normal and external auditory canals are clear. Oropharynx with no redness, swelling, or masses, exudates, or evidence of obstruction, uvula midline. Mucous membranes moist. Neck: Trachea midline, no thyromegaly or masses palpated, and no cervical lymphadenopathy. Supple, full range of motion without nuchal rigidity, or vertebral point tenderness. No Meningismus. Chest/axilla: Normal chest wall appearance and motion. Nontender with no deformity. No lesions are appreciated. Cardiovascular: Regular rate and rhythm with a normal S1 and S2. No gallops, murmurs, or rubs. Normal PMI, no JVD. No pulse deficits. Respiratory: Lungs have equal breath sounds bilaterally, clear to auscultation and percussion. No rales, rhonchi or wheezes noted. No increased work of breathing, no retractions or nasal flaring. Abdomen/GI: Soft, non-tender, with normal bowel sounds. No distension or tympany. No guarding or rebound. No evidence of tenderness throughout. Back: No spinal tenderness. No costovertebral tenderness. Full range of motion. Male : Normal genitalia with no discharge or lesions. MS/ Extremity: Pulses equal, no cyanosis. Neurovascular intact. Full, normal range of motion. Neuro: Awake and alert, GCS 15, oriented to person, place, time, and situation. Cranial nerves II-XII grossly intact. Motor strength 5/5 in all extremities. Sensory grossly intact. Cerebellar exam normal. Normal gait. Psych: Awake, alert, with orientation to person, place and time. Behavior, mood, and affect are within normal limits. 23:35 Skin: Appearance: Color: normal in color, Temperature: normal temperature, Moisture: normal moisture, petechiae, not noted, ecchymosis, not noted, abscess, not appreciated, cellulitis, is not appreciated, injury, is not appreciated, rash can be described as erythematous, raised, contact dermatitis. Vital Signs: 22:04 BP 129 / 96; Pulse 87; Resp 19 S; Temp 98.5(O); Pulse Ox 99% on R/A; Weight 72.57 kg lg3 (R); Height 5 ft. 8 in. (172.72 cm) (R); Pain 0/10; 22:17 BP 129 / 90; Pulse 87; Resp 16 S; Pulse Ox 99% on R/A; ha1 23:18 BP 133 / 85; Pulse 87; Resp 16 S; Pulse Ox 99% on R/A; ha1 22:04 Body Mass Index 24.33 (72.57 kg, 172.72 cm) lg3 MDM: 21:17 Patient medically screened. rivka 23:39 Differential diagnosis: allergic reaction. Data reviewed: vital signs, [facility] Consideration of Admission/Observation Patient was admitted/placed on observation. Escalation of care including admission/observation considered. Test considered but Not performed: Labs: cbc,comp met. Care significantly affected by the following chronic conditions: etoh/alcohol/substance abuse. Administered Medications: 23:36 Drug: Pepcid (famotidine) 40 mg Route: PO; ha1 07/02 00:10 Follow up: Response: No adverse reaction 1 07/01 23:39 Drug: Decadron (dexamethasone) 10 mg Route: IM; Site: right ventrogluteal; ha1 07/02 00:10 Follow up: Response: No adverse reaction ha1 00:11 Drug: Benadryl (diphenhydrAMINE) 50 mg Route: IM; Site: right ventrogluteal; ha1 Disposition Summary: 07/01/22 23:49 Discharge Ordered Location: Home rivka Condition: Stable rivka Diagnosis - Allergic contact dermatitis, unspecified cause rivka - Dermatitis, unspecified rivka Followup: rivka - With: Private Physician - When: 2 - 3 days - Reason: Recheck today's complaints, Continuance of care, Re-evaluation by your physician Discharge Instructions: - Discharge Summary Sheet rivka - Contact Dermatitis rivka - Rash, Adult rivka - Rash, Adult, [id number] rivka - Poison Doretha Dermatitis, [id number] rivka - Contact Dermatitis, [id number] rivka Forms: - Medication Reconciliation Form rivka - Thank You Letter rivka - Antibiotic Education rivka - Prescription Opioid Use rivka Prescriptions: - Benadryl 25 mg Oral Capsule - take 2 capsule by ORAL route every 6 hours As needed; 40 tablet; Refills: [facility], [facility] Product Selection Permitted - Pepcid 20 mg Oral Tablet - take 1 tablet by ORAL route every 12 hours for 21 days; 42 tablet; Refills: 0, [facility] Product Selection Permitted - Prednisone 20 mg Oral Tablet - take 2 tablets by ORAL route once daily for 5 days; 10 tablet; Refills: 0, [facility] Product Selection Permitted Signatures: Nahid Stark MD MD cha Gibson, Lacie, RN RN lg3 Sabine Henry RN RN ha1
[2022-07-01] MEDS ORDERED: DIPHENHYDRAMINE 50 MG/ML VIAL ONE (23:59)
[2022-07-02] MEDS ORDERED: FAMOTIDINE 20 MG TAB ONE
[2022-07-02] MEDS ORDERED: dexAMETHasone 10 MG/ML VIAL ONE
[2022-07-02 01:03] VITALS: BP 129/96; TEMP 98.5; O2SAT 99
== END 2022-07-02 00:13 | disposition home or self-care (01) ==
LOC: ER 21:11
DX: L23.9 Allergic contact dermatitis, unspecified cause (principal); F10.20 Alcohol dependence, uncomplicated; Z72.0 Tobacco use
CPT/HCPCS: 96372; 99283; J1200

== ENCOUNTER 2022-07-14 13:36 | Emergency (ER) | payer SELFPAY ==
--- OUTSIDE RECORDS SUMMARY | 2022-07-14 13:38 | XMS REPORT | Continuity of Care Document ---
:[address] [facility] t Address [address] [place] [address] Care Team Providers Name Role Phone MUNA AHMADI Primary Care Physician Unavailable Zi Phan Attending Clinician Unavailable Carlos Cramer Attending Clinician CARLOS MARADIAGA Attending Clinician Unavailable Janice Jurado RN Attending Clinician Unavailable Rosalind Ball MD Attending Clinician ROSALIND BALL Attending Clinician Unavailable Payers Payer Name Policy Type Policy Number Effective Date Expiration Date S elian Ambetter from [id number] 2021 Common [facility] 00:00:00 - [facility] Ambetter from [id number] 2021 Common Spi [facility] 00:00:00 - [facility] Ambetter from [id number] 2021 Common Spi rit [facility] 00:00:00 - [facility] Ambetter from [id number] 2021 Common Spi rit [facility] 00:00:00 - [facility] Problems Condition Condition Condition Status Onset Resolution Last Treating Co mments Source Name Details Category Date Date Treatment Clinician Date [id number] Panic Problem Active Common disorder Spirit [episodic - [facility]I paroxysmal St anxiety] [facility] [id number] Generalize Problem Active Com mon d anxiety Spirit disorder - [facility] [id number] Gastroesop Problem Active Co mmon hageal Spirit reflux - [facility] disease [facility] esophagiti [facility] unspecifie d whether hemorrhage [id number] Alcohol Problem Active Commo n withdrawal Spirit syndrome - [facility] with complicati [facility] [id number] Alcohol Problem Active Comm on dependence Spirit with - [facility] unspecifie [facility] alcohol-in Medica duced Center disorder No known No known Disease Unive rs active active ity of problems problems [facility] Allergies, Adverse Reactions, Alerts Allergy Allergy Status Severity Reaction(s) Onset Inactive Treating Comm ents Source Name Type Date Date Clinician NO KNOWN Drug Active Univers ALLERGIE Class ity of S [facility] Social History Social Habit Start Date Stop Date Quantity Comments Source History of Tobacco Common Spirit - CH[facility] Use [facility] Sex Assigned At Common Sp hamida - [facility] Exposure to 2021-12-09 2021-12-19 Yes [facility] SARS-CoV-2 (event) 00:00:00 11:33:00 Medica l Branch Smoking Status Start Date Stop Date Source Tobacco smoking consumption [facility] Never Smoker Common Spirit - [facility] Medications Ordered Filled Start Stop Current Ordering Indication Dosage Frequency Signature Comments Components Source Medication Medication Date Date Medication? Clinician (SIG) Name Name ondansetron No 4mg 4 mg, Univ ers (ZOFRAN-ODT 7-10 07-10 Oral, ity of ) 17:45: 16:43 ONCE, 1 [place] disintegrat 00 :00 dose, On Medi madeline ing tablet [place] 4 mg 12/19/21 at 1245, Routine ondansetron Yes [id number] 4mg Take 1 Univers 4 mg 7-10 tablet by ity of disintegrat 00:00: mouth [place] ing tablet 00 every 8 Medica l (eight) Branch hours as needed for Nausea and Vomiting (N/V). ondansetron Yes [id number] 4mg Take 1 Univers 4 mg 7-10 [...] Source Systolic blood 2021-12-19 16:46:11 134 mm[Hg] [facility] Diastolic blood 2021-12-19 16:46:11 98 mm[Hg] [facility] Heart rate 2021-12-19 16:32:00 107 /min [facility] Body temperature 2021-12-19 16:32:[address] [facility] Respiratory rate 2021-12-19 16:32:00 20 /min [facility] Body height 2021-12-19 16:32:00 175.3 cm Universi ty of [facility] Body weight 2021-12-19 16:32:00 72.576 kg Universi ty [facility] BMI 2021-12-19 16:32:00 23.63 kg/m2 Universi [facility] Oxygen saturation in 2021-12-19 16:32:00 99 /min University Arterial blood by [facility] Pulse oximetry Branch blood pressure 2021-04-29 14:00:00 135 mm[Hg] Common [facility] - systolic [facility] blood pressure 2021-04-29 14:00:00 70 mm[Hg] [facility] - diastolic [facility] height 2021-04-29 14:00:00 69 [in_i] [facility] weight 2021-04-29 14:00:00 175.1 [lb_av] [facility] temperature 2021-04-29 14:00:00 98.2 [degF] [facility] bmi 2021-04-29 14:00:00 25.85 kg/m2 [facility] oximetry 2021-04-29 14:00:00 97 % [facility] respiratory rate 2021-04-29 14:00:00 18 /min Comm on [facility] Procedures This patient has no known procedures. Encounters Start End Encounter Admission Attending Care Care Encounter Source Date/Time Date/Time Type Type Clinicians Facility Department ID 2021-07-07 [facility] [id number] Common 14:15:22 [facility] [id number] [facility] 2022-04-01 2022-04-01 Outpatient SFA NAVEEN [id number] Thiago 15:13:12 15:13:12 1021 F Vini 2021-12-19 2021-12-19 Emergency Maradiaga, [facility] [id number] [facility] 11:37:00 12:29:00 Carlos DOE [id number] i ty of VIANEY [id number] [facility] [id number] [facility] 084 Branch 2021-12-19 2021-12-19 Emergency X HIREN [facility] ERT [id number] Univers 11:37:00 12:29:00 CARLOS ity [facility] 2021-12-19 2021-12-19 Violette Jurado Janice CONTI [id number] Univers 00:00:00 00:00:00 (Out) CELIA [id number] it [facility] [id number] [facility] [id number] [facility] 019 Branch 2021-07-09 2021-07-09 (TEL) STLMLC STLMLC [id number] Co mmon 00:00:00 00:00:00 [facility] 2021-05-10 2021-05-10 (TEL) STLMLC STLMLC [id number] Co mmon 00:00:00 00:00:00 [facility] 2021-05-05 2021-05-05 (TEL) STLMLC STLMLC [id number] Co mmon 00:00:00 00:00:00 [facility] 2021-04-29 2021-04-29 (TEL) STLMLC STLMLC [id number] Co mmon 00:00:00 00:00:00 [facility] 2021-04-29 2021-04-29 OFFICE STLMLC STLMLC [id number] Co mmon 00:00:00 00:00:00 VISIT [facility] it PT LEVEL 4 - [facility] 2020-07-09 2020-07-10 Emergency Rosalind Ball [facility] [id number] 23:44:00 06:08:00 Patricia Doe [id number] [place] [id number] [place] [id number] [facility] 2020-07-09 2020-07-09 Emergency X ROSALIND BALL [facility] ERT [id number] Univers 23:44:00 [facility] This patient has no known results.
--- NOTE | 2022-07-14 14:35 | RAD REPORT ---
EXAM DESCRIPTION: RAD - Chest Pa And Lat (2 Views) - 07/14/2022 2:25 pm CLINICAL HISTORY: CHEST PAIN Chest pain. COMPARISON: Chest Single View dated 07/21/2021; Chest Single View dated 08/27/2020; Chest Single View d ated 01/12/2020; CHEST SINGLE VIEW dated 01/06/2009 FINDINGS: The lungs are clear. The heart is normal in size. No displaced fractures. IMPRESSION: No acute or concerning finding suspected.
[2022-07-14 15:06] LABS: SARS-CoV-2 Antigen Rapid Res Negative (Negative)
[2022-07-14] MEDS ORDERED: ONDANSETRON 4 MG/2 ML VIAL ONE (15:07)
[2022-07-14] MEDS ORDERED: NA CHLORIDE 0.9% 1,000 ML ONE (15:07)
[2022-07-14 15:35] LABS: Absolute Lymphocytes (CBC) 1.6 K/uL (0.7-4.9); Hematocrit 47.1 % (39.6-49.0); Lymphocytes % 24.6 % (15.3-44.8); MCV 97.2 fL (80-100); MPV 6.8 fL (7.6-11.3); RBC Red Blood Cell Count 4.84 M/uL (4.33-5.43)
[2022-07-14 16:00] LABS: Albumin 4.2 g/dL (3.4-5.0); Bilirubin Direct 0.2 mg/dL (0-0.2); Bilirubin Total 0.6 mg/dL (0.2-1.0); Protein, Total 8.5 g/dL (6.4-8.2); Troponin High Sensitivity 3.3 pg/mL (<58.9)
[2022-07-14 16:49] LABS: Urine Blood Negative (Negative); Urine Glucose Negative (Negative); Urine Protein Trace (Negative)
[2022-07-14 17:05] LABS: Barbiturates NEGATIVE (NEGATIVE); Benzodiazepines NEGATIVE (NEGATIVE); Cocaine NEGATIVE (NEGATIVE); METHAMPHETAM NEGATIVE (NEGATIVE); Methadone NEGATIVE (NEGATIVE); Opiates NEGATIVE (NEGATIVE); Phencyclidine NEGATIVE (NEGATIVE); THC Cannibis NEGATIVE (NEGATIVE)
--- NOTE | 2022-07-14 17:24 | ER ---
Nurse's Notes [facility] Name: James Dupree Age: 46 yrs Sex: Male : 1975 Arrival Date: 07/14/2022 Time: 13:38 Bed 15 Private MD: Diagnosis: Chest pain, unspecified;Essential (primary) hypertension;Alcohol abuse with intoxication Presentation: 07/14 13:51 Coronavirus screen: Client denies travel out of the [place] in the last 14 days. Ebola ss Screen: Patient denies exposure to infectious person. Patient denies travel to an Ebola-affected area in the 21 days before illness onset. Initial Sepsis Screen: Does the patient meet any 2 criteria? No. Patient's initial sepsis screen is negative. Does the patient have a suspected source of infection? No. Patient's initial sepsis screen is negative. Risk Assessment: Do you want to hurt yourself or someone else? Patient reports no desire to harm self or others. Onset of symptoms was July 14, 2022. 13:51 Method Of Arrival: Ambulatory ss 13:51 Acuity: DORETHA 3 ss 13:52 Chief complaint: Patient states: "I think I'm having alcohol withdrawals." Pt reports ss that his hands are tingling, having chest discomfort and having a hard time taking a deep breath. Also c/o N/V all that began at 0600 this morning. Last drink was last night. Historical: - Allergies: 13:51 No Known Allergies; ss - Home Meds: 13:51 None [Active]; ss - PMHx: 13:51 Alcoholism; drug abuse; ss - PSHx: 13:51 None; ss - Immunization history:: Client reports having NOT received the Covid vaccine. - Social history:: Smoking status: Patient denies any tobacco usage or history of. Patient uses alcohol, on a daily basis. 10-12 beers. Screenin:45 Clinical [place] Withdrawal Assessment for Alcohol, revised (CIWA-Ar): eh3 Nausea/Vomitin - Constant nausea, frequent dry heaves and vomiting. Headache: 3 - Moderate Paroxysmal Sweats: 0 - No sweats visible Anxiety: 4 - Moderately anxious, guarded Agitation: 4 - Moderately fidgety and restless Tremor: 4 - Moderate when client's hands extended Auditory Disturbances: 0 - Not present Visual Disturbances: 1 - Very mild photosensitivity Tactile Disturbances: 2 - Mild paresthesias Orientation and Clouding of Sensorium: 0 - Oriented and can do serial additions Total Score: > 20: Severe Withdrawal. [facility] ED Fall Risk Assessment (Adult) History of falling in the last 3 months, including since admission No falls in past 3 months (0 pts) Confusion or Disorientation No (0 pts) Intoxicated or Sedated Yes (3 pts) Impaired Gait Yes (1 pt) Mobility Assist Device Used No (0 pt) Altered Elimination Yes (1 pt) Score/Fall Risk Level 3 or more points = High Risk Oriented to surroundings, Maintained a safe environment, Educated pt \\T\\ family on fall prevention, incl call for assistance when getting out of bed, Assessed \\T\\ reinforced patient's understanding of fall precautions, Provided non-skid footwear, Hourly rounding (assess needs \\T\\ fall precautionary measures) done. Abuse screen: Denies threats or abuse. Denies injuries from another. Nutritional screening: No deficits noted. Tuberculosis screening: No symptoms or risk factors identified. Assessment: 14:30 General: Appears distressed, uncomfortable, Behavior is cooperative, agitated, anxious. eh3 Pain: Complains of pain in head. Neuro: Level of Consciousness is awake, alert, obeys commands, Oriented to person, place, time, situation. Cardiovascular: Capillary refill < 3 seconds Patient's skin is warm and dry. Respiratory: Airway is patent Respiratory effort is even, unlabored, Respiratory pattern is regular, symmetrical. 14:30 Reassessment: Pt denies suicidal ideation. States he took approximately 15 Tylenol PM eh3 last night because he wanted to go to sleep. Denies any thoughts or plan of suicide. 15:30 Reassessment: Patient appears in no apparent distress at this time. Patient and/or eh3 family updated on plan of care and expected duration. Pain level reassessed. Patient is alert, oriented x 3, equal unlabored respirations, skin warm/dry/pink. 16:30 Reassessment: Patient appears in no apparent distress at this time. Patient and/or eh3 family updated on plan of care and expected duration. Pain level reassessed. Patient is alert, oriented x 3, equal unlabored respirations, skin warm/dry/pink. Vital Signs: 13:51 Pulse 88; Resp 16; Temp 98.9(TE); Pulse Ox 100% on R/A; Weight 72.57 kg; Height 5 ft. 8 ss in. (172.72 cm); Pain 7/10; 13:54 BP 143 / 87; ss 14:45 Pulse 74; Resp 20; Pulse Ox 100% on R/A; eh3 13:51 Body Mass Index 24.33 (72.57 kg, 172.72 cm) ss Vitals: 14:45 Cardiac Rhythm Assessment Sinus rhythm. eh3 ED Course: 13:38 Patient arrived in ED. rg4 13:47 Álvaro Del Castillo DO is Attending Physician. ms3 13:51 Triage completed. ss 13:51 Arm band placed on right wrist. ss 14:13 Sarai Mckenzie, RN is Primary Nurse. eh3 14:27 Chest Pa And Lat (2 Views) XRAY In Process Unspecified. EDMS 14:30 Patient has correct armband on for positive identification. Bed in low position. Call eh3 light in reach. Side rails up X2. Client placed on continuous cardiac and pulse oximetry monitoring. NIBP monitoring applied. Door closed. Noise minimized. 14:30 Missed attempt(s): 20 gauge in left forearm. Bleeding controlled, band aid applied, eh3 catheter tip intact. 17:03 Urine Drug Screen Sent. eh3 17:22 Zi Phan DO is Referral Physician. ms3 17:54 No provider procedures requiring assistance completed. IV discontinued, intact, eh3 bleeding controlled, No redness/swelling at site. Pressure dressing applied. Administered Medications: 15:15 Drug: Zofran (Ondansetron) 4 mg Route: IVP; Site: right antecubital; eh3 16:00 Follow up: Response: Nausea is decreased eh3 15:15 Drug: NS 0.9% 1000 ml Route: IV; Rate: 1000 ml; Site: right antecubital; eh3 17:56 Follow up: IV Status: Completed infusion; IV Intake: 500ml eh3 Medication: 17:54 VIS not applicable for this client. eh3 Intake: 17:56 IV: 500ml; Total: 500ml. eh3 Outcome: 17:24 Discharge ordered by . ms3 17:55 Discharged to home ambulatory. eh3 17:55 Condition: stable 17:55 Discharge instructions given to patient, Instructed on discharge instructions, follow up and referral plans. Demonstrated understanding of instructions, follow-up care. 17:55 Patient left the ED. eh3 Signatures: Dispatcher [employer] EDMS Elba Kong, RN RN Marie Garsia rg4 Álvaro Del Castillo DO DO ms3 Sarai Mckenzie RN RN 3
--- NOTE | 2022-07-14 17:25 | EDPHYS ---
Physician Documentation [facility] Name: James Dupree Age: 46 yrs Sex: Male : 1975 Arrival Date: 07/14/2022 Time: 13:38 Bed 15 Private MD: ED Physician Álvaro Del Castillo HPI: 07/14 14:10 This 46 yrs old Male presents to ER via Ambulatory with complaints of ms3 Headache, Alcohol Withdrawal. 14:10 46-year-old male with past medical history of alcoholism and drug abuse presented to [facility] [place] [place] the emergency department for chest pain and headache. Patient states his chest pain is rated an 8/10 at its worst. Patient states the pain is intermittent. Patient states the pain began at 5 AM. Patient states he has been drinking for the last 5 days and wants to stop. Patient feels like he may be in alcohol withdrawal at this time.. Historical: - Allergies: 13:51 No Known Allergies; ss - Home Meds: 13:51 None [Active]; ss - PMHx: 13:51 Alcoholism; drug abuse; ss - PSHx: 13:51 None; ss - Immunization history:: Client reports having NOT received the Covid vaccine. - Social history:: Smoking status: Patient denies any tobacco usage or history of. Patient uses alcohol, on a daily basis. 10-12 beers. ROS: 14:10 Constitutional: Negative for fever, and chills. Neck: Negative for injury, pain, and ms3 swelling. 14:10 Respiratory: Negative for shortness of breath, cough, wheezing, and pleuritic chest pain, Abdomen/GI: Negative for abdominal pain, nausea, vomiting, diarrhea, and constipation, MS/Extremity: Negative for injury and deformity, Skin: Negative for injury, rash, and discoloration. 14:10 Cardiovascular: Positive for chest pain. 14:10 All other systems are negative. Exam: 14:10 Constitutional: This is a well developed, well nourished patient who is awake, alert, ms3 and in no acute distress. Head/Face: Normocephalic, atraumatic. Neck: Trachea midline, no cervical lymphadenopathy. Supple, full range of motion without nuchal rigidity, or vertebral point tenderness. No Meningismus. Chest/axilla: Normal chest wall appearance and motion. Nontender with no deformity. Cardiovascular: Regular rate and rhythm with a normal S1 and S2. No gallops, murmurs, or rubs. Normal PMI, no JVD. No pulse deficits. Respiratory: Lungs have equal breath sounds bilaterally, clear to auscultation and percussion. No rales, rhonchi or wheezes noted. No increased work of breathing, no retractions or nasal flaring. Abdomen/GI: Soft, non-tender, with normal bowel sounds. No distension or tympany. No guarding or rebound. No evidence of tenderness throughout. Skin: Warm, dry with normal turgor. Normal color with no rashes, no lesions, and no evidence of cellulitis. MS/ Extremity: Pulses equal, no cyanosis. Neurovascular intact. Full, normal range of motion. 14:24 ECG was reviewed by the Attending Physician. ms3 Vital Signs: 13:51 Pulse 88; Resp 16; Temp 98.9(TE); Pulse Ox 100% on R/A; Weight 72.57 kg; Height 5 ft. 8 ss in. (172.72 cm); Pain 7/10; 13:54 BP 143 / 87; ss 14:45 Pulse 74; Resp 20; Pulse Ox 100% on R/A; eh3 13:51 Body Mass Index 24.33 (72.57 kg, 172.72 cm) ss MDM: 14:07 Patient medically screened. ms3 14:10 Differential diagnosis: ACS vs UT vs Chest pain. ms3 17:18 Data reviewed: vital signs, nurses notes, lab test result(s), CBC, electrolytes, ms3 urinalysis, urine drug screen, EKG, and as a result, I will discharge patient. I considered the following discharge prescriptions or medication management in the emergency department Medications were administered in the Emergency Department. See MAR. Independent interpretation of the following test(s) in the Emergency Department EKG: See my EKG interpretation above engine monitor: rate is 76 beats/min, Rhythm is normal sinus rhythm, regular, with no ectopy, Interpretation: normal rate, normal rhythm. Care significantly affected by the following Social Determinants of Health: Poor access to healthcare and/or lack of insurance. Counseling: I had a detailed discussion with the patient and/or guardian regarding: the historical points, exam findings, and any diagnostic results supporting the discharge/admit diagnosis, lab results, radiology results, the need for outpatient follow up, to return to the emergency department if symptoms worsen or persist or if there are any questions or concerns that arise at home. Special discussion: I discussed with the patient/guardian in detail that at this point there is no indication for admission to the hospital. It is understood, however, that if the symptoms persist or worsen the patient needs to return immediately for re-evaluation. ED course: Discussed labs, chest x-ray, EKG with patient. Patient to follow-up with primary care physician to 3 days. Patient understands and agrees with plan. All questions were answered. Return precautions discussed include worsening symptoms, or any other concerns. On reevaluation patient is alert and orient x4, no apparent distress, nontoxic, ambulatory in emergency department, speaking full sentences.. 07/14 14:06 Order name: Acetaminophen; Complete Time: 16:28 ms3 07/14 14:06 Order name: BMP; Complete Time: 16:28 ms3 07/14 14:06 Order name: CBC with Diff; Complete Time: 15:39 ms3 07/14 14:06 Order name: Ethanol; Complete Time: 16:28 ms3 07/14 14:06 Order name: Hepatic Function; Complete Time: 16:28 ms3 07/14 14:06 Order name: Protime (+inr); Complete Time: 16:28 ms3 07/14 14:06 Order name: Ptt, Activated; Complete Time: 16:28 ms3 07/14 14:06 Order name: SARS-COV-2 Antigen Rapid; Complete Time: 15:39 ms3 07/14 14:06 Order name: Salicylate; Complete Time: 16:28 ms3 07/14 14:06 Order name: Urine Drug Screen; Complete Time: 17:12 ms3 07/14 14:06 Order name: Troponin High Sensitivity; Complete Time: 16:28 ms3 07/14 14:06 Order name: Chest Pa And Lat (2 Views) XRAY; Complete Time: 14:47 ms3 07/14 16:50 Order name: Urine Dipstick-Ancillary; Complete Time: 16:57 EDMS 07/14 14:06 Order name: EKG; Complete Time: 14:08 ms3 07/14 14:06 Order name: EKG - Nurse/Tech; Complete Time: 14:37 ms3 02/02 14:06 Order name: IV Saline Lock; Complete Time: 15:19 ms3 07/14 14:06 Order name: Labs collected and sent; Complete Time: 15:19 ms3 07/14 14:06 Order name: O2 Per Protocol; Complete Time: 15:00 ms3 07/14 14:06 Order name: O2 Sat Monitoring; Complete Time: 15:00 ms3 07/14 14:06 Order name: Suicide Screening ([place]); Complete Time: 15:19 ms3 07/14 14:06 Order name: Urine Dipstick-Ancillary (obtain specimen); Complete Time: 17:03 ms3 EC:24 Rate is 72 beats/min. Rhythm is regular. Right axis deviation noted. NH interval is ms3 normal. QRS interval is normal. Clinical impression: Normal ECG. Interpreted by me. Reviewed by me. Administered Medications: 15:15 Drug: Zofran (Ondansetron) 4 mg Route: IVP; Site: right antecubital; 3 16:00 Follow up: Response: Nausea is decreased [facility] 15:15 Drug: NS 0.9% 1000 ml Route: IV; Rate: 1000 ml; Site: right antecubital; eh3 17:56 Follow up: IV Status: Completed infusion; IV Intake: 500ml 3 Disposition Summary: 07/14/22 17:24 Discharge Ordered Location: Home ms3 Condition: Stable ms3 Diagnosis - Chest pain, unspecified ms3 - Essential (primary) hypertension ms3 - Alcohol abuse with intoxication ms3 Followup: ms3 - With: Zi Phan DO - When: 1 - 2 days - Reason: Recheck today's complaints Discharge Instructions: - Discharge Summary Sheet ms3 - Nonspecific Chest Pain, Adult ms3 - Alcohol Intoxication, [id number] ms3 Forms: - Medication Reconciliation Form ms3 - Thank You Letter ms3 - Antibiotic Education ms3 - Prescription Opioid Use ms3 Signatures: Dispatcher [employer] EDElba Fernandez RN RN Álvaro Long DO DO ms3 Sarai Mckenzie RN RN 3
[2022-07-14 18:10] VITALS: TEMP 98.9; O2SAT 100
[2022-07-14 18:11] VITALS: BP 143/87
== END 2022-07-14 17:55 | disposition home or self-care (01) ==
LOC: ER 13:36
DX: R07.9 Chest pain, unspecified (principal); F10.229 Alcohol dependence with intoxication, unspecified; I10 Essential (primary) hypertension
CPT/HCPCS: 36415; 71046; 80048; 80076; 80307; 81003; 84484; 85025; 85610; 85730; 87811; 93005; 96361; 96374; 99283; G0480; J2405; J7030

== ENCOUNTER 2022-07-31 12:43 | Emergency (ER) | payer SELFPAY ==
--- OUTSIDE RECORDS SUMMARY | 2022-07-31 12:45 | XMS REPORT | Continuity of Care Document ---
:1975 Author Organization [facility] t Address [address] [place] [address] Care Team Providers Name Role Phone MUNA AHMADI Primary Care Physician Unavailable Zi Phan Attending Clinician Unavailable Carlos Cramer Attending Clinician CARLOS MARADIAGA Attending Clinician Unavailable Janice Jurado RN Attending Clinician Unavailable Rosalind Ball MD Attending Clinician ROSALIND BALL Attending Clinician Unavailable Payers Payer Name Policy Type Policy Number Effective Date Expiration Date S elian Ambetter from [id number] 2021 [facility] 00:00:00 - [facility] Ambetter from [id number] 2021 [facility] 00:00:00 - [facility] Ambetter from [id number] 2021 Common [facility] 00:00:00 - [facility] Ambetter from [id number] 2021 Common [facility] 00:00:00 - [facility] Problems Condition Condition Condition Status Onset Resolution Last Treating Co mments Source Name Details Category Date Date Treatment Clinician Date [id number] Generalize Problem Active Com mon d anxiety Spirit disorder - [facility] [id number] Gastroesop Problem Active Co mmon hageal Spirit reflux - [facility] disease [facility] esophagiti [facility] [place] unspecifie d whether hemorrhage [id number] Alcohol Problem Active Commo n withdrawal Spirit syndrome - [facility] with complicati [facility] [id number] Alcohol Problem Active Comm on dependence Spirit with - [facility] unspecifie [facility] alcohol-in Medica duced Center disorder No known No known Disease Unive rs active active ity of problems problems [facility] [id number] Panic Problem Active 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 Allergies, Adverse Reactions, Alerts Allergy Allergy Status Severity Reaction(s) Onset Inactive Treating Comm ents Source Name Type Date Date Clinician NO KNOWN Drug Active Univers ALLERGIE Class ity of S [facility] Social History Social Habit Start Date Stop Date Quantity Comments Source History of Tobacco Common Spirit - [facility] Use [facility] Sex Assigned At Common Sp hamida - [facility] Exposure to 2021-12-09 2021-12-19 Yes [facility] SARS-CoV-2 (event) 00:00:00 11:33:00 [facility] Smoking Status Start Date Stop Date Source Tobacco smoking consumption [facility] Never Smoker Common Spirit [facility] Medications Ordered Filled Start Stop Current Ordering Indication Dosage Frequency Signature Comments Components Source Medication Medication Date Date Medication? Clinician (SIG) Name Name ondansetron No 4mg 4 mg, Univ ers (ZOFRAN-ODT 7-10 07-10 Oral, ity of ) 17:45: 16:43 ONCE, 1 [place] disintegrat 00 :00 dose, On Medi madeline ing tablet [place] 4 mg 12/19/21 at 1245, Routine ondansetron Yes [id number] 4mg Take 1 Univers 4 mg 7-10 tablet by ity of disintegrat 00:00: mouth [place] ing tablet 00 every 8 Medica l (eight) Branch hours as needed for Nausea and Vomiting (N/V). ondansetron Yes [id number] 4mg Take 1 Univers 4 mg 7-10 [...] Source Systolic blood 2021-12-19 16:46:11 134 mm[Hg] [facility] Tylerer sity [facility] Diastolic blood 2021-12-19 16:46:11 98 mm[Hg] [facility] Tylere [facility] Heart rate 2021-12-19 16:32:00 107 /min [facility] Body temperature 2021-12-19 16:32:00 37.11 Yamile [facility] Respiratory rate 2021-12-19 16:32:00 20 /min [facility] Body height 2021-12-19 16:32:00 175.3 cm Universi ty of [facility] Body weight 2021-12-19 16:32:00 72.576 kg Universi ty [facility] BMI 2021-12-19 16:32:00 23.63 kg/m2 Universi [facility] Oxygen saturation in 2021-12-19 16:32:00 99 /min University [facility] blood by [facility] Pulse oximetry Branch height 2021-04-29 14:00:00 69 [in_i] [facility] weight 2021-04-29 14:00:00 175.1 [lb_av] [facility] temperature 2021-04-29 14:00:00 98.2 [degF] [facility] bmi 2021-04-29 14:00:00 25.85 kg/m2 [facility] oximetry 2021-04-29 14:00:00 97 % [facility] respiratory rate 2021-04-29 14:00:00 18 /min Comm on [facility] blood pressure 2021-04-29 14:00:00 135 mm[Hg] [facility] - systolic [facility] blood pressure 2021-04-29 14:00:00 70 mm[Hg] [facility] - diastolic [facility] Procedures This patient has no known procedures. Encounters Start End Encounter Admission Attending Care Care Encounter Source Date/Time Date/Time Type Type Clinicians Facility Department ID 2021-07-07 [facility] Syl[facility] [id number] Common 14:15:22 [facility] [id number] [facility] 2022-04-01 2022-04-01 Outpatient SFA NAVEEN [id number] Thiago 15:13:12 15:13:12 1021 F Vini 2021-12-19 2021-12-19 Emergency Maradiaga, [facility] [id number] [facility] 11:37:00 12:29:00 Carlos DOE [id number] i ty of VIANEY [id number] [facility] [id number] [facility] 084 Branch 2021-12-19 2021-12-19 Emergency X HIREN [facility] ERT [id number] Univers 11:37:00 12:29:00 CARLOS ity [facility] 2021-12-19 2021-12-19 Violette Jurado Janice CONTI [id number] Univers 00:00:00 00:00:00 (Out) CELIA [id number] it [facility] [id number] [facility] [id number] [facility] 019 Branch 2021-07-09 2021-07-09 (TEL) STLMLC STLMLC [id number] Co mmon 00:00:00 00:00:00 [facility] 2021-05-10 2021-05-10 (TEL) STLMLC STLMLC [id number] Co mmon 00:00:00 00:00:00 [facility] 2021-05-05 2021-05-05 (TEL) STLMLC STLMLC [id number] Co mmon 00:00:00 00:00:00 [facility] 2021-04-29 2021-04-29 (TEL) STLMLC STLMLC [id number] Co mmon 00:00:00 00:00:00 [facility] 2021-04-29 2021-04-29 OFFICE STLMLC STLMLC [id number] Co mmon 00:00:00 00:00:00 VISIT [facility] it PT LEVEL 4 - [facility] 2020-07-09 2020-07-10 Emergency Rosalind Ball [facility] [id number] 23:44:00 06:08:00 Patricia Doe [id number] [place] [id number] [place] [id number] [facility] 2020-07-09 2020-07-09 Emergency X ROSALIND BALL [facility] ERT [id number] Univers 23:44:00 [facility] This patient has no known results.
[2022-07-31] MEDS ORDERED: THIAMINE 200 MG/2 ML INJ ONE (13:38)
[2022-07-31] MEDS ORDERED: LORazepam 2 MG/ML VIAL ONE (13:38)
[2022-07-31] MEDS ORDERED: NA CHLORIDE 0.9% 2,000 ML ONE (13:39)
[2022-07-31] MEDS ORDERED: FAMOTIDINE 20 MG/2 ML VIAL IV ONE (13:39)
[2022-07-31] MEDS ORDERED: ONDANSETRON 4 MG/2 ML VIAL ONE (13:39)
[2022-07-31] MEDS ORDERED: MULTIVITAMINS 10 ML VIAL (INJ) IV ONE (13:39)
[2022-07-31] MEDS ORDERED: FOLIC ACID 5 MG/ML VIAL ONE (13:40)
[2022-07-31 13:51] LABS: Absolute Lymphocytes (CBC) 1.1 K/uL (0.7-4.9); Hematocrit 42.3 % (39.6-49.0); Lymphocytes % 24.1 % (15.3-44.8); MCV 95.8 fL (80-100); MPV 6.6 fL (7.6-11.3); RBC Red Blood Cell Count 4.42 M/uL (4.33-5.43)
[2022-07-31 14:50] LABS: Albumin 3.9 g/dL (3.4-5.0); Bilirubin Total 1.5 mg/dL (0.2-1.0); Potassium 3.5 mmol/L (3.5-5.1); Protein, Total 7.8 g/dL (6.4-8.2); Troponin High Sensitivity 4.9 pg/mL (<58.9)
--- NOTE | 2022-07-31 17:14 | ER ---
Nurse's Notes [facility] Name: James Dupree Age: 46 yrs Sex: Male : 1975 Arrival Date: 07/31/2022 Time: 12:43 Bed 12 Private MD: Diagnosis: Alcohol abuse Presentation: 07/31 13:08 Chief complaint: Patient states: last drink was last night, feels like he's in iw withdrawals, he can;t keep anything down and he's shaky and can't sleep, has been on a binge since , he was arrested last night and has nowhere to go . They can't get him into rehab today, is wanting something to help with the vomiting and shakiness. Coronavirus screen: At this time, the client does not indicate any symptoms associated with coronavirus-19. Ebola Screen: Patient negative for fever greater than or equal to 101.5 degrees Fahrenheit, and additional compatible Ebola Virus Disease symptoms Patient denies exposure to infectious person. Patient denies travel to an Ebola-affected area in the 21 days before illness onset. No symptoms or risks identified at this time. Initial Sepsis Screen: Does the patient meet any 2 criteria? No. Patient's initial sepsis screen is negative. Does the patient have a suspected source of infection? No. Patient's initial sepsis screen is negative. Risk Assessment: Do you want to hurt yourself or someone else? Patient reports no desire to harm self or others. Onset of symptoms was July 31, 2022. 13:08 Method Of Arrival: Ambulatory iw 13:08 Acuity: DORETHA 3 iw Historical: - Allergies: 13:10 No Known Allergies; iw - PMHx: 13:10 Alcoholism; drug abuse; iw Screenin:16 [facility] ED Fall Risk Assessment (Adult) Score/Fall Risk Level 0 - 2 = Low Risk. Abuse iw screen: Denies threats or abuse. Denies injuries from another. Nutritional screening: No deficits noted. Tuberculosis screening: No symptoms or risk factors identified. Assessment: 13:15 General: Appears in no apparent distress. Behavior is cooperative, anxious. Pain: iw Denies pain. Neuro: Level of Consciousness is awake, alert, obeys commands, Oriented to person, place, time, situation, Moves all extremities. Full function. Cardiovascular: Patient's skin is warm and dry. Respiratory: Respiratory effort is even, unlabored, Respiratory pattern is regular, symmetrical. GI: Abdomen is flat, non-distended. Derm: Skin is intact, is healthy with good turgor. Musculoskeletal: Range of motion: intact in all extremities. 14:53 General: Appears in no apparent distress. Behavior is calm. Pain: Denies pain. Neuro: mb9 Level of Consciousness is awake, alert, obeys commands, Oriented to person, place, time, situation, Moves all extremities. Cardiovascular: Patient's skin is warm and dry. Rhythm is regular. Respiratory: Airway is patent Respiratory effort is even, unlabored, Respiratory pattern is regular, symmetrical. GI: Abdomen is flat, non-distended, Reports nausea. : No signs and/or symptoms were reported regarding the genitourinary system. Derm: Skin is intact, is healthy with good turgor, Skin is pink, warm \T\ dry. Musculoskeletal: Range of motion: intact in all extremities. 15:53 Reassessment: No changes from previously documented assessment. Patient and/or family mb9 updated on plan of care and expected duration. Pain level reassessed. Patient is alert, oriented x 3, equal unlabored respirations, skin warm/dry/pink. Patient states feeling better. 16:44 Reassessment: No changes from previously documented assessment. Patient and/or family mb9 updated on plan of care and expected duration. Pain level reassessed. Patient is alert, oriented x 3, equal unlabored respirations, skin warm/dry/pink. pt eating and watching TV Patient states feeling better. Patient states symptoms have improved. 17:30 Reassessment: Patient and/or family updated on plan of care and expected duration. Pain mb9 level reassessed. Patient is alert, oriented x 3, equal unlabored respirations, skin warm/dry/pink. Patient states feeling better. Patient states symptoms have improved. Pain: Denies pain. Vital Signs: 13:08 BP 148 / 89; Pulse 105; Resp 18; Temp 97.8; Pulse Ox 100% on R/A; iw 14:52 BP 120 / 88; Pulse 88; Resp 21; Pulse Ox 98% on R/A; mb9 15:53 BP 135 / 81; Pulse 103; Resp 18; Pulse Ox 100% on R/A; mb9 17:31 BP 138 / 82; Pulse 99; Resp 19; Pulse Ox 100% on R/A; Pain 0/10; mb9 ED Course: 12:43 Patient arrived in ED. am2 13:00 EKG done, by ED staff, reviewed by Brianda GRIJALVA. mb9 13:10 Triage completed. iw 13:11 Arm band placed on. iw 13:12 Josselyn Hodgson RN is Primary Nurse. mb9 13:18 Brianda Scott FNP-C is [facility]. kb 13:18 Dandre Pandey MD is Attending Physician. kb 13:23 Bed in low position. Call light in reach. Side rails up X 1. Client placed on mb9 continuous cardiac and pulse oximetry monitoring. NIBP monitoring applied. patient monitor on. 13:46 Lipase Sent. vg1 13:46 CMP Sent. vg1 13:46 CBC with Diff Sent. vg1 13:47 Missed attempt(s): 20 gauge in right antecubital area. bc6 14:05 Missed attempt(s): 22 gauge in left antecubital area. Bleeding controlled, band aid mb9 applied, catheter tip intact. 14:07 Missed attempt(s): 22 gauge in left wrist. vg1 14:08 Missed attempt(s): 22 gauge in left forearm. Bleeding controlled, band aid applied, mb9 catheter tip intact. 14:20 Inserted saline lock: 22 gauge in right hand, using aseptic technique. ,using aseptic mb9 technique. done by KATHLEEN Painting. 14:20 No provider procedures requiring assistance completed. mb9 14:23 Lab(s) recollected, by me. Missed attempt(s): 22 gauge in right antecubital area. vg1 17:45 IV discontinued, intact, bleeding controlled, No redness/swelling at site. Pressure mb9 dressing applied. Administered Medications: 14:34 Drug: Banana Bag - (NS 0.9% 1000 ml, foLIC Acid 1 mg, Thiamine 100 mg, Multivitamin 1 iw amp) Route: IV; Rate: calculated rate; Site: right hand; 14:35 Drug: NS 0.9% 1000 ml Route: IV; Rate: 1 bolus; Site: right hand; iw 14:35 Drug: Pepcid (famotidine) 20 mg Route: IVP; Site: right hand; iw 14:35 Drug: Zofran (Ondansetron) 4 mg Route: IVP; Site: right hand; iw 14:35 Drug: Ativan (LORazepam) 1 mg Route: IVP; Site: right hand; Medication: 13:16 VIS not applicable for this client. iw Outcome: 17:13 Discharge ordered by . kb 17:44 Discharged to home ambulatory. mb9 17:44 Condition: stable 17:44 Discharge instructions given to patient, Instructed on discharge instructions, follow up and referral plans. Demonstrated understanding of instructions, follow-up care, medications, Prescriptions given X 1. 17:45 Patient left the ED. mb9 Signatures: Brianda Scott, CIGAR TOBACCO PROCESSING SUPERVISOR-C CIGAR TOBACCO PROCESSING SUPERVISOR-Ckb Garima Morrow, RN RN iw Kamila Higginbotham Victoria RN RN vg1 Josselyn Hodgson, RN RN mb9 Susan Canales6
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
[2022-07-31 17:51] VITALS: TEMP 97.8
[2022-07-31 17:53] VITALS: O2SAT 100
[2022-07-31 17:54] VITALS: BP 138/82
--- NOTE | 2022-08-01 12:37 | EKG ---
Test Date: 2022-07-31 Test Time: 13:57:19 Animal Care Provider: CAROLA MEASUREMENT RESULTS: Intervals: Rate: 111 NE: 162 QRSD: 84 QT: 326 QTc: 443 Hoffman: P: 67 NE: 162 QRS: 79 T: 72 INTERPRETIVE STATEMENTS: Sinus tachycardia Otherwise normal ECG Compared to ECG 07/14/2022 14:24:44 Sinus rhythm no longer present Right-axis deviation no longer present Electronically Signed On 08-01-22 12:35:30 GUEST RELATIONS RECEPTIONIST by Hubert Prajapati
== END 2022-07-31 17:45 | disposition home or self-care (01) ==
LOC: ER 12:43
DX: F10.20 Alcohol dependence, uncomplicated (principal)
CPT/HCPCS: 36415; 80053; 83690; 84484; 85025; 93005; 96374; 96375; 99284; J2405; J3411; J7030

== ENCOUNTER 2022-08-13 09:42 | Emergency (ER) | payer SELFPAY ==
--- OUTSIDE RECORDS SUMMARY | 2022-08-13 09:45 | XMS REPORT | Continuity of Care Document ---
:1975 Author Organization [facility] t Address [address] [place] [address] Care Team Providers Name Role Phone MUNA AHMADI Primary Care Physician Unavailable Zi Phan Attending Clinician Unavailable Carlos Cramer Attending Clinician CARLOS MARADIAGA Attending Clinician Unavailable Janice Jurado RN Attending Clinician Unavailable Rosalind Ball MD Attending Clinician ROSALIND BALL Attending Clinician Unavailable Payers Payer Name Policy Type Policy Number Effective Date Expiration Date S elian Ambetter from [id number] 2021 [facility] 00:00:00 - [facility] Ambetter from [id number] 2021 Common [facility] 00:00:00 - [facility] Ambetter from [id number] 2021 Common Spi [facility] 00:00:00 - [facility] Ambetter from [id number] 2021 Common Spi [facility] 00:00:00 - [facility] Problems Condition Condition Condition Status Onset Resolution Last Treating Co mments Source Name Details Category Date Date Treatment Clinician Date [id number] Panic Problem Active Common disorder Spirit [episodic - [facility] paroxysmal [facility] anxiety] [facility] [id number] Generalize Problem Active Com mon d anxiety Spirit disorder - [facility] [id number] Gastroesop Problem Active Co mmon hageal Spirit reflux - [facility] disease [facility] esophagiti [facility] unspecifie d whether hemorrhage [id number] Alcohol Problem Active Commo n withdrawal Spirit syndrome - [facility] with complicati [facility] [id number] Alcohol Problem Active Comm on dependence Spirit with - [facility] unspecifie [facility] alcohol-in Medica duced Center disorder No known No known Disease Unive rs active active ity of problems problems [facility] Allergies, Adverse Reactions, Alerts Allergy Allergy Status Severity Reaction(s) Onset Inactive Treating Comm ents Source Name Type Date Date Clinician NO KNOWN Drug Active Univers ALLERGIE Class ity of S [facility] Social History Social Habit Start Date Stop Date Quantity Comments Source History of Tobacco Common Spirit - [facility] Use [facility] Sex Assigned At Common Sp hamida - [facility] Exposure to 2021-12-09 2021-12-19 Yes [facility] SARS-CoV-2 (event) 00:00:00 11:33:00 Medica l Branch Smoking Status Start Date Stop Date Source Tobacco smoking consumption [facility] Never Smoker Common Spirit - [facility] Medications Ordered Filled Start Stop Current Ordering Indication Dosage Frequency Signature Comments Components Source Medication Medication Date Date Medication? Clinician (SIG) Name Name ondansetron No 4mg 4 mg, Univ ers (ZOFRAN-ODT 7-10 07-10 Oral, ity of ) 17:45: 16:43 ONCE, 1 [place] disintegrat 00 :00 dose, On Medi madeline ing tablet [place] 4 mg 12/19/21 at 1245, Routine ondansetron Yes [id number] 4mg Take 1 Univers 4 mg 7-10 tablet by ity of disintegrat 00:00: mouth [place] ing tablet 00 every 8 Medica l (eight) Branch hours as needed for Nausea and Vomiting (N/V). ondansetron Yes [id number] 4mg Take 1 Univers 4 mg 7-10 [...] Source Systolic blood 2021-12-19 16:46:11 134 [facility]Hg[facility] Diastolic blood 2021-12-19 16:46:11 98 mm[Hg] [facility] Heart rate 2021-12-19 16:32:00 107 /min [facility] Body temperature 2021-12-19 16:32:00 37.11 Yamile [facility] Respiratory rate 2021-12-19 16:32:00 20 /min [facility] Body height 2021-12-19 16:32:00 175.3 cm Universi ty of [facility] Body weight 2021-12-19 16:32:00 72.576 kg Universi ty [facility] BMI 2021-12-19 16:32:00 23.63 kg/m2 Univers[facility] Oxygen saturation in 2021-12-19 16:32:00 99 /min University Arterial blood by [facility] Pulse oximetry Branch blood pressure 2021-04-29 14:00:00 135 mm[Hg] Common [facility] - systolic [facility] blood pressure 2021-04-29 14:00:00 70 mm[Hg] [facility] diastolic [facility] height 2021-04-29 14:00:00 69 [in_i] [facility] weight 2021-04-29 14:00:00 175.1 [lb_av] [facility] temperature 2021-04-29 14:00:00 98.2 [degF] [facility] bmi 2021-04-29 14:00:00 25.85 kg/m2 [facility] oximetry 2021-04-29 14:00:00 97 % [facility] respiratory rate 2021-04-29 14:00:00 18 /min Comm on [facility] Procedures This patient has no known procedures. Encounters Start End Encounter Admission Attending Care Care Encounter Source Date/Time Date/Time Type Type Clinicians Facility Department ID 2021-07-07 Outpatient Syl[facility] [id number] Common 14:15:22 [facility] [address] [facility] 2022-04-01 2022-04-01 Outpatient SFA NAVEEN [id number] Thiago 15:13:12 15:13:12 1021 F Vini 2021-12-19 2021-12-19 Emergency Maradiaga, [facility] [id number] [facility] 11:37:00 12:29:00 Carlos DOE [id number] i ty of VIANEY [id number] [facility] [id number] [facility] 084 Branch 2021-12-19 2021-12-19 Emergency X HIREN [facility] ERT [id number] Univers 11:37:00 12:29:00 CARLOS ity [facility] 2021-12-19 2021-12-19 Violette Jurado Janice CONTI [id number] Univers 00:00:00 00:00:00 (Out) CELIA [id number] it [facility] [id number] [facility] [id number] [facility] 019 Branch 2021-07-09 2021-07-09 (TEL) STLMLC STLMLC [id number] Co mmon 00:00:00 00:00:00 [facility] 2021-05-10 2021-05-10 (TEL) STLMLC STLMLC [id number] Co mmon 00:00:00 00:00:00 [facility] 2021-05-05 2021-05-05 (TEL) STLMLC STLMLC [id number] Co mmon 00:00:00 00:00:00 [facility] 2021-04-29 2021-04-29 OFFICE STLMLC STLMLC [id number] Co mmon 00:00:00 00:00:00 VISIT [facility] it PT LEVEL 4 [facility] 2021-04-29 2021-04-29 (TEL) STLMLC STLMLC [id number] Co mmon 00:00:00 00:00:00 [facility] 2020-07-09 2020-07-10 Emergency Rosalind Ball [facility] [id number] 23:44:00 06:08:00 Patricia Doe [id number] [place] [id number] [place] [id number] [facility] 2020-07-09 2020-07-09 Emergency X ROSALIND BALL [facility] ERT [id number] Univers 23:44[facility]00 [facility] Results This patient has no known results.
[2022-08-13 10:13] LABS: Urine Blood Trace-intact (Negative); Urine Glucose Negative (Negative); Urine Protein Negative (Negative)
--- NOTE | 2022-08-13 10:28 | ER ---
Nurse's Notes [facility] Name: James Dupree Age: 46 yrs Sex: Male : 1975 Arrival Date: 08/13/2022 Time: 09:43 Bed 19 Private MD: Diagnosis: Presentation: 08/13 09:46 Coronavirus screen: Vaccine status: Patient reports receiving the 2nd dose of the covid ll1 vaccine. Client denies travel out of the [place] in the last 14 days. At this time, the client does not indicate any symptoms associated with coronavirus-19. Ebola Screen: Patient denies travel to an Ebola-affected area in the 21 days before illness onset. Initial Sepsis Screen: Does the patient meet any 2 criteria? No. Patient's initial sepsis screen is negative. Does the patient have a suspected source of infection? No. Patient's initial sepsis screen is negative. Risk Assessment: Do you want to hurt yourself or someone else? Patient reports no desire to harm self or others. Onset of symptoms is unknown. 09:46 Method Of Arrival: Law Enforcement: [facility] 09:46 Acuity: DORETHA 2 ll1 10:27 Chief complaint: Patient states: Feels like people are following him. No SI or HI. ll1 Triage Assessment: 09:48 General: Appears in no apparent distress. Behavior is calm, cooperative, appropriate ll1 for age. General: Reports people are following him. Increased ETOH use lately. Pain: Denies pain. Neuro: Reports feeling like people are following him. . Historical: - Allergies: 09:46 No Known Drug Allergies; ll1 - PMHx: 09:46 Alcoholism; drug abuse; ll1 - Immunization history:: Adult Immunizations up to date. - Social history:: Smoking status: Patient reports the use of cigarette tobacco products, smokes one-half pack cigarettes per day. Screenin:50 [facility] ED Fall Risk Assessment (Adult) Score/Fall Risk Level 0 - 2 = Low Risk ll1 Oriented to surroundings, Maintained a safe environment, Educated pt \T\ family on fall prevention, incl call for assistance when getting out of bed, Hourly rounding (assess needs \T\ fall precautionary measures) done. Abuse screen: Denies threats or abuse. Nutritional screening: No deficits noted. Tuberculosis screening: No symptoms or risk factors identified. Assessment: 10:14 Reassessment: No changes from previously documented assessment. Patient and/or family ll1 updated on plan of care and expected duration. Pain level reassessed. Patient is alert, oriented x 3, equal unlabored respirations, skin warm/dry/pink. 10:25 Reassessment: No changes from previously documented assessment. Patient and/or family ll1 updated on plan of care and expected duration. Pain level reassessed. Patient is alert, oriented x 3, equal unlabored respirations, skin warm/dry/pink. Denies SI or HI thoughts. Feels better now. Wants to leave AMA. Vital Signs: 09:50 BP 126 / 96; Pulse 68; Resp 18; Pulse Ox 100% ; ll1 10:25 Temp 97.8; ll1 ED Course: 09:43 Patient arrived in ED. am2 09:43 Mary Phan MD is Attending Physician. sp3 09:46 Ashu Chen RN is Primary Nurse. ll1 09:46 Arm band placed on Patient placed in an exam room, on a stretcher. ll1 09:47 Triage completed. ll1 09:50 Patient has correct armband on for positive identification. Bed in low position. Call ll1 light in reach. Client placed on continuous cardiac and pulse oximetry monitoring. NIBP monitoring applied. 10:05 Urine Drug Screen Sent. ll1 10:14 Missed attempt(s): 22 gauge in left hand. Bleeding controlled, band aid applied, ll1 catheter tip intact. 10:26 No provider procedures requiring assistance completed. Patient did not have IV access ll1 during this emergency room visit. Administered Medications: No medications were administered Medication: 10:28 VIS not applicable for this client. ll1 Outcome: 10:26 AMA AMA form signed ll1 10:26 Condition: stable 10:26 Instructed on AMA instructions. Demonstrated understanding of instructions, AMA form 10:28 Patient left the ED. ll1 Signatures: Kamila Higginbotham am2 Ashu Chen RN RN ll1 Mary Phan MD MD sp3 Corrections: (The following items were deleted from the chart) 10:26 10:25 Reassessment: No changes from previously documented assessment. Patient and/or ll1 family updated on plan of care and expected duration. Pain level reassessed. Patient is alert, oriented x 3, equal unlabored respirations, skin warm/dry/pink. ll1
--- NOTE | 2022-08-13 10:29 | EDPHYS ---
Physician Documentation [facility] Name: James Dupree Age: 46 yrs Sex: Male : 1975 Arrival Date: 08/13/2022 Time: 09:43 Bed 19 Private MD: ED Physician Mary Phan HPI: 08/13 09:59 This 46 yrs old Male presents to ER via Law Enforcement with complaints of sp3 feelings of persecution \\T\\ alcohol abuse. 09:59 46-year-old male with history of alcoholism, drug abuse, depression now presents to the sp3 ED with chief complaint feelings of persecution with patient stating "they are following me I can feel them". Patient states that he continues to drink alcohol with minor intake yesterday evening. He states he wants to quit drinking and also needs help for his depression and feelings that he has been having. He voluntarily went to the police station seeking help after which the police brought him here voluntarily. He denies any suicidal or homicidal ideation, hearing voices, seeing things or any other psychosis other than what is already described. Somatically, ROS is negative for headache, neck pain, facial pain, chest pain, shortness of breath, back pain, trauma, abdominal pain, nausea, vomiting, diarrhea, any other recreational drug use, travel history, known sick contacts, or any other symptoms at this time.. Historical: - Allergies: 09:46 No Known Drug Allergies; ll1 - PMHx: 09:46 Alcoholism; drug abuse; ll1 - Immunization history:: Adult Immunizations up to date. - Social history:: Smoking status: Patient reports the use of cigarette tobacco products, smokes one-half pack cigarettes per day. ROS: 10:01 Constitutional: Negative for fever, chills, and weight loss, Eyes: Negative for injury, sp3 pain, redness, and discharge, ENT: Negative for injury, pain, and discharge, Neck: Negative for injury, pain, and swelling, Cardiovascular: Negative for chest pain, palpitations, and edema, Respiratory: Negative for shortness of breath, cough, wheezing, and pleuritic chest pain, Abdomen/GI: Negative for abdominal pain, nausea, vomiting, diarrhea, and constipation, Back: Negative for injury and pain, MS/Extremity: Negative for injury and deformity, Skin: Negative for injury, rash, and discoloration, Neuro: Negative for headache, weakness, numbness, tingling, and seizure. 10:01 All other systems are negative. Exam: 10:01 Constitutional: This is a well developed, well nourished patient who is awake, alert, sp3 and in no acute distress. Head/Face: Normocephalic, atraumatic. Eyes: Pupils equal round and reactive to light, extra-ocular motions intact. Lids and lashes normal. Conjunctiva and sclera are non-icteric and not injected. Cornea within normal limits. Periorbital areas with no swelling, redness, or edema. ENT: Nares patent. No nasal discharge, no septal abnormalities noted. External auditory canals are clear. Oropharynx with no redness, swelling, or masses, exudates, or evidence of obstruction, uvula midline. Mucous membranes moist. Neck: Trachea midline, no thyromegaly or masses palpated, and no cervical lymphadenopathy. Supple, full range of motion without nuchal rigidity, or vertebral point tenderness. No Meningismus. Chest/axilla: Normal chest wall appearance and motion. Nontender with no deformity. No lesions are appreciated. Cardiovascular: Regular rate and rhythm with a normal S1 and S2. No gallops, murmurs, or rubs. Normal PMI, no JVD. No pulse deficits. Respiratory: Lungs have equal breath sounds bilaterally, clear to auscultation and percussion. No rales, rhonchi or wheezes noted. No increased work of breathing, no retractions or nasal flaring. Abdomen/GI: Soft, non-tender, with normal bowel sounds. No distension or tympany. No guarding or rebound. No evidence of tenderness throughout. Skin: Warm, dry with normal turgor. Normal color with no rashes, no lesions, and no evidence of cellulitis. MS/ Extremity: Pulses equal, no cyanosis. Neurovascular intact. Full, normal range of motion. Neuro: Awake and alert, GCS 15, oriented to person, place, time, and situation. Cranial nerves II-XII grossly intact. Motor strength 5/5 in all extremities. Sensory grossly intact. Cerebellar exam normal. Normal gait. Psych: Awake, alert, with orientation to person, place and time. Behavior, mood, and affect are within normal limits. Vital Signs: 09:50 BP 126 / 96; Pulse 68; Resp 18; Pulse Ox 100% ; ll1 10:25 Temp 97.8; ll1 MDM: 09:53 Patient medically screened. sp3 10:03 Data reviewed: vital signs, nurses notes, old medical records. ED course: 46-year-old sp3 male with feelings of persecution and desire to stop drinking alcohol. Will obtain laboratory values and general evaluation and then contact psychiatric team for evaluation. Disposition will be based on work-up and patient course. There is no active suicidal or homicidal ideation or active visual psychosis. The feelings of persecution are without auditory psychosis however patient is very vague about his symptoms.. 08/13 09:55 Order name: EKG; Complete Time: 09:56 sp3 08/13 09:55 Order name: EKG - Nurse/Tech; Complete Time: 10:10 sp3 08/13 09:55 Order name: IV Saline Lock; Complete Time: 10:04 sp3 08/13 09:55 Order name: Labs collected and sent; Complete Time: 10:04 3 08/13 09:55 Order name: Suicide Screening ([place]); Complete Time: 10:04 sp3 08/13 09:55 Order name: Urine Dipstick-Ancillary (obtain specimen); Complete Time: 10:04 3 08/13 10:13 Order name: Urine Dipstick-Ancillary [facility] 08/13 10:21 Order name: Diet Finger Food; Complete Time: 10:21 zm Administered Medications: No medications were administered Disposition Summary: 08/13/22 10:28 Left Against Medical Advice Location: Home ll1 Condition: Fair ll1 Signatures: Dispatcher [employer] EDAshu Jaime, RN RN ll1 Mary Phan MD MD sp3
[2022-08-13 10:31] LABS: Barbiturates NEGATIVE (NEGATIVE); Benzodiazepines NEGATIVE (NEGATIVE); Cocaine NEGATIVE (NEGATIVE); METHAMPHETAM NEGATIVE (NEGATIVE); Methadone NEGATIVE (NEGATIVE); Opiates NEGATIVE (NEGATIVE); Phencyclidine NEGATIVE (NEGATIVE); THC Cannibis NEGATIVE (NEGATIVE)
[2022-08-13 10:33] VITALS: BP 126/96; O2SAT 100
[2022-08-13 10:34] VITALS: TEMP 97.8
--- NOTE | 2022-08-15 16:45 | EKG ---
Test Date: 2022-08-13 Test Time: 10:15:00 Identifier Horse: CAROLA MEASUREMENT RESULTS: Intervals: Rate: 67 OR: 140 QRSD: 88 QT: 394 QTc: 416 [place]: P: 29 OR: 140 QRS: -48 T: -3 INTERPRETIVE STATEMENTS: Normal sinus rhythm Left axis deviation Voltage criteria for left ventricular hypertrophy Abnormal ECG Compared to ECG 07/31/2022 13:57:19 Left-axis deviation now present Left ventricular hypertrophy now present Sinus tachycardia no longer present Electronically Signed On 08-15-22 16:38:58 ASSISTANT STRENGTH COACH by Hubert Prajapati
== END 2022-08-13 10:28 | disposition left against medical advice (07) ==
LOC: ER 09:42
DX: F22 Delusional disorders (principal)
CPT/HCPCS: 80307; 81003; 93005; 99283

== ENCOUNTER 2022-10-27 03:23 | Emergency (ER) | payer SELFPAY ==
--- OUTSIDE RECORDS SUMMARY | 2022-10-27 03:27 | XMS REPORT | Continuity of Care Document ---
:1975 Author Organization [facility] t Address [address] [place] [address] Care Team Providers Name Role Phone KATEY AHMADIHRYN Primary Care Physician Unavailable Zi Phan Attending Clinician Unavailable Carlos Cramer Attending Clinician CARLOS HOLM Attending Clinician Unavailable Janice Jurado RN Attending Clinician Unavailable Rosalind Ball MD Attending Clinician ROSALIND BALL Attending Clinician Unavailable Payers Payer Name Policy Type Policy Number Effective Date Expiration Date S elian Ambetter from [id number] 2021 [facility] 00:00:00 - [facility] Ambetter from [id number] 2021 [facility] 00:00:00 - [facility] Ambetter from [id number] 2021 [facility] 00:00:00 - [facility] Ambetter from [id number] 2021 [facility] Spi [facility] 00:00:00 - [facility] Problems Condition Condition Condition Status Onset Resolution Last Treating Co mments Source Name Details Category Date Date Treatment Clinician Date [id number] Panic Problem Active Common disorder Spirit [episodic - CHI paroxysmal St anxiety] [facility] [id number] Generalize Problem Active Com mon d anxiety Spirit disorder - [facility] [id number] Gastroesop Problem Active Co mmon hageal Spirit reflux - CHI disease with [facility] esophagiti [facility] Center unspecifie d whether hemorrhage [id number] Alcohol Problem Active Commo n withdrawal Spirit syndrome - CHI with St complicati [facility] [id number] Alcohol Problem Active Comm on dependence Spirit with - CHI unspecifie St d [facility] alcohol-in Medica l duced Center disorder No known No known Disease Unive rs active active ity of problems problems [facility] Allergies, Adverse Reactions, Alerts Allergy Allergy Status Severity Reaction(s) Onset Inactive Treating Comm ents Source Name Type Date Date Clinician NO KNOWN Drug Active Univers ALLERGIE Class ity of S [facility] Social History Social Habit Start Date Stop Date Quantity Comments Source History of Tobacco Common Spirit - CHI Use [facility] Sex Assigned At Common Sp hamida - CHI [facility] Exposure to 2021-12-09 2021-12-19 Yes [facility] SARS-CoV-2 (event) 00:00:00 11:33:00 Medica l Branch Smoking Status Start Date Stop Date Source Tobacco smoking consumption [facility] Branch Never Smoker Common Spirit - [facility] Medications Ordered Filled Start Stop Current Ordering Indication Dosage Frequency Signature Comments Components Source Medication Medication Date Date Medication? Clinician (SIG) Name Name ondansetron 2021- No 4mg 4 mg, Univ ers (ZOFRAN-ODT 12-19 Oral, ity of ) 17:45: 16:43 ONCE, 1 [place] disintegrat 00 :00 dose, On Medi madeline ing tablet [place] 4 mg 12/19/21 at 1245, Routine ondansetron Yes [id number] 4mg Take 1 Univers 4 mg 7-10 tablet by ity of disintegrat 00:00: mouth [place] ing tablet 00 every 8 Medica l (eight) Branch hours as needed for Nausea and Vomiting (N/V). ondansetron Yes [id number] 4mg Take 1 Univers 4 mg 7-10 [...] blood 2021-12-19 16:46:11 134 mm[Hg] [facility] blood 2021-12-19 16:46:11 98 mm[Hg] [facility] Heart rate 2021-12-19 16:32:00 107 /min [facility] Body temperature 2021-12-19 16:32:00 37.11 Yamile [facility] Respiratory rate 2021-12-19 16:32:00 20 /min [facility] Body height 2021-12-19 16:32:00 175.3 cm Universi ty [facility] Body weight 2021-12-19 16:32:00 72.576 kg Universi ty [facility] BMI 2021-12-19 16:32:00 23.63 kg/m2 [facility] Oxygen saturation in 2021-12-19 16:32:00 99 /min [facility] Arterial blood by [facility] Pulse oximetry Branch blood pressure 2021-04-29 14:00:00 135 mm[Hg] Common [facility] - systolic [facility] blood pressure 2021-04-29 14:00:00 70 mm[Hg] Common [facility] - diastolic [facility] height 2021-04-29 14:00:00 69 [in_i] [facility] weight 2021-04-29 14:00:00 175.1 [lb_av] [facility] temperature 2021-04-29 14:00:00 98.2 [degF] [facility] bmi 2021-04-29 14:00:00 25.85 kg/m2 [facility] oximetry 2021-04-29 14:00:00 97 % [facility] respiratory rate 2021-04-29 14:00:00 18 /min Comm on [facility] Procedures This patient has no known procedures. Encounters Start End Encounter Admission Attending Care Care Encounter Source Date/Time Date/Time Type Type Clinicians Facility Department ID 2021-07-[address] [facility] [id number] Common 14:15:22 [facility] [address] [facility] 2022-04-01 2022-04-01 Outpatient SFA SFA [id number] Thiago 15:13:12 15:13:12 1021 F Vini 2021-12-19 2021-12-19 Emergency Holm, [facility] [id number] [facility] 11:37:00 12:29:00 Carlos DOE [id number] i ty of [place] [id number] [facility] [id number] [place] [id number] Branch 2021-12-19 2021-12-19 Emergency X HIREN [facility] ERT [id number] Univers 11:37:00 12:29:00 CARLOS ity [facility] 2021-12-19 2021-12-19 Violette Jurado Janice CONTI [id number] Univers 00:00:00 00:00:00 (Out) CELIA [id number] it [facility] [id number] [facility] as [id number] [address] 2021-07-09 2021-07-09 (TEL) STLMLC STLMLC [id number] Co mmon 00:00:00 00:00:00 [facility] 2021-05-10 2021-05-10 (TEL) STLMLC STLMLC [id number] Co mmon 00:00:00 00:00:00 [facility] 2021-05-05 2021-05-05 (TEL) STLMLC STLMLC [id number] Co mmon 00:00:00 00:00:00 [facility] 2021-04-29 2021-04-29 OFFICE STLMLC STLMLC [id number] Co mmon 00:00:00 00:00:00 VISIT [facility] it PT LEVEL 4 [facility] 2021-04-29 2021-04-29 (TEL) STLMLC STLMLC [id number] Co mmon 00:00:00 00:00:00 [facility] 2020-07-09 2020-07-10 Emergency Rosalind Ball [facility] [id number] 23:44:00 06:08:00 Patricia Doe [id number] [place] [id number] [place] [id number] [facility] 2020-07-09 2020-07-09 Emergency X ROSALIND BALL [facility] ERT [id number] Univers 23:44:00 23:44:00 ity [facility] Results This patient has no known results.
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
[2022-10-27 04:27] VITALS: BP 127/96; TEMP 98.1; O2SAT 95
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
== END 2022-10-27 04:12 | disposition home or self-care (01) ==
LOC: ER 03:23
DX: S60.221A Contusion of right hand, initial encounter (principal)
CPT/HCPCS: 99283

== ENCOUNTER 2022-10-29 00:07 | Emergency (ER) | payer SELFPAY ==
--- OUTSIDE RECORDS SUMMARY | 2022-10-29 00:10 | XMS REPORT | Continuity of Care Document ---
:1975 Author Organization [facility] t Address [address] [place] [address] Care Team Providers Name Role Phone MUNA AHMADI Primary Care Physician Unavailable Zi Phan Attending Clinician Unavailable Carlos Cramer Attending Clinician CALROS HOLM Attending Clinician Unavailable Adrien WANG, Janice Attending Clinician Unavailable Rosalind Ball MD Attending Clinician ROSALIND BALL Attending Clinician Unavailable Payers Payer Name Policy Type Policy Number Effective Date Expiration Date Ann plummer Ambetter from [id number] 2021 [facility] 00:00:00 - [facility] Ambetter from [id number] 2021 Common Spi [facility] 00:00:00 - [facility] Ambetter from [id number] 2021 Common Spi [facility] 00:00:00 - [facility] Ambetter from [id number] 2021 Common Spi [facility] 00:00:00 - [facility] Problems Condition Condition Condition Status Onset Resolution Last Treating Co mments Source Name Details Category Date Date Treatment Clinician Date [id number] Panic Problem Active Common disorder Spirit [episodic - [facility]I paroxysmal St anxiety] [facility] [id number] Generalize Problem Active Com mon d anxiety Spirit disorder - CH[facility] [id number] Gastroesop Problem Active Co mmon hageal Spirit reflux - CHI disease [facility] esophagiti Med[facility] Center unspecifie d whether hemorrhage [id number] Alcohol Problem Active Commo n withdrawal Spirit syndrome - CHI with complicati [facility] [id number] Alcohol Problem Active Comm on dependence Spirit with - CHI unspecifie [facility] alcohol-in Medica l duced Center disorder No known No known Disease Unive rs active active ity of problems problems [facility] Allergies, Adverse Reactions, Alerts Allergy Allergy Status Severity Reaction(s) Onset Inactive Treating Comm ents Source Name Type Date Date Clinician NO KNOWN Drug Active Univers ALLERGIE Class ity of S [facility] Social History Social Habit Start Date Stop Date Quantity Comments Source History of Tobacco Common Spirit - CHI Use [facility] Sex Assigned At Common Sp hamida - CHI [facility] Exposure to 2021-12-09 2021-12-19 Yes [facility] SARS-CoV-2 (event) 00:00:00 11:33:00 Medica l Branch Smoking Status Start Date Stop Date Source Tobacco smoking consumption [facility] Never Smoker Common Spirit - [facility] Medications Ordered Filled Start Stop Current Ordering Indication Dosage Frequency Signature Comments Components Source Medication Medication Date Date Medication? Clinician (SIG) Name Name ondansetron 2021- No 4mg 4 mg, Univ ers (ZOFRAN-ODT -12-19 Oral, ity of ) 17:45: 16:43 ONCE, 1 [place] disintegrat 00 :00 dose, On Medi madeline ing tablet [place] [facility] 4 mg 12/19/21 at 1245, Routine ondansetron Yes [id number] 4mg Take 1 Univers 4 mg 7-10 tablet by ity of disintegrat 00:00: mouth [place] ing tablet 00 every 8 Medica l (eight) Branch hours as needed for Nausea and Vomiting (N/V). ondansetron Yes [id number] 4mg Take 1 Univers 4 mg 7-10 [...] 134 mm[Hg] [facility] blood 2021-12-19 16:46:11 98 mm[Hg] [facility] Heart rate 2021-12-19 16:32:00 107 /min [facility] Body temperature 2021-12-19 16:32:00 37.11 Yamile [facility] Respiratory rate 2021-12-19 16:32:00 20 /min [facility] Body height 2021-12-19 16:32:00 175.3 cm Universi [facility] Body weight 2021-12-19 16:32:00 [facility].576 [facility] 2021-12-19 16:32:00 23.63 kg/m2 [facility] Oxygen saturation in 2021-12-19 16:32:00 99 /min [facility] blood by [facility] Pulse oximetry Branch blood pressure 2021-04-29 14:00:00 135 mm[Hg] Common [facility] - systolic [facility] blood pressure 2021-04-29 14:00:00 70 mm[Hg] [facility] - diastolic [facility] height 2021-04-29 14:00:00 69 [in_i] [facility] weight 2021-04-29 14:00:00 175.1 [lb_av] [facility] temperature 2021-04-29 14:00:00 98.2 [degF] [facility] bmi 2021-04-29 14:00:00 25.85 kg/m2 [facility] oximetry 2021-04-29 14:00:00 97 % [facility] respiratory rate 2021-04-29 14:00:00 18 /min Comm on [facility] Procedures This patient has no known procedures. Encounters Start End Encounter Admission Attending Care Care Encounter Source Date/Time Date/Time Type Type Clinicians Facility Department ID [facility]-07[facility] [facility] [id number] Common 14:15:22 [facility] [address] [facility] 2022-04-01 2022-04-01 Outpatient SFA SFA [id number] Thiago 15:13:12 15:13:12 1021 F Vini 2021-12-19 2021-12-19 Emergency Holm, [facility] [id number] [facility] 11:37:00 12:29:00 Carlos LATONIA [id number] i ty of [place] [id number] [facility] [id number] [facility] 084 Branch 2021-12-19 2021-12-19 Emergency X HIREN [facility] ERT [id number] Univers 11:37:00 12:29:00 CARLOS ity [facility] 2021-12-19 2021-12-19 Jaince Beckman [id number] Univers 00:00:00 00:00:00 (Out) CELIA [id number] it [facility] [id number] [facility] [id number] [address] 2021-07-09 2021-07-09 (TEL) STLMLC STLMLC [id number] Co mmon 00:00:00 00:00:00 [facility] 2021-05-10 2021-05-10 (TEL) STLMLC STLMLC [id number] Co mmon 00:00:00 00:00:00 [facility] 2021-05-05 2021-05-05 (TEL) STLMLC STLMLC [id number] Co mmon 00:00:00 00:00:00 [facility] 2021-04-29 2021-04-29 OFFICE STLMLC STLMLC [id number] Co mmon 00:00:00 00:00:00 VISIT [facility] it PT LEVEL 4 [facility] 2021-04-29 2021-04-29 (TEL) STLMLC STLMLC [id number] Co mmon 00:00:00 00:00:00 [facility] 2020-07-09 2020-07-10 Emergency Rosalind Ball [facility] [id number] 23:44:00 06:08:00 [place] [id number] [place] [id number] [place] [id number] 2020-07-09 2020-07-09 Emergency X ROSALIND BALL [facility] ERT [id number] Univers 23:44:00 23:44:00 ity [facility] Results This patient has no known results.
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
[2022-10-29 02:04] VITALS: BP 145/87; TEMP 98.6; O2SAT 97
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
== END 2022-10-29 01:55 | disposition home or self-care (01) ==
LOC: ER 00:07
DX: S60.221A Contusion of right hand, initial encounter (principal); F10.24 Alcohol dependence with alcohol-induced mood disorder

== ENCOUNTER 2022-10-30 07:30 | Emergency (ER) | payer SELFPAY ==
--- OUTSIDE RECORDS SUMMARY | 2022-10-30 07:33 | XMS REPORT | Continuity of Care Document ---
:1975 Author Organization [facility] t Address [address] [place] [address] Care Team Providers Name Role Phone MUNA AHMADI Primary Care Physician Unavailable Zi Phan Attending Clinician Unavailable Carlos Cramer Attending Clinician CARLOS HOLM Attending Clinician Unavailable Adrien WANG, Janice Attending Clinician Unavailable Rosalind Ball MD Attending Clinician ROSALIND BALL Attending Clinician Unavailable Payers Payer Name Policy Type Policy Number Effective Date Expiration Date Ann Guzmanetter from [id number] 2021 Common [facility] 00:00:00 - [facility] Ambetter from [id number] 2021 Common Spi [facility] 00:00:00 - [facility] Ambetter from [id number] 2021 Common Spi [facility] 00:00:00 - [facility] Ambetter from [id number] 2021 Common Spi rit [facility] 00:00:00 - [facility] Problems Condition Condition Condition Status Onset Resolution Last Treating Co mments Source Name Details Category Date Date Treatment Clinician Date No known No known Disease Unive rs active active ity of problems problems [facility] [id number] Panic Problem Active Common disorder Spirit [episodic - [facility] paroxysmal St anxiety] [facility] [id number] Generalize Problem Active Com mon d anxiety Spirit disorder - [facility] [id number] Gastroesop Problem Active Co mmon hageal Spirit reflux - [facility] disease [facility] esophagiti [facility] unspecifie d whether hemorrhage [id number] Alcohol Problem Active Commo n withdrawal Spirit syndrome - [facility]I with complicati [facility] [id number] Alcohol Problem Active Comm on dependence Spirit with - [facility]I unspecifie [facility] alcohol-in Medica duced Center disorder Allergies, Adverse Reactions, Alerts Allergy Allergy Status Severity Reaction(s) Onset Inactive Treating Comm ents Source Name Type Date Date Clinician NO KNOWN Drug Active Univers ALLERGIE Class ity of S [facility] Social History Social Habit Start Date Stop Date Quantity Comments Source History of Tobacco Common Spirit - [facility]I Use [facility] Sex Assigned At Common Sp hamida - CHI [facility] Exposure to 2021-12-09 2021-12-19 Yes [facility] SARS-CoV-2 (event) 00:00:00 11:33:00 [facility] Smoking Status Start Date Stop Date Source Tobacco smoking consumption [facility] Never Smoker Common Spirit - [facility] Medications Ordered Filled Start Stop Current Ordering Indication Dosage Frequency Signature Comments Components Source Medication Medication Date Date Medication? Clinician (SIG) Name Name ondansetron 2021- No 4mg 4 mg, Univ ers (ZOFRAN-ODT -12-19 Oral, ity of ) 17:45: 16:43 ONCE, 1 [place] disintegrat 00 :00 dose, On Medi madeline ing tablet [place] 4 mg 12/19/21 at 1245, Routine ondansetron Yes [id number] 4mg Take 1 Univers 4 mg 7-10 tablet by ity of disintegrat 00:00: mouth [place] ing tablet 00 every 8 Medica l (eight) Branch hours as needed for Nausea and Vomiting (N/V). ondansetron Yes [id number] 4mg Take 1 Univers 4 mg 7-10 [...] Source Systolic blood 2021-12-19 16:46:11 134 mm[Hg] Univer sity of pressure [facility] Diastolic blood 2021-12-19 16:46:11 98 mm[Hg] Unive [facility] Body weight 2021-12-19 16:32:00 72.576 kg Universi [facility] BMI 2021-12-19 16:32:00 23.63 kg/m2 [facility] Oxygen saturation in 2021-12-19 16:32:00 99 /min University Arterial blood by [facility] Pulse oximetry Branch Heart rate 2021-12-19 16:32:00 107 /min Universi ty [facility] Body temperature 2021-12-19 16:32:00 37.11 [facility] ersity [facility] Respiratory rate 2021-12-19 16:32:00 20 /min [facility] Body height 2021-12-19 16:32:00 175.3 cm Universi ty [facility] height 2021-04-29 14:00:00 69 [in_i] [facility] weight 2021-04-29 14:00:00 175.1 [lb_av] [facility] temperature 2021-04-29 14:00:00 98.2 [degF] [facility] bmi 2021-04-29 14:00:00 25.85 kg/m2 [facility] oximetry 2021-04-29 14:00:00 97 % [facility] respiratory rate 2021-04-29 14:00:00 18 /min Comm on [facility] blood pressure 2021-04-29 14:00:00 135 mm[Hg] Common [facility] systolic [facility] blood pressure 2021-04-29 14:00:00 70 mm[Hg] [facility] diastolic [facility] Procedures This patient has no known procedures. Encounters Start End Encounter Admission Attending Care Care Encounter Source Date/Time Date/Time Type Type Clinicians Facility Department ID 2021-07-07 Outpatient Sylvester, [facility] [id number] Common 14:15:22 [facility] [id number] [facility] 2022-04-01 2022-04-01 Outpatient SFA SFA [id number] Thiago 15:13:12 15:13:12 1021 F Vini 2021-12-19 2021-12-19 Emergency Holm, [facility] [id number] [facility] 11:37:00 12:29:00 Carlos LATONIA [id number] i ty of [place] [id number] [facility] [id number] [place] [id number] Branch 2021-12-19 2021-12-19 Emergency X HIREN [facility] ERT [id number] Univers 11:37:00 12:29:00 CARLOS ity [facility] 2021-12-19 2021-12-19 Janice Beckman [id number] Univers 00:00:00 00:00:00 (Out) CELIA [id number] it [facility] [id number] [facility] [id number] [address] 2021-07-09 2021-07-09 (TEL) STLMLC STLMLC [id number] Co mmon 00:00:00 00:00:00 [facility] 2021-05-10 2021-05-10 (TEL) STLMLC STLMLC [id number] Co mmon 00:00:00 00:00:00 [facility] 2021-05-05 2021-05-05 (TEL) STLMLC STLMLC [id number] Co mmon 00:00:00 00:00:00 [facility] 2021-04-29 2021-04-29 OFFICE STLMLC STLMLC [id number] Co mmon 00:00:00 00:00:00 VISIT [facility] it PT LEVEL 4 [facility] 2021-04-29 2021-04-29 (TEL) STLMLC STLMLC [id number] Co mmon 00:00:00 00:00:00 [facility] 2020-07-09 2020-07-10 Emergency Rosalind Ball [facility] [id number] 23:44:00 06:08:00 [place] [id number] [place] [id number] [place] [id number] 4 2020-07-09 2020-07-09 Emergency X ROSALIND BALL [facility] ERT [id number] Univers 23:44:00 23:44:00 ity [facility] Results This patient has no known results.
[2022-10-30] MEDS ORDERED: ONDANSETRON 4 MG/2 ML VIAL ONE ×2 (07:56→08:45)
[2022-10-30] MEDS ORDERED: FAMOTIDINE 20 MG/2 ML VIAL IV ONE (07:57)
[2022-10-30] MEDS ORDERED: Ringers Lactate 1,000 ML IV ONE (07:57)
[2022-10-30 08:13] LABS: Absolute Lymphocytes (CBC) 1.7 K/uL (0.7-4.9); Lymphocytes % 33.7 % (15.3-44.8); MCV 99.5 fL (80-100); RBC Red Blood Cell Count 4.32 M/uL (4.33-5.43)
[2022-10-30 08:15] LABS: Specific Gravity 1.015 (1.005-1.030); Transitional Epithelial <5 /HPF (None Seen); Urine Bacteria None Seen /HPF (<20); Urine Bilirubin NEGATIVE (Negative); Urine Blood Negative (Negative); Urine Clarity Clear (Clear); Urine Color Yellow (Yellow); Urine Glucose NEGATIVE (Negative); Urine Protein TRACE (Negative); Urine RBC <5 /HPF (None Seen); Urine Sperm Present (None Seen); Urine Urobilinogen 2+ (Normal); Urine pH 6.5 (5.0-7.0)
[2022-10-30 08:17] LABS: Barbiturates NEGATIVE (NEGATIVE); Benzodiazepines NEGATIVE (NEGATIVE); Cocaine NEGATIVE (NEGATIVE); METHAMPHETAM NEGATIVE (NEGATIVE); Methadone NEGATIVE (NEGATIVE); Opiates NEGATIVE (NEGATIVE); Phencyclidine NEGATIVE (NEGATIVE); THC Cannibis NEGATIVE (NEGATIVE)
[2022-10-30 08:32] LABS: Albumin 3.9 g/dL (3.4-5.0); Bilirubin Total 1.1 mg/dL (0.2-1.0); Magnesium 2.1 mg/dL (1.6-2.4); Potassium 3.6 mEq/L (3.5-5.1); Protein, Total 7.8 g/dL (6.4-8.2); Troponin High Sensitivity 5.3 pg/mL (<58.9)
[2022-10-30] MEDS ORDERED: DICYCLOMINE HCL 20 MG/2 ML AMP IM ONE (08:45)
--- NOTE | 2022-10-30 09:15 | RAD REPORT ---
EXAM DESCRIPTION: CTAbdomen Pelvis W Contrast - 10/30/2022 8:55 am CLINICAL HISTORY: Abdominal pain. ABD PAIN COMPARISON: No comparisonsNo comparisons TECHNIQUE: Biphasic CT imaging of the abdomen and pelvis was performed with 100 ml non-ionic IV cont rast. All CT scans are performed using dose optimization technique as appropriate and may include automated exposure control or mA/KV adjustment according to patient size. FINDINGS: The lung bases are clear. The liver is diffusely fatty. Spleen, pancreas, adrenal glands and kidneys are within normal limits. No bowel obstruction, free air, free fluid or abscess. Moderate fecal retention. The appendix is norm al. No evidence of significant lymphadenopathy. No suspicious bony findings. IMPRESSION: No acute intra-abdominal or pelvic finding. Fatty liver.
--- NOTE | 2022-10-30 09:36 | EDPHYS ---
Physician Documentation [facility] Name: James Dupree Age: 47 yrs Sex: Male : 1975 Arrival Date: 10/30/2022 Time: 07:30 Bed 6 Private MD: ED Physician Yuval Dewitt HPI: 10/30 07:55 This 47 yrs old Male presents to ER via Ambulatory with complaints of DOES'NT rt FEEL WELL. 07:55 Patient with history of significant alcohol abuse presents to the ED with vomiting for rt the past 5 hours. Patient states that he consumed a large amount of alcohol prior to this. He reports an upper epigastric pain. Patient denies other acute complaints at this time. Pain is aching nature, nonradiating, moderate severity, no other aggravating or alleviating factors.. Historical: - Allergies: 07:38 No Known Allergies; iw - Home Meds: 07:41 None [Active]; iw - PMHx: 07:38 Alcoholism; drug abuse; iw - Immunization history:: Adult Immunizations unknown. - Social history:: Smoking status: . - Family history:: not pertinent. ROS: 07:55 Constitutional: Negative for fever, chills, and weight loss, Cardiovascular: Negative rt for chest pain, palpitations, and edema, Respiratory: Negative for shortness of breath, cough, wheezing, and pleuritic chest pain, MS/Extremity: Negative for injury and deformity, Skin: Negative for injury, rash, and discoloration, Neuro: Negative for headache, weakness, numbness, tingling, and seizure. 07:55 Abdomen/GI: Positive for abdominal pain, nausea and vomiting. 07:55 Psych: Positive for alcohol dependence. Exam: 07:55 Constitutional: This is a well developed, well nourished patient who is awake, alert, rt and in no acute distress. Head/Face: Normocephalic, atraumatic. Chest/axilla: Normal chest wall appearance and motion. Nontender with no deformity. No lesions are appreciated. Cardiovascular: Regular rate and rhythm with a normal S1 and S2. No gallops, murmurs, or rubs. Normal PMI, no JVD. No pulse deficits. Respiratory: Lungs have equal breath sounds bilaterally, clear to auscultation and percussion. No rales, rhonchi or wheezes noted. No increased work of breathing, no retractions or nasal flaring. Skin: Warm, dry with normal turgor. Normal color with no rashes, no lesions, and no evidence of cellulitis. MS/ Extremity: Pulses equal, no cyanosis. Neurovascular intact. Full, normal range of motion. Neuro: Awake and alert, GCS 15, oriented to person, place, time, and situation. Cranial nerves II-XII grossly intact. Motor strength 5/5 in all extremities. Sensory grossly intact. Cerebellar exam normal. Normal gait. 07:55 Abdomen/GI: Tenderness to the epigastrium without rebound, guarding, distention. 07:59 ECG was reviewed by the Attending Physician. rt Vital Signs: 07:37 BP 134 / 89; Pulse 105; Resp 19; Temp 97.9; Pulse Ox 97% on R/A; Weight 72.57 kg; iw Height 5 ft. 8 in. ; 08:16 BP 130 / 97; Pulse 60; Resp 16; Pulse Ox 98% on R/A; hb 09:34 BP 125 / 82; Pulse 88; Resp 16; Pulse Ox 100% on R/A; hb 07:37 Body Mass Index 24.33 (72.57 kg, 172.72 cm) iw MDM: 07:42 Patient medically screened. rt 09:45 Differential diagnosis: Pancreatitis, alcoholic gastritis, nausea, vomiting, rt intoxication. Data reviewed: vital signs, lab test result(s), EKG, radiologic studies. Consideration of Admission/Observation Escalation of care including admission/observation considered. Independent interpretation of the following test(s) in the Emergency Department CT Scan: My interpretation is No obstruction seen on my interpretation of the CT scan images. Test considered but Not performed: Ultrasound No evidence of gallbladder pathology, right upper quadrant tenderness, hyperbilirubinemia, ultrasound not indicated. Care significantly affected by the following Social Determinants of Health: Misuse of alcohol and/or drugs, Unemployment, Problems related to employment. Counseling: I had a detailed discussion with the patient and/or guardian regarding: the historical points, exam findings, and any diagnostic results supporting the discharge/admit diagnosis, lab results, radiology results, the need for outpatient follow up. 10/30 07:48 Order name: CBC with Diff; Complete Time: 08:20 rt 10/30 07:48 Order name: CMP; Complete Time: 08:34 rt 10/30 07:48 Order name: Lipase; Complete Time: 08:34 rt 10/30 07:48 Order name: ETOH Level; Complete Time: 08:34 rt 10/30 07:48 Order name: Troponin High Sensitivity; Complete Time: 08:34 rt 10/30 07:48 Order name: Magnesium; Complete Time: 08:34 rt 10/30 07:59 Order name: UAM; Complete Time: 08:20 rt 10/30 07:59 Order name: UDS; Complete Time: 08:20 rt 10/30 07:48 Order name: CT Abd/Pelvis - IV Contrast Only; Complete Time: 09:16 rt 10/30 07:48 Order name: EKG; Complete Time: 07:48 rt 10/30 07:48 Order name: EKG - Nurse/Tech; Complete Time: 07:58 rt 10/30 08:04 Order name: IV Start; Complete Time: 08:04 ll1 EC:59 Rate is 79 beats/min. Rhythm is regular, Normal Sinus Rhythm with No ectopy. Right axis rt deviation noted. ND interval is normal. QRS interval is normal. QT interval is normal. No Q waves. T waves are Normal. No ST changes noted. Interpreted by me. Administered Medications: 08:07 Drug: Ondansetron IVP 4 mg Route: IVP; Site: left forearm; hb 08:47 Follow up: Response: No adverse reaction hb 08:07 Drug: Lactated Ringers Solution IV 1000 ml Route: IV; Rate: 1000 bolus; Site: left hb forearm; 08:07 Drug: Famotidine IVP 20 mg Route: IVP; Site: left forearm; hb 08:47 Follow up: Response: No adverse reaction hb 08:46 Drug: Ondansetron IVP 4 mg Route: IVP; Site: left forearm; hb 08:46 Drug: Dicyclomine IM 20 mg Route: IM; Site: left deltoid; hb Disposition Summary: 10/30/22 09:35 Discharge Ordered Location: Home rt Problem: an ongoing problem rt Symptoms: have improved rt Condition: Stable rt Diagnosis - Alcohol abuse rt - Nausea with vomiting, unspecified rt Followup: rt - With: Private Physician - When: 2 - 3 days - Reason: Discharge Instructions: - Discharge Summary Sheet rt - Alcohol Withdrawal Syndrome rt - Nausea and Vomiting, Adult rt - Alcohol Abuse and Dependence Information, Adult rt Forms: - Medication Reconciliation Form rt - Thank You Letter rt - Antibiotic Education rt - Prescription Opioid Use rt Prescriptions: - chlordiazepoxide HCl 25 mg Oral capsule - take 4 capsule by ORAL route every 6 hours Day 1: 4 tabs QID, Day 2: 4 tabs rt TID, Day 3: 4 tabs BID, Day 4: 4 tabs once, Day 5: 2 tabs HS; 42 capsule; Refills: 0, Product Selection Permitted - ondansetron 4 mg Oral Tablet,disintegrating - take 1 tablet by ORAL route 4 times per day; 18 tablet; Refills: 0, Product rt Selection Permitted - Protonix 40 mg Oral tablet,delayed release (DR/EC) - take 1 tablet by ORAL route once daily; 14 tablet; Refills: 0, Product rt Selection Permitted Signatures: Dispatcher [employer] Garima Lam RN RN Ghislaine Nguyen RN RN Ashu Chen RN RN ll1 Yuval Dewitt MD MD rt
--- NOTE | 2022-10-30 09:36 | ER ---
Nurse's Notes [facility] Name: James Dupree Age: 47 yrs Sex: Male : 1975 Arrival Date: 10/30/2022 Time: 07:30 Bed 6 Private MD: Diagnosis: Alcohol abuse;Nausea with vomiting, unspecified Presentation: 10/30 07:37 Chief complaint: Patient states: vomiting since 3 am, ETOH abuse, last drink was at midnight, he needs to sober up for a job tomorrow. Coronavirus screen: At this time, the client does not indicate any symptoms associated with coronavirus-19. Ebola Screen: Patient negative for fever greater than or equal to 101.5 degrees Fahrenheit, and additional compatible Ebola Virus Disease symptoms Patient denies exposure to infectious person. Patient denies travel to an Ebola-affected area in the 21 days before illness onset. No symptoms or risks identified at this time. Initial Sepsis Screen: Does the patient meet any 2 criteria? No. Patient's initial sepsis screen is negative. Does the patient have a suspected source of infection? No. Patient's initial sepsis screen is negative. Risk Assessment: Do you want to hurt yourself or someone else? Patient reports no desire to harm self or others. Onset of symptoms was October 30, 2022. 07:37 Method Of Arrival: Ambulatory iw 07:37 Acuity: DORETHA 3 iw Historical: - Allergies: 07:38 No Known Allergies; iw - Home Meds: 07:41 None [Active]; iw - PMHx: 07:38 Alcoholism; drug abuse; iw - Immunization history:: Adult Immunizations unknown. - Social history:: Smoking status: . - Family history:: not pertinent. Screenin:06 [facility] ED Fall Risk Assessment (Adult) Score/Fall Risk Level 0 - 2 = Low Risk hb Oriented to surroundings, Maintained a safe environment. Abuse screen: Denies threats or abuse. Denies injuries from another. Nutritional screening: No deficits noted. Tuberculosis screening: No symptoms or risk factors identified. Assessment: 08:06 General: Appears in no apparent distress. Behavior is calm, cooperative. Pain: Denies hb pain. Neuro: Level of Consciousness is awake, alert, obeys commands, Oriented to person, place, time, situation. Cardiovascular: Patient's skin is warm and dry. Respiratory: Respiratory effort is even, unlabored, Respiratory pattern is regular, symmetrical. GI: Reports nausea, vomiting. : No signs and/or symptoms were reported regarding the genitourinary system. EENT: No signs and/or symptoms were reported regarding the EENT system. Derm: Skin is pink, warm \T\ dry. Musculoskeletal: No signs and/or symptoms reported regarding the musculoskeletal system. 09:15 Reassessment: Patient appears in no apparent distress at this time. Patient and/or hb family updated on plan of care and expected duration. Pain level reassessed. Patient is alert, oriented x 3, equal unlabored respirations, skin warm/dry/pink. 09:34 Reassessment: Dr Dewitt at bedside. hb Vital Signs: 07:37 BP 134 / 89; Pulse 105; Resp 19; Temp 97.9; Pulse Ox 97% on R/A; Weight 72.57 kg; iw Height 5 ft. 8 in. ; 08:16 BP 130 / 97; Pulse 60; Resp 16; Pulse Ox 98% on R/A; hb 09:34 BP 125 / 82; Pulse 88; Resp 16; Pulse Ox 100% on R/A; hb 07:37 Body Mass Index 24.33 (72.57 kg, 172.72 cm) iw ED Course: 07:32 Patient arrived in ED. ts1 07:38 Triage completed. iw 07:38 Yuval Dewitt MD is Attending Physician. rt 07:38 Arm band placed on. iw 07:48 Ghislaine Benavides, RN is Primary Nurse. hb 07:50 Missed attempt(s): 20 gauge in right antecubital area. Bleeding controlled, band aid hb applied, catheter tip intact. 07:56 Inserted saline lock: 20 gauge in left forearm, using aseptic technique. Blood hb collected. 08:04 UAM Sent. ll1 08:04 UDS Sent. ll1 08:06 Patient has correct armband on for positive identification. hb 08:07 No provider procedures requiring assistance completed. hb 08:08 UDS Sent. hb 08:08 UAM Sent. hb 08:08 Magnesium Sent. hb 08:08 Troponin High Sensitivity Sent. hb 08:08 Lipase Sent. hb 08:08 CMP Sent. hb 08:08 CBC with Diff Sent. hb 08:57 CT Abd/Pelvis - IV Contrast Only In Process Unspecified. EDMS 09:55 IV discontinued, intact, bleeding controlled, No redness/swelling at site. hb Administered Medications: 08:07 Drug: Ondansetron IVP 4 mg Route: IVP; Site: left forearm; hb 08:47 Follow up: Response: No adverse reaction hb 08:07 Drug: Lactated Ringers Solution IV 1000 ml Route: IV; Rate: 1000 bolus; Site: left hb forearm; 08:07 Drug: Famotidine IVP 20 mg Route: IVP; Site: left forearm; hb 08:47 Follow up: Response: No adverse reaction hb 08:46 Drug: Ondansetron IVP 4 mg Route: IVP; Site: left forearm; hb 08:46 Drug: Dicyclomine IM 20 mg Route: IM; Site: left deltoid; hb Medication: 08:06 VIS not applicable for this client. hb Outcome: 09:35 Discharge ordered by . rt 09:55 Discharged to home ambulatory. hb 09:55 Condition: stable 09:55 Discharge instructions given to patient, Instructed on discharge instructions, follow up and referral plans. medication usage, Demonstrated understanding of instructions, follow-up care, medications, Prescriptions given X 3. 10:00 Patient left the ED. hb Signatures: Dispatcher [employer] EDOR Garima Morrow RN RN Ghislaine Benavides RN RN hb Lewis, Lynsay, RN RN ll1 Yuval Dewitt MD MD rt Jemima Broderick, DANO PAS ts1
[2022-10-30 10:07] VITALS: TEMP 97.9
[2022-10-30 10:09] VITALS: BP 125/82; O2SAT 100
--- NOTE | 2022-10-31 15:24 | EKG ---
Test Date: 2022-10-30 Test Time: 07:55:52 Promotions Associate: THERON MEASUREMENT RESULTS: Intervals: Rate: 79 MN: 158 QRSD: 98 QT: 382 QTc: 438 [place]: P: 48 MN: 158 QRS: 95 T: 77 INTERPRETIVE STATEMENTS: Normal sinus rhythm with sinus arrhythmia Rightward axis Borderline ECG Compared to ECG 08/13/2022 10:15:00 Right-axis deviation now present Left-axis deviation no longer present Left ventricular hypertrophy no longer present Electronically Signed On 10-31-22 15:21:54 CDT by Henry Negron
== END 2022-10-30 10:00 | disposition home or self-care (01) ==
LOC: ER 07:30
DX: F10.20 Alcohol dependence, uncomplicated (principal)
CPT/HCPCS: 36415; 74177; 80053; 80307; 81001; 83690; 83735; 84484; 85025; 93005; G0480; J0500; J2405; J7120; Q9967

== ENCOUNTER 2023-02-08 10:22 | Emergency (ER) | payer SELFPAY ==
--- OUTSIDE RECORDS SUMMARY | 2023-02-08 10:26 | XMS REPORT | Continuity of Care Document ---
:1975 Author Organization [facility] t Address [address] [facility] [address] [place] [id number] Care Team Providers Name Role Phone GALDINO MUNA Primary Care Physician Unavailable Zi Phan Attending Clinician Unavailable CARLOS HOLM Attending Clinician Unavailable Carlos Cramer Attending Clinician Janice Jurado RN Attending Clinician Unavailable Rosalind Ball MD Attending Clinician ROSALIND BALL Attending Clinician Unavailable Payers Payer Name Policy Type Policy Number Effective Date Expiration Date Ann [place] [id number] 2012 H C 00:00:00 Ambetter from [id number] 2021 [facility] 00:00:00 - [facility] Ambetter from [id number] 2021 Common [facility] 00:00:00 - [facility] Ambetter from [id number] 2021 Common [facility]pi [facility] 00:00:00 - [facility] Ambetter from [id number] 2021 Common [facility] 00:00:00 - [facility] Problems Condition Condition Condition Status Onset Resolution Last Treating Co mments Source Name Details Category Date Date Treatment Clinician Date [id number] Panic Problem Active 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 [id number] Generalize Problem Active Com mon d anxiety Spirit disorder - [facility] [id number] Gastroesop Problem Active Co mmon hageal Spirit reflux - [facility] disease [facility] esophagiti [facility] [place] unspecifie d whether hemorrhage [id number] Alcohol Problem Active Commo n withdrawal Spirit syndrome - [facility] with complicati [facility] [id number] Alcohol Problem Active Comm on dependence Spirit with - [facility] unspecifie [facility] No known No known Disease Unive rs active active ity of problems problems [facility] Allergies, Adverse Reactions, Alerts Allergy Allergy Status Severity Reaction(s) Onset Inactive Treating Comm ents Source Name Type Date Date Clinician NO KNOWN Drug Active Univers ALLERGIE Class ity of S [facility] Social History Social Habit Start Date Stop Date Quantity Comments Source History of Tobacco Common Spirit - [facility] Use [facility] Sex Assigned At Common Sp hamida - [facility] Exposure to 2021-12-09 2021-12-19 Yes [facility] SARS-CoV-2 (event) 00:00:00 11:33:00 Medica l Branch Smoking Status Start Date Stop Date Source Tobacco smoking consumption [facility] Never Smoker Common [facility] Medications Ordered Filled Start Stop Current Ordering Indication Dosage Frequency Signature Comments Components Source Medication Medication Date Date Medication? Clinician (SIG) Name Name ondansetron 2021- No 4mg 4 mg, Univ ers (ZOFRAN-ODT 7-10 12-19 Oral, ity of ) 17:45: 16:43 ONCE, 1 [place] disintegrat 00 :00 dose, On Medi madeline ing tablet [place] 4 mg 12/19/21 at 1245, Routine ondansetron Yes [id number] 4mg Take 1 Univers 4 mg 7-10 tablet by ity of disintegrat 00:00: mouth [place] ing tablet 00 every 8 Medica l (eight) Branch hours as needed for Nausea and Vomiting (N/V). ondansetron Yes [id number] 4mg Take 1 Univers 4 mg 7-10 [...] blood 2021-12-19 16:46:11 134 mm[Hg] Univer sity [facility] Diastolic blood 2021-12-19 16:46:11 98 mm[Hg] [facility] Heart rate 2021-12-19 16:32:00 107 /min [facility] Body temperature 2021-12-19 16:32:00 37.11 [facility] Respiratory rate 2021-12-19 16:32:00 20 /[facility] height 2021-12-19 16:32:00 175.3 cm [facility] Body weight 2021-12-19 16:32:00 72.576 kg [facility] BMI 2021-12-19 16:32:00 23.63 kg/m2 [facility] Oxygen saturation in 2021-12-19 16:32:00 99 /min [facility] Arterial blood by [facility] Pulse oximetry Branch blood pressure 2021-04-29 14:00:00 135 mm[Hg] Common [facility] - systolic [facility] blood pressure 2021-04-29 14:00:00 70 mm[Hg] Common [facility] - diastolic [facility] height 2021-04-29 14:00:00 69 [in_i] [facility] weight 2021-04-29 14:00:00 175.1 [lb_av] [facility] temperature 2021-04-29 14:00:00 98.2 [degF] [facility] bmi 2021-04-29 14:00:00 25.85 kg/m2 [facility] oximetry 2021-04-29 14:00:00 97 % [facility] respiratory rate 2021-04-29 14:00:00 18 /min Comm on [facility] Procedures This patient has no known procedures. Encounters Start End Encounter Admission Attending Care Care Encounter Source Date/Time Date/Time Type Type Clinicians Facility Department ID 2021-07-07 [facility] [id number] Common 14:15:22 [facility] [id number] [facility] 2022-04-01 2022-04-01 Outpatient NAVEEN HODGE [id number] Thiago 15:13:12 15:13:12 1021 F Vini 2021-12-19 2021-12-19 Emergency X DENIZ HOLM ERT [id number] Univers 11:37:00 12:29:00 CARLOS hutchison [facility] 2021-12-19 2021-12-19 Emergency DENIZ Holm [id number] Univers 11:37:00 12:29:00 Carlos DOE [id number] i ty of [place] [id number] [facility] [id number] [facility] 084 Branch 2021-12-19 2021-12-19 Violette Janice Jurado [id number] Univers 00:00:00 00:00:00 (Out) CELIA [id number] it y of [facility] [id number] [facility] [id number] [facility] 019 Branch 2021-07-09 2021-07-09 (TEL) STLMLC STLMLC [id number] Co mmon 00:00:00 00:00:00 [facility] 2021-05-10 2021-05-10 (TEL) STLMLC STLMLC [id number] Co mmon 00:00:00 00:00:00 [facility] 2021-05-05 2021-05-05 (TEL) STLMLC STLMLC [id number] Co mmon 00:00:00 00:00:00 [facility] 2021-04-29 2021-04-29 OFFICE STLMLC STLMLC [id number] Co mmon 00:00:00 00:00:00 VISIT [facility] it PT LEVEL 4 - [facility] 2021-04-29 2021-04-29 (TEL) STLMLC STLMLC [id number] Co mmon 00:00:00 00:00:00 [facility] 2020-07-09 2020-07-10 Emergency Rosalind Ball [facility] [id number] 23:44:00 06:08:00 Patricia Doe [id number] [place] [id number] [place] [id number] 2020-07-09 2020-07-09 Emergency X ROSALIND BALL [facility] ERT [id number] Univers 23:44:00 23:44:00 ity [facility] Results This patient has no known results.
[2023-02-08] MEDS ORDERED: ONDANSETRON 4 MG/2 ML VIAL ONE (11:01)
[2023-02-08] MEDS ORDERED: LORazepam 2 MG/ML VIAL ONE (11:01)
[2023-02-08] MEDS ORDERED: NA CHLORIDE 0.9% 1,000 ML ONE ×2 (11:01→12:25)
[2023-02-08 11:17] LABS: Barbiturates NEGATIVE (NEGATIVE); Benzodiazepines NEGATIVE (NEGATIVE); Cocaine NEGATIVE (NEGATIVE); METHAMPHETAM NEGATIVE (NEGATIVE); Methadone NEGATIVE (NEGATIVE); Opiates NEGATIVE (NEGATIVE); Phencyclidine NEGATIVE (NEGATIVE); THC Cannibis NEGATIVE (NEGATIVE)
[2023-02-08 11:19] LABS: Specific Gravity 1.025 (1.005-1.030); Transitional Epithelial <5 /HPF (None Seen); Urine Bacteria <20 /HPF (<20); Urine Bilirubin NEGATIVE (Negative); Urine Blood 1+ (Negative); Urine Clarity Turbid (Clear); Urine Color Yellow (Yellow); Urine Glucose NEGATIVE (Negative); Urine Mucus Slight /HPF (None Seen); Urine Protein 1+ (Negative); Urine RBC <5 /HPF (None Seen); Urine Urobilinogen 1+ (Normal); Urine pH 6.5 (5.0-7.0)
[2023-02-08 11:30] LABS: Absolute Lymphocytes (CBC) 0.4 K/uL (0.7-4.9); Hematocrit 41.2 % (39.6-49.0); Lymphocytes % 4.7 % (15.3-44.8); MCV 100.4 fL (80-100); Platelets 174 thou/uL (152-406)
[2023-02-08 11:53] LABS: Albumin 3.6 g/dL (3.4-5.0); Potassium 3.5 mEq/L (3.5-5.1); Protein, Total 7.9 g/dL (6.4-8.2)
[2023-02-08 12:06] LABS: Blood Morphology Comment NOT SEEN (NOT SEEN); Platelet Estimate ADEQ; White Blood Cell Scan OK (OK)
--- NOTE | 2023-02-08 12:23 | EDPHYS ---
Physician Documentation [facility] Name: James Dupree Age: 47 yrs Sex: Male : 1975 Arrival Date: 02/08/2023 Time: 10:22 Bed 14 Private MD: ROBERTO Physician Mary Phan HPI: 02/08 10:44 47-year-old male with a history of alcoholism, prior drug abuse now presents for sp3 alcohol withdrawal symptoms, nausea, vomiting after a 7-day binge that he ended yesterday. He states he proposed to his girlfriend on day 6 of this binge and she took the ring. She is "forcing him to quit" and he is here today secondary to withdrawal symptoms. He denies any significant pain. Denies fever, recreational drug use recently, back pain, shortness of breath, chest pain, blood in emesis, bloody diarrhea, syncope, trauma, or any other signs or symptoms on ROS at this time.. Historical: - Allergies: 10:33 No Known Allergies; hb - Home Meds: 10:33 None [Active]; hb - PMHx: 10:33 Alcoholism; drug abuse; hb - PSHx: 10:33 None; hb - Immunization history:: Adult Immunizations up to date. - Social history:: Smoking status: Patient reports the use of cigarette tobacco products. ROS: 10:45 Constitutional: Negative for fever, chills, and weight loss, Eyes: Negative for injury, sp3 pain, redness, and discharge, ENT: Negative for injury, pain, and discharge, Neck: Negative for injury, pain, and swelling, Respiratory: Negative for shortness of breath, cough, wheezing, and pleuritic chest pain, Back: Negative for injury and pain, MS/Extremity: Negative for injury and deformity, Neuro: Negative for headache, weakness, numbness, tingling, and seizure, Psych: Negative for depression, anxiety, suicide ideation, homicidal ideation, and hallucinations, Allergy/Immunology: Negative for hives, rash, and allergies, Endocrine: Negative for neck swelling, polydipsia, polyuria, polyphagia, and marked weight changes, Hematologic/Lymphatic: Negative for swollen nodes, abnormal bleeding, and unusual bruising. 10:45 All other systems are negative. Exam: 10:46 Constitutional: This is a well developed, well nourished patient who is awake, alert, sp3 and in no acute distress. Head/Face: Normocephalic, atraumatic. Eyes: Pupils equal round and reactive to light, extra-ocular motions intact. Lids and lashes normal. Conjunctiva and sclera are non-icteric and not injected. Cornea within normal limits. Periorbital areas with no swelling, redness, or edema. ENT: Nares patent. No nasal discharge, no septal abnormalities noted. External auditory canals are clear. Oropharynx with no redness, swelling, or masses, exudates, or evidence of obstruction, uvula midline. Mucous membranes moist. Neck: Trachea midline, no thyromegaly or masses palpated, and no cervical lymphadenopathy. Supple, full range of motion without nuchal rigidity, or vertebral point tenderness. No Meningismus. Chest/axilla: Normal chest wall appearance and motion. Nontender with no deformity. No lesions are appreciated. Respiratory: Lungs have equal breath sounds bilaterally, clear to auscultation and percussion. No rales, rhonchi or wheezes noted. No increased work of breathing, no retractions or nasal flaring. Back: No spinal tenderness. No costovertebral tenderness. Full range of motion. Skin: Warm, dry with normal turgor. Normal color with no rashes, no lesions, and no evidence of cellulitis. 10:46 Cardiovascular: Rate: tachycardic. 10:46 Abdomen/GI: Soft abdomen but active emesis noted.. Vital Signs: 10:34 BP 149 / 94; Pulse 143; Resp 18; Temp 98.3; Pulse Ox 98% on R/A; Weight 63.5 kg; Height hb 5 ft. 8 in. ; Pain 5/10; 11:03 Pulse 135; Resp 18; ll1 11:24 Pulse 95; Resp 17; Pulse Ox 96% on R/A; hb 10:34 Body Mass Index 21.29 (63.50 kg, 172.72 cm) hb 10:34 Pain Scale: Adult hb MDM: 10:27 Patient medically screened. sp3 10:46 Data reviewed: vital signs, nurses notes, old medical records, lab test result(s). ED sp3 course: 47-year-old male with alcohol withdrawal, dehydration. We will administer IV fluids, Zofran and check laboratory values. Urine drug screen and UA also pending. Ativan will be given for withdrawal symptoms. Disposition likely discharge home once symptoms are improved. He states he is trying to check into rehab so that is an option as well.. 12:22 ED course: Heart rate is now down to 95. Laboratory values reviewed. UDS is negative. sp3 We will administer normal saline second liter and discharge patient home.. 02/08 10:34 Order name: CBC with Diff sp3 02/08 10:34 Order name: CMP; Complete Time: 12:03 sp3 02/08 10:34 Order name: Lipase; Complete Time: 12:03 sp3 02/08 10:34 Order name: Urinalysis w/ reflexes; Complete Time: 12:03 sp3 02/08 10:49 Order name: ETOH Level; Complete Time: 12:03 sp3 02/08 10:49 Order name: UDS; Complete Time: 12:03 sp3 02/08 11:23 Order name: Urine Culture EDMS 02/08 12:06 Order name: CBC Smear Scan EDMS 02/08 10:34 Order name: IV Saline Lock; Complete Time: 10:52 sp3 02/08 10:34 Order name: Labs collected and sent; Complete Time: 10:52 sp3 02/08 11:06 Order name: Labs - recollect needed: recollect green and lavender top; Complete Time: bd 11:24 Administered Medications: 11:01 Drug: NS 0.9% IV 1000 ml Route: IV; Rate: 1 bolus; Site: right hand; ll1 12:15 Follow up: Response: No adverse reaction; IV Status: Completed infusion; IV Intake: ll1 1000ml 11:02 Drug: Ondansetron IVP 4 mg Route: IVP; Site: right hand; ll1 12:15 Follow up: Response: No adverse reaction; Nausea is decreased ll1 11:02 Drug: Ativan IVP 1 mg Route: IVP; Site: right hand; ll1 12:15 Follow up: Response: No adverse reaction; Pain is decreased; RASS: Drowsy (-1) ll1 12:18 Drug: NS 0.9% IV 1000 ml Route: IV; Rate: 1 bolus; Site: right hand; ll1 13:26 Follow up: Response: No adverse reaction; IV Status: Completed infusion; IV Intake: ll1 1000ml Disposition Summary: 02/08/23 12:23 Discharge Ordered Location: Home sp3 Condition: Stable sp3 Diagnosis - Alcohol withdrawal, dehydration sp3 Followup: sp3 - With: Private Physician - When: Upon discharge from the Emergency Department - Reason: Continuance of care Discharge Instructions: - Discharge Summary Sheet sp3 - Alcohol Withdrawal Syndrome sp3 Forms: - Medication Reconciliation Form sp3 - Thank You Letter sp3 - Antibiotic Education sp3 - Prescription Opioid Use sp3 - Patient Portal Instructions sp3 - Leadership Thank You Letter sp3 Prescriptions: - clonidine HCl 0.1 mg Oral tablet - take 1 tablet by ORAL route every 6 hours for 48 hours as needed for alcohol sp3 withdrawal; 8 tablet; Refills: 0, Product Selection Permitted Signatures: Dispatcher [employer] EDLarissa Centeno Heather, RN Ashu Chairez RN RN ll1 Mary Phan MD MD sp3
--- NOTE | 2023-02-08 12:23 | ER ---
Nurse's Notes [facility] Name: James Dupree Age: 47 yrs Sex: Male : 1975 Arrival Date: 02/08/2023 Time: 10:22 Bed 14 Private MD: Diagnosis: Alcohol withdrawal, dehydration Presentation: 02/08 10:32 Chief complaint: N/V, left ear pain, and dizziness today. Reports he has been on a 7 hb day alcohol binge, last drink was yesterday. Coronavirus screen: At this time, the client does not indicate any symptoms associated with coronavirus-19. Ebola Screen: No symptoms or risks identified at this time. Initial Sepsis Screen: Does the patient meet any 2 criteria? No. Patient's initial sepsis screen is negative. Does the patient have a suspected source of infection? No. Patient's initial sepsis screen is negative. Risk Assessment: Do you want to hurt yourself or someone else? Patient reports no desire to harm self or others. Onset of symptoms was February 08, 2023. 10:32 Method Of Arrival: Ambulatory hb 10:32 Acuity: DORETHA 2 hb Historical: - Allergies: 10:33 No Known Allergies; hb - Home Meds: 10:33 None [Active]; hb - PMHx: 10:33 Alcoholism; drug abuse; hb - PSHx: 10:33 None; hb - Immunization history:: Adult Immunizations up to date. - Social history:: Smoking status: Patient reports the use of cigarette tobacco products. Screenin:05 [facility] ED Fall Risk Assessment (Adult) Score/Fall Risk Level 0 - 2 = Low Risk ll1 Oriented to surroundings, Maintained a safe environment, Educated pt \T\ family on fall prevention, incl call for assistance when getting out of bed, Hourly rounding (assess needs \T\ fall precautionary measures) done. Abuse screen: Denies threats or abuse. Nutritional screening: No deficits noted. Tuberculosis screening: No symptoms or risk factors identified. Assessment: 10:50 General: Appears uncomfortable, ill, Behavior is cooperative, appropriate for age, ll1 restless. General: Reports feeling ill for fatigue for. Pain: Complains of pain in head Quality of pain is described as aching, throbbing. Neuro: Reports dizziness, headache. GI: Reports nausea, vomiting. EENT: Reports ear pain. 11:02 Reassessment: No changes from previously documented assessment. Patient and/or family ll1 updated on plan of care and expected duration. Pain level reassessed. Patient is alert, oriented x 3, equal unlabored respirations, skin warm/dry/pink. 11:24 Reassessment: No changes from previously documented assessment. Patient and/or family hb updated on plan of care and expected duration. Pain level reassessed. Patient is alert, oriented x 3, equal unlabored respirations, skin warm/dry/pink. Patient states feeling better. 12:15 Reassessment: No changes from previously documented assessment. Patient and/or family ll1 updated on plan of care and expected duration. Pain level reassessed. Patient is alert, oriented x 3, equal unlabored respirations, skin warm/dry/pink. Patient states feeling better. 13:05 Reassessment: No changes from previously documented assessment. Patient and/or family ll1 updated on plan of care and expected duration. Pain level reassessed. Patient is alert, oriented x 3, equal unlabored respirations, skin warm/dry/pink. 13:27 Reassessment: No changes from previously documented assessment. Patient and/or family ll1 updated on plan of care and expected duration. Pain level reassessed. Patient is alert, oriented x 3, equal unlabored respirations, skin warm/dry/pink. Vital Signs: 10:34 BP 149 / 94; Pulse 143; Resp 18; Temp 98.3; Pulse Ox 98% on R/A; Weight 63.5 kg; Height hb 5 ft. 8 in. ; Pain 5/10; 11:03 Pulse 135; Resp 18; ll1 11:24 Pulse 95; Resp 17; Pulse Ox 96% on R/A; hb 10:34 Body Mass Index 21.29 (63.50 kg, 172.72 cm) hb 10:34 Pain Scale: Adult hb ED Course: 10:25 Patient arrived in ED. mr 10:25 Mary Phan MD is Attending Physician. sp3 10:30 Missed attempt(s): 22 gauge in right antecubital area. bc6 10:33 Triage completed. hb 10:34 Arm band placed on. hb 10:45 Ashu Chen, RN is Primary Nurse. ll1 10:52 CBC with Diff Sent. bc6 10:52 CMP Sent. bc6 10:52 Lipase Sent. bc6 10:53 ETOH Level Sent. bc6 10:53 Inserted saline lock: 22 gauge in right hand, using aseptic technique. bc6 11:02 UDS Sent. ll1 11:02 Urinalysis w/ reflexes Sent. ll1 11:05 Patient has correct armband on for positive identification. Bed in low position. Call 1 light in reach. Client placed on continuous cardiac and pulse oximetry monitoring. NIBP monitoring applied. 13:27 Provided Education on: n/a. ll1 13:27 No provider procedures requiring assistance completed. IV discontinued, intact, ll1 bleeding controlled, No redness/swelling at site. Pressure dressing applied. Administered Medications: 11:01 Drug: NS 0.9% IV 1000 ml Route: IV; Rate: 1 bolus; Site: right hand; ll1 12:15 Follow up: Response: No adverse reaction; IV Status: Completed infusion; IV Intake: ll1 1000ml 11:02 Drug: Ondansetron IVP 4 mg Route: IVP; Site: right hand; ll1 12:15 Follow up: Response: No adverse reaction; Nausea is decreased ll1 11:02 Drug: Ativan IVP 1 mg Route: IVP; Site: right hand; ll1 12:15 Follow up: Response: No adverse reaction; Pain is decreased; RASS: Drowsy (-1) ll1 12:18 Drug: NS 0.9% IV 1000 ml Route: IV; Rate: 1 bolus; Site: right hand; ll1 13:26 Follow up: Response: No adverse reaction; IV Status: Completed infusion; IV Intake: ll1 1000ml Medication: 11:05 VIS not applicable for this client. ll1 Intake: 12:15 IV: 1000ml; Total: 1000ml. ll1 13:26 IV: 1000ml; Total: 2000ml. ll1 Outcome: 12:23 Discharge ordered by . sp3 13:27 Patient left the ED. ll1 13:27 Discharged to home ambulatory. ll1 13:27 Condition: stable 13:27 Discharge instructions given to patient, Instructed on discharge instructions, follow up and referral plans. Demonstrated understanding of instructions, follow-up care, medications, Prescriptions given X 1. Signatures: Josselyn Palm Heather, RN RN hb Lewis, Lynsay, RN RN ll1 Mary Phan MD MD sp3 Susan Canales bc6
[2023-02-08 13:33] VITALS: BP 149/94; TEMP 98.3
[2023-02-08 13:35] VITALS: O2SAT 96
== END 2023-02-08 13:27 | disposition home or self-care (01) ==
LOC: ER 10:22
DX: F10.239 Alcohol dependence with withdrawal, unspecified (principal); E86.0 Dehydration; Z72.0 Tobacco use
CPT/HCPCS: 36415; 80053; 80307; 81001; 82077; 83690; 85025; 87086; 87088; J2405; J7030

== ENCOUNTER 2023-02-11 00:09 | Emergency (ER) | payer SELFPAY ==
--- OUTSIDE RECORDS SUMMARY | 2023-02-11 00:13 | XMS REPORT | Continuity of Care Document ---
:1975 Author Organization [facility] t Address [address] [facility] [address] [place] [id number] Care Team Providers Name Role Phone MUNA AHMADI Primary Care Physician Unavailable Zi Phan Attending Clinician Unavailable Carlos Cramer Attending Clinician CARLOS MARADIAGA Attending Clinician Unavailable Janice Jurado RN Attending Clinician Unavailable Rosalind Ball MD Attending Clinician ROSALIND BALL Attending Clinician Unavailable Payers Payer Name Policy Type Policy Number Effective Date Expiration Date S elian Ambetter from [id number] 2021 [facility] 00:00:00 - [facility] Ambetter from [id number] 2021 [facility] 00:00:00 - [facility] Ambetter from [id number] 2021 Common [facility] 00:00:00 - [facility] Ambetter from [id number] 2021 Common [facility]pi [facility] 00:00:00 - [facility] Problems Condition Condition Condition Status Onset Resolution Last Treating Co mments Source Name Details Category Date Date Treatment Clinician Date [id number] Panic Problem Active 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 esophagiti [facility] unspecifie d whether hemorrhage [id number] Alcohol Problem Active Commo n withdrawal Spirit syndrome - [facility] with complicati [facility] [id number] Alcohol Problem Active Comm on dependence Spirit with - [facility] unspecifie [facility] alcohol-in Medica l duced Center disorder No known No known Disease Unive rs active active ity of problems problems [facility] Allergies, Adverse Reactions, Alerts Allergy Allergy Status Severity Reaction(s) Onset Inactive Treating Comm ents Source Name Type Date Date Clinician NO KNOWN Drug Active Univers ALLERGIE Class ity of S [facility] Social History Social Habit Start Date Stop Date Quantity Comments Source History of Tobacco Common Spirit - [facility] Use [facility] Sex Assigned At Common Sp hamida - [facility] Exposure to 2021-12-09 2021-12-19 Yes [facility] SARS-CoV-2 (event) 00:00:00 11:33:00 Medica l Branch Smoking Status Start Date Stop Date Source Tobacco smoking consumption [facility] Never Smoker Common [facility] Medications Ordered Filled Start Stop Current Ordering Indication Dosage Frequency Signature Comments Components Source Medication Medication Date Date Medication? Clinician (SIG) Name Name ondansetron 4mg 4 mg, Univ ers (ZOFRAN-ODT 7-12-19 Oral, ity of ) 17:45: 16:43 ONCE, 1 [place] disintegrat 00 :00 dose, On Medi madeline ing tablet [place] 4 mg 12/19/21 at 1245, Routine ondansetron Yes [id number] 4mg Take 1 Univers 4 mg 7-10 tablet by ity of disintegrat 00:00: mouth [place] ing tablet 00 every 8 Medica l (eight) Branch hours as needed for Nausea and Vomiting (N/V). ondansetron Yes [id number] 4mg Take 1 Univers 4 mg 7-10 [...] Source Systolic blood 2021-12-19 16:46:11 134 mm[Hg] [facility] [place] [facility] Diastolic blood 2021-12-19 16:46:11 98 mm[Hg] [facility] Heart rate 2021-12-19 16:32:00 107 /min [facility] Body temperature 2021-12-19 16:32:00 37.11 [facility] Respiratory rate 2021-12-19 16:32:00 20 /min [facility] Body height 2021-12-19 16:32:00 175.3 cm Universi ty of [facility] Body weight 2021-12-19 16:32:00 72.576 kg Universi ty [facility] BMI 2021-12-19 16:32:00 23.63 kg/m2 Universi ty [facility] Oxygen saturation in 2021-12-19 16:32:00 99 /min [facility] blood by [facility] Pulse oximetry Branch blood pressure 2021-04-29 14:00:00 135 mm[Hg] Common [facility] - systolic [facility] blood pressure 2021-04-29 14:00:00 70 mm[Hg] [facility] - diastolic [facility] height 2021-04-29 14:00:00 69 [in_i] [facility] weight 2021-04-29 14:00:00 175.1 [lb_av] [facility] temperature 2021-04-29 14:00:00 98.2 [degF] [facility] bmi 2021-04-29 14:00:00 25.85 kg/m2 [facility] oximetry 2021-04-29 14:00:00 97 % [facility] respiratory rate 2021-04-29 14:00:00 18 /min Comm on [facility] Procedures This patient has no known procedures. Encounters Start End Encounter Admission Attending Care Care Encounter Source Date/Time Date/Time Type Type Clinicians Facility Department ID 2021-07-07 Outpatient Sylvester, [facility] [id number] Common 14:15:22 [facility] [address] [facility] 2022-04-01 2022-04-01 Outpatient NAVEEN HODGE [id number] [place] 15:13:12 15:13:12 1021 F Vini 2021-12-19 2021-12-19 Emergency Maradiaga, [facility] [id number] [facility] 11:37:00 12:29:00 Carlos LINCOLN [id number] i ty of VIANEY [id number] [facility] [id number] [facility] 084 Branch 2021-12-19 2021-12-19 Emergency X HIREN [facility] ERT [id number] Univers 11:37:00 12:29:00 CARLOS ity [facility] 2021-12-19 2021-12-19 Violette Jurado Janice GALLITO [id number] Univers 00:00:00 00:00:00 (Out) CELIA [id number] it [facility] [id number] [facility] [phone] [place] [address] Branch 2021-07-09 2021-07-09 (TEL) STLMLC STLMLC [id number] Co mmon 00:00:00 00:00:00 [facility] 2021-05-10 2021-05-10 (TEL) STLMLC STLMLC [id number] Co mmon 00:00:00 00:00:00 [facility] 2021-05-05 2021-05-05 (TEL) STLMLC STLMLC [id number] Co mmon 00:00:00 00:00:00 [facility] 2021-04-29 2021-04-29 (TEL) STLMLC STLMLC [id number] Co mmon 00:00:00 00:00:00 [facility] 2021-04-29 2021-04-29 OFFICE STLMLC STLMLC [id number] Co mmon 00:00:00 00:00:00 VISIT [facility] it PT LEVEL 4 - [facility] 2020-07-09 2020-07-10 Emergency Rosalind Ball [facility] [id number] 23:44:00 06:08:00 [place] [id number] [place] [id number] [place] [id number] [facility] 2020-07-09 2020-07-09 Emergency X ROSALIND BALL [facility] ERT [id number] Univers 23:44:00 23:44:00 [facility] Results This patient has no known results.
--- NOTE | 2023-02-11 01:09 | ER ---
Nurse's Notes [facility] Name: James Dupree Age: 47 yrs Sex: Male : 1975 Arrival Date: 02/11/2023 Time: 00:09 Bed 18 Private MD: Diagnosis: Impacted cerumen, left ear Presentation: 02/11 00:25 Chief complaint: Patient states: I've had some left ear pressure for about a week. I vc1 put some drops and alcohol in it today and it got worse. Sometimes I sleep on benches so I was concerned I got a bug in it. Coronavirus screen: Client denies travel out of the [place] in the last 14 days. At this time, the client does not indicate any symptoms associated with coronavirus-19. Ebola Screen: Patient negative for fever greater than or equal to 101.5 degrees Fahrenheit, and additional compatible Ebola Virus Disease symptoms Patient denies exposure to infectious person. Patient denies travel to an Ebola-affected area in the 21 days before illness onset. No symptoms or risks identified at this time. Initial Sepsis Screen: Does the patient meet any 2 criteria? No. Patient's initial sepsis screen is negative. Does the patient have a suspected source of infection? No. Patient's initial sepsis screen is negative. Risk Assessment: Do you want to hurt yourself or someone else? Patient reports no desire to harm self or others. Onset of symptoms is unknown. 00:25 Method Of Arrival: Ambulatory vc1 00:25 Acuity: DORETHA 4 vc1 Triage Assessment: 00:28 General: Appears in no apparent distress. comfortable, Behavior is calm, cooperative, vc1 appropriate for age. Pain: Complains of pain in left ear Quality of pain is described as pressure. EENT: Reports pain in left ear. Neuro: No deficits noted. Cardiovascular: No deficits noted. Respiratory: Airway is patent Respiratory effort is even, unlabored, Respiratory pattern is regular, symmetrical. GI: No deficits noted. No signs and/or symptoms were reported involving the gastrointestinal system. : No deficits noted. No signs and/or symptoms were reported regarding the genitourinary system. Derm: No deficits noted. No signs and/or symptoms reported regarding the dermatologic system. Musculoskeletal: No deficits noted. No signs and/or symptoms reported regarding the musculoskeletal system. Historical: - Allergies: 00:28 No Known Allergies; vc1 - PMHx: 00:28 Alcoholism; drug abuse; vc1 - PSHx: 00:28 None; vc1 - Immunization history:: Client reports having NOT received the Covid vaccine. - Social history:: Smoking status: Patient denies any tobacco usage or history of. Screenin:28 [facility] ED Fall Risk Assessment (Adult) History of falling in the last 3 months, vc1 including since admission No falls in past 3 months (0 pts) Confusion or Disorientation No (0 pts) Intoxicated or Sedated No (0 pts) Impaired Gait No (0 pts) Mobility Assist Device Used No (0 pt) Altered Elimination No (0 pt) Score/Fall Risk Level 0 - 2 = Low Risk Oriented to surroundings, Maintained a safe environment, Educated pt \T\ family on fall prevention, incl call for assistance when getting out of bed. Abuse screen: Denies threats or abuse. Nutritional screening: No deficits noted. Tuberculosis screening: No symptoms or risk factors identified. Assessment: 00:40 General: Appears in no apparent distress. comfortable, Behavior is calm, cooperative. lg3 Pain: Complains of pain in left ear. Neuro: No deficits noted. Varela Agitation-Sedation Scale (RASS): 0 - Alert and Calm Level of Consciousness is awake, alert, obeys commands, Oriented to person, place, time, situation. Cardiovascular: No deficits noted. Denies chest pain, shortness of breath, Capillary refill < 3 seconds Clubbing of nail beds is absent JVD is absent Patient's skin is warm and dry. Respiratory: No deficits noted. Airway is patent Trachea midline Respiratory effort is even, unlabored, Respiratory pattern is regular, symmetrical. GI: No deficits noted. No signs and/or symptoms were reported involving the gastrointestinal system. : No deficits noted. No signs and/or symptoms were reported regarding the genitourinary system. EENT: No deficits noted. Reports pain in left ear. Derm: No deficits noted. No signs and/or symptoms reported regarding the dermatologic system. Skin is intact, is healthy with good turgor, Skin is dry, Skin is normal, Skin temperature is warm. Musculoskeletal: No deficits noted. No signs and/or symptoms reported regarding the musculoskeletal system. Circulation, motion, and sensation intact. Range of motion: intact in all extremities. 02:19 Reassessment: Patient appears in no apparent distress at this time. No changes from lg3 previously documented assessment. Patient and/or family updated on plan of care and expected duration. Pain level reassessed. Patient is alert, oriented x 3, equal unlabored respirations, skin warm/dry/pink. Patient states feeling better. Vital Signs: 00:25 BP 135 / 88; Pulse 64; Resp 18; Temp 98.4; Pulse Ox 100% ; Weight 72.57 kg; Height 5 vc1 ft. 9 in. ; 02:00 BP 128 / 84; Pulse 66; Resp 17 S; Pulse Ox 100% on R/A; lg3 00:25 Body Mass Index 23.63 (72.57 kg, 175.26 cm) vc1 ED Course: 00:10 Patient arrived in ED. mr 00:28 Triage completed. vc1 00:28 Arm band placed on left wrist. vc1 00:32 Criss Carey FNP-C is [facility]. snw 00:32 Nahid Stark MD is Attending Physician. snw 00:40 Patient has correct armband on for positive identification. Placed in gown. Bed in low lg3 position. Call light in reach. Side rails up X 1. Client placed on continuous cardiac and pulse oximetry monitoring. NIBP monitoring applied. Door closed. Noise minimized. Warm blanket given. Family accompanied patient. 00:40 Patient maintains SpO2 saturation greater than 95% on room air. lg3 02:20 No provider procedures requiring assistance completed. Patient did not have IV access lg3 during this emergency room visit. Administered Medications: 01:26 Drug: Maxitrol Ophthalmic Drops 2 drops {Note: to left ear..} Route: Ophthalmic; Site: [facility] left eye; 02:20 Follow up: Response: No adverse reaction lg3 Medication: 00:29 VIS not applicable for this client. vc1 Outcome: 01:09 Discharge ordered by . snw 02:20 Discharged to home ambulatory. lg3 02:20 Condition: stable 02:20 Discharge instructions given to patient, Instructed on discharge instructions, follow up and referral plans. Demonstrated understanding of instructions, follow-up care. 02:21 Patient left the ED. lg3 Signatures: Criss Carey FNP-C FNP-Josselyn Meza Alexandra Aleman RN RN lg3 Scarlet Chen RN RN vc1 Marisa Juarez, RN RN me1 Corrections: (The following items were deleted from the chart) 02:20 00:40 BP 128 / 84; Pulse 66bpm; Resp 17bpm; Spontaneous; Pulse Ox 100% RA; lg3 lg3
--- NOTE | 2023-02-11 01:09 | EDPHYS ---
Physician Documentation [facility] Name: James Dupree Age: 47 yrs Sex: Male : 1975 Arrival Date: 02/11/2023 Time: 00:09 Bed 18 Private MD: ED Physician Nahid Stark HPI: 02/11 01:13 This 47 yrs old Male presents to ER via Ambulatory with complaints of Hearing snw loss. 01:13 The patient presents with a fullness, hearing loss. The complaints affect the left ear. snw Historical: - Allergies: 00:28 No Known Allergies; vc1 - PMHx: 00:28 Alcoholism; drug abuse; vc1 - PSHx: 00:28 None; vc1 - Immunization history:: Client reports having NOT received the Covid vaccine. - Social history:: Smoking status: Patient denies any tobacco usage or history of. ROS: 01:06 Constitutional: Negative for fever, chills, and weight loss, Eyes: Negative for injury, snw pain, redness, and discharge, Neck: Negative for injury, pain, and swelling, Cardiovascular: Negative for chest pain, palpitations, and edema, Respiratory: Negative for shortness of breath, cough, wheezing, and pleuritic chest pain, Abdomen/GI: Negative for abdominal pain, nausea, vomiting, diarrhea, and constipation, Back: Negative for injury and pain, : Negative for injury, bleeding, discharge, and swelling, MS/Extremity: Negative for injury and deformity, Skin: Negative for injury, rash, and discoloration, Neuro: Negative for headache, weakness, numbness, tingling, and seizure, Psych: Negative for depression, anxiety, suicide ideation, homicidal ideation, and hallucinations. 01:06 ENT: Positive for ear pain, hearing loss. Exam: 01:06 Constitutional: This is a well developed, well nourished patient who is awake, alert, snw and in no acute distress. Head/Face: Normocephalic, atraumatic. Eyes: Pupils equal round and reactive to light, extra-ocular motions intact. Lids and lashes normal. Conjunctiva and sclera are non-icteric and not injected. Cornea within normal limits. Periorbital areas with no swelling, redness, or edema. Neck: Trachea midline, no thyromegaly or masses palpated, and no cervical lymphadenopathy. Supple, full range of motion without nuchal rigidity, or vertebral point tenderness. No Meningismus. Chest/axilla: Normal chest wall appearance and motion. Nontender with no deformity. No lesions are appreciated. Cardiovascular: Regular rate and rhythm with a normal S1 and S2. No gallops, murmurs, or rubs. Normal PMI, no JVD. No pulse deficits. Respiratory: Lungs have equal breath sounds bilaterally, clear to auscultation and percussion. No rales, rhonchi or wheezes noted. No increased work of breathing, no retractions or nasal flaring. Abdomen/GI: Soft, non-tender, with normal bowel sounds. No distension or tympany. No guarding or rebound. No evidence of tenderness throughout. Back: No spinal tenderness. No costovertebral tenderness. Full range of motion. Skin: Warm, dry with normal turgor. Normal color with no rashes, no lesions, and no evidence of cellulitis. MS/ Extremity: Pulses equal, no cyanosis. Neurovascular intact. Full, normal range of motion. Neuro: Awake and alert, GCS 15, oriented to person, place, time, and situation. Cranial nerves II-XII grossly intact. Motor strength 5/5 in all extremities. Sensory grossly intact. Cerebellar exam normal. Normal gait. Psych: Awake, alert, with orientation to person, place and time. Behavior, mood, and affect are within normal limits. 01:06 ENT: External ear(s): are unremarkable, Ear canal(s): cerumen impaction, that is moderate, occluding the left ear canal, Nose: is normal, Mouth: is normal. Vital Signs: 00:25 BP 135 / 88; Pulse 64; Resp 18; Temp 98.4; Pulse Ox 100% ; Weight 72.57 kg; Height 5 vc1 ft. 9 in. ; 02:00 BP 128 / 84; Pulse 66; Resp 17 S; Pulse Ox 100% on R/A; lg3 00:25 Body Mass Index 23.63 (72.57 kg, 175.26 cm) vc1 Procedures: 01:08 Foreign Body Removal: cerumen, from the ear canal, by using a curette, The patient snw tolerated the removal well. MDM: 00:33 Patient medically screened. snw 01:10 Differential diagnosis: cerumen impaction, hearing loss. Data reviewed: vital signs, snw nurses notes. I considered the following discharge prescriptions or medication management in the emergency department Medications were administered in the Emergency Department. See MAR. Counseling: I had a detailed discussion with the patient and/or guardian regarding the historical points, exam findings, and any diagnostic results supporting the discharge/admit diagnosis, the presence of at least one elevated blood pressure reading (>120/80) during this emergency department visit, the need for outpatient follow up, for definitive care, to return to the emergency department if symptoms worsen or persist or if there are any questions or concerns that arise at home. Response to treatment: the patient's symptoms have markedly improved after treatment. Special discussion: I have referred the patient to see his PCP for further evaluation of high blood pressure. Based on the history and exam findings, there is no indication for further emergent testing or inpatient evaluation. I discussed with the patient/guardian the need to see the primary care provider for further evaluation of the symptoms. 02/11 01:06 Order name: [facility]. Order: H2O2 to left ear canal; Complete Time: :26 snw Administered Medications: :26 Drug: Maxitrol Ophthalmic Drops 2 drops {Note: to left ear..} Route: Ophthalmic; Site: [facility] left eye; 02:20 Follow up: Response: No adverse reaction lg3 Disposition Summary: 02/11/23 01:09 Discharge Ordered Location: Home snw Condition: Stable snw Diagnosis - Impacted cerumen, left ear snw Followup: snw - With: Emergency Department - When: As needed - Reason: Worsening of condition Followup: snw - With: Private Physician - When: 2 - 3 days - Reason: Recheck today's complaints, Continuance of care, Re-evaluation by your physician Discharge Instructions: - Discharge Summary Sheet snw - Earwax Buildup, Adult snw Forms: - Medication Reconciliation Form snw - Thank You Letter snw - Antibiotic Education snw - Prescription Opioid Use snw - Patient Portal Instructions snw - Leadership Thank You Letter snw Signatures: Criss Carey FNP-C DEPUTY CLERK OF SUPERIOR COURT-Csnw Scarlet Chen RN RN vc1 Marisa Juarez RN RN me1 Alexandra Aleman RN lg3
[2023-02-11 02:27] VITALS: TEMP 98.4; O2SAT 100
[2023-02-11 02:29] VITALS: BP 128/84
== END 2023-02-11 02:21 | disposition home or self-care (01) ==
LOC: ER 00:09
PROC: 09C4XZZ Extirpation of Matter from Left External Auditory Canal, External Approach (ICD-10-PCS; principal; 2023-02-11)
DX: H61.22 Impacted cerumen, left ear (principal)
CPT/HCPCS: 99284

== ENCOUNTER 2023-03-19 20:36 | Emergency (ER) | payer SELFPAY ==
--- OUTSIDE RECORDS SUMMARY | 2023-03-19 20:51 | XMS REPORT | Continuity of Care Document ---
:1975 Author Organization [facility] t Address [address] [place] [address] Care Team Providers Name Role Phone MUNA AHMADI Primary Care Physician Unavailable Zi Phan Attending Clinician Unavailable CARLOS MARADIAGA Attending Clinician Unavailable Carlos Cramer Attending Clinician Janice Jurado RN Attending Clinician Unavailable Rosalind Ball MD Attending Clinician ROSALIND BALL Attending Clinician Unavailable Payers Payer Name Policy Type Policy Number Effective Date Expiration Date Ann [place] [place]. [place] [id number] 2012 H C 00:00:00 Ambetter from [id number] 2021 [facility] 00:00:00 - [facility] Ambetter from [id number] 2021 [facility] 00:00:00 - [facility] Ambetter from [id number] 2021 [facility] 00:00:00 - [facility] Ambetter from [id number] 2021 Common [facility] 00:00:00 - [facility] Problems Condition Condition Condition Status Onset Resolution Last Treating Co mments Source Name Details Category Date Date Treatment Clinician Date [id number] Panic Problem Active 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 esophagiti [facility] unspecifie d whether hemorrhage [id number] Alcohol Problem Active Commo n withdrawal Spirit syndrome - [facility] with complicati [facility] [id number] Alcohol Problem Active Comm on dependence Spirit with - [facility]I unspecifie [facility] alcohol-in Medica duced Center disorder No known No known Disease Unive rs active active ity of problems problems [facility] Allergies, Adverse Reactions, Alerts Allergy Allergy Status Severity Reaction(s) Onset Inactive Treating Comm ents Source Name Type Date Date Clinician NO KNOWN Drug Active Univers ALLERGIE Class ity of S [facility] Social History Social Habit Start Date Stop Date Quantity Comments Source History of Tobacco Common Spirit - [facility] Use [facility] Sex Assigned At Common Sp hamida - [facility] Exposure to 2021-12-09 2021-12-19 Yes [facility] SARS-CoV-2 (event) 00:00:00 11:33:00 Medica l Branch Smoking Status Start Date Stop Date Source Tobacco smoking consumption [facility] Never Smoker Common [facility] - [facility] Medications Ordered Filled Start Stop Current Ordering Indication Dosage Frequency Signature Comments Components Source Medication Medication Date Date Medication? Clinician (SIG) Name Name ondansetron No 4mg 4 mg, Univ ers (ZOFRAN-ODT 7-10 07-10 Oral, ity of ) 17:45: 16:43 ONCE, 1 [place] disintegrat 00 :00 dose, On Medi madeline ing tablet [place] 4 mg 12/19/21 at 1245, Routine ondansetron Yes [id number] 4mg Take 1 Univers 4 mg 7-10 tablet by ity of disintegrat 00:00: mouth [place] ing tablet 00 every 8 Medica l (eight) Branch hours as needed for Nausea and Vomiting (N/V). ondansetron Yes [id number] 4mg Take 1 Univers 4 mg 7-10 [...] Source Systolic blood 2021-12-19 16:46:11 134 mm[facility]Hg[facility] Diastolic blood 2021-12-19 16:46:11 98 mm[Hg] [facility] Heart rate 2021-12-19 16:32:00 107 /min [facility] Body temperature 2021-12-19 16:32:00 37.11 Yamile [facility] Respiratory rate 2021-12-19 16:32:00 20 /min [facility] Body height 2021-12-19 16:32:00 175.3 cm Universi [facility] Body weight 2021-12-19 16:32:00 72.576 kg [facility] BMI 2021-12-19 16:32:00 23.63 kg/m2 [facility] Oxygen saturation in 2021-12-19 16:32:00 99 /min University Arterial blood by [facility] Pulse oximetry Branch blood pressure 2021-04-29 14:00:00 135 mm[Hg] Common [facility] - systolic [facility] blood pressure 2021-04-29 14:00:00 70 mm[Hg] [facility] - diastolic [facility] height 2021-04-29 14:00:00 69 [in_i] [facility] weight 2021-04-29 14:00:00 175.1 [lb_av] [facility] temperature 2021-04-29 14:00:00 98.2 [degF] [facility] bmi 2021-04-29 14:00:00 25.85 kg/m2 [facility] oximetry 2021-04-29 14:00:00 97 % [facility] respiratory rate 2021-04-29 14:00:00 18 /min Comm on [facility] Procedures This patient has no known procedures. Encounters Start End Encounter Admission Attending Care Care Encounter Source Date/Time Date/Time Type Type Clinicians Facility Department ID 2021-07-07 Outpatient Phan, [facility] [id number] Common 14:15:22 [facility] [id number] [facility] 2022-04-01 2022-04-01 Outpatient SFA SFA [id number] Thiago 15:13:12 15:13:12 1021 F Vini 2021-12-19 2021-12-19 Emergency X HIREN OKJOSE L ERT [id number] Univers 11:37:00 12:29:00 CARLOS hutchison [facility] 2021-12-19 2021-12-19 Emergency Hiren [facility] [id number] Univers 11:37:00 12:29:00 Carlos LINCOLN [id number] i ty of [place] [id number] [facility] [id number] [facility] 084 Branch 2021-12-19 2021-12-19 Violette JuradoJanice [id number] Univers 00:00:00 00:00:00 (Out) CELIA [id number] it y of [facility] [id number] [facility] [phone] [facility] 019 Branch 2021-07-09 2021-07-09 (TEL) STLMLC STLMLC [id number] Co mmon 00:00:00 00:00:00 [facility] 2021-05-10 2021-05-10 (TEL) STLMLC STLMLC [id number] Co mmon 00:00:00 00:00:00 [facility] 2021-05-05 2021-05-05 (TEL) STLMLC STLMLC [id number] Co mmon 00:00:00 00:00:00 [facility] 2021-04-29 2021-04-29 OFFICE STLMLC STLMLC [id number] Co mmon 00:00:00 00:00:00 VISIT [facility] it PT LEVEL [address] [facility] 2021-04-29 2021-04-29 (TEL) STLMLC STLMLC [id number] Co mmon 00:00:00 00:00:00 [facility] 2020-07-09 2020-07-10 Emergency Rosalind Ball [facility] [id number] 23:44:00 06:08:00 [place] [id number] [place] [id number] [place] [id number] 2020-07-09 2020-07-09 Emergency X ROSALIND BALL [facility] ERT [id number] Univers 23:44:00 23:44:00 ity of [facility] Results This patient has no known results.
[2023-03-19] MEDS ORDERED: FENTANYL CITR 100 MCG/2 ML ONE (21:19)
--- NOTE | 2023-03-19 21:23 | RAD REPORT ---
EXAM DESCRIPTION: CT - Head C Spine Cap Wo Con - 03/19/2023 9:06 pm CLINICAL HISTORY: Trauma, head and neck injury. Chest, abdomen and pelvis pain. TRAUMA COMPARISON: Head C Spine Cap W Con dated 07/21/2021 TECHNIQUE: CT head without contrast. CT cervical spine without contrast with coronal and sagittal reformatted images. CT chest, abdomen and pelvis without contrast with coronal and sagittal reformatted images of the spi ne. All CT scans are performed using dose optimization technique as appropriate and may include automated exposure control or mA/KV adjustment according to patient size. FINDINGS: CT HEAD WITHOUT CONTRAST: No intracranial hemorrhage, hydrocephalus or extra-axial fluid collection. No areas of brain edema o r midline shift. Trace maxillary sinus thickening bilaterally. The calvarium is intact. Remote appearing right nasal b one fracture. CT CERVICAL SPINE WITHOUT CONTRAST: No fracture or subluxation. The prevertebral soft tissues are normal in thickness.Multilevel degener ative changes are present in the spine. Varying degrees of neural foraminal narrowing noted bilateral ly which is moderate to severe at C4-5, C5-6 and C6-7. CT CHEST, ABDOMEN, PELVIS WITHOUT CONTRAST: NOTE: Lack of contrast is a significant limitation in the assessment of trauma related findings. Spec ifically, solid organ, vascular and bowel evaluation is significantly limited. The lungs are clear.No pneumothorax or pericardial/pleural fluid. Coronary artery calcifications in t he LAD. No evidence of intra-abdominal visceral injury, free fluid or free air is seen within the above detai led limitations. No concerning pelvic findings. No fractures. IMPRESSION: Negative for acute traumatic findings within the above detailed limitations.
[2023-03-19] MEDS ORDERED: ACETAMINOPHEN 500 MG TAB ONE (22:22)
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
[2023-03-19 23:43] VITALS: BP 113/83; O2SAT 100
[2023-03-19 23:44] VITALS: TEMP 98
== END 2023-03-19 23:17 | disposition home or self-care (01) ==
LOC: ER 20:36
DX: S06.0X0A Concussion without loss of consciousness, initial encounter (principal); Y04.8XXA Assault by other bodily force, initial encounter; F10.20 Alcohol dependence, uncomplicated
CPT/HCPCS: 70450; 71250; 72125; 96372; 99284; J3010

== ENCOUNTER 2023-04-23 11:08 | Emergency (ER) | payer SELFPAY ==
--- OUTSIDE RECORDS SUMMARY | 2023-04-23 11:12 | XMS REPORT | Continuity of Care Document ---
:1975 Author Organization [facility] t Address [address] [place] [address] Care Team Providers Name Role Phone MUNA AHMADI Primary Care Physician Unavailable Zi Phan Attending Clinician Unavailable ADILIA TOSCANO Attending Clinician Unavailable Adilia Toscano MD Attending Clinician Carlos Cramer Attending Clinician CARLOS HOLM Attending Clinician Unavailable Janice Jurado RN Attending Clinician Unavailable Rosalind Ball MD Attending Clinician ROSALIND BALL Attending Clinician Unavailable Payers Payer Name Policy Type Policy Number Effective Date Expiration Date S susangrecia Ambetter from [id number] 2021 Common Spi rit [facility] 00:00:00 - [facility] Ambetter from [id number] 2021 Common Spi rit [facility] 00:00:00 - [facility] Ambetter from [id number] 2021 Common Spi rit [facility] 00:00:00 - [facility] Ambetter from [id number] 2021 Common Spi rit [facility] 00:00:00 - [facility] Problems Condition Condition Condition Status Onset Resolution Last Treating Co mments Source Name Details Category Date Date Treatment Clinician Date [id number] Alcohol Problem Active Comm on dependence Spirit with - CHI unspecifie [facility] d [facility] alcohol-in Medica duced Center disorder No known No known Disease Unive rs active active ity of problems problems [facility] [id number] Panic Problem Active Common disorder Spirit [episodic - CHI paroxysmal St anxiety] [facility] [id number] Generalize Problem Active Com mon d anxiety Spirit disorder - [facility] [id number] Gastroesop Problem Active Co mmon hageal Spirit reflux - CHI disease with [facility] esophagiti [facility] unspecifie d whether hemorrhage [id number] Alcohol Problem Active Commo n withdrawal Spirit syndrome - CHI with complicati [facility] Allergies, Adverse Reactions, Alerts Allergy Allergy Status Severity Reaction(s) Onset Inactive Treating Comm ents Source Name Type Date Date Clinician NO KNOWN Drug Active Univers ALLERGIE Class ity of S [facility] Social History Social Habit Start Date Stop Date Quantity Comments Source History of Tobacco Common [facility] - [facility] Use [facility] Sex Assigned At Com [facility] - [facility] Sexual orientation [facility] Exposure to 2021-12-09 2021-12-19 [facility] SARS-CoV-2 (event) 00:00:00 11:33:00 [facility] Smoking Status Start Date Stop Date Source Tobacco smoking consumption [facility] Never Smoker [facility] Medications Ordered Filled Start Stop Current Ordering Indication Dosage Frequency Signature Comments Components Source Medication Medication Date Date Medication? Clinician (SIG) Name Name thiamine 2022-06 Yes 100mg 100 mg, Unive rs (VITAMIN 1-10 Oral, ity of B1) tablet 15:00: DAILY, [place] 100 mg 00 First dose Medical on Mon Branch 04/21/23 at 0900, Until Discontinu ed, KATHY NaCl 0.9% 2022-06 1000mL at 999 Uni vers (NS) bolus 06-20 11-09 mL/hr, ity of infusion 19:00: 20:19 1,000 mL, Anthony as 1,000 mL 00 :00 IV Medical Infusion, Branch ONCE, 1 dose, On [place] 04/20/23 at 1300, STAT NaCl 0.9% 2022-06- No 1000mL at 999 Uni vers (NS) bolus 06-20 mL/hr, ity of infusion 18:30: 20:19 1,000 mL, Anthony as 1,000 mL 00 :00 IV Medical Infusion, Branch ONCE, 1 dose, On [place] 04/20/23 at 1230, STAT LORazepam 2022-06- No .5mg 0.5 mg, [facility] ers (ATIVAN) 06-20 Slow IV ity of injection 15:30: 15:24 Push, [place] 0.5 mg 00 :00 ONCE, 1 Medical dose, On Branch Oma 04/20/23 at 0930, STAT oxazepam 15 2022-06 Yes [id number] 15mg Take 1 Univers mg capsule 06-20 capsule by ity of 00:00: mouth [place] 00 every 6 Medical (six) Branch hours. ondansetron 2021-0 2021- No 4mg 4 mg, [facility] ers (ZOFRAN-ODT 7-10 07-10 Oral, ity of ) 17:45: 16:43 ONCE, 1 [place] disintegrat 00 :00 dose, On Medi madeline ing tablet Sun Branch 4 mg 12/19/21 at 1245, Routine ondansetron 2021-0 Yes [id number] 4mg Take 1 Univers 4 mg 7-10 tablet by ity of disintegrat 00:00: mouth [place] ing tablet 00 every 8 Medica l (eight) Branch hours as needed for Nausea and Vomiting (N/V). ondansetron 2021-0 Yes [id number] 4mg Take 1 Univers 4 mg 7-10 tablet by ity of disintegrat 00:00: mouth [place] ing tablet 00 every 8 Medica l (eight) Branch hours as needed for Nausea and Vomiting (N/V). ondansetron 2021-0 Yes [id number] 4mg Take 1 Univers 4 mg 7-10 [...] Time Observation Value Comments Source Systolic blood 2023-04-20 20:00:00 135 mm[Hg] [facility] Diastolic blood 2023-04-20 20:00:00 96 mm[Hg] [facility] Heart rate 2023-04-20 20:00:00 69 /min [facility] Respiratory rate 2023-04-20 20:00:00 21 /min [facility] Oxygen saturation in 2023-04-20 20:00:00 98 /min [facility] Arterial blood by [facility] Pulse oximetry Branch Body temperature 2023-04-20 15:21:51 36.78 Yamile [facility] Body height 2023-04-20 15:18:00 172.7 cm [facility] Body weight 2023-04-20 15:18:00 70.308 kg Universi ty [facility] BMI 2023-04-20 15:18:00 23.57 kg/m2 Universi ty [facility] Systolic blood 2021-12-19 16:46:11 134 mm[Hg] Univer sity of pressure [facility] Diastolic blood 2021-12-19 16:46:11 98 mm[Hg] Unive rsity of pressure [facility] Heart rate 2021-12-19 16:32:00 107 /min Universi ty [facility] Body temperature 2021-12-19 16:32:00 37.11 Yamile [facility] rate 2021-12-19 16:32:00 20 /min [facility] Body height 2021-12-19 16:32:00 175.3 [facility] Body weight 2021-12-19 16:32:00 72.576 kg Universi [facility] BMI 2021-12-19 16:32:00 23.63 kg/m2 [facility] Oxygen saturation in 2021-12-19 16:32:00 99 /min [facility] Arterial blood by [facility] Pulse oximetry Branch height 2021-04-29 14:00:00 69 [in_i] [facility] weight 2021-04-29 14:00:00 175.1 [lb_av] [facility] temperature 2021-04-29 14:00:00 98.2 [degF] [facility] bmi 2021-04-29 14:00:00 25.85 kg/m2 [facility] oximetry 2021-04-29 14:00:00 97 % [facility] respiratory rate 2021-04-29 14:00:00 18 /min Comm on [facility] blood pressure 2021-04-29 14:00:00 135 mm[Hg] [facility] systolic [facility] blood pressure 2021-04-29 14:00:00 70 mm[Hg] [facility] diastolic [facility] Procedures Procedure Date / Time Performing Clinician Source Performed LACTIC ACID WHOLE BLOOD 2023-04-20 19:28:00 Adilia Toscano [facility] URINALYSIS 2023-04-20 16:01:00 Adilia Toscano [facility] URINE DRUG (IMMUNOASSAY) 2023-04-20 16:01:00 Adilia Toscano [facility] SCREEN W/O REFLEX LIPASE 2023-04-20 15:23:00 Adilia Toscano [facility] COMP. METABOLIC PANEL 2023-04-20 15:23:00 Adilia Toscano [facility] ([id number]) [facility] ETHANOL 2023-04-20 15:23:00 Adilia Toscano [facility] CBC WITH DIFF 2023-04-20 15:23:00 Adilia Toscano [facility] AC PANEL 21 + LACTIC 2023-04-20 15:22:00 Adilia Toscano [facility] Encounters Start End Encounter Admission Attending Care Care Encounter Source Date/Time Date/Time Type Type Clinicians Facility Department ID 2021-07-07 Outpatient Phan, STLMLC STLC [id number] Common 14:15:22 Formerly [facility] [id number] Spirit [facility] 2023-04-20 2023-04-[address] [facility] ERT [id number] Univers 09:12:00 14:26:00 [facility] 2023-04-20 2023-04-[address] [facility] [id number] Univers 09:12:00 14:26:00 Adilia DOE 350.1.13.10 i ty of [place] 4.2.[address] [facility] [id number] [place] [id number] Branch 2022-04-01 2022-04-01 Outpatient SFA SFA [id number] Thiago 15:13:12 15:13:12 1021 F Vini 2021-12-19 2021-12-[address] [facility] [id number] Univers 11:37:00 12:29:00 Carlos DOE 350.1.13.10 i ty of [place] [address].2.7.[address] [facility] [id number] [facility] 084 Branch 2021-12-19 2021-12-19 Emergency X HIERN [facility] ERT [id number] Univers 11:37:00 12:29:00 CARLOS ity [facility] 2021-12-19 2021-12-19 Letter Janice Jurado [id number] Univers 00:00:00 00:00:00 (Out) CELIA 350.1.13.10 it [facility] 4.2.7.2.686 [facility] [id number] [facility] 019 Branch 2021-07-09 2021-07-09 (TEL) STLMLC STLMLC [id number] Co mmon 00:00:00 00:00:00 [facility] 2021-05-10 2021-05-10 (TEL) STLMLC STLMLC [id number] Co mmon 00:00:00 00:00:00 [facility] 2021-05-05 2021-05-05 (TEL) STLMLC STLMLC [id number] Co mmon 00:00:00 00:00:00 [facility] 2021-04-29 2021-04-29 (TEL) STLMLC STLMLC [id number] Co mmon 00:00:00 00:00:00 [facility] 2021-04-29 2021-04-29 OFFICE STLMLC STLMLC [id number] Co mmon 00:00:00 00:00:00 VISIT [facility] it PT LEVEL 4 - [facility] 2020-07-09 2020-07-10 Emergency Rosalind Ball [facility] [id number] 23:44:00 06:08:00 Patricia Doe 350.1.13.10 [place] 4.2.7.2.686 [place] [id number] [facility] 2020-07-09 2020-07-09 Emergency X ROSALIND BALL [facility] ERT [id number] Univers 23:44:00 23:44:00 [facility] Results Test Description Test Time Test Comments Results Result Comments Source Lactic Acid Whole Blood 2023-04-20 19:39:22 Test Item Value Reference Range Interpretation Comme nts LACTIC ACID (test code = 3397202270) 1.61 mmol/L 0.50-2.20 Lab Interpretation (test code = 12020-5) [facility] 15:57:02 Test Item Value Reference Range Interpretation Comments ALCOHOL (test code = 56 mg/dL 8775648958) MATILDE (test code = MATILDE) <10 [id number] Toxic>100 Depression of [employer] 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 ([id number])2023-04-20 15:56:22 Test Item Value Reference Range Interpretation Comments NA (test code = 139 mmol/L 135-145 3457653892) K (test code = 4.0 mmol/L 3.5-5.0 9737588164) CL (test code = 103 mmol/L 98-108 8523612340) CO2 TOTAL (test code = 23 mmol/L 23-31 5809354919) AGAP (test code = 13 2-16 3516048523) BUN (test code = 4 mg/dL 7-23 L 4409180603) GLUCOSE (test code = 84 mg/dL 70-110 3474452876) CREATININE (test code = 0.71 mg/dL 0.60-1.25 7338009376) TOTAL BILI (test code = 0.9 mg/dL 0.1-1.5 7260409905) CALCIUM (test code = 9.2 mg/dL 8.6-10.6 0740791240) T PROTEIN (test code = 8.3 g/dL 6.3-8.2 H 5336383821) ALBUMIN (test code = 4.3 g/dL 3.5-5.0 1202143596) ALK PHOS (test code = 97 U/L 34-122 0319353069) ALTv (test code = 28 U/L 5-50 1742-6) AST(SGOT) (test code = 66 U/L 13-40 H 5930032841) eGFR (test code = 115.3 mL/min/1.73m2 CKD-EPI e GFR 87680-0) (2020). Assumin g creatinine has been stable day-to-d ay for at least th ree months, the eGF R indicates Categ ory G1 (>= 90 mL/min/1.73 m2) Lab Interpretation (test Abnormal code = 67086-9) [facility] 15:56:02 Test Item Value Reference Range Interpretation Comments LIPASE (test code = 6735917446) 287 U/L 0-220 H Lab Interpretation (test code = Abnormal 87619-1) [facility] WITH [id number] 15:47:37 Test Item Value Reference Range Interpretation Comments WBC (test code = 5.83 See_Comment [Automated 6690-2) message] The sy stem which generated this result transmitted reference range : 4.20 - 10.70 10*3/?L. The reference range was not used to interpret this result as normal/abnormal . RBC (test code = 4.03 See_Comment L [Automated 789-8) message] The sy stem which generated this result transmitted reference range : 4.26 - 5.52 10*6/?L. The reference range was not used to interpret this result as normal/abnormal . HGB (test code = 14.7 g/dL 12.2-16.4 718-7) HCT (test code = 41.8 % 38.4-49.3 4544-3) MCV (test code = 103.7 fL 81.7-95.6 H 787-2) MCH (test code = 36.5 pg 26.1-32.7 H 785-6) MCHC (test code = 35.2 g/dL 31.2-35.0 H 786-4) RDW-SD (test code = 53.1 fL 38.5-51.6 H 90065-3) RDW-CV (test code = 13.8 % 12.1-15.4 788-0) PLT (test code = 211 See_Comment [Automated 777-3) message] The sy stem which generated this result transmitted reference range : 150 - 328 10*3/ ?L. The reference r eddie was not used to interpret this result as normal/abnormal . MPV (test code = 8.6 fL 9.8-13.0 L 01943-0) NRBC/100 WBC (test 0.0 See_Comment [Automat ed code = 8823042616) message] The system which generated this result transmitted reference range : 0.0 - 10.0 /100 WBCs. The refer ence range was not u sed to interpret th is result as normal/abnormal . NRBC x10^3 (test code See_Comment [Auto mated = 2356449839) message] The s ystem which generated this result transmitted reference range : 10*3/?L. The reference range was not used to interpret this result as normal/abnormal . GRAN MAT (NEUT) % 76.4 % (test code = 770-8) IMM GRAN % (test code 0.20 % = 7658358713) LYMPH % (test code = 16.8 % 736-9) MONO % (test code = 5.8 % 5905-5) EOS % (test code = 0.3 % 713-8) BASO % (test code = 0.5 % 706-2) GRAN MAT x10^3(ANC) 4.45 10*3/uL 1.99-6.95 (test code = 7882336579) IMM GRAN x10^3 (test 0.00-0.06 code = 6950629339) LYMPH x10^3 (test code 0.98 10*3/uL 1.09-3.23 L = 731-0) MONO x10^3 (test code 0.34 10*3/uL 0.36-1.02 L = 742-7) EOS x10^3 (test code = 0.06-0.53 L 711-2) BASO x10^3 (test code 0.03 10*3/uL 0.01-0.09 = 704-7) Lab Interpretation Abnormal (test code = 46840-1) [facility] + LACTIC [id number] 15:47:22 Test Item Value Reference Range Interpretation Comments PH (test code = 7.52 7.32-7.42 H 7112004060) PCO2 POPEYE (test code = 30 See_Comment L [Auto mated 9400683219) message] The sy stem which generated this result transmitted reference range : 41 - 51 mmHg. The reference range was not used to interpret this result as normal/abnormal . PO2 POPEYE (test code = 36 See_Comment [Autom ated 6832120470) message] The sy stem which generated this result transmitted reference range : 25 - 40 mmHg. The reference range was not used to interpret this result as normal/abnormal . HCO3 POPEYE (test code = 24 See_Comment [Auto mated 1531236311) message] The sy stem which generated this result transmitted reference range : 24 - 28 mEq/L. The reference range was not used to interpret this result as normal/abnormal . AC VBE(BEAKER) (test 1.6 mEq/L code = 4505607534) THB POPEYE (test code = 15.1 g/dL 13.5-18.0 1457009628) %O2HB POPEYE (test code = 76.7 % 52.0-63.0 H 1656905775) %COHB POPEYE (test code = 0.2 % 0.0-1.5 2140792812) %METHB POPEYE (test code = 0.1 % 0.4-1.5 L 6494771166) VOL%O2 POPEYE (test code = 16.2 % 6.0-12.0 H 7470933353) NA (test code = 142 mmol/L 135-145 0024267260) K+ (test code = 3.9 mmol/L 3.5-5.0 2790033784) AC CA IONZ (test code = 4.40 mg/dL 4.50-5.30 L 6170021252) GLUCOSE (test code = 78 mg/dL 70-110 0617333038) LACTIC ACID (test code 3.91 mmol/L 0.50-2.20 H = 5947452452) Lab Interpretation Abnormal (test code = 19122-9) [facility]
[2023-04-23 11:45] LABS: Absolute Lymphocytes (CBC) 1.3 K/uL (0.7-4.9); Hematocrit 46.3 % (39.6-49.0); Lymphocytes % 23.1 % (15.3-44.8); MCV 105.2 fL (80-100); MPV 6.7 fL (7.6-11.3); Platelets 183 thou/uL (152-406)
[2023-04-23] MEDS ORDERED: ONDANSETRON 4 MG/2 ML VIAL ONE (11:57)
[2023-04-23] MEDS ORDERED: NA CHLORIDE 0.9% 1,000 ML ONE (11:57)
[2023-04-23] MEDS ORDERED: DIAZEPAM 10 MG/2 ML INJ SYRINGE ONE (11:57)
--- NOTE | 2023-04-23 11:59 | RAD REPORT ---
EXAM DESCRIPTION: Allen Single View04/23/2023 11:49 am CLINICAL HISTORY: Chest pain COMPARISON: July 2022 FINDINGS: The lungs appear clear of acute infiltrate. The heart is normal size IMPRESSION: No acute abnormalities displayed
[2023-04-23 12:05] LABS: Potassium 3.5 mEq/L (3.5-5.1); Troponin High Sensitivity 5.3 pg/mL (<58.9)
--- NOTE | 2023-04-23 12:45 | EDPHYS ---
Physician Documentation [facility] Name: James Dupree Age: 47 yrs Sex: Male : 1975 Arrival Date: 04/23/2023 Time: 11:08 Bed 3 Private MD: ED Physician Jeffry Scales HPI: 04/23 11:40 This 47 yrs old Male presents to ER via Ambulatory with complaints of Chest ec2 Pain. 11:40 . ec2 11:42 Patient arrives today for evaluation of chest pain. Patient reports that he has been ec2 using meth, most recently couple days ago, states that after that time he been having palpitations as well as anxiety and chest pain. Patient reports that he is a smoker otherwise he does not regularly use meth is what he reports. . Historical: - Allergies: 11:15 No Known Allergies; ss - Home Meds: 11:15 None [Active]; ss - PMHx: 11:15 Alcoholism; drug abuse; ss - PSHx: 11:15 None; ss - Immunization history:: Client reports receiving the 1st dose of the Covid vaccine. - Social history:: Smoking status: Patient denies any tobacco usage or history of. Patient uses alcohol, on a daily basis. ROS: 11:42 Constitutional: as per hpi ec2 Exam: 11:42 Constitutional: GEN: NAD Head: atraumatic Eyes: EOMI Ears: External ears are ec2 normal. CV: Tachycardia LUNGS: no respiratory distress ABD: non-distended SKIN: no evidence of rashes MSK: no evidence of trauma NEURO: moves all extremities equally. Psych: Anxious individual who is restless Vital Signs: 11:14 Resp 20; Weight 70.31 kg; Height 5 ft. 9 in. ; Pain 8/10; ss 11:17 BP 156 / 101; Pulse 109; Temp 98; Pulse Ox 100% ; ss 12:48 BP 128 / 96; Pulse 76; Resp 18; Pulse Ox 99% on R/A; cm10 11:14 Body Mass Index 22.89 (70.31 kg, 175.26 cm) ss 11:14 Pain Scale: Adult ss MDM: 11:10 Patient medically screened. ec2 11:39 ED course: Patient arrives today for evaluation of chest pain in setting of recent ec2 methamphetamine use. Examination remarkable for anxious individual who is restless with otherwise in no acute distress who has a slight tachycardia noted on arrival. Will obtain a cardiac work-up, treat the patient with Valium as well as reassess the patient. Currently considering processes such as ACS, methamphetamine reaction, anxiety. EKG obtained, independently reviewed and interpreted by me, shows normal sinus rhythm, rate of 80, no acute ST segment elevations, nonconcerning intervals. . 12:08 ED course: Patient arrives today for evaluation of chest. Patient with reassuring ec2 metabolic profile, reassuring CBC, troponin that is within normal ranges, chest x-ray that shows no acute intrathoracic process. . 12:43 Data reviewed: vital signs. ED course: On reassessment patient is well-appearing and in ec2 no acute distress, reports marked improvement in his symptoms. Will discharge to home, return precautions given. 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 04/23 11:11 Order name: Basic Metabolic Panel; Complete Time: 12:07 ec2 04/23 11:11 Order name: CBC with Diff ec2 04/23 11:11 Order name: Troponin HS; Complete Time: 12:07 ec2 04/23 11:11 Order name: XRAY Chest (1 view); Complete Time: 12:07 ec2 04/23 11:11 Order name: EKG; Complete Time: 11:12 ec2 04/23 11:11 Order name: Cardiac monitoring; Complete Time: 11:42 ec2 04/23 11:11 Order name: EKG - Nurse/Tech; Complete Time: 11:42 ec2 04/23 11:11 Order name: IV Saline Lock; Complete Time: 11:42 ec2 04/23 11:11 Order name: Labs collected and sent; Complete Time: 11:42 ec2 04/23 11:11 Order name: O2 Per Protocol; Complete Time: 11:42 ec2 04/23 11:11 Order name: O2 Sat Monitoring; Complete Time: 11:42 ec2 Administered Medications: 11:50 Drug: Diazepam IVP 10 mg IVP once Route: IVP; Site: right hand; hb 12:49 Follow up: Response: No adverse reaction cm10 11:50 Drug: Ondansetron IVP 4 mg IVP once; over 2 minutes Route: IVP; Site: right hand; hb 12:49 Follow up: Response: No adverse reaction cm10 11:50 Drug: NS 0.9% IV 1000 ml IV at 1 bolus Per protocol; 1000 mL bolus Route: IV; Rate: 1 hb bolus; Site: right hand; 12:49 Follow up: Response: No adverse reaction; IV Status: Completed infusion; IV Intake: cm10 1000ml Disposition Summary: 04/23/23 12:44 Discharge Ordered Notes: Location: Home ec2 Condition: Stable ec2 Diagnosis - Chest pain, unspecified ec2 Discharge Instructions: - Discharge Summary Sheet ec2 - Nonspecific Chest Pain, Adult ec2 - Methamphetamines Use Disorder ec2 Forms: - Medication Reconciliation Form ec2 - Thank You Letter ec2 - Antibiotic Education ec2 - Prescription Opioid Use ec2 - Patient Portal Instructions ec2 - Leadership Thank You Letter ec2 Signatures: Dispatcher [employer] Elba Childress RN RN Ghislaine Benavides RN RN Jeffry Scales MD MD ec2 Sonia Negrete RN cm10 Corrections: (The following items were deleted from the chart) 12:08 12:08 Patient medically screened. ec2 ec2 12:09 11:05 Patient medically screened. ec2 ec2
--- NOTE | 2023-04-23 12:45 | ER ---
Nurse's Notes [facility] Name: James Dupree Age: 47 yrs Sex: Male : 1975 Arrival Date: 04/23/2023 Time: 11:08 Bed 3 Private MD: Diagnosis: Chest pain, unspecified Presentation: 04/23 11:14 Chief complaint: Patient states: Used meth two days ago and complaints of being unable ss to sleep, rapid heart rate, feeling anxious and unable to hold anything down. Coronavirus screen: Client denies travel out of the [place] in the last 14 days. Ebola Screen: Patient denies exposure to infectious person. Patient denies travel to an Ebola-affected area in the 21 days before illness onset. Initial Sepsis Screen: Does the patient meet any 2 criteria? No. Patient's initial sepsis screen is negative. Does the patient have a suspected source of infection? No. Patient's initial sepsis screen is negative. Risk Assessment: Do you want to hurt yourself or someone else? Patient reports no desire to harm self or others. Onset of symptoms was April 21, 2023. 11:14 Method Of Arrival: Ambulatory ss 11:14 Acuity: DORETHA 3 ss 11:16 Acuity: DORETHA 2 ss 11:17 Chief complaint:. ss Historical: - Allergies: 11:15 No Known Allergies; ss - Home Meds: 11:15 None [Active]; ss - PMHx: 11:15 Alcoholism; drug abuse; ss - PSHx: 11:15 None; ss - Immunization history:: Client reports receiving the 1st dose of the Covid vaccine. - Social history:: Smoking status: Patient denies any tobacco usage or history of. Patient uses alcohol, on a daily basis. Screenin:41 [facility] ED Fall Risk Assessment (Adult) Score/Fall Risk Level 0 - 2 = Low Risk hb Oriented to surroundings, Maintained a safe environment. Abuse screen: Denies threats or abuse. Denies injuries from another. Nutritional screening: No deficits noted. Tuberculosis screening: No symptoms or risk factors identified. Assessment: 11:40 General: Appears in no apparent distress. Behavior is calm, cooperative. Pain: Pain hb currently is 8 out of 10 on a pain scale. Neuro: Level of Consciousness is awake, alert, obeys commands, Oriented to person, place, time, situation. Cardiovascular: Reports chest pain, Patient's skin is warm and dry. Respiratory: Respiratory effort is even, unlabored, Respiratory pattern is regular, symmetrical. GI: Reports nausea, vomiting. : No signs and/or symptoms were reported regarding the genitourinary system. EENT: No signs and/or symptoms were reported regarding the EENT system. Derm: Skin is pink, warm \T\ dry. Musculoskeletal: No signs and/or symptoms reported regarding the musculoskeletal system. 12:59 Reassessment: Patient appears in no apparent distress at this time. Patient and/or cm10 family updated on plan of care and expected duration. Pain level reassessed. Patient is alert, oriented x 3, equal unlabored respirations, skin warm/dry/pink. Patient states feeling better. Patient states symptoms have improved. Vital Signs: 11:14 Resp 20; Weight 70.31 kg; Height 5 ft. 9 in. ; Pain 8/10; ss 11:17 BP 156 / 101; Pulse 109; Temp 98; Pulse Ox 100% ; ss 12:48 BP 128 / 96; Pulse 76; Resp 18; Pulse Ox 99% on R/A; cm10 11:14 Body Mass Index 22.89 (70.31 kg, 175.26 cm) ss 11:14 Pain Scale: Adult ss ED Course: 11:10 Patient arrived in ED. mg5 11:11 Jeffry Scales MD is Attending Physician. ec2 11:15 Triage completed. ss 11:15 Arm band placed on left wrist. ss 11:38 Inserted saline lock: 18 gauge in right hand, using aseptic technique. Blood collected. hb 11:41 Patient has correct armband on for positive identification. Provided Education on: . hb 11:42 Basic Metabolic Panel Sent. hb 11:42 CBC with Diff Sent. hb 11:42 Troponin HS Sent. hb 11:50 XRAY Chest (1 view) In Process Unspecified. EDMS 12:17 Ghislaine Benavides, RN is Primary Nurse. hb 12:59 No provider procedures requiring assistance completed. IV discontinued, intact, cm10 bleeding controlled, No redness/swelling at site. Pressure dressing applied. Administered Medications: 11:50 Drug: Diazepam IVP 10 mg IVP once Route: IVP; Site: right hand; hb 12:49 Follow up: Response: No adverse reaction cm10 11:50 Drug: Ondansetron IVP 4 mg IVP once; over 2 minutes Route: IVP; Site: right hand; hb 12:49 Follow up: Response: No adverse reaction cm10 11:50 Drug: NS 0.9% IV 1000 ml IV at 1 bolus Per protocol; 1000 mL bolus Route: IV; Rate: 1 hb bolus; Site: right hand; 12:49 Follow up: Response: No adverse reaction; IV Status: Completed infusion; IV Intake: cm10 1000ml Medication: 11:41 VIS not applicable for this client. hb Intake: 12:49 IV: 1000ml; Total: 1000ml. cm10 Outcome: 12:44 Discharge ordered by . ec2 12:59 Discharged to home ambulatory, cm10 12:59 Condition: good 12:59 Discharge instructions given to patient, Instructed on discharge instructions, follow up and referral plans. safety practices, Demonstrated understanding of instructions, follow-up care, 12:59 Patient left the ED. cm10 Signatures: Dispatcher [employer] lEba Childress RN RN Ghislaine Benavides RN RN Sonia Negrete RN RN cm10 Ela Benitez mg5 Jeffry Scales MD MD ec2 Corrections: (The following items were deleted from the chart) 11:16 11:14 Chief complaint: Patient states: Used meth two days ago and complaints of being ss unable to sleep, rapid heart rate, feeling anxious and unable to hold anything down. ss
[2023-04-23 13:16] VITALS: TEMP 98
[2023-04-23 13:17] LABS: Anisocytosis SLIGHT; Blood Morphology Comment NOTED (NOT SEEN); Macrocytosis 1+; Platelet Estimate ADEQ; White Blood Cell Scan OK (OK)
[2023-04-23 13:18] VITALS: BP 128/96; O2SAT 99
--- NOTE | 2023-04-26 17:34 | EKG ---
Test Date: 2023-04-23 Test Time: 11:35:04 Entry Level Management: DAPHNE MEASUREMENT RESULTS: Intervals: Rate: 80 MA: 150 QRSD: 88 QT: 360 QTc: 415 Gideon: P: 47 MA: 150 QRS: 81 T: 56 INTERPRETIVE STATEMENTS: Normal sinus rhythm Normal ECG Compared to ECG 03/18/2023 03:52:45 Right-axis deviation no longer present Electronically Signed On 04-26-23 17:25:21 SEWER by Hubert Prajapati
== END 2023-04-23 12:59 | disposition home or self-care (01) ==
LOC: ER 11:08
DX: R07.9 Chest pain, unspecified (principal)
CPT/HCPCS: 36415; 71045; 80048; 84484; 85025; 93005; 96361; 96374; 96375; 99284; J2405; J3360; J7030

== ENCOUNTER 2023-05-02 12:40 | Emergency (ER) | payer SELFPAY ==
--- OUTSIDE RECORDS SUMMARY | 2023-05-02 12:44 | XMS REPORT | Continuity of Care Document ---
:1975 Author Organization [facility] t Address [address] [place] [address] Care Team Providers Name Role Phone MUNA [...] Number Effective Date Expiration Date S elian Flanneryr from [id number] 2021 Common [facility] 00:00:00 - [facility] Ambetter from [id number] 2021 Common Spi [facility] 00:00:00 - [facility] Ambetter from [id number] 2021 Common Spi rit [facility] 00:00:00 - [facility] Ambetter from [id number] 2021 Common Spi rit [facility] 00:00:00 - [facility] Problems Condition Condition Condition Status Onset Resolution Last Treating Co mments Source Name Details Category Date Date Treatment Clinician Date [id number] Panic Problem Active Common disorder Spirit [episodic - CHI paroxysmal St anxiety] [facility] [id number] Generalize Problem Active Com mon d anxiety Spirit disorder - [facility] [id number] Gastroesop Problem Active Co mmon hageal Spirit reflux - [facility] disease with [facility] esophagiti Medica l s, Center unspecifie d whether hemorrhage [id number] Alcohol Problem Active Commo n withdrawal Spirit syndrome - [facility] with complicati [facility] [id number] Alcohol Problem Active Comm on dependence Spirit with - CHI unspecifie [facility] alcohol-in Medica duced Center disorder No known No known Disease Unive rs active active ity of problems problems [facility] Allergies, Adverse Reactions, Alerts Allergy Allergy Status Severity Reaction(s) Onset Inactive Treating Comm ents Source Name Type Date Date Clinician NO KNOWN Drug Active Univers ALLERGIE Class ity of S [facility] Social History Social Habit Start Date Stop Date Quantity Comments Source History of Tobacco Common [facility] - [facility] Use [facility] Sex Assigned At Com mon Spirit - [facility] Sexual orientation [facility] Exposure to 2021-12-09 2021-12-19 Yes [facility] SARS-CoV-2 (event) 00:00:00 11:33:00 [facility] Smoking Status Start Date Stop Date Source Tobacco smoking consumption [facility] Never Smoker [facility] Medications Ordered Filled Start Stop Current Ordering Indication Dosage Frequency Signature Comments Components Source Medication Medication Date Date Medication? Clinician (SIG) Name Name thiamine 2022-06 Yes 100mg 100 mg, Unive rs (VITAMIN 1-10 Oral, ity of B1) tablet 15:00: DAILY, [place] 100 mg 00 First dose Medical on Fri Branch 04/21/23 at 0900, Until Discontinu ed, KATHY NaCl 0.9% 2022-06 No 1000mL at 999 Uni vers (NS) [...] STAT LORazepam 2022-06- No .5mg 0.5 mg, Univ ers (ATIVAN) 06-20 Slow IV ity of injection 15:30: 15:24 Push, [place] 0.5 mg 00 :00 ONCE, 1 Medical dose, On Branch Oma 04/20/23 at 0930, STAT oxazepam 15 2022-06 Yes [id number] 15mg Take 1 Univers mg capsule 06-20 capsule by ity of 00:00: mouth [place] 00 every 6 Medical (six) Branch hours. ondansetron 2021- No 4mg 4 mg, [facility] ers (ZOFRAN-ODT 7-10 07-10 Oral, ity of ) 17:45: 16:43 ONCE, 1 [place] disintegrat 00 :00 dose, On Medi madeline ing tablet Sun Branch 4 mg 12/19/21 at 1245, Routine ondansetron Yes [id number] 4mg Take 1 Univers 4 mg 7-10 tablet by ity of disintegrat 00:00: mouth [place] ing tablet 00 every 8 Medica l (eight) Branch hours as needed for Nausea and Vomiting (N/V). ondansetron 2021-0 Yes [id number] 4mg Take 1 Univers 4 mg 7-10 tablet by ity of disintegrat 00:00: mouth [place] ing tablet 00 every 8 Medica l (eight) Branch hours as needed for Nausea and Vomiting (N/V). ondansetron 2021-0 Yes [id number] 4mg Take 1 Univers 4 mg 7-10 [...] Source Systolic blood 2023-04-20 20:00:00 135 mm[Hg] [facility] Diastolic blood 2023-04-20 20:00:00 96 mm[Hg] [facility] Heart rate 2023-04-20 20:00:00 69 /min [facility] Respiratory rate 2023-04-20 20:00:00 21 /min [facility] Oxygen saturation in 2023-04-20 20:00:00 98 /min [facility] Arterial blood by [facility] Pulse oximetry Branch Body temperature 2023-04-20 15:21:51 36.78 Yamile [facility] Body height 2023-04-20 15:18:00 172.7 cm [facility] Body weight 2023-04-20 15:18:00 70.308 kg Universi ty [facility] BMI 2023-04-20 15:18:00 23.57 kg/m2 Universi ty [facility] Systolic blood 2021-12-19 16:46:11 134 mm[Hg] Univer sity of pressure [facility] Diastolic blood 2021-12-19 16:46:11 98 mm[Hg] Unive rsity of [facility] Heart rate 2021-12-19 16:32:00 107 /min Universi ty [facility] Body temperature 2021-12-19 16:32:00 37.11 Yamile [facility] 2021-12-19 16:32:00 20 /min [facility] Body height 2021-12-19 16:32:00 175.3 cm [facility] Body weight 2021-12-19 16:32:00 72.576 kg [facility] BMI 2021-12-19 16:32:00 23.63 kg/m2 [facility] Oxygen saturation in 2021-12-19 16:32:00 99 /min [facility] Arterial blood by [facility] Pulse oximetry Branch height 2021-04-29 14:00:00 69 [in_i] [facility] weight 2021-04-29 14:00:00 175.1 [lb_av] [facility] temperature 2021-04-29 14:00:00 98.2 [degF] [facility] bmi 2021-04-29 14:00:00 25.85 kg/m2 [facility] oximetry 2021-04-29 14:00:00 97 % [facility] respiratory rate 2021-04-29 14:00:00 18 /min Comm on [facility] blood pressure 2021-04-29 14:00:00 135 mm[Hg] [facility] systolic [facility] blood pressure 2021-04-29 14:00:00 70 mm[Hg] [facility] diastolic [facility] Procedures Procedure Date / Time Performing Clinician Source Performed LACTIC ACID WHOLE BLOOD 2023-04-20 19:28:00 Adilia Toscano [facility] URINALYSIS 2023-04-20 16:01:00 Adilia Toscano [facility] URINE DRUG (IMMUNOASSAY) 2023-04-20 16:01:00 Adilia Toscano [facility] SCREEN W/O REFLEX LIPASE 2023-04-20 15:23:00 Adilia Toscano [facility] COMP. METABOLIC PANEL 2023-04-20 15:23:00 Adilia Toscano [facility] ([id number]) [facility] ETHANOL 2023-04-20 15:23:00 Aidlia Toscano [facility] CBC WITH DIFF 2023-04-20 15:23:00 Adilia Toscano [facility] AC PANEL 21 + LACTIC 2023-04-20 15:22:00 Adilia Toscano [facility] Encounters Start End Encounter Admission Attending Care Care Encounter Source Date/Time Date/Time Type Type Clinicians Facility Department ID 2021-07-07 Outpatient Phan[facility] [id number] Common 14:15:22 [facility] [address] Spirit [facility] 2023-04-20 2023-04-20 [id number] Univers 09:12:00 14:26:00 [facility] 2023-04-20 2023-04-20 [facility] [id number] Univers 09:12:00 14:26:00 Adilia DOE 350.1.13.10 i ty of [place] 4.2.7.2.686 [facility] [id number] [facility] 084 Branch 2022-04-01 2022-04-01 Outpatient SFA SFA [id number] Thiago 15:13:12 15:13:12 1021 F Vini 2021-12-19 2021-12-19 [facility] [id number] Univers 11:37:00 12:29:00 Carlos DOE 350.1.13.10 i ty of [place] 4.2.7.2.686 [facility] [id number] [place] [address] Branch 2021-12-19 2021-12-19 Emergency X HIREN [facility] ERT [id number] Univers 11:37:00 12:29:00 CARLOS itbabatunde [facility] 2021-12-19 2021-12-19 Letter Dottie Juradoh GALLITO [id number] Univers 00:00:00 00:00:00 (Out) CELIA 350.1.13.10 [facility] 4.2.7.2.686 [facility] [id number] [place] [address] Branch 2021-07-09 2021-07-09 (TEL) STLMLC STLMLC [id number] Co mmon 00:00:00 00:00:00 [facility] 2021-05-10 2021-05-10 (TEL) STLMLC STLMLC [id number] Co mmon 00:00:00 00:00:00 [facility] 2021-05-05 2021-05-05 (TEL) STLMLC STLMLC [id number] Co mmon 00:00:00 00:00:00 [facility] 2021-04-29 2021-04-29 OFFICE STLMLC STLMLC [id number] Co mmon 00:00:00 00:00:00 VISIT [facility] it PT LEVEL 4 [facility] 2021-04-29 2021-04-29 (TEL) STLMLC STLMLC [id number] Co mmon 00:00:00 00:00:00 [facility] 2020-07-09 2020-07-10 Emergency Rosalind Ball [facility] [id number] 23:44:00 06:08:00 Patricia Doe 350.1.13.10 [place] 4.2.7.2.686 [place] [id number] [facility] 2020-07-09 2020-07-09 Emergency X ROSALIND BALL [facility] ERT [id number] Univers 23:44:00 23:44:00 [facility] Results Test Description Test Time Test Comments Results Result Comments Source Lactic Acid Whole Blood 2023-04-20 19:39:22 Test Item Value Reference Range Interpretation Comme nts LACTIC ACID (test code = 2496380669) 1.61 mmol/L 0.50-2.20 Lab Interpretation (test code = 56459-4) [facility] 15:57[facility]02 Test Item Value Reference Range Interpretation Comments ALCOHOL (test code = 56 mg/dL 7382141892) MATILDE (test code = MATILDE) <10 [id number] Toxic>100 Depression of DRY PLASTERER HELPER>400 Fatalities Reported [facility] (03151)2023-04-20 15:56:22 Test Item Value Reference Range Interpretation Comments NA (test code = 139 mmol/L 135-145 4977304484) K (test code = 4.0 mmol/L 3.5-5.0 4643272263) CL (test code = 103 mmol/L 98-108 8416102462) CO2 TOTAL (test code = 23 mmol/L 23-31 4643372353) AGAP (test code = 13 2-16 7163962905) BUN (test code = 4 mg/dL 7-23 L 4191405415) GLUCOSE (test code = 84 mg/dL 70-110 7940822924) CREATININE (test code = 0.71 mg/dL 0.60-1.25 1191042629) TOTAL BILI (test code = 0.9 mg/dL 0.1-1.9 9033822179) CALCIUM (test code = 9.2 mg/dL 8.6-10.6 3904255787) T PROTEIN (test code = 8.3 g/dL 6.3-8.2 H 0748691591) ALBUMIN (test code = 4.3 g/dL 3.5-5.0 2490320792) ALK PHOS (test code = 97 U/L 34-122 5531778357) ALTv (test code = 28 U/L 5-50 1742-6) AST(SGOT) (test code = 66 U/L 13-40 H 6625948809) eGFR (test code = 115.3 mL/min/1.73m2 CKD-EPI e GFR 67672-6) (2020). Assumin g creatinine has been stable day-to-d ay for at least th ree months, the eGF R indicates Categ ory G1 (>= 90 mL/min/1.73 m2) Lab Interpretation (test Abnormal code = 96334-8) [facility] 15:56:02 Test Item Value Reference Range Interpretation Comments LIPASE (test code = 7292332820) 287 U/L 0-220 H Lab Interpretation (test code = Abnormal 31855-3) [facility] [id number] 15:47:37 Test Item Value Reference Range Interpretation [...] (test code = 53.1 fL 38.5-51.6 H 81490-9) RDW-CV (test code = 13.8 % 12.1-15.4 788-0) PLT (test code = 211 See_Comment [Automated 777-3) message] The sy stem which generated this result transmitted reference range : 150 - 328 10*3/ ?L. The reference r eddie was not used to interpret this result as normal/abnormal . MPV (test code = 8.6 fL 9.8-13.0 L 34464-3) NRBC/100 WBC (test 0.0 See_Comment [Automat ed code = 4762998569) message] The system which generated this result transmitted reference range : 0.0 - 10.0 /100 WBCs. The refer ence range was not u sed to interpret th is result as normal/abnormal . NRBC x10^3 (test code See_Comment [Auto mated = 5518542931) message] The s ystem which generated this result transmitted reference range : 10*3/?L. The reference range was not used to interpret this result as normal/abnormal . GRAN MAT (NEUT) % 76.4 % (test code = 770-8) IMM GRAN % (test code 0.20 % = 1435185701) LYMPH % (test code = 16.8 % 736-9) MONO % (test code = 5.8 % 5905-5) EOS % (test code = 0.3 % 713-8) BASO % (test code = 0.5 % 706-2) GRAN MAT x10^3(ANC) 4.45 10*3/uL 1.99-6.95 (test code = 0183663480) IMM GRAN x10^3 (test 0.00-0.06 code = 2936465659) LYMPH x10^3 (test code 0.98 10*3/uL 1.09-3.23 L = 731-0) MONO x10^3 (test code 0.34 10*3/uL 0.36-1.02 L = 742-7) EOS x10^3 (test code = 0.06-0.53 L 711-2) BASO x10^3 (test code 0.03 10*3/uL 0.01-0.09 = 704-7) Lab Interpretation Abnormal (test code = 80640-6) [facility] + LACTIC [id number] 15:47:22 Test Item Value Reference Range Interpretation Comments PH (test code = 7.52 7.32-7.42 H 0147481004) PCO2 POPEYE (test code = 30 See_Comment L [Auto mated [id number]) message] The sy stem which generated this result transmitted reference range : 41 - 51 mmHg. The reference range was not used to interpret this result as normal/abnormal . PO2 POPEYE (test code = 36 See_Comment [Autom ated 9233093755) message] The sy stem which generated this result transmitted reference range : 25 - 40 mmHg. The reference range was not used to interpret this result as normal/abnormal . HCO3 POPEYE (test code = 24 See_Comment [Auto mated 0283262379) message] The sy stem which generated this result transmitted reference range : 24 - 28 mEq/L. The reference range was not used to interpret this result as normal/abnormal . AC VBE(BEAKER) (test 1.6 mEq/L code = 3627528452) THB POPEYE (test code = 15.1 g/dL 13.5-18.0 9150188319) %O2HB POPEYE (test code = 76.7 % 52.0-63.0 H 3785096008) %COHB POPEYE (test code = 0.2 % 0.0-1.5 4094187261) %METHB POPEYE (test code = 0.1 % 0.4-1.5 L 8821534707) VOL%O2 POPEYE (test code = 16.2 % 6.0-12.0 H 2985079466) NA (test code = 142 mmol/L 135-145 4982182584) K+ (test code = 3.9 mmol/L 3.5-5.0 5107305230) AC CA IONZ (test code = 4.40 mg/dL 4.50-5.30 L 3731007917) GLUCOSE (test code = 78 mg/dL 70-110 5904277654) LACTIC ACID (test code 3.91 mmol/L 0.50-2.20 H = 2202556337) Lab Interpretation Abnormal (test code = 51084-5) [facility]
[2023-05-02] MEDS ORDERED: THIAMINE 200 MG/2 ML INJ ONE (13:30)
[2023-05-02] MEDS ORDERED: NA CHLORIDE 0.9% 1,000 ML ONE (13:31)
[2023-05-02 13:32] LABS: Absolute Lymphocytes (CBC) 1.4 K/uL (0.7-4.9); Hematocrit 44.3 % (39.6-49.0); Lymphocytes % 37.5 % (15.3-44.8); MCV 104.4 fL (80-100); MPV 6.1 fL (7.6-11.3); Platelets 132 thou/uL (152-406); RBC Red Blood Cell Count 4.24 M/uL (4.33-5.43)
[2023-05-02 13:35] LABS: Protime INR 0.95
[2023-05-02 13:40] LABS: Specific Gravity 1.008 (1.005-1.030); Urine Bacteria >50 /HPF (<20); Urine Bilirubin NEGATIVE (Negative); Urine Blood Negative (Negative); Urine Clarity Extremely Turbid (Clear); Urine Color Light-Yellow (Yellow); Urine Glucose NEGATIVE (Negative); Urine Protein NEGATIVE (Negative); Urine RBC <5 /HPF (None Seen); Urine Urobilinogen Normal (Normal); Urine WBC Clump Rare /HPF (None Seen)
[2023-05-02 13:46] LABS: Barbiturates NEGATIVE (NEGATIVE); Benzodiazepines NEGATIVE (NEGATIVE); Cocaine NEGATIVE (NEGATIVE); METHAMPHETAM NEGATIVE (NEGATIVE); Methadone NEGATIVE (NEGATIVE); Opiates NEGATIVE (NEGATIVE); Phencyclidine NEGATIVE (NEGATIVE); THC Cannibis NEGATIVE (NEGATIVE)
[2023-05-02 13:53] LABS: ALT/SGPT 37 U/L (16-61); AST/SGOT 67 U/L (15-37); Albumin 3.4 g/dL (3.4-5.0); Alkaline Phosphatase 94 U/L (45-117); BUN Blood Urea Nitrogen 8 mg/dL (7-18); Bicarbonate 28 mEq/L (21-32); Bilirubin Direct 0.2 mg/dL (0-0.2); Bilirubin Indirect, Calculated 0.4 mg/dL (0.2-0.8); Bilirubin Total 0.6 mg/dL (0.2-1.0); Glomerular Filtration Rate 101 ml/min (=/>90); Glucose Level 100 mg/dL (74-106); Lipase 113 U/L (13-75); Potassium 3.5 mEq/L (3.5-5.1); Protein, Total 7.9 g/dL (6.4-8.2); Sodium Level 141 mEq/L (136-145)
[2023-05-02] MEDS ORDERED: LORazepam 2 MG/ML VIAL ONE (14:00)
--- NOTE | 2023-05-02 14:19 | EDPHYS ---
Physician Documentation [facility] Name: James Dupree Age: 47 yrs Sex: Male : 1975 Arrival Date: 05/02/2023 Time: 12:40 Bed 6 Private MD: ED Physician Nahid Stark HPI: 05/02 14:10 This 47 yrs old Male presents to ER via [employer] with complaints of rivka voiced suicidal ideation , not suicidal, been drinking. 14:10 The patient presents to the emergency department with depression, suicide ideation, but rivka the patient has no formulated plan. Onset: The symptoms/episode began/occurred just prior to arrival. Past psychiatric history: Prior diagnosis: depression, alcohol, gerd, depression. drunk and upset. Associated signs and symptoms: Pertinent positives; substance abuse. Severity of symptoms: At their worst the symptoms were mild in the emergency department the symptoms have improved moderately. The patient has not experienced similar symptoms in the past. Historical: - Allergies: 12:56 NKA; mb9 - Home Meds: 12:56 None [Active]; mb9 - PMHx: 12:56 Alcoholism; drug abuse; GERD (drug abuse); Anxiety; Depressive disorder; mb9 - PSHx: 12:56 None; mb9 - Immunization history:: Adult Immunizations up to date. - Social history:: Smoking status: Patient denies any tobacco usage or history of. ROS: 14:13 Constitutional: Negative for fever, chills, and weight loss, Eyes: Negative for injury, rivka pain, redness, and discharge, ENT: Negative for injury, pain, and discharge, Neck: Negative for injury, pain, and swelling, Cardiovascular: Negative for chest pain, palpitations, and edema, Respiratory: Negative for shortness of breath, cough, wheezing, and pleuritic chest pain, Abdomen/GI: Negative for abdominal pain, nausea, vomiting, diarrhea, and constipation, Back: Negative for injury and pain, : Negative for injury, bleeding, discharge, and swelling, MS/Extremity: Negative for injury and deformity, Skin: Negative for injury, rash, and discoloration, Neuro: Negative for headache, weakness, numbness, tingling, and seizure, Allergy/Immunology: Negative for hives, rash, and allergies, Endocrine: Negative for neck swelling, polydipsia, polyuria, polyphagia, and marked weight changes, Hematologic/Lymphatic: Negative for swollen nodes, abnormal bleeding, and unusual bruising, 14:13 Psych: Positive for anxiety, depression, suicidal ideation, Exam: 14:13 Constitutional: This is a well developed, well nourished patient who is awake, alert, rivka and in no acute distress. Head/Face: Normocephalic, atraumatic. Eyes: Pupils equal round and reactive to light, extra-ocular motions intact. Lids and lashes normal. Conjunctiva and sclera are non-icteric and not injected. Cornea within normal limits. Periorbital areas with no swelling, redness, or edema. ENT: Nares patent. No nasal discharge, no septal abnormalities noted. Tympanic membranes are normal and external auditory canals are clear. Oropharynx with no redness, swelling, or masses, exudates, or evidence of obstruction, uvula midline. Mucous membranes moist. Neck: Trachea midline, no thyromegaly or masses palpated, and no cervical lymphadenopathy. Supple, full range of motion without nuchal rigidity, or vertebral point tenderness. No Meningismus. Chest/axilla: Normal chest wall appearance and motion. Nontender with no deformity. No lesions are appreciated. Cardiovascular: Regular rate and rhythm with a normal S1 and S2. No gallops, murmurs, or rubs. Normal PMI, no JVD. No pulse deficits. Respiratory: Lungs have equal breath sounds bilaterally, clear to auscultation and percussion. No rales, rhonchi or wheezes noted. No increased work of breathing, no retractions or nasal flaring. Abdomen/GI: Soft, non-tender, with normal bowel sounds. No distension or tympany. No guarding or rebound. No evidence of tenderness throughout. Back: No spinal tenderness. No costovertebral tenderness. Full range of motion. Male : Normal genitalia with no discharge or lesions. Skin: Warm, dry with normal turgor. Normal color with no rashes, no lesions, and no evidence of cellulitis. MS/ Extremity: Pulses equal, no cyanosis. Neurovascular intact. Full, normal range of motion. Neuro: Awake and alert, GCS 15, oriented to person, place, time, and situation. Cranial nerves II-XII grossly intact. Motor strength 5/5 in all extremities. Sensory grossly intact. Cerebellar exam normal. Normal gait. Psych: Awake, alert, with orientation to person, place and time. Behavior, mood, and affect are within normal limits. 14:13 ECG was reviewed by the Attending Physician. Vital Signs: 12:57 BP 138 / 92; Pulse 86; Resp 18; Temp 98; Pulse Ox 100% ; Weight 75.75 kg; Height 5 ft. mb9 8 in. ; Pain 0/10; 14:34 BP 135 / 84; Pulse 79; Resp 18; Pulse Ox 100% on R/A; mb9 12:57 Body Mass Index 25.39 (75.75 kg, 172.72 cm) mb9 12:57 Pain Scale: Adult mb9 MDM: 12:50 Patient medically screened. [facility] 14:14 Differential diagnosis: drug withdrawal. acute psychotic break, depression, psychosis rivka secondary to non-compliance. Differential Diagnosis altered mental status. Data reviewed: vital signs, nurses notes, lab test result(s), EKG. Consideration of Admission/Observation Escalation of care including admission/observation considered. I considered the following discharge prescriptions or medication management in the emergency department Medications were administered in the Emergency Department. See MAR. Test considered but Not performed: CT: no ct head. Care significantly affected by the following chronic conditions: alcoholoc, gerd , uds, depression. 14:18 ED course: not suicidal, wants to go home with family. [facility] 05/02 12:51 Order name: Acetaminophen; Complete Time: 14: [facility] 05/02 12:51 Order name: Basic Metabolic Panel; Complete Time: 14:02 [facility] 05/02 12:51 Order name: CBC with Diff; Complete Time: 14:02 [facility] 05/02 12:51 Order name: ETOH Level; Complete Time: 14:02 [facility] 05/02 12:51 Order name: Hepatic Function; Complete Time: 14:02 [facility] 05/02 12:51 Order name: PT-INR; Complete Time: 14:02 [facility] 05/02 12:51 Order name: Ptt, Activated; Complete Time: 14:02 [facility] 05/02 12:51 Order name: Salicylate; Complete Time: 14:10 [facility] 05/02 12:51 Order name: Urinalysis w/ reflexes; Complete Time: 14:02 [facility] 05/02 12:51 Order name: Urine Drug Screen; Complete Time: 14:02 [facility] 05/02 12:51 Order name: Lipase; Complete Time: 14:02 [facility] 05/02 13:45 Order name: Urine Culture [facility] 05/02 12:51 Order name: EKG; Complete Time: 12:52 [facility] 05/02 12:51 Order name: EKG - Nurse/Tech; Complete Time: 13:22 [facility] 05/02 12:51 Order name: IV Saline Lock; Complete Time: 13:22 [facility] 05/02 12:51 Order name: Labs collected and sent; Complete Time: 13:22 [facility] 05/02 12:51 Order name: Suicide Precautions; Complete Time: 12:59 [facility] 05/02 12:51 Order name: Suicide Screening ([place]); Complete Time: 12:59 [facility] EC:13 Rate is 63 beats/min. Rhythm is regular. QRS [place] is Normal. [place] interval is normal. QRS rivka interval is normal. QT interval is normal. No Q waves. T waves are Normal. No ST changes noted. Clinical impression: NSR w/ Non-specific ST/T Changes and No evidence of ischemia. Interpreted by me. Reviewed by me. Administered Medications: 13:21 Drug: Thiamine IV 100 mg IV at per protocol once Route: IV; Rate: per protocol; Site: mb9 left forearm; 13:21 Drug: NS 0.9% IV 1000 ml IV at 1 bolus Per protocol; 1000 mL bolus Route: IV; Rate: 1 mb9 bolus; Site: left forearm; Disposition Summary: 05/02/23 14:19 Discharge Ordered Notes: Location: Home rivka Problem: new rivka Symptoms: have improved rivka Condition: Stable rivka Diagnosis - Adjustment disorder with depressed mood rivka - Adjustment disorder with mixed anxiety and depressed mood rivka - Alcohol abuse with intoxication rivka - Suicidal ideations - resolved(05/02/23 14:19) rivka Followup: rivka - With: Private Physician - When: 2 - 3 days - Reason: Recheck today's complaints, Continuance of care, Re-evaluation by your physician Followup: rivka - With: Tyree Antonio MD - When: 2 - 3 days - Reason: Recheck today's complaints, Re-evaluation by your physician Discharge Instructions: - Discharge Summary Sheet rivka - Alcohol Intoxication rivka - Suicidal Feelings: How to Help Yourself rivka - Helping Someone Who is Suicidal rivka - Alcohol Intoxication, [id number] rivka Forms: - Medication Reconciliation Form rivka - Thank You Letter rivka - Antibiotic Education rivka - Prescription Opioid Use rivka - Patient Portal Instructions rivka - Leadership Thank You Letter rivka Signatures: Dispatcher [employer] Nahid Rivera MD MD cha Breneman, Mary Beth RN RN mb9 Corrections: (The following items were deleted from the chart) 12:57 12:56 PMHx: Alcoholism; mb9 mb9 14:19 14:19 Suicidal ideations rivka tineo
--- NOTE | 2023-05-02 14:19 | ER ---
Nurse's Notes [facility] Name: James Dupree Age: 47 yrs Sex: Male : 1975 Arrival Date: 05/02/2023 Time: 12:40 Bed 6 Private MD: Diagnosis: Adjustment disorder with depressed mood;Adjustment disorder with mixed anxiety and depressed mood;Alcohol abuse with intoxication;Suicidal ideations-resolved Presentation: 05/02 12:57 Chief complaint: [place] [employer] states, "we responded to a call and the mb9 pt states he wanted to blow his brain outs. He is recently going through Depression and a break up.". Coronavirus screen: Vaccine status: Patient reports receiving the 2nd dose of the covid vaccine. Ebola Screen: No symptoms or risks identified at this time. Initial Sepsis Screen: Does the patient meet any 2 criteria? No. Patient's initial sepsis screen is negative. Does the patient have a suspected source of infection? No. Patient's initial sepsis screen is negative. Risk Assessment: Do you want to hurt yourself or someone else? Other: pt states he has no desire to harm himself or others. Onset of symptoms was May 02, 2023. 12:57 Method Of Arrival: [employer]: [facility] 12:57 Acuity: DORETHA 2 mb9 Triage Assessment: 12:59 General: Appears uncomfortable, Behavior is anxious, crying. Pain: Denies pain. EENT: mb9 No signs and/or symptoms were reported regarding the EENT system. Neuro: [place] Agitation-Sedation Scale (RASS): 0 - Alert and Calm Level of Consciousness is awake, alert, obeys commands, Oriented to person, place, time, situation, Appropriate for age. Cardiovascular: Patient's skin is warm and dry. Respiratory: Airway is patent Respiratory effort is even, unlabored, Respiratory pattern is regular, symmetrical, Breath sounds are clear bilaterally. GI: No signs and/or symptoms were reported involving the gastrointestinal system. : No signs and/or symptoms were reported regarding the genitourinary system. Derm: Skin is pink, warm \\T\\ dry. Musculoskeletal: Range of motion: intact in all extremities. Historical: - Allergies: 12:56 NKA; mb9 - Home Meds: 12:56 None [Active]; mb9 - PMHx: 12:56 Alcoholism; drug abuse; GERD (drug abuse); Anxiety; Depressive disorder; mb9 - PSHx: 12:56 None; mb9 - Immunization history:: Adult Immunizations up to date. - Social history:: Smoking status: Patient denies any tobacco usage or history of. Screenin:30 [facility] ED Fall Risk Assessment (Adult) History of falling in the last 3 months, mb9 including since admission No falls in past 3 months (0 pts) Confusion or Disorientation No (0 pts) Intoxicated or Sedated No (0 pts) Impaired Gait No (0 pts) Mobility Assist Device Used No (0 pt) Altered Elimination No (0 pt) Score/Fall Risk Level 0 - 2 = Low Risk Oriented to surroundings, Maintained a safe environment, Educated pt \\T\\ family on fall prevention, incl call for assistance when getting out of bed. Abuse screen: Denies threats or abuse. Nutritional screening: No deficits noted. Tuberculosis screening: No symptoms or risk factors identified. Assessment: 12:46 Reassessment: SI precautions in place. Sitter at bedside. mb9 12:59 Reassessment: Johnny NOLEN at bedside. mb9 13:46 Reassessment: Patient and/or family updated on plan of care and expected duration. Pain mb9 level reassessed. Patient is alert, oriented x 3, equal unlabored respirations, skin warm/dry/pink. SI precautions in place. Sitter at bedside. 13:49 Reassessment: Dr. Stark at bedside speaking with pt. mb9 14:15 Reassessment: Pt denies SI/wanting to harm other people. See Discharge safety plan mb9 packet. Vital Signs: 12:57 BP 138 / 92; Pulse 86; Resp 18; Temp 98; Pulse Ox 100% ; Weight 75.75 kg; Height 5 ft. mb9 8 in. ; Pain 0/10; 14:34 BP 135 / 84; Pulse 79; Resp 18; Pulse Ox 100% on R/A; mb9 12:57 Body Mass Index 25.39 (75.75 kg, 172.72 cm) mb9 12:57 Pain Scale: Adult mb9 ED Course: 12:46 Patient arrived in ED. hb 12:46 Josselyn Hodgson RN is Primary Nurse. mb9 12:50 Nahid Stark MD is Attending Physician. rivka 12:56 Arm band placed on. mb9 12:59 Triage completed. mb9 13:00 Inserted saline lock: 22 gauge in left forearm, using aseptic technique. mb9 13:22 Lipase Sent. mb9 13:22 Acetaminophen Sent. mb9 13:22 Basic Metabolic Panel Sent. mb9 13:22 CBC with Diff Sent. mb9 13:22 ETOH Level Sent. mb9 13:22 Hepatic Function Sent. mb9 13:22 PT-INR Sent. mb9 13:22 Ptt, Activated Sent. mb9 13:22 Salicylate Sent. mb9 13:22 Urinalysis w/ reflexes Sent. mb9 13:22 Urine Drug Screen Sent. mb9 13:30 Patient has correct armband on for positive identification. mb9 13:31 No provider procedures requiring assistance completed. mb9 13:48 pt cousin Adrianna...[phone]. bd 14:19 Tyree Antonio MD is Referral Physician. rivka 14:35 IV discontinued, intact, bleeding controlled, No redness/swelling at site. Pressure mb9 dressing applied. Administered Medications: 13:21 Drug: Thiamine IV 100 mg IV at per protocol once Route: IV; Rate: per protocol; Site: mb9 left forearm; 13:21 Drug: NS 0.9% IV 1000 ml IV at 1 bolus Per protocol; 1000 mL bolus Route: IV; Rate: 1 mb9 bolus; Site: left forearm; Medication: 13:30 VIS not applicable for this client. mb9 Outcome: 14:19 Discharge ordered by . [facility] 14:41 Discharged to home with family, mb9 14:41 Condition: stable 14:41 Discharge instructions given to patient, family, Instructed on discharge instructions, follow up and referral plans. Demonstrated understanding of instructions, follow-up care, 14:41 Patient left the ED. mb9 Signatures: Larissa Shirley Corey, MD MD cha Baxter, Heather, RN RN hb Breneman, Mary Beth, RN RN mb9 Corrections: (The following items were deleted from the chart) 12:57 12:56 PMHx: Alcoholism; mb9 mb9
[2023-05-02] MEDS ORDERED: FENTANYL CITR 100 MCG/2 ML ONE (14:34)
[2023-05-02 15:18] VITALS: TEMP 98; O2SAT 100
[2023-05-02 15:20] VITALS: BP 135/84
--- NOTE | 2023-05-03 16:51 | EKG ---
Test Date: 2023-05-02 Test Time: 13:44:15 Chief Nurse Anesthetist: MB MEASUREMENT RESULTS: Intervals: Rate: 63 MS: 164 QRSD: 90 QT: 418 QTc: 427 [place]: P: 49 MS: 164 QRS: 98 T: 71 INTERPRETIVE STATEMENTS: Normal sinus rhythm Rightward axis Borderline ECG Compared to ECG 04/23/2023 11:35:04 Right-axis deviation now present Electronically Signed On 05-03-23 16:49:41 DIRECTOR OF MATH by Hubert Prajapati
== END 2023-05-02 14:41 | disposition home or self-care (01) ==
LOC: ER 12:40
DX: F43.23 Adjustment disorder with mixed anxiety and depressed mood (principal); F10.129 Alcohol abuse with intoxication, unspecified
CPT/HCPCS: 36415; 80048; 80076; 80143; 80179; 80307; 81001; 82077; 83690; 85025; 85610; 85730; 87086; 87088; 93005; 96374; 99284; J3010; J3411; J7030

== ENCOUNTER → 2023-06-28 | Emergency (ER) | payer SELFPAY ==
[~2023-06-28] MED LIST: DIAZEPAM 10 MG/2 ML INJ SYRINGE ONE; FAMOTIDINE 20 MG/2 ML VIAL IV ONE; NA CHLORIDE 0.9% 1,000 ML ONE; ONDANSETRON 4 MG/2 ML VIAL ONE; PROMETHAZINE INJ 25 MG/ML AMP ONE
--- OUTSIDE RECORDS SUMMARY | 2023-06-28 07:20 | XMS REPORT | Continuity of Care Document ---
Author Name Unknown Address [address] [facility] [address] [place] [address] [facility] Address [address] [facility] [address] [place] [address] Care Team Providers Care Invoice Clerk Name Role Phone MUNA AHMADI Primary Care Physician Unavailab Zi Sharif Attending Clinician Unavailable ADILIA TOSCANO Attending Clinician Unavailable Adilia Toscano MD Attending Clinician [phone] Carlos Cramer Attending Clinician [phone] CARLOS HOLM Attending Clinician Unavailable Janice Jurado RN Attending Clinician Unavailable Rosalind Ball MD Attending Clinician [phone] ROSALIND BALL Attending Clinician Unavailable Payers Payer Name Policy Type Policy Number Effective Date Expirati on Date Source [facility] from [facility] [id number] 2021 00:00:00 [facility] [id number] 2021 00:00:00 [facility] [id number] 2021 00:00:00 [facility] Paulette from [facility] [id number] 2021 00:00:00 [facility] Problems Condition Name Condition Details Condition Category Status Onset Date Resolution Date Last Treatment Date Treating Clinician Comments Source [id number] Alcohol withdrawal syndrome with complicati on Problem Active [facility] [id number] Alcohol dependence with unspecifie d alcohol-in duced disorder Problem Active [facility] No known active problems No known active problems Disease [facility] [id number] Panic disorder [episodic paroxysmal anxiety] Problem Active [facility] [id number] Generalize d anxiety disorder Problem Active [facility] [id number] Gastroesop hageal reflux disease with esophagiti s, unspecifie d whether hemorrhage Problem Active [facility] Allergies, Adverse Reactions, Alerts Allergy Name Allergy Type Status Severity Reaction(s) Onset Date Inactive Date Treating Clinician Comments Source NO KNOWN ALLERGIE S Drug Class Active [facility] Social History Social Habit Start Date Stop Date Quantity Comments Source History of Tobacco Use [facility] Sex Assigned At [facility] Sexual orientation [facility] Exposure to SARS-CoV-2 (event) 2021-12-09 00:00:00 2021-12-19 11:33:00 Yes [facility] Smoking Status Start Date Stop Date Source Tobacco smoking consumption unknown [facility] Never Smoker [facility] Medications Ordered Medication Name Filled Medication Name Start Date Stop Date Current Medication? Ordering Clinician Indication Dosage Frequency Signature (SIG) Comments Components Source thiamine (VITAMIN B1) tablet 100 mg 2022-06 15:00: 00 Yes 100mg 100 mg, Oral, DAILY, First dose on Mon04/21/23 at 0900, Until Discontinu ed, KATHY [facility] NaCl 0.9% (NS) bolus infusion 1,000 mL 2022-06 19:00: 00 04-20 20:19 :00 No 1000mL at 999 mL/hr, 1,000 mL, IV Infusion, ONCE, 1 dose, On Oma 04/20/23 at 1300, STAT [facility] NaCl 0.9% (NS) bolus infusion 1,000 mL 2022-06 18:30: 00 04-20 20:19 :00 No 1000mL at 999 mL/hr, 1,000 mL, IV Infusion, ONCE, 1 dose, On Oma 04/20/23 at 1230, STAT [facility] LORazepam (ATIVAN) injection 0.5 mg 2022-06 15:30: 00 04-20 15:24 :00 No .5mg 0.5 mg, Slow IV Push, ONCE, 1 dose, On Oma 04/20/23 at 0930, STAT [facility] oxazepam 15 mg capsule 2022-06 00:00: 00 Yes [id number] 15mg Take 1 capsule by mouth every 6 (six) hours. [facility] ondansetron (ZOFRAN-ODT ) disintegrat ing tablet 4 mg 12-19 17:45: 00 12-19 16:43 :00 No 4mg 4 mg, Oral, ONCE, 1 dose, On Mon12/19/21 at 1245, Routine [facility] ondansetron 4 mg disintegrat ing tablet 12-19 00:00: 00 Yes [id number] 4mg Take 1 tablet by mouth every 8 (eight) hours as needed for Nausea and Vomiting (N/V). [facility] ondansetron 4 mg disintegrat ing tablet 12-19 00:00: 00 Yes [id number] 4mg Take 1 tablet by mouth every 8 (eight) hours as needed for Nausea and Vomiting (N/V). [facility] ondansetron 4 mg disintegrat ing tablet 12-19 00:00: 00 Yes [id number] 4mg Take 1 tablet by mouth every 8 (eight) hours as needed for Nausea and Vomiting (N/V). [facility] Pantoprazol e Sodium 40 MG Pantoprazol e Sodium 40 MG 2020-06 00:00: 00 No 1{table t} QD Pantoprazo le Sodium 40 MG chlordiazeP OXIDE HCl 25 MG chlordiazeP OXIDE HCl 25 MG 2020-06 00:00: 00 No chlordiaze POXIDE HCl 25 MG Pantoprazol e Sodium 40 MG Pantoprazol e Sodium 40 MG 2020-06 00:00: 00 No 1{table t} QD Pantoprazo le Sodium 40 MG chlordiazeP OXIDE HCl 25 MG chlordiazeP OXIDE HCl 25 MG 2020-06 00:00: 00 No chlordiaze POXIDE HCl 25 MG Pantoprazol e Sodium 40 MG Pantoprazol e Sodium 40 MG 2020-06 00:00: 00 No 1{table t} QD Pantoprazo le Sodium 40 MG chlordiazeP OXIDE HCl 25 MG chlordiazeP OXIDE HCl 25 MG 2020-06 00:00: 00 No chlordiaze POXIDE HCl 25 MG Pantoprazol e Sodium 40 MG Pantoprazol e Sodium 40 MG 2020-06 00:00: 00 No 1{table t} QD Pantoprazo le Sodium 40 MG chlordiazeP OXIDE HCl 25 MG chlordiazeP OXIDE HCl 25 MG 2020-06 00:00: 00 No chlordiaze POXIDE HCl 25 MG chlordiazeP OXIDE HCl 25 MG chlordiazeP OXIDE HCl 25 MG 2020-06 00:00: 00 No chlordiaze POXIDE HCl 25 MG Zofran Zofran No Zofran Librium Librium No Librium ALPRAZolam 0.25 MG ALPRAZolam 0.25 MG No 1{table t} ALPRAZolam 0.25 MG Protonix Protonix No Protonix Ondansetron HCl 4 MG Ondansetron HCl 4 MG No 1{table t_as_ne eded} QD Ondansetro n HCl 4 MG Zofran Zofran No Zofran Librium Librium No Librium ALPRAZolam 0.25 MG ALPRAZolam 0.25 MG No 1{table t} ALPRAZolam 0.25 MG Protonix Protonix No Protonix Ondansetron HCl 4 MG Ondansetron HCl 4 MG No 1{table t_as_ne eded} QD Ondansetro n HCl 4 MG Zofran Zofran No Zofran Librium Librium No Librium ALPRAZolam 0.25 MG ALPRAZolam 0.25 MG No 1{table t} ALPRAZolam 0.25 MG Protonix Protonix No Protonix Ondansetron HCl 4 MG Ondansetron HCl 4 MG No 1{table t_as_ne eded} QD Ondansetro n HCl 4 MG Zofran Zofran No Zofran Librium Librium No Librium ALPRAZolam 0.25 MG ALPRAZolam 0.25 MG No 1{table t} ALPRAZolam 0.25 MG Protonix Protonix No Protonix Ondansetron HCl 4 MG Ondansetron HCl 4 MG No 1{table t_as_ne eded} QD Ondansetro n HCl 4 MG Zofran Zofran No Zofran Librium Librium No Librium ALPRAZolam 0.25 MG ALPRAZolam 0.25 MG No 1{table t} ALPRAZolam 0.25 MG Pantoprazol e Sodium 40 MG Pantoprazol e Sodium 40 MG No Pantoprazo le Sodium 40 MG Protonix Protonix No Protonix Ondansetron HCl 4 MG Ondansetron HCl 4 MG No 1{table t_as_ne eded} QD Ondansetro n HCl 4 MG Vital Signs Vital Name Observation Time Observation Value Comments S ource Systolic blood pressure 2023-04-20 20:00:00 135 mm[Hg] General acute hospital Diastolic blood pressure 2023-04-20 20:00:00 96 mm[Hg] General acute hospital Heart rate 2023-04-20 20:00:00 69 /min [facility] Respiratory rate 2023-04-20 20:00:00 21 /min [facility] Oxygen saturation in Arterial blood by Pulse oximetry 2023-04-20 20:00:00 98 /min General acute hospital Body temperature 2023-04-20 15:21:51 36.78 Yamile [facility] Body height 2023-04-20 15:18:00 172.7 cm [facility] Body weight 2023-04-20 15:18:00 70.308 kg [facility] BMI 2023-04-20 15:18:00 23.57 kg/m2 [facility] Systolic blood pressure 2021-12-19 16:46:11 134 mm[Hg] General acute hospital Diastolic blood pressure 2021-12-19 16:46:11 98 mm[Hg] General acute hospital Heart rate 2021-12-19 16:32:00 107 /min [facility] Body temperature 2021-12-19 16:32:00 37.11 Yamile [facility] Respiratory rate 2021-12-19 16:32:00 20 /min [facility] Body height 2021-12-19 16:32:00 175.3 cm [facility] Body weight 2021-12-19 16:32:00 72.576 kg [facility] BMI 2021-12-19 16:32:00 23.63 kg/m2 [facility] Oxygen saturation in Arterial blood by Pulse oximetry 2021-12-19 16:32:00 99 /min General acute hospital height 2021-04-29 14:00:00 69 [in_i] Commo n [facility] weight 2021-04-29 14:00:00 175.1 [lb_av] Co mmon [facility] temperature 2021-04-29 14:00:00 98.2 [degF] Com mon [facility] bmi 2021-04-29 14:00:00 25.85 kg/m2 Comm on [facility] oximetry 2021-04-29 14:00:00 97 % Commo n [facility] respiratory rate 2021-04-29 14:00:00 18 /min Common [facility] blood pressure systolic 2021-04-29 14:00:00 135 mm[Hg] Common [facility] blood pressure diastolic 2021-04-29 14:00:00 70 mm[Hg] [facility] Procedures Procedure Date / Time Performed Performing Clinician Source LACTIC ACID WHOLE BLOOD 2023-04-20 19:28:00 Do marlon Toscano [facility] URINALYSIS 2023-04-20 16:01:00 Adilia Toscano [facility] URINE DRUG (IMMUNOASSAY) - COMPREHENSIVE DRUG SCREEN W/O REFLEX 2023-04-20 16:01:00 Adilia Toscano [facility] LIPASE 2023-04-20 15:23:00 [facility] COMP. METABOLIC PANEL ([id number]) 2023-04-20 15:23:00 Adilia Toscano [facility] ETHANOL 2023-04-20 15:23:00 [facility] CBC WITH DIFF 2023-04-20 15:23:00 Adilia Toscano [facility] AC PANEL 21 + LACTIC ACID 2023-04-20 15:22:00 Adilia Toscano [facility] Encounters Start Date/Time End Date/Time Encounter Type Admission Type Attending [facility] Emergency Department Facility Care Department Encounter ID Source 2021-07-07 14:15:22 [facility] [id number] [facility] 2023-04-20 09:12:00 2023-04-20 14:26:00 Emergency X ADILIA TOSCANO [facility] ERT [id number] [facility] 2023-04-20 09:12:00 2023-04-20 14:26:00 Emergency TomaszSteveAdilia [facility] [id number] [facility] 2022-04-01 15:13:12 2022-04-01 15:13:12 Outpatient SFA SFA [id number] Thiago Mai Vini 2021-12-19 11:37:00 2021-12-19 12:29:00 Emergency Carlos Holm [facility] [id number] [id number] [facility] 2021-12-19 11:37:00 2021-12-19 12:29:00 Emergency X HOLM, CARLOS [facility] ERT [id number] [facility] 2021-12-19 00:00:00 2021-12-19 00:00:00 Letter (Out) Dottie Juradoh [facility] [id number] [id number] [facility] 2021-07-09 00:00:00 2021-07-09 00:00:00 (TEL) STLMLC STLMLC [id number] [facility] 2021-05-10 00:00:00 2021-05-10 00:00:00 (TEL) STLMLC STLMLC [id number] [facility] 2021-05-05 00:00:00 2021-05-05 00:00:00 (TEL) STLMLC STLMLC [id number] [facility] 2021-04-29 00:00:00 2021-04-29 00:00:00 (TEL) STLMLC STLMLC [id number] [facility] 2021-04-29 00:00:00 2021-04-29 00:00:00 OFFICE VISIT NEW PT LEVEL 4 STLMLC STLMLC [id number] [facility] 2020-07-09 23:44:00 2020-07-10 06:08:00 Emergency Rosalind Ball [facility] [id number] 2020-07-09 23:44:00 2020-07-09 23:44:00 Emergency X ROSALIND BALL [facility] ERT [id number] [facility] Results Test Description Test Time Test Comments Results Result Co mments Source [facility] 15:57:02* Test Item Value Reference Range Interpretation Comme nts ALCOHOL (test code = 0466572704) 56 mg/dL MATILDE (test code = MATILDE) <10 [id number] Toxic>100 Depression of 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. METABOLIC PANEL (10880)2023-04-20 15:56:22* Test Item Value Reference Range Interpretation Comme nts NA (test code = 7958972386) 139 mmol/L 135-145 K (test code = 0794372351) 4.0 mmol/L 3.5-5.0 CL (test code = 5325650401) 103 mmol/L 98-108 CO2 TOTAL (test code = 6343445928) 23 mmol/L 23-31 AGAP (test code = 6678645044) 13 2-16 BUN (test code = 2036877069) 4 mg/dL 7-23 L GLUCOSE (test code = 7530670540) 84 mg/dL 70-110 CREATININE (test code = 1677994009) 0.71 mg/dL 0.60-1.25 TOTAL BILI (test code = 0612243451) 0.9 mg/dL 0.1-1.1 CALCIUM (test code = 1561158160) 9.2 mg/dL 8.6-10.6 T PROTEIN (test code = 5088333928) 8.3 g/dL 6.3-8.2 H ALBUMIN (test code = 7829616111) 4.3 g/dL 3.5-5.0 ALK PHOS (test code = 2274951324) 97 U/L 34-122 ALTv (test code = 1742-6) 28 U/L 5-50 AST(SGOT) (test code = 8239954260) 66 U/L 13-40 H eGFR (test code = 92502-4) 115.3 mL/min/1.73m2 CKD-EPI eGFR (2020). Assuming creatinine has been stable day-to-day for at least three months, the eGFR indicates Category G1 (>= 90 mL/min/1.73 m2) Lab Interpretation (test code = 35300-7) Abnormal [facility] 15:56:02* Test Item Value Reference Range Interpretation Comme nts LIPASE (test code = 1874032050) 287 U/L 0-220 H Lab Interpretation (test cod e = 91957-5) Abnormal [facility] [id number] 15:47:37* Test Item Value Reference Range Interpretation Comme nts WBC (test code = 6690-2) 5.83 See_Comment [Automated messa ge] The system which generated this result transmitted reference range: 4.20 - 10.70 10*3/?L. The reference range was not used to interpret this result as normal/abnormal. RBC (test code = 789-8) 4.03 See_Comment L [Automated messa ge] The system which generated this result transmitted reference range: 4.26 - 5.52 10*6/?L. The reference range was not used to interpret this result as normal/abnormal. HGB (test code = 718-7) 14.7 g/dL 12.2-16.4 HCT (test code = 4544-3) 41.8 % 38.4-49.3 MCV (test code = 787-2) 103.7 fL 81.7-95.6 H MCH (test code = 785-6) 36.5 pg 26.1-32.7 H MCHC (test code = 786-4) 35.2 g/dL 31.2-35.0 H RDW-SD (test code = 61011-4) 53.1 fL 38.5-51.6 H RDW-CV (test code = 788-0) 13.8 % 12.1-15.4 PLT (test code = 777-3) 211 See_Comment [Automated messa ge] The system which generated this result transmitted reference range: 150 - 328 10*3/?L. The reference range was not used to interpret this result as normal/abnormal. MPV (test code = 39041-7) 8.6 fL 9.8-13.0 L NRBC/100 WBC (test code = 2241971997) 0.0 See_Comment [Automated [employer] ssage] The system which generated this result transmitted reference range: 0.0 - 10.0 /100 WBCs. The reference range was not used to interpret this result as normal/abnormal. NRBC x10^3 (test code = 3046512547) See_Comment [Automated messa ge] The system which generated this result transmitted reference range: 10*3/?L. The reference range was not used to interpret this result as normal/abnormal. GRAN MAT (NEUT) % (test code = 770-8) 76.4 % IMM GRAN % (test code = 2335490042) 0.20 % LYMPH % (test code = 736-9) 16.8 % MONO % (test code = 5905-5) 5.8 % EOS % (test code = 713-8) 0.3 % BASO % (test code = 706-2) 0.5 % GRAN MAT x10^3(ANC) (test code = 5222809199) 4.45 10*3/uL 1.99-6.95 IMM GRAN x10^3 (test code = 9871497711) 0.00-0.06 LYMPH x10^3 (test code = 731-0) 0.98 10*3/uL 1.09-3.23 L MONO x10^3 (test code = 742-7) 0.34 10*3/uL 0.36-1.02 L EOS x10^3 (test code = 711-2) 0.06-0.53 L BASO x10^3 (test code = 704-7) 0.03 10*3/uL 0.01-0.09 Lab Interpretation (test code = 22246-7) Abnormal [facility] + LACTIC [id number] 15:47:22* Test Item Value Reference Range Interpretation Comme nts PH (test code = 3642435852) 7.52 7.32-7.42 H PCO2 POPEYE (test code = 3489355903) 30 See_Comment L [Automated messa ge] The system which generated this result transmitted reference range: 41 - 51 mmHg. The reference range was not used to interpret this result as normal/abnormal. PO2 POPEYE (test code = 1646932572) 36 See_Comment [Automated messa ge] The system which generated this result transmitted reference range: 25 - 40 mmHg. The reference range was not used to interpret this result as normal/abnormal. HCO3 POPEYE (test code = 7938175008) 24 See_Comment [Automated messa ge] The system which generated this result transmitted reference range: 24 - 28 mEq/L. The reference range was not used to interpret this result as normal/abnormal. AC VBE(BEAKER) (test code = 3921071555) 1.6 mEq/L THB POPEYE (test code = 4179883617) 15.1 g/dL 13.5-18.0 %O2HB POPEYE (test code = 7398984655) 76.7 % 52.0-63.0 H %COHB POPEYE (test code = 6659019036) 0.2 % 0.0-1.5 %METHB POPEYE (test code = 7579989825) 0.1 % 0.4-1.5 L VOL%O2 POPEYE (test code = 6225579270) 16.2 % 6.0-12.0 H NA (test code = 1684711971) 142 mmol/L 135-145 K+ (test code = 9795552607) 3.9 mmol/L 3.5-5.0 AC CA IONZ (test code = 1262068843) 4.40 mg/dL 4.50-5.30 L GLUCOSE (test code = 4746146601) 78 mg/dL 70-110 LACTIC ACID (test code = 6261902542) 3.91 mmol/L 0.50-2.20 H Lab Interpretation (test code = 29271-4) Abnormal [facility]
[2023-06-28 08:11] LABS: Absolute Lymphocytes (CBC) 1.1 K/uL (0.7-4.9); Hematocrit 42.9 % (39.6-49.0); Lymphocytes % 12.7 % (15.3-44.8); MCV 101.5 fL (80-100); MPV 6.6 fL (7.6-11.3); Platelets 224 thou/uL (152-406); RBC Red Blood Cell Count 4.22 M/uL (4.33-5.43)
[2023-06-28 08:29] LABS: Albumin 3.5 g/dL (3.4-5.0); Bilirubin Total 1.8 mg/dL (0.2-1.0); Potassium 3.8 mEq/L (3.5-5.1); Protein, Total 7.9 g/dL (6.4-8.2)
--- NOTE | 2023-06-28 10:23 | ER ---
Nurse's Notes [facility] Name: James Dupree Age: 47 yrs Sex: Male : 1975 Arrival Date: 06/28/2023 Time: 07:16 Bed 19 Private MD: Diagnosis: Alcohol dependence with withdrawal, uncomplicated;Nausea with vomiting, unspecified Presentation: 06/28 07:24 Chief complaint: Patient states: N/V since 3 AM. + ETOH use. Coronavirus screen: Client ll1 denies travel out of the [place] in the last 14 days. nausea, vomiting. Client presents with at least one sign or symptom that may indicate coronavirus-19. Standard/surgical mask placed on the client. Ebola Screen: Patient denies travel to an Ebola-affected area in the 21 days before illness onset. Initial Sepsis Screen: Does the patient meet any 2 criteria? HR > 90 bpm. No. Patient's initial sepsis screen is negative. Does the patient have a suspected source of infection? Yes: Acute abdominal pain. Risk Assessment: Do you want to hurt yourself or someone else? Patient reports no desire to harm self or others. Onset of symptoms was June 28, 2023. 07:24 Method Of Arrival: Ambulatory ll1 07:24 Acuity: DORETHA 3 ll1 Triage Assessment: 07:25 General: Appears uncomfortable, ill, Behavior is cooperative, appropriate for age, ll1 restless. General: Reports ETOH use. Pain: Complains of pain in lower back Pain currently is 7 out of 10 on a pain scale. Quality of pain is described as aching. Neuro: No deficits noted. Cardiovascular: No deficits noted. Respiratory: No deficits noted. GI: Reports cramping, nausea, vomiting. Historical: - Allergies: 07:19 NKA; jb4 - PMHx: 07:19 Alcoholism; Anxiety; depressive disorder; drug abuse; GERD (drug abuse); jb4 - Immunization history:: Adult Immunizations up to date. - Social history:: Smoking status: Patient reports the use of cigarette tobacco products, smokes one-half pack cigarettes per day. - Family history:: not pertinent. - Hospitalizations: : No recent hospitalization is reported. Screenin:48 [facility] ED Fall Risk Assessment (Adult) Score/Fall Risk Level 0 - 2 = Low Risk. Abuse iw screen: Denies threats or abuse. Denies injuries from another. Nutritional screening: No deficits noted. Tuberculosis screening: No symptoms or risk factors identified. Assessment: 08:43 Reassessment: Patient appears in no apparent distress at this time. iw 09:39 Reassessment: Patient appears in no apparent distress at this time. pt sleeping, iw awakens easily to verbal stimuli , pt has had no episodes of vomiting or dry heaving since being medicated. 10:48 GI: Abdomen is flat, non-distended. iw Vital Signs: 07:24 BP 158 / 101; Pulse 113; Resp 18; Temp 98.8; Pulse Ox 98% on R/A; Weight 70.31 kg; ll1 Height 5 ft. 8 in. ; Pain 7/10; 08:16 BP 142 / 98; Pulse 97; Resp 16; Pulse Ox 97% on R/A; iw 08:43 BP 131 / 101; Pulse 97; Resp 16; Pulse Ox 95% on R/A; iw 09:40 BP 142 / 96; Pulse 98; Resp 16; Pulse Ox 100% on R/A; iw 07:24 Body Mass Index 23.57 (70.31 kg, 172.72 cm) ll1 07:24 Pain Scale: Adult ll1 ED Course: 07:18 Patient arrived in ED. rg4 07:18 Dakota Holliday MD is Attending Physician. rn 07:19 Arm band placed on Patient placed in an exam room, on a stretcher. jb4 07:25 Triage completed. ll1 07:59 Garima Morrow, RN is Primary Nurse. iw 09:24 ETOH Level Sent. iw 10:48 Patient has correct armband on for positive identification. Provided Education on: . iw 10:48 No provider procedures requiring assistance completed. IV discontinued, intact, iw bleeding controlled, No redness/swelling at site. Pressure dressing applied. Administered Medications: 08:16 Drug: NS 0.9% IV 1000 ml IV at 1 bolus Per protocol; 1000 mL bolus Route: IV; Rate: 1 iw bolus; Site: right hand; 08:16 Drug: Famotidine IVP 20 mg IVP once; dilute with 10 mL 0.9% NaCl; give over 2 minutes iw Route: IVP; Site: right hand; 08:16 Drug: Ondansetron IVP 4 mg IVP once; over 2 minutes Route: IVP; Site: right hand; iw 08:16 Drug: Diazepam IVP 10 mg IVP once Route: IVP; Site: right hand; iw 10:28 Drug: Promethazine IVP 12.5 mg IVP once Route: IVP; Site: right hand; iw 10:48 Follow up: Response: No adverse reaction; Vomiting decreased iw Medication: 10:48 VIS not applicable for this client. iw Outcome: 10:23 Discharge ordered by . rn 10:48 Discharged to home ambulatory, with family, iw 10:48 Condition: good 10:48 Discharge instructions given to patient, family, Instructed on discharge instructions, follow up and referral plans. Demonstrated understanding of instructions, follow-up care, 10:48 Patient left the ED. iw Signatures: Garima Morrow RN RN iw Dakota Holliday MD MD rn Garcia, Rubi rg4 Arun Diggs RN RN jb4 Ashu Chen RN RN ll1
--- NOTE | 2023-06-28 10:23 | EDPHYS ---
Physician Documentation [facility] Name: James Dupree Age: 47 yrs Sex: Male : 1975 Arrival Date: 06/28/2023 Time: 07:16 Bed 19 Private MD: ED Physician Dakota Holliday HPI: 06/28 08:01 This 47 yrs old Male presents to ER via Ambulatory with complaints of Vomiting.rn 08:01 The patient presents to the emergency department with nausea, vomiting. rn 08:01 Onset: The symptoms/episode began/occurred this morning. Possible causes: unknown. rn Associated signs and symptoms: Pertinent positives: nausea, vomiting, Pertinent negatives: fever, GI bleeding. Severity of symptoms: At their worst the symptoms were moderate in the emergency department the symptoms are unchanged. The patient has experienced similar episodes in the past. Patient reports not feeling well since yesterday, started vomiting this morning. Patient reports completed sobriety in May but no drinking a lot again. Has not had normal amount to drink since yesterday afternoon. Patient reports vomiting x 1 episode this morning. Patient feels shaky and uneasy with palpitations.. Historical: - Allergies: 07:19 NKA; jb4 - PMHx: 07:19 Alcoholism; Anxiety; depressive disorder; drug abuse; GERD (drug abuse); jb4 - Immunization history:: Adult Immunizations up to date. - Social history:: Smoking status: Patient reports the use of cigarette tobacco products, smokes one-half pack cigarettes per day. - Family history:: not pertinent. - Hospitalizations: : No recent hospitalization is reported. ROS: 08:01 Constitutional: Negative for fever, chills, and weight loss, Cardiovascular: Negative rn for chest pain, palpitations, and edema, Respiratory: Negative for shortness of breath, cough, wheezing, and pleuritic chest pain, Abdomen/GI: Positive for nausea and vomiting. No abdominal pain. MS/Extremity: Negative for injury and deformity, Skin: Negative for injury, rash, and discoloration, Neuro: Negative for headache, weakness, numbness, tingling, and seizure, Exam: 08:01 Constitutional: This is a well developed, well nourished patient who is awake, alert, rn holding emesis bag with small amount of emesis. Head/Face: Normocephalic, atraumatic. ENT: Dry mucous membranes Cardiovascular: Tachycardic, regular. No pulse deficits. Respiratory: No increased work of breathing, no retractions or nasal flaring. Abdomen/GI: Soft, non-tender MS/ Extremity: Pulses equal, no cyanosis. Neuro: Awake and alert, GCS 15 Vital Signs: 07:24 BP 158 / 101; Pulse 113; Resp 18; Temp 98.8; Pulse Ox 98% on R/A; Weight 70.31 kg; ll1 Height 5 ft. 8 in. ; Pain 7/10; 08:16 BP 142 / 98; Pulse 97; Resp 16; Pulse Ox 97% on R/A; iw 08:43 BP 131 / 101; Pulse 97; Resp 16; Pulse Ox 95% on R/A; iw 09:40 BP 142 / 96; Pulse 98; Resp 16; Pulse Ox 100% on R/A; iw 07:24 Body Mass Index 23.57 (70.31 kg, 172.72 cm) ll1 07:24 Pain Scale: Adult ll1 MDM: 07:18 Patient medically screened. rn 10:21 Differential diagnosis: Nonspecific abd pain, gastritis, pancreatitis, viral rn gastroenteritis, gastroenteritis, Alcohol withdrawal. Data reviewed: vital signs, nurses notes, lab test result(s), and as a result, I will discharge patient. Counseling: I had a detailed discussion with the patient and/or guardian regarding the historical points, exam findings, and any diagnostic results supporting the discharge/admit diagnosis, lab results, the need for outpatient follow up, to return to the emergency department if symptoms worsen or persist or if there are any questions or concerns that arise at home. Response to treatment: the patient's symptoms have markedly improved after treatment, patient is well hydrated. and as a result, I will discharge patient. Special discussion: I discussed with the patient/guardian in detail that at this point there is no indication for admission to the hospital. It is understood, however, that if the symptoms persist or worsen the patient needs to return immediately for re-evaluation. ED course: Improvement of vital signs. No longer vomiting. No acute findings and workup. No evidence of pancreatitis. Afebrile. Patient with likely mild alcohol withdrawal but no indication for emergent admission and no delirium tremens. Patient states is going to check himself into another detox facility has helped him before. 06/28 07:29 Order name: CBC with Diff; Complete Time: 08:52 rn 06/28 07:29 Order name: CMP; Complete Time: 08:52 rn 06/28 07:29 Order name: Lipase; Complete Time: 08:52 rn 06/28 07:29 Order name: ETOH Level; Complete Time: 10:05 rn 06/28 07:29 Order name: IV Saline Lock; Complete Time: 08:16 rn 06/28 07:29 Order name: Labs collected and sent; Complete Time: 08:16 rn Administered Medications: 08:16 Drug: NS 0.9% IV 1000 ml IV at 1 bolus Per protocol; 1000 mL bolus Route: IV; Rate: 1 iw bolus; Site: right hand; 08:16 Drug: Famotidine IVP 20 mg IVP once; dilute with 10 mL 0.9% NaCl; give over 2 minutes iw Route: IVP; Site: right hand; 08:16 Drug: Ondansetron IVP 4 mg IVP once; over 2 minutes Route: IVP; Site: right hand; iw 08:16 Drug: Diazepam IVP 10 mg IVP once Route: IVP; Site: right hand; iw 10:28 Drug: Promethazine IVP 12.5 mg IVP once Route: IVP; Site: right hand; iw 10:48 Follow up: Response: No adverse reaction; Vomiting decreased iw Disposition Summary: 06/28/23 10:23 Discharge Ordered Notes: Location: Home rn Problem: new rn Symptoms: have improved rn Condition: Stable rn Diagnosis - Alcohol dependence with withdrawal, uncomplicated rn - Nausea with vomiting, unspecified rn Followup: rn - With: Private Physician - When: As needed - Reason: Recheck today's complaints, Re-evaluation by your physician Discharge Instructions: - Discharge Summary Sheet rn - Finding Treatment for Addiction rn - Alcohol Withdrawal Syndrome rn - Nausea and Vomiting, Adult rn Forms: - Medication Reconciliation Form rn - Thank You Letter rn - Antibiotic research program internship - Prescription Opioid Use rn - Patient Portal Instructions rn - Leadership Thank You Letter rn Signatures: Dispatcher [employer] Garima Lam, RN RN iw Dakota Holliday MD MD rn Bryson, James, RN RN jb4 Ashu Chen RN RN ll1
[2023-06-28 11:13] VITALS: TEMP 98.8
[2023-06-28 11:28] VITALS: BP 142/96; O2SAT 100
== END ==
LOC: ER 07:16
DX: F10.239 Alcohol dependence with withdrawal, unspecified (principal)
CPT/HCPCS: 36415; 80053; 82077; 83690; 85025; J2405; J2550; J3360; J7030

== ENCOUNTER → 2023-08-02 | Emergency (ER) | payer SELFPAY ==
[~2023-08-02] MED LIST changes: -DIAZEPAM 10 MG/2 ML INJ SYRINGE ONE; -FAMOTIDINE 20 MG/2 ML VIAL IV ONE; +MORPHINE 4 MG/ML SYR ONE; +NA CHLORIDE 0.9% 100 ML ONE; +NA CHLORIDE 0.9% 250 ML ONE; +PANTOPRAZOLE 40 MG INJ ONE; +PIPERACIL/TAZO 3.375 GM VIAL IV ONE
--- OUTSIDE RECORDS SUMMARY | 2023-08-02 17:20 | XMS REPORT | Continuity of Care Document ---
Author Name Unknown Address [address] [facility] [address] [place] [address] [facility] thconnect Address [address] [facility] [place] [address] Care Team Providers Care Manager Membership Name Role Phone MUNA AHMADI Primary Care Physician Unavailab Zi Sharif Attending Clinician Unavailable Adilia Tolbert MD Attending Clinician [phone] ADILIA TOLBERT Attending Clinician Unavailable RACHAEL BRINK Attending Clinician Unavailable Carlos Cramer Attending Clinician CARLOS MARDAIAGA Attending Clinician Unavailable Janice Jurado RN Attending Clinician Unavailable Rosalind Ball MD Attending Clinician [phone] ROSALIND BALL Attending Clinician Unavailable ADILIA TOLBERT Admitting Clinician Unavailable Payers Payer Name Policy Type Policy Number Effective Date Expirati on Date Source [facility] from [facility] [id number] 2021 00:00:00 [facility] [id number] 2021 00:00:00 [facility] [id number] 2021 00:00:00 [facility] [id number] 2021 00:00:00 [facility] Problems Condition Name Condition Details Condition Category Status Onset Date Resolution Date Last Treatment Date Treating Clinician Comments Source No known active problems No known active problems Disease [facility] [id number] Panic disorder [episodic paroxysmal anxiety] Problem Active [facility] [id number] Generalize d anxiety disorder Problem Active [facility] [id number] Gastroesop hageal reflux disease with esophagiti s, unspecifie d whether hemorrhage Problem Active [facility] [id number] Alcohol withdrawal syndrome with complicati on Problem Active [facility] [id number] Alcohol dependence with unspecifie d alcohol-in duced disorder Problem Active [facility] Allergies, Adverse Reactions, Alerts Allergy Name Allergy Type Status Severity Reaction(s) Onset Date Inactive Date Treating Clinician Comments Source NO KNOWN ALLERGIE S Drug Class [facility] Social History Social Habit Start Date Stop Date Quantity Comments Source Sexual orientation [facility] History of Tobacco Use [facility] Sex Assigned At [facility] Exposure to SARS-CoV-2 (event) 2021-12-09 00:00:00 2021-12-19 11:33:00 Yes [facility] Smoking Status Start Date Stop Date Source Tobacco smoking consumption unknown [facility] Never Smoker [facility] Medications Ordered Medication Name Filled Medication Name Start Date Stop Date Current Medication? Ordering Clinician Indication Dosage Frequency Signature (SIG) Comments Components Source iopamidol (ISOVUE 370-500 mL) injection 130 mL 07-19 17:25: 00 07-19 17:26 :00 No [id number] 130mL 130 mL, Intravenou s, ONCE, 1 dose, On Mon07/19/23 at 1145, [facility] ondansetron (ZOFRAN (PF)) injection 4 mg 07-19 16:45: 00 07-19 16:08 :00 No 4mg 4 mg, Slow IV Push, ONCE, 1 dose, On Mon07/19/23 at 1045, [facility] NaCl 0.9% (NS) bolus infusion 1,000 mL 07-19 16:45: 00 07-19 19:26 :00 No 1000mL at 999 mL/hr, 1,000 mL, IV Infusion, ONCE, 1 dose, On Mon07/19/23 at 1045, [facility] famotidine 20 mg tablet 07-19 00:00: 00 Yes [id number] 20mg Take 1 tablet by mouth in the morning and 1 tablet in the evening. [facility] ondansetron 4 mg disintegrat ing tablet 07-19 00:00: 00 Yes [id number] 4mg Take 1 tablet by mouth every 4 (four) hours as needed for Nausea and Vomiting (N/V). [facility] sucralfate 1 gram tablet 07-19 00:00: 00 Yes [id number] 1g Take 1 tablet by mouth before meals and at bedtime. [facility] ondansetron (ZOFRAN (PF)) injection 4 mg 07-05 05:00: 00 07-05 16:59 :00 Yes 4mg 4 mg, Slow IV Push, ONCE, 1 dose, On Mon07/04/23 at 2300, [facility] NaCl 0.9% (NS) bolus infusion 1,000 mL 07-05 05:00: 00 07-05 16:59 :00 Yes 1000mL at 999 mL/hr, 1,000 mL, IV Infusion, ONCE, 1 dose, On Mon07/04/23 at 2300, [facility] thiamine (VITAMIN B1) tablet 100 mg 2022-06 15:00: 00 Yes 100mg 100 mg, Oral, DAILY, First dose on Mon04/21/23 at 0900, Until Discontinu ed, [facility] NaCl 0.9% (NS) bolus infusion 1,000 mL 2022-06 19:00: 00 04-20 20:19 :00 No 1000mL at 999 mL/hr, 1,000 mL, IV Infusion, ONCE, 1 dose, On Oma 04/20/23 at 1300, [facility] NaCl 0.9% (NS) bolus infusion 1,000 mL 2022-06 18:30: 00 04-20 20:19 :00 No 1000mL at 999 mL/hr, 1,000 mL, IV Infusion, ONCE, 1 dose, On Oma 04/20/23 at 1230, [facility] LORazepam (ATIVAN) injection 0.5 mg 2022-06 15:30: 00 04-20 15:24 :00 No .5mg 0.5 mg, Slow IV Push, ONCE, 1 dose, On Oma 04/20/23 at 0930, [facility] oxazepam 15 mg capsule 2022-06 00:00: 00 Yes [id number] 15mg Take 1 capsule by mouth every 6 (six) hours. [facility] oxazepam 15 mg capsule 2022-06 00:00: 00 Yes [id number] 15mg Take 1 capsule by mouth every 6 (six) hours. [facility] oxazepam 15 mg capsule 2022-06 00:00: 00 Yes [id number] 15mg Take 1 capsule by mouth every 6 (six) hours. [facility] ondansetron (ZOFRAN-ODT ) disintegrat ing tablet 4 mg 12-19 17:45: 00 12-19 16:43 :00 No 4mg 4 mg, Oral, ONCE, 1 dose, On Mon12/19/21 at 1245, [facility] ondansetron 4 mg disintegrat ing tablet 12-19 00:00: 00 Yes [id number] 4mg Take 1 tablet by mouth every 8 (eight) hours as needed for Nausea and Vomiting (N/V). [facility] ondansetron 4 mg disintegrat ing tablet 12-19 00:00: 00 Yes [id number] 4mg Take 1 tablet by mouth every 8 (eight) hours as needed for Nausea and Vomiting (N/V). [facility] ondansetron 4 mg disintegrat ing tablet 12-19 00:00: 00 Yes [id number] 4mg Take 1 tablet by mouth every 8 (eight) hours as needed for Nausea and Vomiting (N/V). [facility] ondansetron 4 mg disintegrat ing tablet 12-19 00:00: 00 Yes [id number] 4mg Take 1 tablet by mouth every 8 (eight) hours as needed for Nausea and Vomiting (N/V). [facility] ondansetron 4 mg disintegrat ing tablet 12-19 00:00: 00 07-19 00:00 :00 No [id number] 4mg Take 1 tablet by mouth every 8 (eight) hours as needed for Nausea and Vomiting (N/V). [facility] Pantoprazol e Sodium 40 MG Pantoprazol [...] Vital Name Observation Time Observation Value Comments Ann plummer Systolic blood pressure 2023-07-19 19:00:00 119 mm[Hg] [facility] Diastolic blood pressure 2023-07-19 19:00:00 80 mm[Hg] [facility] Respiratory rate 2023-07-19 19:00:00 13 /min [facility] Oxygen saturation in Arterial blood by Pulse oximetry 2023-07-19 19:00:00 100 /min [facility] Heart rate 2023-07-19 15:23:00 90 /min [facility] Body temperature 2023-07-19 15:23:00 36.5 Yamile [facility] Body height 2023-07-19 15:23:00 172.7 cm [facility] Body weight 2023-07-19 15:23:00 70.308 kg [facility] BMI 2023-07-19 15:23:00 23.57 kg/m2 [facility] Systolic blood pressure 2023-07-05 03:57:41 132 mm[Hg] [facility] Diastolic blood pressure 2023-07-05 03:57:41 97 mm[Hg] [facility] Heart rate 2023-07-05 03:57:41 74 /min [facility] Body temperature 2023-07-05 03:57:41 37.28 Yamile [facility] Respiratory rate 2023-07-05 03:57:41 20 /min [facility] Body height 2023-07-05 03:56:00 165.1 cm [facility] Body weight 2023-07-05 03:56:00 72.576 kg [facility] BMI 2023-07-05 03:56:00 26.63 kg/m2 [facility] Oxygen saturation in Arterial blood by Pulse oximetry 2023-07-05 03:56:00 100 /min [facility] Systolic blood pressure 2023-04-20 20:00:00 135 mm[Hg] [facility] Diastolic blood pressure 2023-04-20 20:00:00 96 mm[Hg] [facility] Heart rate 2023-04-20 20:00:00 69 /[facility] 2023-04-20 20:00:00 21 /min [facility] Oxygen saturation in Arterial blood by Pulse oximetry 2023-04-20 20:00:00 98 /min [facility] Body temperature 2023-04-20 15:21:51 36.78 Yamile [facility] Body height 2023-04-20 15:18:00 172.7 cm [facility] Body weight 2023-04-20 15:18:00 70.308 kg [facility] BMI 2023-04-20 15:18:00 23.57 kg/m2 [facility] Systolic blood pressure 2021-12-19 16:46:11 134 mm[Hg] [facility] Diastolic blood pressure 2021-12-19 16:46:11 98 mm[Hg] [facility] Heart rate 2021-12-19 16:32:00 107 /min [facility] Body temperature 2021-12-19 16:32:00 37.11 Yamile [facility] Respiratory rate 2021-12-19 16:32:00 20 /min [facility] Body height 2021-12-19 16:32:00 175.3 cm [facility] Body weight 2021-12-19 16:32:00 72.576 kg [facility] BMI 2021-12-19 16:32:00 23.63 kg/m2 [facility] Oxygen saturation in Arterial blood by Pulse oximetry 2021-12-19 16:32:00 99 /min [facility] height 2021-04-29 14:00:00 69 [in_i] Commo n [facility] weight 2021-04-29 14:00:00 175.1 [lb_av] Co mmon [facility] temperature 2021-04-29 14:00:00 98.2 [degF] Com mon [facility] bmi 2021-04-29 14:00:00 25.85 kg/m2 Comm on [facility] oximetry 2021-04-29 14:00:00 97 % Commo n [facility] respiratory rate 2021-04-29 14:00:00 18 /min Common [facility] blood pressure systolic 2021-04-29 14:00:00 135 mm[Hg] Common [facility] blood pressure diastolic 2021-04-29 14:00:00 70 mm[Hg] [facility] Procedures Procedure Date / Time Performed Performing Clinician Source CT ANGIOGRAM ABDOMEN/PELVIS 2023-07-19 17:39:35 Adilia Tolbert [facility] LIPASE 2023-07-19 17:36:00 [facility] COMP. METABOLIC PANEL ([id number]) 2023-07-19 17:36:00 Adilia Tolbert [facility] URINALYSIS 2023-07-19 16:54:00 [facility] URINE DRUG (IMMUNOASSAY) - COMPREHENSIVE DRUG SCREEN W/O REFLEX 2023-07-19 16:54:00 Adilia Tolbert [facility] CBC WITH DIFF 2023-07-19 16:08:00 Adilia Tolbert [facility] PROTHROMBIN TIME / INR 2023-07-19 16:08:00 Iza Tolbert [facility] ACTIVATED PARTIAL THRMPLAS MARIE 2023-07-19 16:08:00 Adilia Tolbert [facility] LACTIC ACID WHOLE BLOOD 2023-07-19 16:07:00 Do marlon Tolbert [facility] NOTICE OF PRIVACY PRACTICES 2023-07-05 03:43:55 Doctor Unassigned, [place] [facility] CONSENT/REFUSAL FOR DIAGNOSIS AND TREATMENT 2023-07-05 03:43:27 Doctor Unassigned, [place] [facility] LACTIC ACID WHOLE BLOOD 2023-04-20 19:28:00 Do marlon Tolbert [facility] URINALYSIS 2023-04-20 16:01:00 Adilia Tolbert [facility] URINE DRUG (IMMUNOASSAY) - COMPREHENSIVE DRUG SCREEN W/O REFLEX 2023-04-20 16:01:00 Adilia Tolbert [facility] LIPASE 2023-04-20 15:23:00 Adilia Tolbert [facility] COMP. METABOLIC PANEL ([id number]) 2023-04-20 15:23:00 Adilia Tolbert [facility] ETHANOL 2023-04-20 15:23:00 Adilia Tolbert [facility] CBC WITH DIFF 2023-04-20 15:23:00 Adilia Tolbert [facility] AC PANEL 21 + LACTIC ACID 2023-04-20 15:22:00 Adilia Tolbert [facility] Encounters Start Date/Time End Date/Time Encounter Type Admission Type Attending [facility] Care Department Encounter ID Source 2021-07-07 14:15:22 Outpatient Zi Phan [facility] [id number] [facility] 2023-07-19 09:26:00 2023-07-19 13:32:00 Emergency TomaszIzaAdilia [facility] 1..840.114 350.1.13.10 4.2.7.2.686 [id number] [facility] 2023-07-19 09:26:00 2023-07-19 13:32:00 Emergency X IZA TOLBERTNELL [facility] ERT [id number] [facility] 2023-07-04 21:58:00 2023-07-04 22:56:00 Emergency X RACHAEL BRINK [facility] ERT [id number] [facility] 2023-07-04 21:58:00 2023-07-04 22:56:00 Emergency Rachael Brink [facility] [id number] 350.1.13.10 4.2.7.2.686 [id number] [facility] 2023-04-20 09:12:00 2023-04-20 14:26:00 Emergency X ADILIA TOLBERT [facility] ERT [id number] [facility] 2023-04-20 09:12:00 2023-04-20 14:26:00 Emergency Adilia Tolbert [facility] 1.2.840.114 350.1.13.10 4.2.7.2.686 [id number] [facility] 2022-04-01 15:13:12 2022-04-01 15:13:12 Outpatient SFA [facility] [id number] Thiago Martini 2021-12-19 11:37:00 2021-12-19 12:29:00 Emergency Carlos Maradiaga [facility] 1.2.840.114 350.1.13.10 4.2.7.2.686 [id number] [facility] 2021-12-19 11:37:00 2021-12-19 12:29:00 Emergency X CARLOS MARADIAGA [facility] ERT [id number] [facility] 2021-12-19 00:00:00 2021-12-19 00:00:00 [facility] 1.2.840.114 350.1.13.10 4.2.7.2.686 [id number] [facility] 2021-07-09 00:00:00 2021-07-09 00:00:00 (TEL) STLMLC STLMLC [id number] [facility] 2021-05-10 00:00:00 2021-05-10 00:00:00 (TEL) STLMLC STLMLC [id number] [facility] 2021-05-05 00:00:00 2021-05-05 00:00:00 (TEL) STLMLC STLMLC [id number] [facility] 2021-04-29 00:00:00 2021-04-29 00:00:00 OFFICE VISIT NEW PT LEVEL 4 STLMLC STLMLC [id number] [facility] 2021-04-29 00:00:00 2021-04-29 00:00:00 (TEL) STLC [facility] [id number] [facility] 2020-07-09 23:44:00 2020-07-10 06:08:00 Emergency Rosalind Ball [facility] 1.2.840.114 350.1.13.10 4.2.7.2.686 [id number] 2020-07-09 23:44:00 2020-07-09 23:44:00 Emergency X ROSALIND BALL [facility] ERT [id number] [facility] Results Test Description Test Time Test Comments Results Result Co mments Source [facility] 18:40:54* Test Item Value Reference Range Interpretation Comme nts LIPASE (test code = 2077742270) 318 U/L 0-220 H Lab Interpretation (test cod e = 71256-0) Abnormal [facility]BDOMEN/[id number] 18:20:26 CT Abdomen and Pelvis without and with intravenous contrast. CLINICAL HISTORY: GI bleeding. DOSE: Up-to-date CT equipment and radiation dose reduction techniques wereemployed. CTDIvol: ?7. 27.17 x 3 mGy. DLP: ?366.59+3 65 x 3 mGy- cm. TECHNIQUE : Contiguous axial imaging from the level of the lung basesthrough the pubic symphysis were performed initially without contrast andsubsequently after the uncomplicated administration of nonionic contrastmaterial. ?2 sets of delayed venous phase imaging studies were alsoobtained (GI bleed protocol). Coronal and sagittal reconstructions wereobtained. Auto mA and/or iterative reconstruction were used to reduceradiation dose. FINDINGS: ? Lower lungs: Tatum r. No pleural effusion or pericardial effusion. Liver, Gallbladder and Spleen: Mild hepatic steatosis is suspected. Noacute findings in the liver, gallbladder or spleen. Biliary ducts and thepancreatic duct appear of normal size. Peritoneum: ?No free air or free fluid. No lymphadenopathy. Pancreas and Adrenals: ?Unremarkable pancreas and adrenal glands. Kidneys and Ureters: ?No visible calculi inthe renal collecting systems. No hydroureter or hydronephrosis. Vessels: Normal. Retroperitoneum: No abnormal fluid or lymphadenopathy. Bowel: ?No active GI bleeding site detected. Normal appendix is visualized.Small radiopaque material noted in the cecum very close to the appendixwhich could be undissolved medications. 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 Bones: ?No acute findings. Soft tissues: Small fat-containing direct type left inguinal herniasuspected without any complications. CONCLUSION:1. No active GI bleeding site detected. Slightly more mucosal enhancementnoted in the sigmoid colon. These are nonspecific findings and could be asign of colitis. Please correlate with history.2. Scattered diverticulosis of large bowel noted without any acute changesof diverticulitis.[facility] THRMPLAS [id number] 17:31:01* Test Item Value Reference Range Interpretation Comme [facility] APTT Patient (test code = 3173-2) 23 26-36 L MATILDE (test code = MATILDE) The [facility] patient population mean normal value for aPTT is 30 seconds. Lab Interpretation (test code = 33957-0) Abnormal [facility]PROT[facility] TIME / [id number] 17:31:01* Test Item Value Reference Range Interpretation Comme [facility] PROTIME PATIENT (test code = 5964-2) 10.9 10.1-12.6 INR (test code = 6301-6) 0.9 Normal INR <1.1; Warfarin Therapeutic range 2.0 to 3.0 or 2.5 to 3.5, depending upon the indications. Lab Interpretation (test code = 13555-7) Normal [facility] WITH [id number] 16:44:56* Test Item Value Reference Range Interpretation Comme [facility] WBC (test code = 6690-2) 8.50 4.20-10.70 RBC (test code = 789-8) 4.67 4.26-5.52 HGB (test code = 718-7) 16.6 g/dL 12.2-16.4 H HCT (test code = 4544-3) 46.9 % 38.4-49.3 MCV (test code = 787-2) 100.4 fL 81.7-95.6 H MCH (test code = 785-6) 35.5 pg 26.1-32.7 H MCHC (test code = 786-4) 35.4 g/dL 31.2-35.0 H RDW-SD (test code = 70188-1) 50.2 fL 38.5-51.6 RDW-CV (test code = 788-0) 13.6 % 12.1-15.4 PLT (test code = 777-3) 295 150-328 MPV (test code = 99728-3) 8.9 fL 9.8-13.0 L NRBC/100 WBC (test code = 1180982187) 0.0 0.0-10.0 NRBC x10^3 (test code = 1844319489) See_Comment [Automated messa ge] The system which generated this result transmitted reference range: 10*3/?L. The reference range was not used to interpret this result as normal/abnormal. GRAN MAT (NEUT) % (test code = 770-8) 54.6 % IMM GRAN % (test code = 6110670590) 0.40 % LYMPH % (test code = 736-9) 32.5 % MONO % (test code = 5905-5) 10.4 % EOS % (test code = 713-8) 0.9 % BASO % (test code = 706-2) 1.2 % GRAN MAT x10^3(ANC) (test code = 8526367756) 4.65 10*3/uL 1.99-6.95 IMM GRAN x10^3 (test code = 5276731807) 0.03 10*3/uL 0.00-0.06 LYMPH x10^3 (test code = 731-0) 2.76 10*3/uL 1.09-3.23 MONO x10^3 (test code = 742-7) 0.88 10*3/uL 0.36-1.02 EOS x10^3 (test code = 711-2) 0.08 10*3/uL 0.06-0.53 BASO x10^3 (test code = 704-7) 0.10 10*3/uL 0.01-0.09 H Lab Interpretation (test code = 90822-7) Abnormal [facility] HospitalL[facility] Acid Whole [id number] 19:39:22* Test Item Value Reference Range Interpretation Comme nts LACTIC ACID (test code = 6624832115) 1.61 mmol/L 0.50-2.20 Lab Interpretation (test cod e = 35001-6) Normal [facility]ETH[facility]OL2023-11-09 15:57:02* Test Item Value Reference Range Interpretation Comme nts ALCOHOL (test code = 1845397380) 56 mg/dL MATILDE (test code = MATILDE) <10 Tuqefjwj99-543 Toxic>100 Depression of INTERPRETIVE PROGRAM COORDINATOR>400 Fatalities Reported [facility]. METABOLIC PANEL ([id number])2023-04-20 15:56:22* Test Item Value Reference Range Interpretation Comme nts NA (test code = 9522473300) 139 mmol/L 135-145 K (test code = 4657971871) 4.0 mmol/L 3.5-5.0 CL (test code = 8892321690) 103 mmol/L 98-108 CO2 TOTAL (test code = 6264737888) 23 mmol/L 23-31 AGAP (test code = 5484698095) 13 2-16 BUN (test code = 9058502597) 4 mg/dL 7-23 L GLUCOSE (test code = 9068936595) 84 mg/dL 70-110 CREATININE (test code = 1888360140) 0.71 mg/dL 0.60-1.25 TOTAL BILI (test code = 5506584235) 0.9 mg/dL 0.1-1.1 CALCIUM (test code = 8155984958) 9.2 mg/dL 8.6-10.6 T PROTEIN (test code = 2970103416) 8.3 g/dL 6.3-8.2 H ALBUMIN (test code = 8245249220) 4.3 g/dL 3.5-5.0 ALK PHOS (test code = 4787813442) 97 U/L 34-122 ALTv (test code = 1742-6) 28 U/L 5-50 AST(SGOT) (test code = 3135604766) 66 U/L 13-40 H eGFR (test code = 53062-5) 115.3 mL/min/1.73m2 CKD-EPI eGFR (2020). Assuming creatinine has been stable day-to-day for at least three months, the eGFR indicates Category G1 (>= 90 mL/min/1.73 m2) Lab Interpretation (test code = 54957-3) Abnormal [facility]2023-[facility]-09 15:56:02* Test Item Value Reference Range Interpretation Comme nts LIPASE (test code = 6496687893) 287 U/L 0-220 H Lab Interpretation (test cod e = 53630-7) Abnormal [facility]CBC WITH [id number] 15:47:37* Test Item Value Reference Range Interpretation [...] g/dL 31.2-35.0 H RDW-SD (test code = 40368-0) 53.1 fL 38.5-51.6 H RDW-CV (test code = 788-0) 13.8 % 12.1-15.4 PLT (test code = 777-3) 211 See_Comment [Automated messa ge] The system which generated this result transmitted reference range: 150 - 328 10*3/?L. The reference range was not used to interpret this result as normal/abnormal. MPV (test code = 13452-5) 8.6 fL 9.8-13.0 L NRBC/100 WBC (test code = 7152326671) 0.0 See_Comment [Automated me ssage] The system which generated this result transmitted reference range: 0.0 - 10.0 /100 WBCs. The reference range was not used to interpret this result as normal/abnormal. NRBC x10^3 (test code = 0445575826) See_Comment [Automated messa ge] The system which generated this result transmitted reference range: 10*3/?L. The reference range was not used to interpret this result as normal/abnormal. GRAN MAT (NEUT) % (test code = 770-8) 76.4 % IMM GRAN % (test code = 7662096304) 0.20 % LYMPH % (test code = 736-9) 16.8 % MONO % (test code = 5905-5) 5.8 % EOS % (test code = 713-8) 0.3 % BASO % (test code = 706-2) 0.5 % GRAN MAT x10^3(ANC) (test code = 2354142236) 4.45 10*3/uL 1.99-6.95 IMM GRAN x10^3 (test code = 5960854756) 0.00-0.06 LYMPH x10^3 (test code = 731-0) 0.98 10*3/uL 1.09-3.23 L MONO x10^3 (test code = 742-7) 0.34 10*3/uL 0.36-1.02 L EOS x10^3 (test code = 711-2) 0.06-0.53 L BASO x10^3 (test code = 704-7) 0.03 10*3/uL 0.01-0.09 Lab Interpretation (test code = 13502-8) Abnormal [facility] 21 + LACTIC [id number] 15:47:22* Test Item Value Reference Range Interpretation Comme nts PH (test code = 1080856424) 7.52 7.32-7.42 H PCO2 POPEYE (test code = 8384254926) 30 See_Comment L [Automated messa ge] The system which generated this result transmitted reference range: 41 - 51 mmHg. The reference range was not used to interpret this result as normal/abnormal. PO2 POPEYE (test code = 7958955724) 36 See_Comment [Automated messa ge] The system which generated this result transmitted reference range: 25 - 40 mmHg. The reference range was not used to interpret this result as normal/abnormal. HCO3 POPEYE (test code = 1323458157) 24 See_Comment [Automated messa ge] The system which generated this result transmitted reference range: 24 - 28 mEq/L. The reference range was not used to interpret this result as normal/abnormal. AC VBE(BEAKER) (test code = 3712138195) 1.6 mEq/L THB POPEYE (test code = 3163677783) 15.1 g/dL 13.5-18.0 %O2HB POPEYE (test code = 3909342026) 76.7 % 52.0-63.0 H %COHB [facility] (test code = 5595921658) 0.2 % 0.0-1.5 %METHB [facility] (test code = 7037185405) 0.1 % 0.4-1.5 L VOL%O2 POPEYE (test code = 6676000202) 16.2 % 6.0-12.0 H NA (test code = 9121838782) 142 mmol/L 135-145 K+ (test code = 8159986866) 3.9 mmol/L 3.5-5.0 AC CA IONZ (test code = 2991477511) 4.40 mg/dL 4.50-5.30 L GLUCOSE (test code = 0532654854) 78 mg/dL 70-110 LACTIC ACID (test code = 8291237508) 3.91 mmol/L 0.50-2.20 H Lab Interpretation (test code = 96591-8) Abnormal [facility] Notes Date/Time Note Provider Source 2023-07-19 13:30:14 NBiA9Teif/s2BRUd+kdC 3MIGhRaMOMkZAck YBVe1m6aInWGLAwAXKchClvVMyqfY5529-4 2-07T13:30:14 Pt given printed and verbal discharge instructions regarding vomiting, alcoholism, encouraged hydration.3 Prescriptions provided.Discussed ibuprofen and to take with food to avoid GI distress.Pt verbalized understanding of instructions, pt awake alert oriented, resp reg unlabored, skin w/d, color appropriate for race, moves all ext well,pt encouraged to follow up with pcp.Advised to seek medical attention for new/prolonged/worsening of symptoms,Symptoms improved.No adverse reaction to meds given in ER noted upon discharge.PIV d'cd, dressing to site, catheter in tact.Awake, alert oriented, resp reg unlabored, skin w/d, pt leaving amb with steady gait, in no apparent distress. 77325-9Gwbcqetjn department NfcbCF7013-66-97T32:32:16[facility] NoteTXT1.2.840.513445.1.13.104.2.7. 2.058354|[id number] for patient fuzz85529-1UicaSHFXLGMFRSWNzvonypiz C-CDA narrative [id number] M Herrera RN[address] Nu[id number] 8TZBEFINDMUOJFIIWBXUAJJ5072-78-59U9 3:32:161.2.840.631257.1.72.3.15|1.2 .840.654414.1.13.104.2.7.2.727879_2 [id number] Cierra Gonzalez RN [facility] 2023-07-19 11:25:50 068XR4jAxdabYrKgqMfV p7bhXhIPzLGeCAp zxd135kaQjfdpWAVpwVcpoQQTXwdU2580-9 2-07T11:25:50 Report received from KATHLEEN Plascencia 42733-8Jhejiuvst department NbsyAK6562-47-42O50:26:03[facility] NoteTXT1.2.840.800998.1.13.104.2.7. 2.652485|[id number] for patient zuib55433-8CfiwLOPRFFWDEBYXcfwjidih C-CDA narrative [id number] 8XWMNQRFIAZGYHDRSOQHDUP6920-40-43L4 1:26:031.2.840.259640.1.72.3.15|1.2 .840.776186.1.13.104.2.7.2.727879_2 [id number] [facility] 2023-07-19 09:25:48 p3GXXAi3S002wodyO9Gn v99FwAKYc61vaVP QYNQ5yLAGGIzxFNbEA86NHUI8l+Um1494-9 09:25:48 Patient states that he has been drinking daily for months and wants to get help for alcohol abuse. 95902-8Wbhdoxcvu department UenyDH0166-09-51T67:26:16[facility] NoteTXT1.2.840.517138.1.13.104.2.7. 2.774107|[id number] for patient jnri74298-2VwltFLMLNCCPPZSIreymmybm C-CDA narrative [id number] 0IFVGLITDSSRZBKPPJDDSMJ4120-84-86X3 9:26:161.2.840.564630.1.72.3.15|1.2 .840.707911.1.13.104.2.7.2.727879_2 [id number] [facility] 2023-07-19 09:22:04 TTONARaukwjbS1fFhGVY c862AJ7Sae9tG5k u5q7HN5P02YGmkt1BaPLmQgfyaNUT3365-6 09:22:04 Patient states "my stomach is bad, I have been throwing up since last night. I am an alcoholic and I've been drinking. " 02744-9Eygcgjvgo department Triage rlkkKP2740-33-38O83:23:18[facility] Triage noteTXT1.2.840.882516.1.13.104.2.7. 2.089485|[id number] for patient cjun66616-2Ywpygxiyg department NoteLNNARRATIVEFormatted C-CDA narrative mrlu197581837Xroln S Cryer RN[address] Bx[id number] 0NFPHHIBVVRUNGEUYWBJGOT6432-60-22I3 9:23:181.2.840.969906.1.72.3.15|1.2 .840.409677.1.13.104.2.7.2.727879_2 [id number] Colin Solis RN [facility] 2023-07-04 22:45:27 oeSvLHYNLG2qJPnvC7u5 ABw8vZHX/53dZJG 6h+m+a2hM1sXq2+nZM6U1Iq9y1xCJ2375-7 2:45:27 Pt called from romario, no answer. Eloped 48665-6Cjdvkxmrn department LawaSP7096-24-71P28:55:51[facility] NoteTXT1.2.840.242240.1.13.104.2.7. 2.810678|[id number] for patient aznu70743-1UrkrWAAEUGSFLBFYuehdiuzv C-CDA narrative [id number] 2BJANDDVXINSRNPLEIGJBGJ7243-05-66R3 2:55:511.2.840.969494.1.72.3.15|1.2 .840.620504.1.13.104.2.7.2.727879_2 [id number] [facility] 2023-07-04 21:58:15 4Pd1JKnioMpuWfeJdBdQ FmiMYW+p7aQ8GUu HootWcbC9lZOOGTrqCLOccJPLoK/O9699-4 07-04T21:58:15 Patient with girlfriend in the lobby. 43257-7Xukoiltkv department BvvbWJ4969-94-39E84:58:29[facility] NoteTXT1.2.840.929023.1.13.104.2.7. 2.455522|[id number] for patient wgyi48948-9KiqkYHSSQYWYKTMZvcncwvak C-CDA narrative [id number] 6SRMLKNOVTPJJPHJKSXQPRA8802-49-16P3 1:58:291.2.840.125175.1.72.3.15|1.2 .840.582344.1.13.104.2.7.2.727879_2 [id number] [facility] 2023-07-04 21:55:59 3uNE88f4wfQxGVlcQK+u Vdp6gqwip1sJn7z oJy6nOcv23oK1syPz89vxEJEN1B/o0820-4 07-04T21:55:59 Patient intoxicated with arrival.Reports he is having abdominal pain and feels "slightly nauseous".Says he drinks all day since the moment he wakes up until he goes to bed.Denies chest pain, shortness of breath, fever ,chills, and diarrhea.Hx - alcohol abuse 59543-4Etjifornn department Triage ryymOV2178-67-11Q82:56:48[facility] department Triage noteTXT1.2.840.787177.1.13.104.2.7. 2.642261|[id number] for patient hqeo06022-2Mhsxriebt department NoteLNNARRATIVEFormatted C-CDA narrative yhfh834475391Xmjqkoeh [place] RN[facility]MB[facility] [address] Zh[id number] 9ASVVFFBZQTRRBTRYRDFLLW9742-81-38C8 1:56:481.2.840.313673.1.72.3.15|1.2 .840.980831.1.13.104.2.7.2.727879_2 [id number] Sally Hardin RN [facility]
[2023-08-02 18:54] LABS: Absolute Lymphocytes (CBC) 1.4 K/uL (0.7-4.9); Hematocrit 43.4 % (39.6-49.0); Lymphocytes % 35.4 % (15.3-44.8); MCV 101.5 fL (80-100); MPV 7.5 fL (7.6-11.3); Platelets 147 thou/uL (152-406); RBC Red Blood Cell Count 4.28 M/uL (4.33-5.43)
[2023-08-02 19:15] LABS: Albumin 2.9 g/dL (3.4-5.0); Bilirubin Total 5.7 mg/dL (0.2-1.0); Protein, Total 6.9 g/dL (6.4-8.2)
[2023-08-02 19:17] LABS: Potassium 3.5 mEq/L (3.5-5.1)
--- NOTE | 2023-08-02 20:26 | RAD REPORT ---
EXAM DESCRIPTION: CT - Abdomen Pelvis W Contrast - 08/02/2023 7:31 pm CLINICAL HISTORY: ABD PAIN COMPARISON: Abdomen Pelvis W Contrast dated 10/30/2022; Head C Spine Cap Wo Con dated 03/19/2023 TECHNIQUE: Thin cut axial CT imaging of the abdomen and pelvis was performed following intravenous a dministration of 98 mL Isovue 300. Multiplanar reformats were generated and reviewed. All CT scans are performed using dose optimization technique as appropriate and may include automated exposure control or mA/KV adjustment according to patient size. FINDINGS: No suspicious findings in the lung bases. The liver demonstrates diffuse hepatic parenchymal hypoattenuation suggesting steatosis. Adrenal glan ds, spleen, and pancreas show no suspicious findings. Gallbladder show some wall edema and mucosal hy perenhancement although it is suboptimally distended which limits evaluation. Symmetric renal function is seen with no hydronephrosis or suspicious renal mass. No dilated bowel loops. Mild wall thickening at the gastric cardia and some rugal fold thickening not ed at the fundus. . No free air, free fluid or inflammatory stranding. No hernia, mass or bulky lymph adenopathy. The urinary bladder is without significant finding. No suspicious bony findings. IMPRESSION: Gallbladder wall edema and mucosal hyperenhancement. Findings may relate to acute or chr onic cholecystitis. Mild wall thickening at the gastric cardia, and mild rugal fold thickening at the fundus. Findings ar e nonspecific and may relate to gastritis. Diffuse hepatic steatosis.
--- NOTE | 2023-08-02 21:34 | RAD REPORT ---
EXAM DESCRIPTION: US - Abdomen Exam Limited - 08/02/2023 9:03 pm CLINICAL HISTORY: ABD PAIN COMPARISON: Abdomen Pelvis W Contrast dated 08/02/2023 TECHNIQUE: Sonographic grayscale and color flow images of the right upper abdominal quadrant were o btained. FINDINGS: The gallbladder demonstrates no echogenic gallstones. Lumen is suboptimally distended with wall thickening up to 6-7 mm with wall edema and equivocal hyperemia. Reportedly, sonographic Wong sign was positive. The common bile duct is normal measuring 3 mm. The liver demonstrates no findings of intrahepatic biliary dilatation. IMPRESSION: Gallbladder wall thickening and edema with positive Wong's sign concerning for acute c holecystitis, although suboptimal distention of the gallbladder slightly limits evaluation.
--- NOTE | 2023-08-02 22:39 | EDPHYS ---
Physician Documentation [facility] Name: James Dupree Age: 47 yrs Sex: Male : 1975 Arrival Date: 08/02/2023 Time: 17:17 Bed 14 Private MD: ED Physician Jeffry Scales HPI: 08/02 21:32 This 47 yrs old Male presents to ER via Ambulatory with complaints of kb Vomiting, Blood x4days, Weakness. 21:32 Patient is a 47-year-old male with a history of alcohol abuse who presents for vomiting kb and upper abdominal pain for 4 days. Reports he has been vomiting blood multiple times per day. Reports normal bowel movements. Denies dark stools or melena.. Historical: - Allergies: 17:38 NKA; db - PMHx: 17:38 Alcoholism; Anxiety; depressive disorder; drug abuse; GERD (drug abuse); db - Immunization history:: Adult Immunizations unknown. - Social history:: Smoking status: Patient denies any tobacco usage or history of. Patient uses alcohol, on a daily basis. ROS: 21:32 Constitutional: Negative for fever, chills, and weight loss, kb 21:32 Abdomen/GI: Positive for abdominal pain, nausea and vomiting, hematemesis, 21:32 All other systems are negative, Exam: 21:32 Constitutional: This is a well developed, well nourished patient who is awake, alert, kb and in no acute distress. Head/Face: Normocephalic, atraumatic. ENT: Moist Mucous membranes Cardiovascular: Regular rate Respiratory: Respirations even and unlabored. No increased work of breathing. Talking in full sentences Skin: Warm, dry with normal turgor. Normal color. MS/ Extremity: Pulses equal, no cyanosis. Neurovascular intact. Full, normal range of motion. Neuro: Awake and alert, GCS 15, oriented to person, place, time, and situation. Moves all extremities. Normal gait. 21:32 Abdomen/GI: Inspection: abdomen appears normal, Bowel sounds: normal, Palpation: moderate abdominal tenderness, in the epigastric area, right upper quadrant and left upper quadrant, Vital Signs: 17:34 BP 138 / 95; Pulse 102; Resp 20; Pulse Ox 100% on R/A; Weight 72.57 kg; Height 5 ft. 8 db in. ; 18:47 BP 130 / 97; Pulse 72; Resp 16; Pulse Ox 99% on R/A; me1 19:35 BP 134 / 97; Pulse 85; Resp 17 S; Pulse Ox 100% on R/A; ha1 20:35 BP 128 / 96; Pulse 84; Resp 17 S; Pulse Ox 100% on R/A; ha1 21:40 BP 134 / 87; Pulse 87; Resp 17 S; Temp 97.9(T); Pulse Ox 100% on R/A; ha1 22:00 BP 120 / 74; Pulse 82; Resp 17 S; Pulse Ox 100% on R/A; ha1 23:18 BP 129 / 76; Pulse 69; Pulse Ox 100% on R/A; tm6 23:47 BP 111 / 74; Pulse 66; Resp 19; Temp 98(TE); Pulse Ox 100% ; Pain 0/10; tm6 17:34 Body Mass Index 24.33 (72.57 kg, 172.72 cm) db 23:47 Pain Scale: Adult [facility] MDM: 17:28 Patient medically screened. kb 21:34 Differential diagnosis: Nonspecific abd pain, gastritis, pancreatitis, Cholecystitis, kb cholelithiasis. Data reviewed: vital signs, nurses notes. Consideration of Admission/Observation Patient was admitted/placed on observation. Escalation of care including admission/observation considered. Counseling: I had a detailed discussion with the patient and/or guardian regarding the historical points, exam findings, and any diagnostic results supporting the discharge/admit diagnosis, lab results, radiology results, the need to transfer to another facility, [facility] does not immediately have the required specialist. 22:51 Management of patient was discussed with the following: Dr Vale, hospitalist at [facility], accepts pt for transfer. 08/02 17:41 Order name: CBC with Diff; Complete Time: 18:57 08/02 17:41 Order name: CMP; Complete Time: 19:17 kb 08/02 17:41 Order name: Lipase; Complete Time: 19:17 kb 08/02 19:28 Order name: ETOH Level; Complete Time: 21:01 kb 08/02 22:43 Order name: PT-INR 08/02 22:44 Order name: Lactate w/ 2H reflex if indic. kb 08/02 22:46 Order name: Blood Culture Adult (2) kb 08/02 17:41 Order name: CT Abd/Pelvis - IV Contrast Only; Complete Time: 20:29 kb 08/02 20:30 Order name: US Abdomen Limited; Complete Time: 21:38 kb 08/02 17:41 Order name: IV Saline Lock; Complete Time: 18:37 kb 08/02 17:41 Order name: Labs collected and sent; Complete Time: 18:37 kb Administered Medications: 18:43 Drug: NS 0.9% IV 1000 ml IV at 1 bolus Per protocol; 1000 mL bolus Route: IV; Rate: 1 me1 bolus; Site: left wrist; 18:43 Drug: Ondansetron IVP 4 mg IVP once; over 2 minutes Route: IVP; Site: left wrist; me1 18:47 Follow up: Response: No adverse reaction; Nausea is decreased me1 18:43 Drug: Pantoprazole IVP 80 mg IVP once Route: IVP; Site: left wrist; me1 18:47 Follow up: Response: No adverse reaction me1 20:00 Drug: Pantoprazole IV 8 mg/hr IV at 25 ml/hr continuous; (Standard dilution is 80 mg in rv 250 mL NS) Route: IV; Rate: 25 ml/hr; Site: left forearm; 22:08 Follow up: Response: No adverse reaction; IV Status: Infusion continued ha1 21:50 Drug: Ondansetron IVP 4 mg IVP once; over 2 minutes Route: IVP; Site: left forearm; ha1 21:52 Drug: morphine IVP or IV 4 mg IVP once over 4 mins Route: IVP; Infused Over: 4 mins; ha1 Site: left forearm; 23:02 Drug: Promethazine IVP 12.5 mg IVP once Route: IVP; Site: left forearm; tm6 23:18 Drug: Piperacillin-Tazobactam IVPB 3.375 grams IVPB once over 60 mins; (mix in NS 100 rv mL) Route: IVPB; Infused Over: 60 mins; Site: right forearm; 23:18 Drug: NS 0.9% IV 1000 ml IV at 100 ml/hr once Route: IV; Rate: 100 ml/hr; Site: right rv forearm; Disposition Summary: 08/02/23 22:38 Transfer Ordered Notes: Transfer Location: [facility] kb Reason: Higher level of care kb Condition: Stable kb Problem: new kb Symptoms: are unchanged kb Accepting Physician: Dr Vale(08/02/23 23:49) tm6 Diagnosis - Acute cholecystitis kb - Abnormal results of liver function studies kb - Alcohol abuse kb - GI Bleed/ Gastrointestinal hemorrhage, unspecified kb Forms: - Medication Reconciliation Form kb - SBAR form kb Signatures: Dispatcher [employer] EDBrianda Ahn, GURVINDER-C CANAL LOCK TENDER CHIEF OPERATOR-Fabian Delgado RN RN rv Sabine Henry RN RN ha1 Maria Guadalupe Sawyer RN RN db Marisa Juarez RN RN me1 Vinh Rogers RN RN tm6 Corrections: (The following items were deleted from the chart) 22:52 22:38 Dr roberta granados 23:49 22:52 Dr Kavin granados tm6
--- NOTE | 2023-08-02 22:39 | ER ---
Nurse's Notes [facility] Name: James Dupree Age: 47 yrs Sex: Male : 1975 Arrival Date: 08/02/2023 Time: 17:17 Bed 14 Private MD: Diagnosis: Acute cholecystitis;Abnormal results of liver function studies;Alcohol abuse;GI Bleed/ Gastrointestinal hemorrhage, unspecified Presentation: 08/02 17:34 Chief complaint: Patient states: VOMITING X 4 DAYS. STATES "CHEYENNE BEEN THROWING UP db BLOOD". STATES DRANK 1 BEER YESTERDAY. STATES DRINKS DAILY. STATES HX OF UPPER GI BLEED. Coronavirus screen: Client denies travel out of the [place] in the last 14 days. At this time, the client does not indicate any symptoms associated with coronavirus-19. Ebola Screen: Patient negative for fever greater than or equal to 101.5 degrees Fahrenheit, and additional compatible Ebola Virus Disease symptoms Patient denies exposure to infectious person. Patient denies travel to an Ebola-affected area in the 21 days before illness onset. No symptoms or risks identified at this time. Initial Sepsis Screen: Does the patient meet any 2 criteria? No. Patient's initial sepsis screen is negative. Does the patient have a suspected source of infection? No. Patient's initial sepsis screen is negative. Risk Assessment: Do you want to hurt yourself or someone else? Patient reports no desire to harm self or others. Onset of symptoms was July 30, 2023. 17:34 Method Of Arrival: Ambulatory db 17:34 Acuity: DORETHA 3 db Triage Assessment: 17:34 General: Appears in no apparent distress. comfortable, Behavior is calm, cooperative. db Pain: Complains of pain in abdomen. Neuro: Level of Consciousness is awake, alert, obeys commands, Oriented to person, place, time, situation. GI: Abdomen is flat, non-distended, Reports vomiting. Historical: - Allergies: 17:38 NKA; db - PMHx: 17:38 Alcoholism; Anxiety; depressive disorder; drug abuse; GERD (drug abuse); db - Immunization history:: Adult Immunizations unknown. - Social history:: Smoking status: Patient denies any tobacco usage or history of. Patient uses alcohol, on a daily basis. Screenin:44 [facility] ED Fall Risk Assessment (Adult) History of falling in the last 3 months, me1 including since admission No falls in past 3 months (0 pts) Confusion or Disorientation No (0 pts) Intoxicated or Sedated No (0 pts) Impaired Gait No (0 pts) Mobility Assist Device Used No (0 pt) Altered Elimination No (0 pt) Score/Fall Risk Level 0 - 2 = Low Risk Maintained a safe environment, Provided non-skid footwear, Hourly rounding (assess needs \\T\\ fall precautionary measures) done. Abuse screen: Denies threats or abuse. Nutritional screening: No deficits noted. Tuberculosis screening: No symptoms or risk factors identified. Assessment: 18:44 General: Appears uncomfortable, well groomed, well developed, well nourished, Behavior me1 is calm, cooperative, appropriate for age, Reports Reports vomiting x 4 days. States sometimes it has bright red blood in it and sometimes its darker. Hx: GI Bleed. Patient reports that he has stopped drinking/tapered down to no beer yesterday. Hx of daily drinking. Pain: Denies pain. Neuro: Level of Consciousness is awake, alert, obeys commands, Oriented to person, place, time, situation, Appropriate for age. Cardiovascular: Capillary refill < 3 seconds Patient's skin is warm and dry. Respiratory: Airway is patent Trachea midline Respiratory effort is even, unlabored, Respiratory pattern is regular, symmetrical. GI: Reports nausea, vomiting, since 4 days. Reports bloody emesis. 19:35 General: Appears uncomfortable, Behavior is calm, cooperative. Pain: Complains of pain ha1 in left upper quadrant Pain does not radiate. Pain currently is 8 out of 10 on a pain scale. Quality of pain is described as throbbing, Pain began gradually, 1 day ago. Neuro: Level of Consciousness is awake, alert, obeys commands, Oriented to person, place, time, situation. Cardiovascular: Capillary refill < 3 seconds Patient's skin is warm and dry. Respiratory: Airway is patent Respiratory effort is even, unlabored, Respiratory pattern is regular, symmetrical. GI: Abdomen is flat, non-distended, Bowel sounds present X 4 quads. Reports nausea, vomiting, vomiting blood. : No signs and/or symptoms were reported regarding the genitourinary system. Derm: Skin is moist, Skin is normal. Musculoskeletal: Circulation, motion, and sensation intact. Range of motion: intact in all extremities. 20:35 Reassessment: Patient and/or family updated on plan of care and expected duration. Pain ha1 level reassessed. Patient is alert, oriented x 3, equal unlabored respirations, skin warm/dry/pink. 21:35 Reassessment: Patient and/or family updated on plan of care and expected duration. Pain ha1 level reassessed. Patient is alert, oriented x 3, equal unlabored respirations, skin warm/dry/pink. reports pain 7/10. notified care provider. 23:18 Reassessment: report called to Darshan WANG at [facility]. tm6 23:20 Reassessment: Patient and/or family updated on plan of care and expected duration. Pain tm6 level reassessed. 23:48 Reassessment: Patient appears in no apparent distress at this time. tm6 Vital Signs: 17:34 BP 138 / 95; Pulse 102; Resp 20; Pulse Ox 100% on R/A; Weight 72.57 kg; Height 5 ft. 8 db in. ; 18:47 BP 130 / 97; Pulse 72; Resp 16; Pulse Ox 99% on R/A; me1 19:35 BP 134 / 97; Pulse 85; Resp 17 S; Pulse Ox 100% on R/A; ha1 20:35 BP 128 / 96; Pulse 84; Resp 17 S; Pulse Ox 100% on R/A; ha1 21:40 BP 134 / 87; Pulse 87; Resp 17 S; Temp 97.9(T); Pulse Ox 100% on R/A; ha1 22:00 BP 120 / 74; Pulse 82; Resp 17 S; Pulse Ox 100% on R/A; ha1 23:18 BP 129 / 76; Pulse 69; Pulse Ox 100% on R/A; tm6 23:47 BP 111 / 74; Pulse 66; Resp 19; Temp 98(TE); Pulse Ox 100% ; Pain 0/10; tm6 17:34 Body Mass Index 24.33 (72.57 kg, 172.72 cm) db 23:47 Pain Scale: Adult tm6 ED Course: 17:20 Patient arrived in ED. ra3 17:28 [facility]C [facility] kb 17:28 Jeffry Scales MD is Attending Physician. kb 17:34 Arm band placed on Patient placed in an exam room. db 17:37 Triage completed. db 17:56 Radiology exam delayed due to IV insertion attempt and/or patient not having nj appropriate IV at this time. 17:56 Radiology exam delayed due to lab results not completed at this time. (BUN/Creatinine). nj 18:13 Marisa Juarez, RN is Primary Nurse. me1 18:22 Radiology exam delayed due to IV insertion attempt and/or patient not having nj appropriate IV at this time. 18:22 Radiology exam delayed due to lab results not completed at this time. (BUN/Creatinine). nj 18:37 CBC with Diff Sent. cm10 18:37 CMP Sent. cm10 18:37 Lipase Sent. cm10 18:37 Initial lab(s) drawn, by me, sent to lab. Inserted saline lock: 20 gauge in left wrist, cm10 using aseptic technique. Blood collected. Missed attempt(s): 20 gauge in right antecubital area. Bleeding controlled, band aid applied, catheter tip intact. 18:44 Patient has correct armband on for positive identification. Bed in low position. Call me1 light in reach. Side rails up X 1. Provided Education on: POC. Verbalized understanding. . 18:44 No provider procedures requiring assistance completed. me1 19:33 CT Abd/Pelvis - IV Contrast Only In Process Unspecified. EDMS 21:04 US Abdomen Limited In Process Unspecified. EDMS 21:44 Initiated transfer with Amparo at [facility]. rv1 23:[address] Vale at 2247 to [facility] to Rm 1623. rv1 23:20 Called Noel at EMS for transfer truck, given 10-15 min ETA. rv1 23:49 Patient transferred, IV remains in place. tm6 Administered Medications: 18:43 Drug: NS 0.9% IV 1000 ml IV at 1 bolus Per protocol; 1000 mL bolus Route: IV; Rate: 1 me1 bolus; Site: left wrist; 18:43 Drug: Ondansetron IVP 4 mg IVP once; over 2 minutes Route: IVP; Site: left wrist; me1 18:47 Follow up: Response: No adverse reaction; Nausea is decreased me1 18:43 Drug: Pantoprazole IVP 80 mg IVP once Route: IVP; Site: left wrist; me1 18:47 Follow up: Response: No adverse reaction me1 20:00 Drug: Pantoprazole IV 8 mg/hr IV at 25 ml/hr continuous; (Standard dilution is 80 mg in rv 250 mL NS) Route: IV; Rate: 25 ml/hr; Site: left forearm; 22:08 Follow up: Response: No adverse reaction; IV Status: Infusion continued ha1 21:50 Drug: Ondansetron IVP 4 mg IVP once; over 2 minutes Route: IVP; Site: left forearm; ha1 21:52 Drug: morphine IVP or IV 4 mg IVP once over 4 mins Route: IVP; Infused Over: 4 mins; ha1 Site: left forearm; 23:02 Drug: Promethazine IVP 12.5 mg IVP once Route: IVP; Site: left forearm; tm6 23:18 Drug: Piperacillin-Tazobactam IVPB 3.375 grams IVPB once over 60 mins; (mix in NS 100 rv mL) Route: IVPB; Infused Over: 60 mins; Site: right forearm; 23:18 Drug: NS 0.9% IV 1000 ml IV at 100 ml/hr once Route: IV; Rate: 100 ml/hr; Site: right rv forearm; Medication: 18:44 VIS not applicable for this client. me1 Outcome: 22:38 ER care complete, transfer ordered by MD. granados 23:48 Transferred by ground EMS to [facility], 6 23:48 Condition: stable 23:48 Instructed on the need for transfer, 23:49 Patient left the ED. [facility] Signatures: Dispatcher [employer] EDMS Brianda Scott, SLEEVE SETTER SAFETY STITCHBrandon SLEEVE SETTER SAFETY STITCH-Brandon Sidhu Ronaldo, RN RN rv Sabine Henry RN RN ha1 Maria Guadalupe Sawyer RN RN Ame Rock 1 Sonia Negrete RN RN 10 Marisa Juarez RN RN ak1 Vinh Rogers RN RN 6 Yasmine De La Garza ra3 Corrections: (The following items were deleted from the chart) 17:39 17:34 BP 138 / 95; Pulse 102bpm; Resp 20bpm; Pulse Ox 100% RA; db db 21:39 20:35 Reassessment: Patient and/or family updated on plan of care and expected ha1 duration. Pain level reassessed. Patient is alert, oriented x 3, equal unlabored respirations, skin warm/dry/pink. ha1 21:46 21:40 BP 134 / 87; Pulse 87bpm; Resp 17bpm; Spontaneous; Pulse Ox 100% RA; ha1 ha1 22:09 21:35 Reassessment: Patient and/or family updated on plan of care and expected ha1 duration. Pain level reassessed. Patient is alert, oriented x 3, equal unlabored respirations, skin warm/dry/pink. reports pain 12/19. notified care provider ha1 23:34 23:[address] Vale at 2247 to [facility] to 1623 rv1 rv1
[2023-08-02 23:36] LABS: Protime INR 1.49
[2023-08-03 00:18] VITALS: O2SAT 100
[2023-08-03 00:19] VITALS: BP 111/74; TEMP 98
== END ==
LOC: ER 17:17
DX: K81.0 Acute cholecystitis (principal); R94.5 Abnormal results of liver function studies; K92.2 Gastrointestinal hemorrhage, unspecified; F10.20 Alcohol dependence, uncomplicated
CPT/HCPCS: 36415; 74177; 76705; 80053; 82077; 83605; 83690; 85025; 85610; 87040; C9113; J2405; J2543; J2550; J7030; J7050; Q9967

== ENCOUNTER → 2023-08-17 | Emergency (ER) | payer SELFPAY ==
[~2023-08-17] MED LIST changes: +DIPHENHYDRAMINE 50 MG/ML VIAL ONE; +FAMOTIDINE 20 MG/2 ML VIAL IV ONE; +LIDOCAINE VISCOUS 2% 10ML ORAL SOLN ONE; +LORazepam 2 MG/ML VIAL ONE; +MAGNES/ALUMIN/SIMET 30ML UCUP ONE; -MORPHINE 4 MG/ML SYR ONE; -NA CHLORIDE 0.9% 100 ML ONE; -NA CHLORIDE 0.9% 250 ML ONE; +ONDANSETRON 4 MG (ODT) TAB ONE; -PANTOPRAZOLE 40 MG INJ ONE; -PIPERACIL/TAZO 3.375 GM VIAL IV ONE; -PROMETHAZINE INJ 25 MG/ML AMP ONE
[2023-08-17 13:31] LABS: Hematocrit 40.6 % (39.6-49.0); MCV 99.2 fL (80-100); MPV 6.7 fL (7.6-11.3); Platelets 482 thou/uL (152-406); RBC Red Blood Cell Count 4.09 M/uL (4.33-5.43)
[2023-08-17 13:43] LABS: Albumin 2.9 g/dL (3.4-5.0); Albumin/Globulin Ratio 0.7 (1.1-1.8); Anion Gap 11.2 mEq/L (5.0-15.0); Bilirubin Total 11.8 mg/dL (0.2-1.0); Protein, Total 7.3 g/dL (6.4-8.2)
[2023-08-17 13:44] LABS: Potassium 3.2 mEq/L (3.5-5.1)
[2023-08-17 14:06] LABS: Blood Morphology Comment NOT SEEN (NOT SEEN); Platelet Estimate INCR; Platelets, Giant PRESENT
--- NOTE | 2023-08-17 14:47 | ER ---
Nurse's Notes [facility] Name: James Dupree Age: 47 yrs Sex: Male : 1975 Arrival Date: 08/17/2023 Time: 10:40 Bed 12 Private MD: Diagnosis: Alcoholic cirrhosis of liver without ascites;Alcohol abuse;Unspecified jaundice Presentation: 08/16 11:39 Coronavirus screen: Vaccine status: Patient reports receiving the 2nd dose of the covid kd3 vaccine. Ebola Screen: No symptoms or risks identified at this time. Initial Sepsis Screen: Does the patient meet any 2 criteria? No. Patient's initial sepsis screen is negative. Does the patient have a suspected source of infection? No. Patient's initial sepsis screen is negative. Risk Assessment: Do you want to hurt yourself or someone else? Patient reports no desire to harm self or others. Onset of symptoms was August 17, 2023. 11:39 Method Of Arrival: Ambulatory kd3 11:43 Chief complaint: Patient states: "I have pain in the middle of my chest, the back of my kd3 neck and in my stomach. I need help. I don't feel well. I had my last drink of beer yesterday at 6, I also took an Adderall yesterday, which is messing me up. Im hot and cold, im sore everywhere, Im cramping, i cannot sleep, my head hurts. I feel my heart beating out of my chest.". 11:43 Acuity: DORETHA 3 kd3 Triage Assessment: 11:42 General: Appears uncomfortable, Behavior is calm, cooperative. Pain: Complains of pain kd3 in chest. GI: Reports nausea. 11:43 GI: Pt is actively vomiting. kd3 Historical: - Allergies: 11:42 NKA; kd3 - PMHx: 11:42 Alcoholism; Anxiety; depressive disorder; drug abuse; GERD (drug abuse); kd3 - Immunization history:: Adult Immunizations up to date. - Social history:: Smoking status: Patient denies any tobacco usage or history of. Screenin:[address] [facility] ED Fall Risk Assessment (Adult) History of falling in the last 3 months, rs5 including since admission No falls in past 3 months (0 pts) Confusion or Disorientation No (0 pts) Intoxicated or Sedated No (0 pts) Impaired Gait No (0 pts) Mobility Assist Device Used No (0 pt) Altered Elimination No (0 pt) Score/Fall Risk Level 0 - 2 = Low Risk Oriented to surroundings, Maintained a safe environment. Abuse screen: Denies threats or abuse. Nutritional screening: No deficits noted. Tuberculosis screening: No symptoms or risk factors identified. Assessment: 13:10 Reassessment: Pt arrived in room . rs5 13:11 General: Appears in no apparent distress. uncomfortable, Behavior is calm, cooperative. rs5 Pain: Complains of pain in head Pain does not radiate. Pain currently is 5 out of 10 on a pain scale. Quality of pain is described as aching, Is continuous. 13:11 Neuro: Level of Consciousness is awake, alert, obeys commands, Oriented to person, rs5 place, time, situation. Cardiovascular: Rhythm is regular. Respiratory: Respiratory effort is even, unlabored, Respiratory pattern is regular, symmetrical. GI: Abdomen is round non-distended, Bowel sounds present X 4 quads. Abd is soft and non tender X 4 quads. Reports burring in epigastric area. : No signs and/or symptoms were reported regarding the genitourinary system. EENT: No signs and/or symptoms were reported regarding the EENT system. Derm: No signs and/or symptoms reported regarding the dermatologic system. Musculoskeletal: Circulation, motion, and sensation intact. Range of motion: intact in all extremities. 14:23 Reassessment: Patient and/or family updated on plan of care and expected duration. Pain rs5 level reassessed. Patient is alert, oriented x 3, equal unlabored respirations, skin warm/dry/pink. Patient states feeling better. 16:01 Reassessment: Pt states "I drink about 7 beers a day on a regular basis, my last drink rs5 was a day ago and I've feeling really anxious and agitated right now" provider notified. 17:20 Reassessment: Patient and/or family updated on plan of care and expected duration. Pain rs5 level reassessed. Patient is alert, oriented x 3, equal unlabored respirations, skin warm/dry/pink. Failed attempt to call report, asked to call back at a later time, charge nurse notified. Vital Signs: 11:39 BP 126 / 90; Pulse 104; Resp 16; Temp 97.7; Pulse Ox 96% ; Weight 72.57 kg; Height 5 kd3 ft. 8 in. ; Pain 8/10; 14:00 BP 125 / 88; Pulse 92; Resp 18; Pulse Ox 99% on R/A; rs5 15:53 BP 130 / 90; Pulse 80; Resp 18; Pulse Ox 99% on R/A; rs5 17:29 BP 133 / 79; Pulse 80; Resp 18; Pulse Ox 99% on R/A; rs5 11:39 Body Mass Index 24.33 (72.57 kg, 172.72 cm) kd3 11:39 Pain Scale: Adult kd3 ED Course: 10:43 Patient arrived in ED. mg5 10:47 Álvaro Del Castillo DO is Attending Physician. ms3 11:42 Arm band placed on left wrist. kd3 11:45 Triage completed. kd3 13:11 Patient has correct armband on for positive identification. Placed in gown. Bed in low rs5 position. Call light in reach. Side rails up X2. 13:11 No provider procedures requiring assistance completed. rs5 13:15 Initial lab(s) drawn, by me, sent to lab. Inserted saline lock: 20 gauge in left hand, aa5 using aseptic technique. Blood collected. 16:04 Zaid Kang, RN is Primary Nurse. rs5 16:04 initiated a transfer with Hector from the [facility]. eb 16:53 connected the sales support technician communications technician for [facility] with Dr. Del Castillo for patient eb transfer consultation. 17:04 administrative approval given by Hector Tao/ patient has been accepted to [facility] 15 tower room 1535 / Dr. Dena Figueroa has accepted the patient in transfer without consultation with Dr. Del Castillo/ report to be called to [phone]. 17:55 IV discontinued, intact, bleeding controlled, No redness/swelling at site. Pressure rs5 dressing applied. Administered Medications: 11:51 Drug: Ondansetron PO 4 mg PO once Route: PO; kd3 12:20 Follow up: Response: No adverse reaction rs5 11:51 Drug: GI Cocktail without - (Maalox PO 30 ml, Lidocaine Mucous Membrane 2 % 15 kd3 ml) PO once Route: PO; 13:10 Follow up: Response: No adverse reaction rs5 13:20 Drug: NS 0.9% IV 1000 ml IV at 1 bolus Per protocol; 1000 mL bolus Route: IV; Rate: 1 rs5 bolus; Site: left hand; 13:40 Follow up: Response: No adverse reaction rs5 13:20 Drug: Famotidine IVP 20 mg IVP once; dilute with 10 mL 0.9% NaCl; give over 2 minutes rs5 Route: IVP; Site: left hand; 13:40 Follow up: Response: No adverse reaction rs5 14:45 Drug: diphenhydrAMINE IVP 25 mg IVP once Route: IVP; Site: left hand; rs5 15:10 Follow up: Response: No adverse reaction rs5 14:45 Drug: Ondansetron IVP 4 mg IVP once; over 2 minutes Route: IVP; Site: left hand; rs5 15:10 Follow up: Response: No adverse reaction rs5 16:10 Drug: Ativan IVP 1 mg IVP once Route: IVP; Site: left hand; rs5 16:50 Follow up: Response: No adverse reaction rs5 Medication: 14:24 VIS not applicable for this client. rs5 Outcome: 14:46 ER care complete, transfer ordered by . ms3 17:55 Transferred by [facility] to [facility], Transfer form completed. rs5 17:55 Condition: stable rs5 17:55 Instructed on the need for transfer, Demonstrated understanding of instructions, 17:58 Patient left the ED. rs5 Signatures: Teresita Hoffman RN RN aa5 Conchis Howell Marcus, DO DO ms3 Bettie Hatch RN RN kd3 Zaid Kang RN RN rs5 Ela Benitez mg5 Corrections: (The following items were deleted from the chart) 14:23 14:21 General: Appears in no apparent distress. uncomfortable, Behavior is calm, rs5 cooperative, rs5 14:23 14:21 Pain: Complains of pain in head Pain does not radiate. Pain currently is 5 out of rs5 10 on a pain scale. Quality of pain is described as aching, Is continuous, rs5 16:56 16:53 connected the hospitalist communications technician for [facility] with Dr. Del Castillo for patient eb transfer consultation, eb 18:08 16:01 BP 127 / 90; Pulse 80bpm; Resp 18bpm; Pulse Ox 99% RA; rs5 rs5 18:09 16:01 BP 163 / 090; Pulse 80bpm; Resp 18bpm; Pulse Ox 99% RA; rs5 rs5
--- NOTE | 2023-08-17 14:47 | EDPHYS ---
Physician Documentation [facility] Name: James Dupree Age: 47 yrs Sex: Male : 1975 Arrival Date: 08/17/2023 Time: 10:40 Bed 12 Private MD: ED Physician Álvaro Del Castillo HPI: 08/16 11:01 This 47 yrs old Male presents to ER via Unassigned with complaints of ms3 Abdominal Pain - burning. 11:01 47-year-old male presents to the emergency department for abdominal pain that began ms3 yesterday after drinking a 12 pack of beer. Patient states he was hospitalized from August 03 through August 07 for alcoholic hepatitis. Patient states his pain is moderate. Patient denies any alleviating or inciting factors. Patient notes his total bilirubin was 5.7 at the time of discharge. Historical: - Allergies: 11:42 NKA; kd3 - PMHx: 11:42 Alcoholism; Anxiety; depressive disorder; drug abuse; GERD (drug abuse); kd3 - Immunization history:: Adult Immunizations up to date. - Social history:: Smoking status: Patient denies any tobacco usage or history of. ROS: 11:01 Constitutional: Negative for fever, and chills. Neck: Negative for injury, pain, and ms3 swelling, Cardiovascular: Negative for chest pain, and palpitations. Respiratory: Negative for shortness of breath, cough, wheezing, and pleuritic chest pain, Abdomen/GI: Negative for abdominal pain, nausea, vomiting, diarrhea, and constipation, MS/Extremity: Negative for injury and deformity, 11:01 Skin: Positive for jaundice, 11:01 All other systems are negative, Exam: 11:01 Constitutional: This is a well developed, well nourished patient who is awake, alert, ms3 and in no acute distress. Head/Face: Normocephalic, atraumatic. Neck: Trachea midline, no cervical lymphadenopathy. Supple, full range of motion without nuchal rigidity, or vertebral point tenderness. No Meningismus. Chest/axilla: Normal chest wall appearance and motion. Nontender with no deformity. Cardiovascular: Regular rate and rhythm with a normal S1 and S2. No gallops, murmurs, or rubs. Normal PMI, no JVD. No pulse deficits. Respiratory: Lungs have equal breath sounds bilaterally, clear to auscultation and percussion. No rales, rhonchi or wheezes noted. No increased work of breathing, no retractions or nasal flaring. Abdomen/GI: Soft, non-tender, with normal bowel sounds. No distension or tympany. No guarding or rebound. No evidence of tenderness throughout. 11:01 Eyes: Conjunctiva: Sclera: icterus, is present, 11:01 Skin: Appearance: Color: jaundiced, Vital Signs: 11:39 BP 126 / 90; Pulse 104; Resp 16; Temp 97.7; Pulse Ox 96% ; Weight 72.57 kg; Height 5 kd3 ft. 8 in. ; Pain 8/10; 14:00 BP 125 / 88; Pulse 92; Resp 18; Pulse Ox 99% on R/A; rs5 15:53 BP 130 / 90; Pulse 80; Resp 18; Pulse Ox 99% on R/A; rs5 17:29 BP 133 / 79; Pulse 80; Resp 18; Pulse Ox 99% on R/A; rs5 11:39 Body Mass Index 24.33 (72.57 kg, 172.72 cm) kd3 11:39 Pain Scale: Adult kd3 MDM: 11:01 Differential diagnosis: gastritis, non-specific abd pain, pancreatitis. ms3 11:08 External Records Reviewed: Inpatient record: Discharge labs from August 07, 2023 id3 [facility]. Lactic acid 1.6, ABO Rh O+, ethanol 93, creatinine kinase 319, lipase 88, drug screen positive for opioids. Hepatitis panel hepatitis A IgM nonreactive, hepatitis B C IgM nonreactive hepatitis C antibody nonreactive, hepatitis B surface antigen nonreactive. Alpha-fetoprotein 2.6. Hepatitis A antibody negative hepatitis B surface antibody less than 8.0, COLLIN negative, bilirubin direct 6.9. INR 0.88. CBC: White blood count 4.7, hemoglobin 12.6, hematocrit 36.8, platelet 111. CMP total protein 6.0, albumin 2.7, alkaline phosphatase 414, total bilirubin 5.4, sodium 135, potassium 3.6, chloride 100, bicarb 25, BUN 6, creatinine 0.87, glucose 82, calcium 8.7, AST 244, ALT 153 MR abdomen without IV contrast MRCP impression: 1 no biliary ductal dilatation 2. There is sludge in the gallbladder. The gallbladder wall is thickened, but the gallbladder is not distended. The gallbladder wall thickening is most likely related to underlying liver disease as opposed to an intrinsic gallbladder abnormality.3. Severe diffuse fatty infiltration of the liver. 11:54 Patient medically screened. ms3 17:16 Data reviewed: vital signs, nurses notes, lab test result(s), and as a result, I will ms3 discharge patient. Consideration of Admission/Observation Patient transferred. Management of patient was discussed with the following: Director Script: Hepatology. I considered the following discharge prescriptions or medication management in the emergency department Medications were administered in the Emergency Department. See MAR. Care significantly affected by the following chronic conditions: Liver Disease, Alcoholism, GERD. Counseling: I had a detailed discussion with the patient and/or guardian regarding the historical points, exam findings, and any diagnostic results supporting the discharge/admit diagnosis, lab results, the need to transfer to another facility, [facility] does not immediately have the required specialist. ED course: Discussed labs with patient. Discussed necessity for transfer. Patient understands agrees with plan. All questions were answered. 08/16 11:01 Order name: CBC with Diff; Complete Time: 14:27 ms3 08/16 11:01 Order name: CMP; Complete Time: 14:27 ms3 08/16 11:01 Order name: Lipase; Complete Time: 14:27 ms3 08/16 14:00 Order name: Manual Differential; Complete Time: 14:27 EDMS 08/16 11:01 Order name: IV Saline Lock; Complete Time: 13:19 ms3 08/16 11:01 Order name: Labs collected and sent; Complete Time: 13:19 ms3 Administered Medications: 11:51 Drug: Ondansetron PO 4 mg PO once Route: PO; kd3 12:20 Follow up: Response: No adverse reaction rs5 11:51 Drug: GI Cocktail without - (Maalox PO 30 ml, Lidocaine Mucous Membrane 2 % 15 kd3 ml) PO once Route: PO; 13:10 Follow up: Response: No adverse reaction rs5 13:20 Drug: NS 0.9% IV 1000 ml IV at 1 bolus Per protocol; 1000 mL bolus Route: IV; Rate: 1 rs5 bolus; Site: left hand; 13:40 Follow up: Response: No adverse reaction rs5 13:20 Drug: Famotidine IVP 20 mg IVP once; dilute with 10 mL 0.9% NaCl; give over 2 minutes rs5 Route: IVP; Site: left hand; 13:40 Follow up: Response: No adverse reaction rs5 14:45 Drug: diphenhydrAMINE IVP 25 mg IVP once Route: IVP; Site: left hand; rs5 15:10 Follow up: Response: No adverse reaction rs5 14:45 Drug: Ondansetron IVP 4 mg IVP once; over 2 minutes Route: IVP; Site: left hand; rs5 15:10 Follow up: Response: No adverse reaction rs5 16:10 Drug: Ativan IVP 1 mg IVP once Route: IVP; Site: left hand; rs5 16:50 Follow up: Response: No adverse reaction rs5 Disposition Summary: 08/17/23 14:46 Transfer Ordered Notes: Transfer Location: [facility] ms3 Reason: Higher level of care ms3 Condition: Stable ms3 Problem: new ms3 Symptoms: are unchanged ms3 Accepting Physician: Dr Figueroa(08/17/23 17:58) rs5 Diagnosis - Alcoholic cirrhosis of liver without ascites ms3 - Alcohol abuse ms3 - Unspecified jaundice ms3 Forms: - Medication Reconciliation Form ms3 - SBAR form ms3 Signatures: Dispatcher [employer] Álvaro Coelho DO DO ms3 Bettie Hatch, RN RN kd3 Zaid Kang RN RN rs5 Corrections: (The following items were deleted from the chart) 17:15 14:46 Dr elkins ms3 17:58 17:15 Dr Figueroa ms3 rs5
[2023-08-17 18:16] VITALS: BP 125/88; TEMP 97.7; O2SAT 99
== END ==
LOC: ER 10:40
DX: K70.30 Alcoholic cirrhosis of liver without ascites (principal); F10.20 Alcohol dependence, uncomplicated
CPT/HCPCS: 36415; 80053; 83690; 85025; 96374; 96375; 99285; J1200; J2405; J7030; Q0162

== ENCOUNTER 2023-09-18 20:17 | Emergency (ER) | payer SELFPAY ==
--- NOTE | 2023-09-18 21:37 | RAD REPORT ---
EXAM DESCRIPTION: RAD - Chest Single View - 09/18/2023 9:32 pm CLINICAL HISTORY: CHEST PAIN Chest pain. COMPARISON: <Comparisons> FINDINGS: Portable technique limits examination quality. The lungs are grossly clear. The heart is normal in size. No displaced fractures. IMPRESSION: No acute intrathoracic process suspected.
[2023-09-18 23:16] LABS: Protime INR 1.19
[2023-09-18 23:20] LABS: Hematocrit 40.8 % (39.6-49.0); Hemoglobin 13.8 g/dL (13.6-17.9); MCH 34.7 pg (27.0-35.0); MCHC 33.8 g/dL (32.0-36.0); MCV 102.7 fL (80-100); MPV 7.5 fL (7.6-11.3); Platelets 350 thou/uL (152-406); RBC Red Blood Cell Count 3.97 M/uL (4.33-5.43); Red Cell Distribution Width 14.4 % (12.1-15.2)
[2023-09-18] MEDS ORDERED: ALBUMIN HUMAN 25% 100 ML IV ONE (23:23)
[2023-09-18] MEDS ORDERED: LORazepam 2 MG/ML VIAL ONE (23:23)
[2023-09-18] MEDS ORDERED: ONDANSETRON 4 MG/2 ML VIAL ONE (23:23)
[2023-09-18] MEDS ORDERED: MORPHINE 2 MG/ML SYR ONE (23:23)
[2023-09-18] MEDS ORDERED: NA CHLORIDE 0.9% 1,000 ML ONE (23:24)
[2023-09-18 23:50] LABS: ALT/SGPT 122 U/L (16-61); AST/SGOT 164 U/L (15-37); Albumin 2.6 g/dL (3.4-5.0); Albumin/Globulin Ratio 0.6 (1.1-1.8); Alkaline Phosphatase 818 U/L (45-117); Anion Gap 9.6 mEq/L (5.0-15.0); BUN Blood Urea Nitrogen 11 mg/dL (7-18); Bicarbonate 29 mEq/L (21-32); Bilirubin Direct 6.7 mg/dL (0-0.2); Bilirubin Indirect, Calculated 1.6 mg/dL (0.2-0.8); Bilirubin Total 8.3 mg/dL (0.2-1.0); Globulin 4.5 g/dL (2.3-3.5); Glomerular Filtration Rate 85 ml/min (=/>90); Glucose Level 97 mg/dL (74-106); Magnesium 2.1 mg/dL (1.6-2.4); NT PRO-BNP 31 pg/mL (<125); Potassium 3.6 mEq/L (3.5-5.1); Protein, Total 7.1 g/dL (6.4-8.2); Sodium Level 133 mEq/L (136-145)
[2023-09-18 23:57] LABS: Troponin High Sensitivity < 3.0 pg/mL (<58.9)
[2023-09-19] MEDS ORDERED: ONDANSETRON 4 MG/2 ML VIAL ONE (00:21)
[2023-09-19 00:24] LABS: Band Neutrophils 5 % (0-1); Differential Total Cells Count 100; Lymphocytes 46 % (15-42); Monocytes 7 % (0-10); Reactive Lymphocytes 5 %; Segmented Neutrophils 34 % (40-80)
[2023-09-19 00:25] LABS: Blood Morphology Comment NOT SEEN (NOT SEEN); Platelet Estimate ADEQ
--- NOTE | 2023-09-19 03:49 | ER ---
Nurse's Notes [facility] Name: James Dupree Age: 48 yrs Sex: Male : 1975 Arrival Date: 09/18/2023 Time: 20:17 Bed 5 Private MD: Diagnosis: Alcoholic hepatitis;Alcoholic gastritis, alcoholic hepatitis, transaminitis, alcohol intoxication with alcoholism Presentation: 09/17 20:52 Chief complaint: Patient states: nausea, diarrhea, fatigue. Coronavirus screen: At this as6 time, the client does not indicate any symptoms associated with coronavirus-19. Ebola Screen: No symptoms or risks identified at this time. Initial Sepsis Screen: Does the patient meet any 2 criteria? No. Patient's initial sepsis screen is negative. Does the patient have a suspected source of infection? No. Patient's initial sepsis screen is negative. Risk Assessment: Do you want to hurt yourself or someone else? Patient reports no desire to harm self or others. Onset of symptoms was September 15, 2023. 20:52 Acuity: DORETHA 3 as6 20:52 Method Of Arrival: Ambulatory as6 Triage Assessment: 09/18 00:41 General: Appears in no apparent distress. comfortable, Behavior is calm, cooperative, bm8 appropriate for age. 00:46 Pain: Complains of pain in generalized Pain currently is 5 out of 10 on a pain scale. bm8 Quality of pain is described as aching. EENT: No deficits noted. No signs and/or symptoms were reported regarding the EENT system. Neuro: No deficits noted. Level of Consciousness is awake, alert, obeys commands, Oriented to person, place, time, situation, Appropriate for age. Cardiovascular: Denies chest pain, shortness of breath, Capillary refill < 3 seconds Patient's skin is warm and dry. Cardiovascular: Reports fatigue. Respiratory: Airway is patent Respiratory effort is even, unlabored, Respiratory pattern is regular, symmetrical. GI: No deficits noted. No signs and/or symptoms were reported involving the gastrointestinal system. : No deficits noted. No signs and/or symptoms were reported regarding the genitourinary system. Derm: No deficits noted. No signs and/or symptoms reported regarding the dermatologic system. Musculoskeletal: No deficits noted. No signs and/or symptoms reported regarding the musculoskeletal system. Historical: - Allergies: 09/17 20:51 NKA; as6 - PMHx: 20:51 Alcoholism; Anxiety; depressive disorder; drug abuse; GERD (drug abuse); as6 - Immunization history:: Adult Immunizations not up to date. - Infectious Disease History:: Denies. - Social history:: Smoking status: Patient reports the use of cigarette tobacco products, Patient uses alcohol. - Family history:: not pertinent. Screenin:45 [facility] ED Fall Risk Assessment (Adult) History of falling in the last 3 months, km8 including since admission No falls in past 3 months (0 pts) Confusion or Disorientation No (0 pts) Intoxicated or Sedated No (0 pts) Impaired Gait No (0 pts) Mobility Assist Device Used No (0 pt) Altered Elimination No (0 pt) Score/Fall Risk Level 0 - 2 = Low Risk Oriented to surroundings, Maintained a safe environment, Educated pt \T\ family on fall prevention, incl call for assistance when getting out of bed, Assessed \T\ reinforced patient's understanding of fall precautions. Abuse screen: Denies threats or abuse. Denies injuries from another. Nutritional screening: No deficits noted. Tuberculosis screening: No symptoms or risk factors identified. Assessment: 23:45 General: Appears in no apparent distress. uncomfortable, Behavior is calm, cooperative, km8 appropriate for age. Pain: Complains of pain in epigastric area Pain does not radiate. Pain currently is 8 out of 10 on a pain scale. Quality of pain is described as burning. Neuro: Level of Consciousness is awake, alert, obeys commands, Oriented to person, place, time, situation. Cardiovascular: Denies shortness of breath, Patient's skin is warm and dry. Respiratory: Airway is patent Respiratory effort is even, unlabored, Respiratory pattern is regular, symmetrical. GI: Abdomen is non-distended, Reports upper abdominal pain. : No signs and/or symptoms were reported regarding the genitourinary system. EENT: Sclera/Cornea yellowing. Derm: Skin is intact, is healthy with good turgor, Skin is dry, Skin is pink, warm \T\ dry. normal, Skin temperature is warm. Musculoskeletal: No signs and/or symptoms reported regarding the musculoskeletal system. Range of motion: intact in all extremities. 09/18 01:48 Reassessment: Patient appears in no apparent distress at this time. No changes from bm8 previously documented assessment. Patient and/or family updated on plan of care and expected duration. Pain level reassessed. Patient is alert, oriented x 3, equal unlabored respirations, skin warm/dry/pink. 03:00 Reassessment: Patient appears in no apparent distress at this time. No changes from km8 previously documented assessment. Patient and/or family updated on plan of care and expected duration. Pain level reassessed. Patient is alert, oriented x 3, equal unlabored respirations, skin warm/dry/pink. Vital Signs: 09/17 20:52 BP 128 / 83; Pulse 85; Resp 18 S; Temp 97.3(TE); Pulse Ox 100% on R/A; Weight 70.31 kg as6 (R); Height 5 ft. 8 in. (R); Pain 5/10; 23:10 BP 143 / 104; Pulse 78; Resp 22 S; Pulse Ox 97% on R/A; rv1 09/18 00:00 BP 129 / 85; Pulse 79; Resp 16; Pulse Ox 100% on R/A; km8 01:00 BP 114 / 82; Pulse 76; Resp 16; Pulse Ox 99% on R/A; km8 01:48 BP 114 / 87; Pulse 71; Resp 17; Temp 98.2; Pulse Ox 100% ; Pain 2/10; bm8 02:00 BP 120 / 85; Pulse 76; Resp 16; Pulse Ox 99% on R/A; km8 03:00 BP 107 / 72; Pulse 74; Resp 16; Pulse Ox 98% on R/A; km8 03:30 BP 112 / 73; Pulse 78; Resp 16; Pulse Ox 98% on R/A; km8 09/17 20:52 Body Mass Index 23.57 (70.31 kg, 172.72 cm) as6 09/17 20:52 Pain Scale: Adult as6 01:48 Pain Scale: Adult bm8 [place] Coma Score: 09/17 23:45 Eye Response: spontaneous(4). Motor Response: obeys commands(6). Verbal Response: km8 oriented(5). Total: 15. 09/18 21:12 Eye Response: spontaneous(4). Motor Response: obeys commands(6). Verbal Response: sp4 oriented(5). Total: 15. ED Course: 04/08 20:30 Patient arrived in ED. ra3 20:43 Albert Patrick MD is Attending Physician. sp4 20:51 Arm band placed on right wrist. as6 20:54 Triage completed. as6 21:34 XRAY Chest (1 view) In Process Unspecified. EDMS 22:57 Basic Metabolic Panel Sent. cm10 22:57 CBC with Diff Sent. cm10 22:57 LFT's Sent. cm10 22:57 Magnesium Sent. cm10 22:57 NT PRO-BNP Sent. cm10 22:57 PT-INR Sent. cm10 22:57 Troponin HS Sent. cm10 22:57 Alcohol Level Sent. cm10 22:57 Initial lab(s) drawn, by me, sent to lab. Inserted saline lock: 20 gauge in left cm10 antecubital area, using aseptic technique. Blood collected. 23:10 Basic Metabolic Panel Sent. rv1 23:10 CBC with Diff Sent. rv1 23:10 LFT's Sent. rv1 23:10 Magnesium Sent. rv1 23:10 NT PRO-BNP Sent. rv1 23:10 PT-INR Sent. rv1 23:10 Troponin HS Sent. rv1 23:19 Nadege Bee, RN is Primary Nurse. km8 23:45 Patient has correct armband on for positive identification. Bed in low position. Call km8 light in reach. Side rails up X 1. Pulse ox on. NIBP on. Lights dimmed. Warm blanket given. 23:45 20 gauge left AC infiltrated; IV d/c'd, catheter tip intact, pressure dressing applied. km8 09/18 00:40 Inserted saline lock: 20 gauge in left forearm, using aseptic technique. bm8 00:51 Abdomen In Process Unspecified. EDMS 01:43 US Abdomen Limited In Process Unspecified. EDMS 01:48 Provided Education on: need to stop drinking due to hepatitis. bm8 01:48 No provider procedures requiring assistance completed. bm8 03:48 Kushal Dong MD is Referral Physician. sp4 04:02 IV discontinued, intact, bleeding controlled, No redness/swelling at site. Pressure cm10 dressing applied. Administered Medications: 00:39 Drug: Ativan IVP 1 mg IVP once Route: IVP; Site: left forearm; bm8 03:49 Follow up: Response: No adverse reaction bm8 00:39 Drug: Ondansetron IVP 8 mg IVP once; over 2 minutes Route: IVP; Site: left forearm; bm8 03:48 Follow up: Response: No adverse reaction bm8 00:39 Drug: NS 0.9% IV 1000 ml IV at 125 ml/hr continuous Route: IV; Rate: 125 ml/hr; Site: bm8 left forearm; 04:01 Follow up: Response: No adverse reaction; IV Status: Completed infusion; IV Intake: cm10 400ml 00:40 Drug: morphine IVP or IV 2 mg IVP once over 4 mins Route: IVP; Infused Over: 4 mins; bm8 Site: left forearm; 03:50 Follow up: Response: No adverse reaction bm8 00:40 Drug: Albumin IVPB 25 grams 100 ml IVPB once; (Note: Albumin 25% concentration) Volume: bm8 100 ml; Route: IVPB; Site: left forearm; 03:49 Follow up: IV Status: Completed infusion; IV Intake: 100ml bm8 04:01 Drug: Alum-Mag Hydroxide-Simeth PO Suspension (200 mg-200 mg-20 mg/5 mL) 30 ml PO once cm10 Route: PO; 04:01 Follow up: Response: No adverse reaction cm10 Medication: 09/17 23:45 VIS not applicable for this client. km8 Intake: 09/18 03:49 IV: 100ml; Total: 100ml. bm8 04:01 IV: 400ml; Total: 500ml. cm10 Outcome: 03:49 Discharge ordered by . sp4 04:02 Discharged to home ambulatory, with friend, 10 04:02 Condition: good 04:02 Discharge instructions given to patient, Instructed on discharge instructions, follow up and referral plans. medication usage, Demonstrated understanding of instructions, follow-up care, medications, Prescriptions given X 5 04:02 Patient left the ED. cm10 Signatures: Dispatcher [employer] EDMS Maixmino Bruce RN RN as6 Ame Clement Sergey, MD MD sp4 Sonia Negrete RN RN cm10 Nadege Bee RN RN km8 Yasmine De La Garza ra3 Rod García RN RN 8
--- NOTE | 2023-09-19 03:49 | EDPHYS ---
Physician Documentation [facility] Name: James Dupree Age: 48 yrs Sex: Male : 1975 Arrival Date: 09/18/2023 Time: 20:17 Bed 5 Private MD: ED Physician Albert Patrick HPI: 09/17 20:43 This 48 yrs old Male presents to ER via Unassigned with complaints of Cough - sp4 loss of appetite,weakness,Hep. 20:43 Historical: Allergies: NKA; kd3 PMHx: Alcoholism; Anxiety; depressive disorder; drug sp4 abuse; GERD (drug abuse); . 09/18 21:12 Patient with extensive past medical history of alcoholism, alcohol induced hepatitis, sp4 liver cirrhosis, depressive disorder, drug abuse, GERD, presents with report of alcohol use and also poor appetite, generalized weakness, and yellow eyes. . Historical: - Allergies: 09/17 20:51 NKA; as6 - PMHx: 20:51 Alcoholism; Anxiety; depressive disorder; drug abuse; GERD (drug abuse); as6 - Immunization history:: Adult Immunizations not up to date. - Infectious Disease History:: Denies. - Social history:: Smoking status: Patient reports the use of cigarette tobacco products, Patient uses alcohol. - Family history:: not pertinent. ROS: 09/18 21:12 Constitutional: Positive generalized weakness, positive yellow eyes, positive loss of sp4 appetite, positive history of alcohol abuse All other systems are negative, Exam: 21:12 Constitutional: This is a well developed, patient who is awake, alert, and in no acute sp4 distress. Jaundiced appearing male Head/Face: Normocephalic, atraumatic. Scleral icterus. Eyes: Pupils equal round and reactive to light, extra-ocular motions intact. Lids and lashes normal. Positive scleral icterus, cornea within normal limits. Periorbital areas with no swelling, redness, or edema. ENT: Nares patent. No nasal discharge, no septal abnormalities noted. Tympanic membranes are normal and external auditory canals are clear. Oropharynx with no redness, swelling, or masses, exudates, or evidence of obstruction, uvula midline. Mucous membranes moist. Neck: Trachea midline, no thyromegaly or masses palpated, and no cervical lymphadenopathy. Supple, full range of motion without nuchal rigidity, or vertebral point tenderness. Chest/axilla: Normal chest wall appearance and motion. Nontender with no deformity. No lesions are appreciated. Cardiovascular: Regular rate and rhythm with a normal S1 and S2. No gallops, murmurs, or rubs. Normal PMI, no JVD. No pulse deficits. Respiratory: Lungs have equal breath sounds bilaterally, clear to auscultation and percussion. No rales, rhonchi or wheezes noted. No increased work of breathing, no retractions or nasal flaring. Abdomen/GI: Soft, with normal bowel sounds. No distension or tympany. No guarding or rebound. No evidence of tenderness throughout. Back: No spinal tenderness. No costovertebral tenderness. Skin: Warm, dry with normal turgor. Diffuse jaundice MS/ Extremity: Pulses equal, no cyanosis. Neurovascular intact. Full, normal range of motion. Neuro: Awake and alert, GCS 15, oriented to person, place, time, and situation. Cranial nerves II-XII grossly intact. Motor strength 5/5 in all extremities. Sensory grossly intact. Psych: Awake, alert, with orientation to person, place and time. Behavior, mood, and affect are within normal limits Vital Signs: 09/17 20:52 BP 128 / 83; Pulse 85; Resp 18 S; Temp 97.3(TE); Pulse Ox 100% on R/A; Weight 70.31 kg as6 (R); Height 5 ft. 8 in. (R); Pain 5/10; 23:10 BP 143 / 104; Pulse 78; Resp 22 S; Pulse Ox 97% on R/A; rv1 09/18 00:00 BP 129 / 85; Pulse 79; Resp 16; Pulse Ox 100% on R/A; km8 01:00 BP 114 / 82; Pulse 76; Resp 16; Pulse Ox 99% on R/A; km8 01:48 BP 114 / 87; Pulse 71; Resp 17; Temp 98.2; Pulse Ox 100% ; Pain 2/10; bm8 02:00 BP 120 / 85; Pulse 76; Resp 16; Pulse Ox 99% on R/A; km8 03:00 BP 107 / 72; Pulse 74; Resp 16; Pulse Ox 98% on R/A; km8 03:30 BP 112 / 73; Pulse 78; Resp 16; Pulse Ox 98% on R/A; km8 09/17 20:52 Body Mass Index 23.57 (70.31 kg, 172.72 cm) as6 09/17 20:52 Pain Scale: Adult as6 01:48 Pain Scale: Adult bm8 Roberto Coma Score: 09/17 23:45 Eye Response: spontaneous(4). Motor Response: obeys commands(6). Verbal Response: km8 oriented(5). Total: 15. 09/18 21:12 Eye Response: spontaneous(4). Motor Response: obeys commands(6). Verbal Response: sp4 oriented(5). Total: 15. MDM: 09/17 20:48 Patient medically screened. sp4 09/18 03:44 ED course: CLINICAL HISTORY: ABD PAIN COMPARISON: None. TECHNIQUE: US ABDOMEN LIMITED 4 09/19/2023 1:19 AM CDT FINDINGS: Gallbladder is decompressed. Portal vein is patent. Common bile duct measures 3 mm. IMPRESSION: No convincing biliary dilatation. Electronically signed by: Alo Connelly MD 09/19/2023 02:08 AM C. ED course: IMPRESSION: 1. No acute abdominopelvic findings. 2. Hepatomegaly and hepatic steatosis. Electronically signed by: Howard Witt MD 09/19/2023 . 21:12 Differential Diagnosis: Bronchitis Influenza Upper Respiratory Infection Sinusitis sp4 Pharyngitis. Data reviewed: vital signs, nurses notes, lab test result(s), radiologic studies, CT scan, ultrasound. Consideration of Admission/Observation Escalation of care including admission/observation considered. ED course: Patient at this time stable for discharge.. Historian patient labs available for comparison there is no sign of significant worsening of hepatitis. Bilirubin is actually improved. No signs of biliary obstruction by imaging. Patient is alcohol level 75. Patient was strongly advised to quit drinking. Patient was prescribed Librium.. 09/17 20:44 Order name: Alcohol Level; Complete Time: 00:20 sp4 09/17 20:49 Order name: Basic Metabolic Panel; Complete Time: 00:20 sp4 09/17 20:49 Order name: CBC with Diff; Complete Time: 00:29 sp4 09/17 20:49 Order name: LFT's; Complete Time: 00:20 sp4 09/17 20:49 Order name: Magnesium; Complete Time: 00:20 sp4 09/17 20:49 Order name: NT PRO-BNP; Complete Time: 00:20 sp4 09/17 20:49 Order name: PT-INR; Complete Time: 00:20 sp4 09/17 20:49 Order name: Troponin HS; Complete Time: 00:20 sp4 09/17 23:41 Order name: Manual Differential; Complete Time: 00:29 EDMS 09/17 20:49 Order name: XRAY Chest (1 view); Complete Time: 23:12 sp4 09/18 00:42 Order name: Abdomen EDMS 09/18 01:19 Order name: US Abdomen Limited sp4 09/17 20:49 Order name: Cardiac monitoring; Complete Time: 23:10 sp4 09/17 20:49 Order name: EKG - Nurse/Tech; Complete Time: 23:10 sp4 09/17 20:49 Order name: IV Saline Lock; Complete Time: 22:56 sp4 09/17 20:49 Order name: Labs collected and sent; Complete Time: 22:56 sp4 09/17 20:49 Order name: O2 Per Protocol; Complete Time: 22:56 sp4 09/17 20:49 Order name: O2 Sat Monitoring; Complete Time: 22:56 sp4 Administered Medications: 00:39 Drug: Ativan IVP 1 mg IVP once Route: IVP; Site: left forearm; bm8 03:49 Follow up: Response: No adverse reaction bm8 00:39 Drug: Ondansetron IVP 8 mg IVP once; over 2 minutes Route: IVP; Site: left forearm; bm8 03:48 Follow up: Response: No adverse reaction bm8 00:39 Drug: NS 0.9% IV 1000 ml IV at 125 ml/hr continuous Route: IV; Rate: 125 ml/hr; Site: bm8 left forearm; 04:01 Follow up: Response: No adverse reaction; IV Status: Completed infusion; IV Intake: cm10 400ml 00:40 Drug: morphine IVP or IV 2 mg IVP once over 4 mins Route: IVP; Infused Over: 4 mins; bm8 Site: left forearm; 03:50 Follow up: Response: No adverse reaction bm8 00:40 Drug: Albumin IVPB 25 grams 100 ml IVPB once; (Note: Albumin 25% concentration) Volume: bm8 100 ml; Route: IVPB; Site: left forearm; 03:49 Follow up: IV Status: Completed infusion; IV Intake: 100ml bm8 04:01 Drug: Alum-Mag Hydroxide-Simeth PO Suspension (200 mg-200 mg-20 mg/5 mL) 30 ml PO once cm10 Route: PO; 04:01 Follow up: Response: No adverse reaction cm10 Disposition Summary: 09/19/23 03:49 Discharge Ordered Notes: Location: Home sp4 Problem: new sp4 Symptoms: have improved sp4 Condition: Stable sp4 Diagnosis - Alcoholic hepatitis sp4 - Alcoholic gastritis, alcoholic hepatitis, transaminitis, alcohol intoxication sp4 with alcoholism Followup: sp4 - With: Kushal Dong MD - When: 7 - 10 days - Reason: Recheck today's complaints Discharge Instructions: - Discharge Summary Sheet sp4 - Alcoholic Hepatitis sp4 Forms: - Patient Portal Instructions sp4 Prescriptions: - chlordiazepoxide HCl 25 mg Oral capsule - take 1 capsule ORAL route every 8 hours Take 1 cap every 8 hours for 3 days, sp4 then 1 cap every 12 hours for 3 days, then 1 cap daily for remainder of the course; 30 capsule; Refills: 0, Product Selection Permitted - pantoprazole 40 mg Oral tablet, delayed release (enteric coated) - take 1 tablet ORAL route daily for 30 days; 30 tablet; Refills: 0, Product sp4 Selection Permitted - permethrin 5 % Topical cream - apply 1 application TOPICAL route once leave on for 8 to14 hrs before washing sp4 off; 60 gram; Refills: 0, Product Selection Permitted - Pepcid 20 mg Oral Tablet - take 1 tablet ORAL route every 12 hours for 10 days; 20 tablet; Refills: 0, sp4 Product Selection Permitted - ondansetron 8 mg Oral Tablet,disintegrating - take 1 tablet ORAL route every 8 hours PRN nausea; 30 tablet; Refills: 0, sp4 Product Selection Permitted Signatures: Dispatcher [employer] Maximino Garg RN RN as6 Albert Patrick MD MD sp4 Sonia Negrete RN RN cm10 Rod García RN RN bm8 Corrections: (The following items were deleted from the chart) 09/17 20:50 20:50 BASIC METABOLIC PANEL+C.LAB.BRZ ordered. EDMS EDMS 20:50 20:50 CBC+H.LAB.BRZ ordered. EDMS EDMS 20:50 20:50 HEPATIC FUNCTION+C.LAB.BRZ ordered. EDMS EDMS 20:50 20:50 MAGNESIUM+C.LAB.BRZ ordered. EDMS EDMS 20:50 20:50 PROBNP+C.LAB.BRZ ordered. EDMS EDMS 20:50 20:50 PROTIME (+INR)+COAG.LAB.BRZ ordered. EDMS EDMS 20:50 20:50 Troponin High Sensitivity+C.LAB.BRZ ordered. EDMS EDMS 20:50 20:50 Chest Single View+RAD.RAD.BRZ ordered. EDMS EDMS 09/18 00:25 09/17 20:55 Abdomen Pelvis W Con+CT.RAD.BRZ ordered. EDMS EDMS 09/18 00:42 00:21 Abdomen Pelvis Wo Con+CT.RAD.BRZ ordered. EDMS EDMS
[2023-09-19] MEDS ORDERED: MAGNES/ALUMIN/SIMET 30ML UCUP ONE (03:55)
[2023-09-19 08:08] VITALS: BP 112/73; TEMP 98.2; O2SAT 98
--- NOTE | 2023-09-19 10:17 | RAD REPORT ---
EXAM DESCRIPTION: CT - Abdomen Pelvis W Contrast - 09/19/2023 7:07 am Abdomen Pelvis W Contrast RadLex: CT ABDOMEN PELVIS WITH IV CONTRAST CLINICAL HISTORY 48 years Male; ABD PAIN; NO CONTRAST Bed Name: 5 TECHNIQUE: CT of the abdomen and pelvis with intravenous contrast. All CT scans at this facility use dose modulation, iterative reconstruction, and/or weight based dosi ng when appropriate to reduce radiation dose to as low as reasonably achievable. COMPARISON: CT abdomen pelvis 08/02/2023. FINDINGS: Lower thorax: Lung bases are clear Abdomen: Stomach: Within normal limits Liver: No focal lesions. Hepatic steatosis. Enlarged. No intrahepatic ductal distention. Gallbladder: Nondistended Pancreas: Within normal limits Spleen: Within normal limits Right kidney: No hydronephrosis. No focal lesion. Left kidney: No hydronephrosis. No focal lesion. Adrenal glands: Within normal limits Vascular structures: Within normal limits Nodes: No lymphadenopathy by size criteria Pelvis: Small bowel: No significant distention. Appendix: Within normal limits Colon: No distention or acute pericolonic edema. Peritoneum: No free intraperitoneal fluid or air. Bones: No acute bone findings. Bladder: Unremarkable. Reproductive organs: No acute findings. IMPRESSION: 1. No acute abdominopelvic findings. 2. Hepatomegaly and hepatic steatosis. Electronically signed by: Howard Witt MD 09/19/2023 01:07 AM CDT Due to temporary technical issues with the PACS/Fluency reporting system, reports are being signed by the in house radiologists without review as a courtesy to insure prompt reporting. The interpreting radiologist is fully responsible for the content of the report.
--- NOTE | 2023-09-19 13:33 | RAD REPORT ---
EXAM DESCRIPTION: US - Abdomen Exam Limited - 09/19/2023 1:41 am CLINICAL HISTORY: ABD PAIN COMPARISON: None. TECHNIQUE: US ABDOMEN LIMITED 09/19/2023 1:19 AM CDT FINDINGS: Gallbladder is decompressed. Portal vein is patent. Common bile duct measures 3 mm. IMPRESSION: No convincing biliary dilatation. Electronically signed by: Alo Connelly MD 09/19/2023 02:08 AM CDT Due to temporary technical issues with the PACS/Fluency reporting system, reports are being signed by the in house radiologists without review as a courtesy to insure prompt reporting. The interpreting radiologist is fully responsible for the content of the report.
== END 2023-09-19 04:02 | disposition home or self-care (01) ==
LOC: ER 20:17
DX: K70.10 Alcoholic hepatitis without ascites (principal); K29.20 Alcoholic gastritis without bleeding; R74.01 Elevation of levels of liver transaminase levels; F10.229 Alcohol dependence with intoxication, unspecified
CPT/HCPCS: 36415; 71045; 74177; 76705; 80048; 80076; 82077; 83735; 83880; 84484; 85025; 85610; 96365; 96366; 96375; 99284; J2270; J2405; J7030; P9047; Q9967

== ENCOUNTER 2023-11-10 09:17 | Emergency (ER) | payer SELFPAY ==
--- NOTE | 2023-11-10 09:51 | RAD REPORT ---
EXAM DESCRIPTION: Allen Single View11/10/2023 9:35 am CLINICAL HISTORY: Chest pain COMPARISON: September 2023 FINDINGS: The lungs appear clear of acute infiltrate. The heart is normal size IMPRESSION: No acute abnormalities displayed
[2023-11-10 10:03] LABS: Absolute Lymphocytes (CBC) 1.1 K/uL (0.7-4.9); Absolute Monocytes 0.3 K/uL (0.1-1.3); Absolute Neutrophil 1.7 K/uL (1.8-8.0); Basophils % 0.9 % (0-1.3); Eosinophils % 1.3 % (0-4.4); Hematocrit 40.8 % (39.6-49.0); Lymphocytes % 33.8 % (15.3-44.8); MCH 34.6 pg (27.0-35.0); MCHC 34.4 g/dL (32.0-36.0); MCV 100.7 fL (80-100); MPV 6.4 fL (7.6-11.3); Monocytes % 9.2 % (3.3-12.3); Neutrophils % 54.8 % (41.7-73.7); Nucleated Red Blood Cells % 0.4 % (0-0); Platelets 219 thou/uL (152-406); RBC Red Blood Cell Count 4.05 M/uL (4.33-5.43); Red Cell Distribution Width 13.8 % (12.1-15.2)
[2023-11-10] MEDS ORDERED: ONDANSETRON 4 MG/2 ML VIAL ONE (10:20)
[2023-11-10] MEDS ORDERED: MORPHINE 4 MG/ML SYR ONE (10:20)
[2023-11-10] MEDS ORDERED: NA CHLORIDE 0.9% 1,000 ML ONE (10:21)
[2023-11-10 10:37] LABS: PT Prothrombin Time 12.1 SECONDS (9.5-12.5); Protime INR 1.1
[2023-11-10 10:55] LABS: Albumin 3.5 g/dL (3.4-5.0); Albumin/Globulin Ratio 0.7 (1.1-1.8); Bilirubin Direct 0.4 mg/dL (0-0.2); Bilirubin Indirect, Calculated 0.5 mg/dL (0.2-0.8); Bilirubin Total 0.9 mg/dL (0.2-1.0); Globulin 4.8 g/dL (2.3-3.5); Protein, Total 8.3 g/dL (6.4-8.2); Troponin High Sensitivity 4.1 pg/mL (<58.9)
[2023-11-10] MEDS ORDERED: NA CHLORIDE 0.9% 1,000 ML with THIAMINE HCL 100 MG, FOLIC ACID 1 MG, MULTIVITAMINS INJ ... IV SCH (11:00)
--- NOTE | 2023-11-10 11:00 | RAD REPORT ---
EXAM DESCRIPTION: CT - Head Brain Wo Cont - 11/10/2023 10:44 am CLINICAL HISTORY: Headache COMPARISON: none TECHNIQUE: Computed axial tomography of the head was obtained. IV contrast was not requested. All CT scans are performed using dose optimization technique as appropriate and may include automated exposure control or mA/KV adjustment according to patient size. FINDINGS: An intracranial bleed is not seen The ventricles are normal in caliber No significant hypodense areas within the brain visualized No extra-axial fluid collection is noted. Fluid within the sinuses/ mastoids is not seen IMPRESSION: No acute intracranial abnormality is seen If patient's symptoms persist MRI of the brain would be recommended
[2023-11-10 11:38] LABS: Specific Gravity 1.006 (1.005-1.030); Sqamous Epithelial <5 /HPF (None Seen); Urine Bacteria None Seen /HPF (<20); Urine Bilirubin NEGATIVE (Negative); Urine Blood Negative (Negative); Urine Clarity Clear (Clear); Urine Color Colorless (Yellow); Urine Culture Reflex Order NOT NEEDED; Urine Glucose NEGATIVE (Negative); Urine Ketones NEGATIVE (Negative); Urine Microscopic Reflex YN ORDER UMIC; Urine Nitrite NEGATIVE (Negative); Urine Protein NEGATIVE (Negative); Urine RBC <5 /HPF (None Seen); Urine Urobilinogen Normal (Normal); Urine WBC <5 /HPF (<5); Urine pH 7.5 (5.0-7.0)
[2023-11-10 11:46] LABS: Barbiturates NEGATIVE (NEGATIVE); Benzodiazepines POSITIVE (NEGATIVE); Cocaine NEGATIVE (NEGATIVE); METHAMPHETAM POSITIVE (NEGATIVE); Methadone NEGATIVE (NEGATIVE); Opiates NEGATIVE (NEGATIVE); Phencyclidine NEGATIVE (NEGATIVE); THC Cannibis NEGATIVE (NEGATIVE)
[2023-11-10] MEDS ORDERED: LORazepam 2 MG/ML VIAL ONE (12:03)
[2023-11-10] MEDS ORDERED: POTASSIUM 25 MEQ EFFERV TAB ONE (12:03)
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
--- NOTE | 2023-11-10 12:38 | EDPHYS ---
Physician Documentation [facility] Name: James Dupree Age: 48 yrs Sex: Male : 1975 Arrival Date: 11/10/2023 Time: 09:17 Bed 18 Private MD: ROBERTO Physician Nahid Stark HPI: 11/09 11:15 This 48 yrs old Male presents to ER via Ambulatory with complaints of rivka Breathing Difficulty. 11:15 The patient has shortness of breath at rest, with light activity. Onset: The rivka symptoms/episode began/occurred 1 day(s) ago. Duration: The symptoms are intermittent. The patient's shortness of breath is aggravated by nothing, is alleviated by nothing. Associated signs and symptoms: Pertinent positives: chest pain. Severity of symptoms: At their worst the symptoms were moderate in the emergency department the symptoms are unchanged. The patient has experienced similar episodes in the past, several times. Historical: - Allergies: :25 NKA; iw - PMHx: :25 Alcoholism; Anxiety; depressive disorder; drug abuse; GERD; iw - Immunization history:: Adult Immunizations not up to date. - Infectious Disease History:: Denies. - Social history:: Smoking status: Patient uses alcohol, on a daily basis. ROS: 11:20 Constitutional: Negative for fever, chills, and weight loss, Eyes: Negative for injury, rivka pain, redness, and discharge, ENT: Negative for injury, pain, and discharge, Neck: Negative for injury, pain, and swelling, Abdomen/GI: Negative for abdominal pain, nausea, vomiting, diarrhea, and constipation, Back: Negative for injury and pain, : Negative for injury, bleeding, discharge, and swelling, MS/Extremity: Negative for injury and deformity, Skin: Negative for injury, rash, and discoloration, Neuro: Negative for headache, weakness, numbness, tingling, and seizure, Psych: Negative for depression, anxiety, suicide ideation, homicidal ideation, and hallucinations, Allergy/Immunology: Negative for hives, rash, and allergies, Endocrine: Negative for neck swelling, polydipsia, polyuria, polyphagia, and marked weight changes, Hematologic/Lymphatic: Negative for swollen nodes, abnormal bleeding, and unusual bruising, 11:20 Cardiovascular: Positive for chest pain, of the chest, 11:20 Respiratory: Positive for shortness of breath, at rest. Exam: 11:20 Constitutional: This is a well developed, well nourished patient who is awake, alert, rivka and in no acute distress. Head/Face: Normocephalic, atraumatic. Eyes: Pupils equal round and reactive to light, extra-ocular motions intact. Lids and lashes normal. Conjunctiva and sclera are non-icteric and not injected. Cornea within normal limits. Periorbital areas with no swelling, redness, or edema. ENT: Nares patent. No nasal discharge, no septal abnormalities noted. Tympanic membranes are normal and external auditory canals are clear. Oropharynx with no redness, swelling, or masses, exudates, or evidence of obstruction, uvula midline. Mucous membranes moist. Neck: Trachea midline, no thyromegaly or masses palpated, and no cervical lymphadenopathy. Supple, full range of motion without nuchal rigidity, or vertebral point tenderness. No Meningismus. Chest/axilla: Normal chest wall appearance and motion. Nontender with no deformity. No lesions are appreciated. Cardiovascular: Regular rate and rhythm with a normal S1 and S2. No gallops, murmurs, or rubs. Normal PMI, no JVD. No pulse deficits. Respiratory: Lungs have equal breath sounds bilaterally, clear to auscultation and percussion. No rales, rhonchi or wheezes noted. No increased work of breathing, no retractions or nasal flaring. Abdomen/GI: Soft, non-tender, with normal bowel sounds. No distension or tympany. No guarding or rebound. No evidence of tenderness throughout. Back: No spinal tenderness. No costovertebral tenderness. Full range of motion. Male : Normal genitalia with no discharge or lesions. Skin: Warm, dry with normal turgor. Normal color with no rashes, no lesions, and no evidence of cellulitis. MS/ Extremity: Pulses equal, no cyanosis. Neurovascular intact. Full, normal range of motion. Neuro: Awake and alert, GCS 15, oriented to person, place, time, and situation. Cranial nerves II-XII grossly intact. Motor strength 5/5 in all extremities. Sensory grossly intact. Cerebellar exam normal. Normal gait. Psych: Awake, alert, with orientation to person, place and time. Behavior, mood, and affect are within normal limits. 11:20 ECG was reviewed by the Attending Physician. Vital Signs: 09:23 BP 151 / 97; Pulse 75; Resp 16; Temp 97.1; Pulse Ox 100% on R/A; Weight 70.31 kg; iw Height 5 ft. 9 in. ; Pain 10/10; 10:09 BP 136 / 96; Pulse 65; Resp 18 S; Pulse Ox 100% on R/A; kc6 12:24 BP 140 / 93; Pulse 64; Resp 15 S; Pulse Ox 99% on R/A; kc6 09:23 Body Mass Index 22.89 (70.31 kg, 175.26 cm) iw 09:23 Pain Scale: Adult iw MDM: 09:19 Patient medically screened. [facility] 11:22 Differential diagnosis: Bronchitis abnormal EKG, anxiety, Cholelithiasis rivka costochondritis, esophagitis, gastritis, herpes zoster, hiatal hernia, pancreatitis, peptic ulcer disease, pericarditis, pleurisy, pneumonia, pneumothorax, pulmonary embolus, unstable angina, Myocardial Infarction pneumonia, Pneumothorax Psychogenic pulmonary edema, Pulmonary Embolism reactive airway disease, Sepsis Unstable Angina. Antibiotic administration: Not indicated. The patient was given aspirin in the Emergency Department. Immunization status:. Data reviewed: vital signs, nurses notes, lab test result(s), EKG, radiologic studies, plain films. Consideration of Admission/Observation Escalation of care including admission/observation considered. I considered the following discharge prescriptions or medication management in the emergency department Medications were administered in the Emergency Department. See MAR. Independent interpretation of the following test(s) in the Emergency Department EKG: See my EKG interpretation above. Test considered but Not performed: CT: no ct abd/ pelvis. Care significantly affected by the following chronic conditions: alcoholism, anxiety, depression, drug abuse, gerd. 11/09 09:20 Order name: Basic Metabolic Panel; Complete Time: 11: rivka 11/09 09:20 Order name: CBC with Diff; Complete Time: 11: [facility] 11/09 09:20 Order name: LFT's; Complete Time: 11:11/09 09:20 Order name: Magnesium; Complete Time: 11: rivka 11/09 09:20 Order name: NT PRO-BNP; Complete Time: 11: [facility] 11/09 09:20 Order name: PT-INR; Complete Time: 11: rivka 11/09 09:20 Order name: Troponin HS; Complete Time: 11:09 [facility] 11/09 10:32 Order name: AMMONIA; Complete Time: 11:47 rivka 11/09 10:32 Order name: Acetaminophen; Complete Time: 11:09 [facility] 11/09 10:32 Order name: ETOH Level; Complete Time: 11:47 11/09 10:32 Order name: Ptt, Activated; Complete Time: 11:39 [facility] 11/09 10:32 Order name: Salicylate; Complete Time: 12:20 [facility] 11/09 10:32 Order name: Urinalysis w/ reflexes; Complete Time: 11:39 11/09 10:32 Order name: Urine Drug Screen; Complete Time: 11:47 [facility] 11/09 11:09 Order name: Lipase; Complete Time: 11:47 [facility] 11/09 09:20 Order name: XRAY Chest (1 view); Complete Time: 11:09 [facility] 11/09 10:32 Order name: CT Head Brain wo Cont; Complete Time: 11:09 [facility] 11/09 09:20 Order name: EKG; Complete Time: 09:21 [facility] 11/09 09:20 Order name: Cardiac monitoring; Complete Time: 09:38 [facility] 11/09 09:20 Order name: EKG - Nurse/Tech; Complete Time: 09:38 [facility] 11/09 09:20 Order name: IV Saline Lock; Complete Time: 12:06 [facility] 11/09 09:20 Order name: Labs collected and sent; Complete Time: 10:07 [facility] 11/09 09:20 Order name: O2 Per Protocol; Complete Time: 09:38 [facility] 11/09 09:20 Order name: O2 Sat Monitoring; Complete Time: 09:38 [facility] 11/09 10:32 Order name: Suicide Screening ([place]); Complete Time: 12:01 [facility] EC:20 Rate is 87 beats/min. Rhythm is regular. QRS Fraser is Normal. DC interval is normal. QRS rivka interval is normal. QT interval is normal. No Q waves. T waves are Normal. Clinical impression: NSR w/ Non-specific ST/T Changes and No evidence of ischemia. Interpreted by me. Reviewed by me. Administered Medications: 10:36 Drug: NS 0.9% IV 1000 ml IV at 125 ml/hr continuous Route: IV; Rate: 125 ml/hr; Site: [facility] right hand; 13:39 Follow up: Response: No adverse reaction; IV Status: Completed infusion; IV Intake: kc6 1000ml 10:36 Drug: morphine IVP or IV 4 mg IVP once over 4 mins Route: IVP; Infused Over: 4 mins; rivka Site: right hand; 12:30 Follow up: Response: No adverse reaction; Pain is decreased; RASS: Alert and Calm (0) kc6 10:36 Drug: Ondansetron IVP 4 mg IVP once; over 2 minutes Route: IVP; Site: right hand; [facility] 12:30 Follow up: Response: No adverse reaction; Nausea is decreased kc6 12:20 Drug: Potassium PO Effervescent Tablet 50 mEq PO once; dissolve in 4 ounces of water or kc6 juice Route: PO; 12:31 Follow up: Response: No adverse reaction [facility] 12:21 Drug: Banana Bag - (Multivitamin IV 1 amp, NS 0.9% IV 1000 ml, Thiamine IV 100 mg, kc6 foLIC Acid IVPB 1 mg) IV at 500 ml/hr once Route: IV; Rate: 500 ml/hr; Site: right hand; 13:38 Follow up: Response: No adverse reaction; IV Status: Completed infusion; IV Intake: kc6 1000ml 12:21 Drug: Thiamine IV 100 mg IV at bolus once Route: IV; Rate: bolus; Site: right hand; kc6 12:30 Follow up: Response: No adverse reaction; IV Status: Completed infusion [facility] 12:21 Drug: Ativan IVP 2 mg IVP once Route: IVP; Site: right hand; 6 12:31 Follow up: Response: No adverse reaction; Anxiety decreased; RASS: Alert and Calm (0) kc6 Disposition Summary: 11/10/23 12:38 Discharge Ordered Notes: Location: Home rivka Problem: new rivka Symptoms: have improved rivka Condition: Stable rivka Diagnosis - Alcohol abuse rivka - 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 rivka - Hypokalemia - 3.0 rivka - Chest pain, unspecified rivka Followup: rivka - With: Private Physician - When: 2 - 3 days - Reason: Recheck today's complaints, Continuance of care, Re-evaluation by your physician Followup: rivka - With: Tyree Antonio MD - When: 2 - 3 days - Reason: Recheck today's complaints, Re-evaluation by your physician Discharge Instructions: - Discharge Summary Sheet rivka - Finding Treatment for Addiction rivka - Alcohol Use Disorder rivka - Potassium Content of Foods rivka - Substance Use Disorder rivka - Supporting Someone With an Addiction rivka - Alcohol Abuse and Nutrition rivka - Hypokalemia rivka - Alcohol Abuse and Dependence Information, Adult rivka - Substance Use Disorder and Mental Illness [facility] Forms: - Medication Reconciliation Form rivka - Antibiotic Education rivka - Prescription Opioid Use rivka - Patient Portal Instructions rivka - Leadership Thank You Letter [facility] Prescriptions: - Potassium Chloride 20 meq Oral Packet - take 1 packet ORAL route once daily 1 packet in 6 (six) ounces of water or rivka juice; Take after meal; 14 packet; Refills: 0, Product Selection Permitted Signatures: Dispatcher [employer] EDMS Nahid Stark MD MD cha Williams, Irene, RN RN iw Campbell, Kaitlyn, RN RN kc6 Corrections: (The following items were deleted from the chart) 09:21 09:21 BASIC METABOLIC PANEL+C.LAB.BRZ ordered. EDMS EDMS 09:21 09:21 CBC+H.LAB.BRZ ordered. EDMS EDMS 09:21 09:21 HEPATIC FUNCTION+C.LAB.BRZ ordered. EDMS EDMS 09:21 09:21 MAGNESIUM+C.LAB.BRZ ordered. EDMS EDMS 09:21 09:21 PROBNP+C.LAB.BRZ ordered. EDMS EDMS 09:21 09:21 PROTIME (+INR)+COAG.LAB.BRZ ordered. EDMS EDMS 09:21 09:21 Troponin High Sensitivity+C.LAB.BRZ ordered. EDMS EDMS 10:32 10:32 Head Brain Wo Cont+CT.RAD.BRZ ordered. EDMS EDMS 10:32 10:32 AMMONIA+C.LAB.BRZ ordered. EDMS EDMS 10:32 10:32 ACETAMINOPHEN+C.LAB.BRZ ordered. EDMS EDMS 10:32 10:32 ETHANOL+C.LAB.BRZ ordered. EDMS EDMS 10:32 10:32 PTT, ACTIVATED+COAG.LAB.BRZ ordered. EDMS EDMS 10:32 10:32 SALICYLATE+C.LAB.BRZ ordered. EDMS EDMS 10:32 10:32 Urinalysis+U.LAB.BRZ ordered. EDMS EDMS 10:32 10:32 URINE DRUG SCREEN+UC.LAB.BRZ ordered. EDMS EDMS
[2023-11-10 14:04] VITALS: BP 140/93; TEMP 97.1; O2SAT 99
--- NOTE | 2023-11-13 14:14 | EKG ---
Test Date: 2023-11-10 Test Time: 09:36:41 Operations Officer Afloat: BLUE MEASUREMENT RESULTS: Intervals: Rate: 87 NV: 166 QRSD: 98 QT: 362 QTc: 435 [place]: P: 60 NV: 166 QRS: 90 T: 79 INTERPRETIVE STATEMENTS: Normal sinus rhythm with sinus arrhythmia Rightward axis Borderline ECG Compared to ECG 05/02/2023 13:44:15 No significant changes Electronically Signed On 11-13-23 14:07:07 CDT by Hubert Prajapati
== END 2023-11-10 13:40 | disposition home or self-care (01) ==
LOC: ER 09:17
DX: F10.280 Alcohol dependence with alcohol-induced anxiety disorder (principal); E87.6 Hypokalemia
CPT/HCPCS: 36415; 70450; 71045; 80048; 80076; 80143; 80179; 80307; 81001; 82077; 82140; 83690; 83735; 83880; 84484; 85025; 85610; 85730; 93005; 96361; 96365; 96375; 99285; J2405; J3411; J7030

== ENCOUNTER 2023-11-22 13:56 | Emergency (ER) | payer SELFPAY ==
[2023-11-22] MEDS ORDERED: THIAMINE 200 MG/2 ML INJ ONE (14:47)
[2023-11-22] MEDS ORDERED: MULTIVITAMINS 10 ML VIAL (INJ) IV ONE (14:48)
[2023-11-22] MEDS ORDERED: FOLIC ACID 5 MG/ML VIAL ONE (14:49)
[2023-11-22] MEDS ORDERED: NA CHLORIDE 0.9% 1,000 ML ONE (14:49)
[2023-11-22 15:14] LABS: Specific Gravity 1.006 (1.005-1.030); Sqamous Epithelial None Seen /HPF (None Seen); Urine Bacteria <20 /HPF (<20); Urine Bilirubin NEGATIVE (Negative); Urine Blood Negative (Negative); Urine Clarity Clear (Clear); Urine Color Colorless (Yellow); Urine Culture Reflex Order NOT NEEDED; Urine Glucose NEGATIVE (Negative); Urine Ketones NEGATIVE (Negative); Urine Microscopic Reflex YN ORDER UMIC; Urine Nitrite NEGATIVE (Negative); Urine Protein NEGATIVE (Negative); Urine RBC <5 /HPF (None Seen); Urine Urobilinogen Normal (Normal); Urine WBC <5 /HPF (<5); Urine Yeast (Budding) Trace /HPF (None Seen)
[2023-11-22 15:18] LABS: Barbiturates NEGATIVE (NEGATIVE); Benzodiazepines NEGATIVE (NEGATIVE); Cocaine NEGATIVE (NEGATIVE); METHAMPHETAM NEGATIVE (NEGATIVE); Methadone NEGATIVE (NEGATIVE); Opiates NEGATIVE (NEGATIVE); Phencyclidine NEGATIVE (NEGATIVE); THC Cannibis NEGATIVE (NEGATIVE)
[2023-11-22 15:25] LABS: Absolute Lymphocytes (CBC) 1.5 K/uL (0.7-4.9); Absolute Monocytes 0.2 K/uL (0.1-1.3); Absolute Neutrophil 1.8 K/uL (1.8-8.0); Basophils % 0.8 % (0-1.3); Eosinophils % 0.4 % (0-4.4); Hematocrit 48.6 % (39.6-49.0); Hemoglobin 16.4 g/dL (13.6-17.9); Lymphocytes % 42.8 % (15.3-44.8); MCH 33.8 pg (27.0-35.0); MCHC 33.9 g/dL (32.0-36.0); MCV 99.7 fL (80-100); MPV 7.1 fL (7.6-11.3); Monocytes % 4.7 % (3.3-12.3); Neutrophils % 51.3 % (41.7-73.7); Nucleated Red Blood Cells % 0.1 % (0-0); Platelets 147 thou/uL (152-406); RBC Red Blood Cell Count 4.87 M/uL (4.33-5.43); Red Cell Distribution Width 14.5 % (12.1-15.2)
[2023-11-22 15:29] LABS: PT Prothrombin Time 11.9 SECONDS (9.5-12.5); PTT, Activated Partial Thromb 34.2 SECONDS (24.3-36.9); Protime INR 1.08
[2023-11-22 15:40] LABS: ALT/SGPT 84 U/L (16-61); AST/SGOT 259 U/L (15-37); Albumin 4.1 g/dL (3.4-5.0); Albumin/Globulin Ratio 0.8 (1.1-1.8); Alkaline Phosphatase 181 U/L (45-117); Anion Gap 6.9 mEq/L (5.0-15.0); BUN Blood Urea Nitrogen 13 mg/dL (7-18); Bicarbonate 30 mEq/L (21-32); Bilirubin Direct 0.4 mg/dL (0-0.2); Bilirubin Indirect, Calculated 1.1 mg/dL (0.2-0.8); Bilirubin Total 1.5 mg/dL (0.2-1.0); Creatine Phosphokinase 331 U/L (39-308); Globulin 5.3 g/dL (2.3-3.5); Glomerular Filtration Rate 88 ml/min (=/>90); Glucose Level 95 mg/dL (74-106); Potassium 4.9 mEq/L (3.5-5.1); Protein, Total 9.4 g/dL (6.4-8.2); Sodium Level 136 mEq/L (136-145)
--- NOTE | 2023-11-22 17:52 | RAD REPORT ---
EXAM DESCRIPTION: CT - [id number] - 11/22/2023 3:30 pm CLINICAL HISTORY: HEADACHE COMPARISON: Soft Tissue Neck W/Contr dated 12/14/2022; Head C Spine Mpr Wo Con dated 09/20/2021 TECHNIQUE: Axial thin cut noncontrast CT images of the head were obtained. Axial thin cut noncontrast CT images of the cervical spine were obtained. Multiplanar reformatted images were generated and reviewed. All CT scans are performed using dose optimization technique as appropriate and may include automated exposure control or mA/KV adjustment according to patient size. FINDINGS: CT HEAD WITHOUT CONTRAST: No acute hemorrhage, hydrocephalus or extra-axial collection is identified.No areas of brain edema or midline shift. The paranasal sinuses and mastoids are clear.The calvarium is intact. CT CERVICAL SPINE WITHOUT CONTRAST: No fracture or subluxation. Straightening of normal cervical lordosis which may be positional or seco ndary to muscle spasm. Mild degenerative changes of the endplates with mild degrees of disc height lo ss at C5-6 and C6-7. No prevertebral soft tissues swelling is identified. IMPRESSION: No acute traumatic intracranial or cervical spine findings. Mild cervical spine degenerative changes as above.
--- NOTE | 2023-11-22 17:56 | RAD REPORT ---
EXAM DESCRIPTION: US - Abdomen Exam Limited - 11/22/2023 4:30 pm CLINICAL HISTORY: elevated liver enzymes COMPARISON: Abdomen Exam Limited dated 09/19/2023; Abdomen Pelvis W Contrast dated 09/19/2023 TECHNIQUE: Sonographic grayscale and color flow images of the right upper abdominal quadrant were o btained. FINDINGS: The gallbladder demonstrates no gallstones. No pericholecystic fluid or gallbladder wall t hickening. The common bile duct is normal measuring 3 mm. The liver demonstrates mild diffuse increased hepatic echogenicity. No findings of intrahepatic bilia ry dilatation. IMPRESSION: Mild diffuse hepatic steatosis. No gallstones or other acute findings of the gallbladder or biliary system.
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
[2023-11-22] MEDS ORDERED: IBUPROFEN 400 MG TAB ONE (23:38)
[2023-11-23] MEDS ORDERED: NA CHLORIDE 0.9% 1,000 ML ONE (01:09)
[2023-11-23] MEDS ORDERED: PROMETHAZINE 25 MG TABLET ONE (03:40)
[2023-11-23] MEDS ORDERED: ONDANSETRON 4 MG/2 ML VIAL ONE (06:47)
[2023-11-23 07:12] LABS: Albumin 2.7 g/dL (3.4-5.0); Albumin/Globulin Ratio 0.7 (1.1-1.8); Bilirubin Direct 0.4 mg/dL (0-0.2); Bilirubin Indirect, Calculated 0.4 mg/dL (0.2-0.8); Bilirubin Total 0.8 mg/dL (0.2-1.0); Globulin 3.9 g/dL (2.3-3.5); Protein, Total 6.6 g/dL (6.4-8.2)
[2023-11-23] MEDS ORDERED: FAMOTIDINE 20 MG TAB ONE (15:13)
[2023-11-23] MEDS ORDERED: chlordiazePOXIDE HCl 25 MG CAP ONE (21:33)
[2023-11-24] MEDS ORDERED: chlordiazePOXIDE HCl 25 MG CAP ONE (07:11)
[2023-11-24 10:48] VITALS: O2SAT 100
[2023-11-24 11:05] VITALS: BP 137/75; TEMP 98.1
--- NOTE | 2023-11-27 15:09 | EKG ---
Test Date: 2023-11-23 Test Time: 02:34:25 Maintenance Supervisor: ELLIE MEASUREMENT RESULTS: Intervals: Rate: 77 VT: 170 QRSD: 94 QT: 400 QTc: 452 [place]: P: 66 VT: 170 QRS: 100 T: 79 INTERPRETIVE STATEMENTS: Normal sinus rhythm with sinus arrhythmia Rightward axis Anterior infarct, age undetermined Abnormal ECG Compared to ECG 11/22/2023 14:42:33 Junctional rhythm no longer present T-wave abnormality no longer present Possible ischemia no longer present Myocardial infarct finding still present Electronically Signed On 11-27-23 14:56:34 CDT by Hubert Prajapati
--- NOTE | 2023-11-27 15:12 | EKG ---
Test Date: 2023-11-22 Test Time: 14:42:33 Soap Mixer: FIDEL MEASUREMENT RESULTS: Intervals: Rate: 54 CO: QRSD: 88 QT: 430 QTc: 407 [place]: P: CO: QRS: 95 T: 73 INTERPRETIVE STATEMENTS: Junctional rhythm Rightward axis Septal infarct, age undetermined T wave abnormality, consider anterior ischemia Abnormal ECG Compared to ECG 11/10/2023 09:36:41 Junctional rhythm now present Myocardial infarct finding now present T-wave abnormality now present Possible ischemia now present Sinus rhythm no longer present Sinus arrhythmia no longer present Electronically Signed On 11-27-23 14:57:13 CDT by Hubert Prajapati
== END 2023-11-24 10:39 ==
LOC: ER 13:56
DX: R45.851 Suicidal ideations (principal); F10.20 Alcohol dependence, uncomplicated
CPT/HCPCS: 36415; 70450; 72125; 76705; 80048; 80076; 80143; 80179; 80307; 81001; 82077; 82550; 85025; 85610; 85730; 93005; 96361; 96365; 96366; 96375; 99285; J3411; J7030

== ENCOUNTER 2023-12-03 17:51 | Emergency (ER) | payer SELFPAY ==
[2023-12-03] MEDS ORDERED: METHYLPREDNISOLONE 125 MG INJ ONE (18:22)
--- NOTE | 2023-12-03 18:23 | ER ---
Nurse's Notes [facility] Name: James Dupree Age: 48 yrs Sex: Male : 1975 Arrival Date: 12/03/2023 Time: 17:51 Bed 10 Private MD: Diagnosis: Irritant contact dermatitis due to plants, except food Presentation: 12/02 18:06 Chief complaint: Patient states: Rash to body for 3 days. Coronavirus screen: Client ll1 denies travel out of the [place] in the last 14 days. At this time, the client does not indicate any symptoms associated with coronavirus-19. Ebola Screen: Patient denies travel to an Ebola-affected area in the 21 days before illness onset. Onset: The symptoms/episode began/occurred 3 day(s) ago. Anaphylaxis evaluation, no signs or symptoms of anaphylaxis were noted. Initial Sepsis Screen: Does the patient meet any 2 criteria? No. Patient's initial sepsis screen is negative. Does the patient have a suspected source of infection? No. Patient's initial sepsis screen is negative. Risk Assessment: Do you want to hurt yourself or someone else? Patient reports no desire to harm self or others. Onset of symptoms was December 01, 2023. 18:06 Method Of Arrival: Ambulatory 1 18:06 Acuity: DORETHA 4 ll1 Historical: - Allergies: 18:06 NKA; ll1 - PMHx: 18:06 Alcoholism; Anxiety; depressive disorder; drug abuse; GERD; ll1 - Immunization history:: Adult Immunizations up to date. - Infectious Disease History:: Denies. - Social history:: Smoking status: Patient denies any tobacco usage or history of. Screenin:38 [facility] ED Fall Risk Assessment (Adult) History of falling in the last 3 months, al5 including since admission No falls in past 3 months (0 pts) Confusion or Disorientation No (0 pts) Intoxicated or Sedated No (0 pts) Impaired Gait No (0 pts) Mobility Assist Device Used No (0 pt) Altered Elimination No (0 pt) Score/Fall Risk Level 0 - 2 = Low Risk Oriented to surroundings, Maintained a safe environment, Hourly rounding (assess needs \T\ fall precautionary measures) done. Abuse screen: Denies threats or abuse. Denies injuries from another. Nutritional screening: No deficits noted. Tuberculosis screening: No symptoms or risk factors identified. Assessment: 18:37 General: Appears in no apparent distress. Behavior is calm, cooperative, Smells of. al5 Pain: Denies pain. Neuro: No deficits noted. Level of Consciousness is awake, alert, obeys commands, Oriented to person, place, time, situation, Gait is steady, Speech is normal, Facial symmetry appears normal. Cardiovascular: No deficits noted. Patient's skin is warm and dry. Respiratory: No deficits noted. Airway is patent Trachea midline Respiratory effort is even, unlabored, Breath sounds are clear bilaterally. Derm: Reports rash to mid abdomen and r side x 4 days. rash red without exudate, not hot to touch. Vital Signs: 18:06 BP 142 / 91; Pulse 113; Resp 17; Temp 97.1; Pulse Ox 96% ; Pain 3/10; ll1 18:06 Pain Scale: Adult ll1 ED Course: 17:52 Patient arrived in ED. im 18:07 Triage completed. ll1 18:07 Arm band placed on Patient placed in an exam room, on a stretcher. ll1 18:11 Nahid Franco PA is PHCP. cp 18:11 Yuval Dewitt MD is Attending Physician. cp 18:19 Kamila Coley RN is Primary Nurse. al5 18:38 No provider procedures requiring assistance completed. Patient did not have IV access al5 during this emergency room visit. 18:39 Patient has correct armband on for positive identification. Bed in low position. Call al5 light in reach. Provided Education on: medication usage, antibiotic ointment usage, signs and symptoms of infection.. Administered Medications: 18:29 Drug: MethylPREDNISolone Sodium Succinate IM 80 mg IM once Route: IM; Site: right al5 deltoid; 18:40 Follow up: Response: No adverse reaction al5 Medication: 18:46 VIS not applicable for this client. al5 Outcome: 18:23 Discharge ordered by . cp 18:46 Discharged to home al5 18:46 Condition: good 18:46 Discharge instructions given to patient, Instructed on discharge instructions, follow up and referral plans. medication usage, wound care, Demonstrated understanding of instructions, follow-up care, medications, wound care, 18:46 Patient left the ED. al5 Signatures: Nahid Franco PA PA cp Lewis, Lynsay, RN RN 1 Anyi Rivera Amanda, RN RN al5
--- NOTE | 2023-12-03 18:24 | EDPHYS ---
Physician Documentation [facility] Name: James Dupree Age: 48 yrs Sex: Male : 1975 Arrival Date: 12/03/2023 Time: 17:51 Bed 10 Private MD: ED Physician Yuval Dewitt HPI: 12/02 18:19 This 48 yrs old Male presents to ER via Ambulatory with complaints of Allergic cp Reaction, Poison doretha. 18:19 The patient presents with rash, of the abdomen. Onset: The symptoms/episode cp began/occurred 3 day(s) ago. Possible causes: poison oak. At home the patient or guardian has treated the symptoms with nothing. 18:19 Associated signs and symptoms: Pertinent negatives: fever. cp Historical: - Allergies: 18:06 NKA; ll1 - PMHx: 18:06 Alcoholism; Anxiety; depressive disorder; drug abuse; GERD; ll1 - Immunization history:: Adult Immunizations up to date. - Infectious Disease History:: Denies. - Social history:: Smoking status: Patient denies any tobacco usage or history of. ROS: 18:20 Skin: Positive for rash, of the abdomen, cp 18:20 Constitutional: Negative for body aches, chills, fever, cp 18:20 ENT: Negative for sore throat, difficulty swallowing, difficulty handling secretions, 18:20 Respiratory: Negative for shortness of breath, wheezing, 18:20 All other systems are negative, Exam: 18:22 Constitutional: The patient appears in no acute distress, alert, awake, well developed, cp well nourished, 18:22 Head/Face: Normocephalic, atraumatic. cp 18:22 Chest/axilla: Inspection: normal, 18:22 Cardiovascular: Rate: tachycardic, 18:22 Respiratory: the patient does not display signs of respiratory distress, Respirations: normal, no use of accessory muscles, no retractions, labored breathing, is not present, Breath sounds: are clear throughout, no decreased breath sounds, no stridor, no wheezing, 18:22 Abdomen/GI: Inspection: rash noted to anterior and right lateral abdomen that appears with mild erythema, clear fluid filled vesicles, Vital Signs: 18:06 BP 142 / 91; Pulse 113; Resp 17; Temp 97.1; Pulse Ox 96% ; Pain 3/10; ll1 18:06 Pain Scale: Adult ll1 MDM: 18:11 Patient medically screened. cp 18:20 Differential diagnosis: anaphylaxis, dermatitis, cellulitis, abscess. cp 18:23 Data reviewed: vital signs, nurses notes, and as a result, I will discharge patient. cp 18:23 I considered the following discharge prescriptions or medication management in the cp emergency department Medications were administered in the Emergency Department. See MAR. Counseling: I had a detailed discussion with the patient and/or guardian regarding the historical points, exam findings, and any diagnostic results supporting the discharge/admit diagnosis, to return to the emergency department if symptoms worsen or persist or if there are any questions or concerns that arise at home. Administered Medications: 18:29 Drug: MethylPREDNISolone Sodium Succinate IM 80 mg IM once Route: IM; Site: right al5 deltoid; 18:40 Follow up: Response: No adverse reaction al5 Disposition: 19:59 Co-signature as Attending Physician, Yuval Dewitt MD I reviewed the patient's care rt provided by the Advanced Practice Provider and agree with the diagnosis and treatment plan. Disposition Summary: 12/03/23 18:23 Discharge Ordered Notes: Location: Home cp Problem: new cp Symptoms: have improved cp Condition: Stable cp Diagnosis - Irritant contact dermatitis due to plants, except food cp Followup: cp - With: Private Physician - When: 2 - 3 days - Reason: Worsening of condition Discharge Instructions: - Discharge Summary Sheet cp - Contact Dermatitis cp - Poison Doretha Dermatitis cp - Poison [place] Dermatitis cp Forms: - Medication Reconciliation Form cp - Antibiotic Education cp - Prescription Opioid Use cp - Patient Portal Instructions cp - Leadership Thank You Letter cp Prescriptions: - mupirocin 2 % Topical ointment - apply 1 application TOPICAL route 2 times per day; 45 gram tube; Refills: 0, cp Product Selection Permitted - Triamcinolone Acetonide 0.5 % Topical cream - apply 1 application TOPICAL route 2 times per day As needed; 45 gram tube; cp Refills: 0, Product Selection Permitted Signatures: Nahid Franco PA PA cp Lewis, Lynsay, RN RN ll1 Yuval Dewitt MD MD rt Kamila Coley RN RN al5 Corrections: (The following items were deleted from the chart) 18:20 18:19 Onset: The symptoms/episode began/occurred 4 day(s) ago, cp cp
[2023-12-04 02:42] VITALS: BP 142/91; TEMP 97.1; O2SAT 96
== END 2023-12-03 18:46 | disposition home or self-care (01) ==
LOC: ER 17:51
DX: L24.7 Irritant contact dermatitis due to plants, except food (principal)
CPT/HCPCS: 96372; 99284; J2919

== ENCOUNTER 2024-01-25 02:02 | Emergency (ER) | payer SELFPAY ==
--- NOTE | 2024-01-25 03:57 | ER ---
Nurse's Notes [facility] Name: James Dupree Age: 48 yrs Sex: Male : 1975 Arrival Date: 01/25/2024 Time: 02:02 Bed 6 Private MD: Diagnosis: Anxiety attack, methamphetamine abuse Presentation: 01/24 02:18 Chief complaint: EMS states: Pt reports getting drunk and taking meth yesteday. Now jb4 reports feeling anxious and having chest pain and SOB. Was given 324 of ASA, and NS Via 20g to the left hand. Coronavirus screen: At this time, the client does not indicate any symptoms associated with coronavirus-19. Ebola Screen: No symptoms or risks identified at this time. Initial Sepsis Screen: Does the patient meet any 2 criteria? No. Patient's initial sepsis screen is negative. Does the patient have a suspected source of infection? No. Patient's initial sepsis screen is negative. Risk Assessment: Do you want to hurt yourself or someone else? Patient reports no desire to harm self or others. Onset of symptoms was January 25, 2024. Transition of care: patient was not received from another setting of care. 02:18 Method Of Arrival: EMS: [facility] jb4 02:18 Acuity: DORETHA 3 jb4 Historical: - Allergies: 02:21 NKA; jb4 - PMHx: 02:21 Anxiety; Alcoholism; depressive disorder; drug abuse; GERD; jb4 - Immunization history:: Adult Immunizations up to date. - Infectious Disease History:: Denies. - Social history:: Smoking status: Patient reports the use of cigarette tobacco products, Patient uses alcohol, on a daily basis. street drugs, Methamphetamine (Meth). - Family history:: not pertinent. Screenin:22 [facility] ED Fall Risk Assessment (Adult) History of falling in the last 3 months, jb4 including since admission No falls in past 3 months (0 pts) Confusion or Disorientation No (0 pts) Intoxicated or Sedated No (0 pts) Impaired Gait No (0 pts) Mobility Assist Device Used No (0 pt) Altered Elimination No (0 pt) Score/Fall Risk Level 0 - 2 = Low Risk Oriented to surroundings, Maintained a safe environment. Abuse screen: Denies threats or abuse. Nutritional screening: No deficits noted. Tuberculosis screening: No symptoms or risk factors identified. Assessment: 02:22 General: Appears in no apparent distress. uncomfortable, Behavior is cooperative, jb4 anxious. Pain: Complains of pain in chest Pain does not radiate. Pain currently is 8 out of 10 on a pain scale. Neuro: Level of Consciousness is awake, alert, obeys commands. Cardiovascular: Patient's skin is warm and dry. Respiratory: Airway is patent Respiratory effort is even, unlabored, Respiratory pattern is regular, symmetrical. GI: No signs and/or symptoms were reported involving the gastrointestinal system. : No signs and/or symptoms were reported regarding the genitourinary system. EENT: No signs and/or symptoms were reported regarding the EENT system. Derm: Skin is intact, Skin is pink, warm \T\ dry. Musculoskeletal: Circulation, motion, and sensation intact. Range of motion: intact in all extremities. 03:06 Reassessment: Patient appears in no apparent distress at this time. Patient and/or jb4 family updated on plan of care and expected duration. Pain level reassessed. Patient is alert, oriented x 3, equal unlabored respirations, skin warm/dry/pink. Vital Signs: 02:18 BP 132 / 93; Pulse 89; Resp 16; Temp 98.7; Pulse Ox 100% on R/A; jb4 03:06 BP 121 / 87; Pulse 92; Resp 16; Pulse Ox 100% on R/A; jb4 ED Course: 02:03 Patient arrived in ED. rv1 02:07 Albert Patrick MD is Attending Physician. sp4 02:17 EKG done, by ED staff, reviewed by Albert Patrick MD. oe 02:21 Triage completed. jb4 02:21 Arm band placed on right wrist. jb4 02:22 No provider procedures requiring assistance completed. Maintain EMS IV. Dressing jb4 intact. Good blood return noted. Site clean \T\ dry. Gauge \T\ site: 20g lh. Flushed with 10 mL NS. 02:22 Patient has correct armband on for positive identification. Bed in low position. Call jb4 light in reach. Side rails up X 1. Provided Education on: plan of care. 03:06 Arun Diggs RN is Primary Nurse. jb4 04:15 IV discontinued, intact, bleeding controlled, No redness/swelling at site. Pressure jb4 dressing applied. Administered Medications: 02:24 Drug: Ativan IVP 2 mg IVP once Route: IVP; Site: left hand; jb4 Medication: 02:22 VIS not applicable for this client. jb4 Outcome: 03:56 Discharge ordered by . sp4 04:15 Discharged to home ambulatory, jb4 04:15 Condition: stable 04:15 Discharge instructions given to patient, Instructed on discharge instructions, follow up and referral plans. medication usage, Demonstrated understanding of instructions, follow-up care, medications, Prescriptions given X 1, 04:15 Patient left the ED. jb4 Signatures: Arun Diggs, RN RN jb4 Darryn Lowery Rebecca rv1 Albert Patrick MD MD sp4
--- NOTE | 2024-01-25 03:57 | EDPHYS ---
Physician Documentation [facility] Name: James Dupree Age: 48 yrs Sex: Male : 1975 Arrival Date: 01/25/2024 Time: 02:02 Bed 6 Private MD: ED Physician Albert Patrick HPI: 01/24 03:53 This 48 yrs old Male presents to ER via EMS with complaints of Chest pain, sp4 Meth use. 03:53 48-year-old male presents with acute onset of chest pain and anxiety after using sp4 crystal meth. Historical: - Allergies: 02:21 NKA; jb4 - PMHx: 02:21 Anxiety; Alcoholism; depressive disorder; drug abuse; GERD; jb4 - Immunization history:: Adult Immunizations up to date. - Infectious Disease History:: Denies. - Social history:: Smoking status: Patient reports the use of cigarette tobacco products, Patient uses alcohol, on a daily basis. street drugs, Methamphetamine (Meth). - Family history:: not pertinent. ROS: 03:53 Constitutional: Negative for fever, chills, and weight loss, positive chest pain, sp4 positive anxiety 03:53 All other systems are negative, Exam: 03:53 Constitutional: This is a well developed, well nourished patient who is awake, alert, sp4 and in no acute distress. Head/Face: Normocephalic, atraumatic. Eyes: Pupils equal round and reactive to light, extra-ocular motions intact. Lids and lashes normal. Conjunctiva and sclera are not injected. Cornea within normal limits. Periorbital areas with no swelling, redness, or edema. ENT: Nares patent. No nasal discharge, no septal abnormalities noted. Tympanic membranes are normal and external auditory canals are clear. Oropharynx with no redness, swelling, or masses, exudates, or evidence of obstruction, uvula midline. Mucous membranes moist. Neck: Trachea midline, no thyromegaly or masses palpated, and no cervical lymphadenopathy. Supple, full range of motion without nuchal rigidity, or vertebral point tenderness. Chest/axilla: Normal chest wall appearance and motion. Nontender with no deformity. No lesions are appreciated. Cardiovascular: Regular rate and rhythm with a normal S1 and S2. No gallops, murmurs, or rubs. Normal PMI, no JVD. No pulse deficits. Respiratory: Lungs have equal breath sounds bilaterally, clear to auscultation and percussion. No rales, rhonchi or wheezes noted. No increased work of breathing, no retractions or nasal flaring. Abdomen/GI: Soft, with normal bowel sounds. No distension or tympany. No guarding or rebound. No evidence of tenderness throughout. Back: No spinal tenderness. No costovertebral tenderness. Skin: Warm, dry with normal turgor. Normal color with no rashes, no lesions, and no evidence of cellulitis. MS/ Extremity: Pulses equal, no cyanosis. Neurovascular intact. Full, normal range of motion. Neuro: Awake and alert, GCS 15, oriented to person, place, time, and situation. Cranial nerves II-XII grossly intact. Motor strength 5/5 in all extremities. Sensory grossly intact. Psych: Awake, alert, with orientation to person, place and time. Behavior, mood, anxious appearing male 03:53 ECG was reviewed by the Attending Physician. EKG at 0208 normal sinus rhythm at the rate of 85. Vital Signs: 02:18 BP 132 / 93; Pulse 89; Resp 16; Temp 98.7; Pulse Ox 100% on R/A; jb4 03:06 BP 121 / 87; Pulse 92; Resp 16; Pulse Ox 100% on R/A; jb4 MDM: 02:07 Patient medically screened. sp4 03:53 Differential diagnosis: acute pericarditis, anxiety, coronary artery disease chest wall sp4 pain, costochondritis, esophagitis. Data reviewed: vital signs, nurses notes, EMS record, old medical records, EKG. ED course: Patient feels much better. Stable for discharge home. Chest pain is secondary to Meth abuse . 01/24 02:07 Order name: EKG; Complete Time: 02:07 sp4 01/24 02:07 Order name: EKG - Nurse/Tech; Complete Time: 02:16 sp4 EC:53 Rate is 85 beats/min. Rhythm is regular, Normal Sinus Rhythm. QRS [place] is Normal. SD sp4 interval is normal. QRS interval is normal. QT interval is normal. No Q waves. T waves are Normal. No ST changes noted. Clinical impression: Normal ECG. Interpreted by me. Reviewed by me. Administered Medications: 02:24 Drug: Ativan IVP 2 mg IVP once Route: IVP; Site: left hand; jb4 Disposition Summary: 01/25/24 03:56 Discharge Ordered Notes: Location: Home sp4 Problem: new sp4 Symptoms: have improved sp4 Condition: Stable sp4 Diagnosis - Anxiety attack, methamphetamine abuse sp4 Followup: sp4 - With: Private Physician - When: As needed - Reason: Discharge Instructions: - Discharge Summary Sheet sp4 - Methamphetamines Use Disorder sp4 Prescriptions: - Ativan 1 mg Oral tablet - take 1 tablet ORAL route once daily As needed PRN anxiety; 5 tablet; Refills: sp4 0, Product Selection Permitted Signatures: Arun Diggs RN RN jb4 Alebrt Patrick MD MD sp4
[2024-01-25 04:20] VITALS: TEMP 98.7; O2SAT 100
[2024-01-25 04:21] VITALS: BP 121/87
--- NOTE | 2024-01-30 18:05 | EKG ---
Test Date: 2024-01-25 Test Time: 02:08:10 Tray Drier: TUNG MEASUREMENT RESULTS: Intervals: Rate: 85 PA: 154 QRSD: 88 QT: 370 QTc: 440 [place]: P: 63 PA: 154 QRS: 82 T: 66 INTERPRETIVE STATEMENTS: Normal sinus rhythm Normal ECG Compared to ECG 11/23/2023 02:34:25 Sinus arrhythmia no longer present Right-axis deviation no longer present Myocardial infarct finding no longer present Electronically Signed On 01-30-24 17:53:18 CDT by Dmitry Russell
== END 2024-01-25 04:15 | disposition home or self-care (01) ==
LOC: ER 02:02
DX: F41.9 Anxiety disorder, unspecified (principal); F15.10 Other stimulant abuse, uncomplicated; F32.A Depression, unspecified; K21.9 Gastro-esophageal reflux disease without esophagitis; F10.20 Alcohol dependence, uncomplicated; F17.210 Nicotine dependence, cigarettes, uncomplicated
CPT/HCPCS: 93005; 96374; 99284

== ENCOUNTER 2024-01-27 15:55 | Emergency (ER) | payer SELFPAY ==
[~2024-01-27 15:55] MED LIST changes: -DIPHENHYDRAMINE 50 MG/ML VIAL ONE; -FAMOTIDINE 20 MG/2 ML VIAL IV ONE; -LIDOCAINE VISCOUS 2% 10ML ORAL SOLN ONE; -MAGNES/ALUMIN/SIMET 30ML UCUP ONE; -NA CHLORIDE 0.9% 1,000 ML ONE; -ONDANSETRON 4 MG (ODT) TAB ONE; -ONDANSETRON 4 MG/2 ML VIAL ONE
[2024-01-27] MEDS ORDERED: NA CHLORIDE 0.9% 1,000 ML ONE (16:24)
[2024-01-27] MEDS ORDERED: ONDANSETRON 4 MG/2 ML VIAL ONE (16:24)
[2024-01-27 16:29] LABS: Absolute Eosinophils 0.1 K/uL (0-0.5); Absolute Lymphocytes (CBC) 2.7 K/uL (0.7-4.9); Absolute Monocytes 0.5 K/uL (0.1-1.3); Absolute Neutrophil 3.4 K/uL (1.8-8.0); Basophils % 0.6 % (0-1.3); Eosinophils % 0.9 % (0-4.4); Hematocrit 40.8 % (39.6-49.0); Hemoglobin 14.1 g/dL (13.6-17.9); Lymphocytes % 39.6 % (15.3-44.8); MCH 33.1 pg (27.0-35.0); MCHC 34.5 g/dL (32.0-36.0); MCV 95.8 fL (80-100); MPV 6.7 fL (7.6-11.3); Monocytes % 7.9 % (3.3-12.3); Platelets 339 thou/uL (152-406); RBC Red Blood Cell Count 4.26 M/uL (4.33-5.43); Red Cell Distribution Width 14.9 % (12.1-15.2)
[2024-01-27 16:33] LABS: PT Prothrombin Time 12.2 SECONDS (9.4-12.5); PTT, Activated Partial Thromb 28.1 SECONDS (24.3-36.9); Protime INR 1.09
[2024-01-27 16:46] LABS: ALT/SGPT 25 U/L (16-61); AST/SGOT 32 U/L (15-37); Albumin/Globulin Ratio 0.9 (1.1-1.8); Alkaline Phosphatase 98 U/L (45-117); Anion Gap 11.4 mEq/L (5.0-15.0); BUN Blood Urea Nitrogen 8 mg/dL (7-18); Bicarbonate 26 mEq/L (21-32); Bilirubin Direct 0.4 mg/dL (0-0.2); Bilirubin Indirect, Calculated 0.9 mg/dL (0.2-0.8); Bilirubin Total 1.3 mg/dL (0.2-1.0); Globulin 4.3 g/dL (2.3-3.5); Glomerular Filtration Rate 89 ml/min (=/>90); Glucose Level 85 mg/dL (74-106); Potassium 3.4 mEq/L (3.5-5.1); Protein, Total 8.3 g/dL (6.4-8.2); Sodium Level 137 mEq/L (136-145)
[2024-01-27 16:48] LABS: Specific Gravity 1.019 (1.005-1.030); Urine Bilirubin NEGATIVE (Negative); Urine Blood Negative (Negative); Urine Clarity Turbid (Clear); Urine Color Yellow (Yellow); Urine Glucose NEGATIVE (Negative); Urine Ketones TRACE (Negative); Urine Protein TRACE (Negative); Urine pH 5.5 (5.0-7.0)
[2024-01-27 16:49] LABS: Sqamous Epithelial <5 /HPF (None Seen); Urine Bacteria None Seen /HPF (<20); Urine Culture Reflex Order NOT NEEDED; Urine Microscopic Reflex YN ORDER UMIC; Urine Nitrite NEGATIVE (Negative); Urine RBC <5 /HPF (None Seen); Urine Urobilinogen 1+ (Normal)
[2024-01-27 17:01] LABS: Barbiturates NEGATIVE (NEGATIVE); Benzodiazepines NEGATIVE (NEGATIVE); Cocaine NEGATIVE (NEGATIVE); METHAMPHETAM POSITIVE (NEGATIVE); Methadone NEGATIVE (NEGATIVE); Opiates NEGATIVE (NEGATIVE); Phencyclidine NEGATIVE (NEGATIVE); THC Cannibis NEGATIVE (NEGATIVE)
[2024-01-27] MEDS ORDERED: POTASSIUM 25 MEQ EFFERV TAB ONE (17:04)
--- NOTE | 2024-01-27 17:26 | EDPHYS ---
Physician Documentation [facility] Name: James Dupree Age: 48 yrs Sex: Male : 1975 Arrival Date: 01/27/2024 Time: 15:55 Bed 2 Private MD: ED Physician Nahid Stark HPI: 01/26 17:19 This 48 yrs old Male presents to ER via EMS with complaints of Drug Abuse. rivka 17:19 substance abuse etoh , meth. Onset: The symptoms/episode began/occurred 3 day(s) ago. rivka Severity of symptoms: At their worst the symptoms were mild in the emergency department the symptoms are unchanged. The patient has not experienced similar symptoms in the past. Historical: - Allergies: 15:59 NKA; iw - PMHx: 15:59 Alcoholism; Anxiety; depressive disorder; drug abuse; GERD; iw - Immunization history:: Adult Immunizations up to date. - Infectious Disease History:: Denies. - Social history:: Patient uses alcohol, on a daily basis. street drugs, Methamphetamine (Meth). ROS: 17:21 Constitutional: Negative for fever, chills, and weight loss, Eyes: Negative for injury, rivka pain, redness, and discharge, ENT: Negative for injury, pain, and discharge, Neck: Negative for injury, pain, and swelling, Back: Negative for injury and pain, : Negative for injury, bleeding, discharge, and swelling, MS/Extremity: Negative for injury and deformity, Skin: Negative for injury, rash, and discoloration, Neuro: Negative for headache, weakness, numbness, tingling, and seizure, Psych: Negative for depression, anxiety, suicide ideation, homicidal ideation, and hallucinations, Allergy/Immunology: Negative for hives, rash, and allergies, Endocrine: Negative for neck swelling, polydipsia, polyuria, polyphagia, and marked weight changes, Hematologic/Lymphatic: Negative for swollen nodes, abnormal bleeding, and unusual bruising, 17:21 Cardiovascular: Positive for palpitations, 17:21 Respiratory: Positive for cough, shortness of breath, 17:21 Abdomen/GI: Positive for abdominal pain, nausea and vomiting, abdominal cramps, Exam: 17:21 Constitutional: This is a well developed, well nourished patient who is awake, alert, rivka and in no acute distress. Head/Face: Normocephalic, atraumatic. Eyes: Pupils equal round and reactive to light, extra-ocular motions intact. Lids and lashes normal. Conjunctiva and sclera are non-icteric and not injected. Cornea within normal limits. Periorbital areas with no swelling, redness, or edema. ENT: Nares patent. No nasal discharge, no septal abnormalities noted. Tympanic membranes are normal and external auditory canals are clear. Oropharynx with no redness, swelling, or masses, exudates, or evidence of obstruction, uvula midline. Mucous membranes moist. Neck: Trachea midline, no thyromegaly or masses palpated, and no cervical lymphadenopathy. Supple, full range of motion without nuchal rigidity, or vertebral point tenderness. No Meningismus. Chest/axilla: Normal chest wall appearance and motion. Nontender with no deformity. No lesions are appreciated. Cardiovascular: Regular rate and rhythm with a normal S1 and S2. No gallops, murmurs, or rubs. Normal PMI, no JVD. No pulse deficits. Respiratory: Lungs have equal breath sounds bilaterally, clear to auscultation and percussion. No rales, rhonchi or wheezes noted. No increased work of breathing, no retractions or nasal flaring. Abdomen/GI: Soft, non-tender, with normal bowel sounds. No distension or tympany. No guarding or rebound. No evidence of tenderness throughout. Back: No spinal tenderness. No costovertebral tenderness. Full range of motion. Male : Normal genitalia with no discharge or lesions. Skin: Warm, dry with normal turgor. Normal color with no rashes, no lesions, and no evidence of cellulitis. MS/ Extremity: Pulses equal, no cyanosis. Neurovascular intact. Full, normal range of motion. Neuro: Awake and alert, GCS 15, oriented to person, place, time, and situation. Cranial nerves II-XII grossly intact. Motor strength 5/5 in all extremities. Sensory grossly intact. Cerebellar exam normal. Normal gait. Psych: Awake, alert, with orientation to person, place and time. Behavior, mood, and affect are within normal limits. 17:21 ECG was reviewed by the Attending Physician. 18:06 ECG was reviewed by the Attending Physician. [facility] Vital Signs: 16:02 BP 116 / 79; Pulse 85; Resp 16; Temp 97.8; Pulse Ox 100% ; iw 16:15 BP 121 / 83; Pulse 88; Resp 18; Pulse Ox 100% on R/A; Weight 68.04 kg; Height 5 ft. 8 ar6 in. ; Pain 5/10; 17:59 BP 126 / 83; Pulse 77; Resp 18; Pulse Ox 100% on R/A; ld1 18:37 BP 118 / 88; Pulse 71; Resp 18; Pulse Ox 100% on R/A; ld1 16:15 Body Mass Index 22.81 (68.04 kg, 172.72 cm) ar6 16:15 Pain Scale: Adult ar6 MDM: 16:00 Patient medically screened. [facility] 17:22 Differential Diagnosis altered mental status, sepsis, flu. Differential diagnosis: [facility] cardiac arrhythmia, CVA, generalized weakness, GI bleed, idiopathic dizziness, near-syncope, sepsis, syncope, TIA, vertigo. Data reviewed: vital signs, nurses notes, lab test result(s), EKG. Consideration of Admission/Observation Escalation of care including admission/observation considered. I considered the following discharge prescriptions or medication management in the emergency department Medications were administered in the Emergency Department. See MAR. Independent interpretation of the following test(s) in the Emergency Department EKG: See my EKG interpretation above. Test considered but Not performed: Ultrasound no abd usg. Care significantly affected by the following chronic conditions: etoh abuse, anxiety, depression,gerd. 01/26 16:06 Order name: Acetaminophen; Complete Time: 16:59 [facility] 01/26 16:06 Order name: Basic Metabolic Panel; Complete Time: 16:59 [facility] 01/26 16:06 Order name: CBC with Diff; Complete Time: 16:59 [facility] 01/26 16:06 Order name: ETOH Level; Complete Time: 16:59 [facility] 01/26 16:06 Order name: Hepatic Function; Complete Time: 16:59 [facility] 01/26 16:06 Order name: PT-INR; Complete Time: 16:59 [facility] 01/26 16:06 Order name: Ptt, Activated; Complete Time: 16:59 [facility] 01/26 16:06 Order name: Salicylate; Complete Time: 16:59 [facility] 01/26 16:06 Order name: Urinalysis w/ reflexes; Complete Time: 16:59 [facility] 01/26 16:06 Order name: Urine Drug Screen; Complete Time: 17:18 [facility] 01/26 17:26 Order name: Troponin HS; Complete Time: 18:23 [facility] 01/26 17:26 Order name: Chest Single View XRAY; Complete Time: 18:23 [facility] 01/26 17:26 Order name: EKG; Complete Time: 17:27 [facility] 01/26 16:06 Order name: EKG - Nurse/Tech; Complete Time: 16:43 [facility] 01/26 16:06 Order name: IV Saline Lock; Complete Time: 16:22 [facility] 01/26 16:06 Order name: Labs collected and sent; Complete Time: 16:22 [facility] 01/26 17:00 Order name: PO challenge: juice; Complete Time: 17:09 [facility] 01/26 17:26 Order name: EKG - Nurse/Tech; Complete Time: 18: [facility] EC: Rate is 77 beats/min. Rhythm is regular. QRS [place] is Normal. SD interval is normal. QRS rivka interval is normal. QT interval is normal. No Q waves. T waves are Normal. No ST changes noted. Clinical impression: NSR w/ Non-specific ST/T Changes and No evidence of ischemia. Interpreted by me. Reviewed by me. 18:06 Rate is 73 beats/min. Rhythm is regular. QRS [place] is Normal. SD interval is normal. QRS rivka interval is normal. QT interval is normal. No Q waves. T waves are Normal. No ST changes noted. Clinical impression: Normal ECG and NSR w/ Non-specific ST/T Changes. Interpreted by me. Reviewed by me. Administered Medications: 16:29 Drug: NS 0.9% IV 1000 ml IV at 1 bolus Per protocol; 1000 mL bolus Route: IV; Rate: 1 ar6 bolus; Site: left hand; 18:00 Follow up: IV Status: Completed infusion iw 16:29 Drug: Ondansetron IVP 4 mg IVP once; over 2 minutes Route: IVP; Site: left hand; ar6 18:00 Follow up: Response: No adverse reaction; Nausea is decreased iw 17:09 Drug: Potassium PO Effervescent Tablet 25 mEq PO once; dissolve in 4 ounces of water or ar6 juice Route: PO; 18:09 Follow up: Response: No adverse reaction iw 18:01 Drug: Aspirin PO Chewable Tablet 162 mg PO once Route: PO; iw 18:30 Follow up: Response: No adverse reaction iw Disposition Summary: 01/27/24 18:23 Discharge Ordered Notes: Location: Home(01/27/24 18:23) rivka Problem: new(01/27/24 18:23) rivka Symptoms: have improved(01/27/24 18:23) rivka Condition: Stable(01/27/24 18:23) rivka Diagnosis - Chest pain, unspecified(01/27/24 18:23) rivka - Abuse of other non-psychoactive substances(01/27/24 18:23) rivka - Adverse effect of amphetamines(01/27/24 18:23) rivka - Hypokalemia rivka - Alcohol abuse with intoxication rivka Followup: rivka - With: Private Physician - When: 2 - 3 days - Reason: Recheck today's complaints, Continuance of care, Re-evaluation by your physician Followup: rivka - With: Hubert Prajapati MD - When: 2 - 3 days - Reason: Recheck today's complaints, Re-evaluation by your physician Discharge Instructions: - Discharge Summary Sheet rivka - Alcohol Intoxication rivka - Nonspecific Chest Pain, Adult rivka - Substance Use Disorder rivka - Supporting Someone With an Addiction rivka - Alcohol Intoxication, [id number] rivka - Nonspecific Chest Pain, Adult, [id number] rivka - Aspirin and Your Heart rivka - Substance Use Disorder and Mental Illness rivka - Illegal Drug Use Information, Adult [facility] Forms: - Medication Reconciliation Form rivka - Antibiotic Education rivka - Prescription Opioid Use rivka - Patient Portal Instructions [facility] - Leadership Thank You Letter [facility] Prescriptions: - Ibuprofen 600 mg Oral Tablet - take 1 tablet ORAL route every 6 hours As needed take with food; 30 tablet; [facility] Refills: 0, Product Selection Permitted - Pepcid 20 mg Oral Tablet - take 1 tablet ORAL route every 12 hours for 10 days; 20 tablet; Refills: 0, [facility] Product Selection Permitted Signatures: Dispatcher [employer] Nahid Rivera MD MD cha Williams, Irene, RN RN iw Francine Orantes RN RN ar6 Corrections: (The following items were deleted from the chart) 16:57 16:06 Suicide Screening ([place]) ordered. rivka iw 17:28 17:25 Home rivka rivka 17:28 17:25 new rivka rivka 17:28 17:25 have improved rivka rivka 17:28 17:25 Fair rivka rivka 17:28 17:25 Abuse of other non-psychoactive substances rivka rivka 17:28 17:25 Adverse effect of amphetamines rivka tineo 17:25 Dizziness and giddiness rivka tineo 17:27 Chest pain, unspecified rivka tineo
--- NOTE | 2024-01-27 17:26 | ER ---
Nurse's Notes [facility] Name: James Dupree Age: 48 yrs Sex: Male : 1975 Arrival Date: 01/27/2024 Time: 15:55 Bed 2 Private MD: Diagnosis: Chest pain, unspecified;Abuse of other non-psychoactive substances;Adverse effect of amphetamines;Hypokalemia;Alcohol abuse with intoxication Presentation: 01/26 15:58 Chief complaint: Patient states: feels anxious, SOB, chest pain, vomited, stopped meth iw a few days ago, pt was found walking in the street. Coronavirus screen: At this time, the client does not indicate any symptoms associated with coronavirus-19. Ebola Screen: No symptoms or risks identified at this time. Risk Assessment: Do you want to hurt yourself or someone else? Patient reports no desire to harm self or others. Onset of symptoms was January 27, 2024. 15:58 Method Of Arrival: EMS: [facility] iw 15:58 Acuity: DORETHA 3 iw 16:00 Initial Sepsis Screen: Does the patient meet any 2 criteria? No. Patient's initial iw sepsis screen is negative. Does the patient have a suspected source of infection? No. Patient's initial sepsis screen is negative. 16:01 Care prior to arrival: IV initiated. 20 GA, in the left hand. iw Historical: - Allergies: 15:59 NKA; iw - PMHx: 15:59 Alcoholism; Anxiety; depressive disorder; drug abuse; GERD; iw - Immunization history:: Adult Immunizations up to date. - Infectious Disease History:: Denies. - Social history:: Patient uses alcohol, on a daily basis. street drugs, Methamphetamine (Meth). Screenin:33 [facility] ED Fall Risk Assessment (Adult) History of falling in the last 3 months, ar6 including since admission No falls in past 3 months (0 pts) Confusion or Disorientation No (0 pts) Intoxicated or Sedated Yes (3 pts) Impaired Gait No (0 pts) Mobility Assist Device Used No (0 pt) Altered Elimination No (0 pt) Score/Fall Risk Level 3 or more points = High Risk Oriented to surroundings, Maintained a safe environment, Educated pt \\T\\ family on fall prevention, incl call for assistance when getting out of bed, Assessed \\T\\ reinforced patient's understanding of fall precautions, Provided non-skid footwear, Hourly rounding (assess needs \\T\\ fall precautionary measures) done, Used ambulatory aids as needed (educated on \\T\\ assisted with), Used gait belt as appropriate Implemented a Fall Risk Plan of Care, Apply high fall risk patient identification: yellow non skid footwear/ fall signage, Activated bed/chair alarm, Offered frequent toileting (1:1 observation). Abuse screen: Denies threats or abuse. Denies injuries from another. Nutritional screening: No deficits noted. Tuberculosis screening: No symptoms or risk factors identified. Assessment: 16:15 General: Appears in no apparent distress. uncomfortable, unkempt, Behavior is ar6 cooperative, restless, Smells of alcohol, Reports feeling ill for 2-3 days, Denies fever. Pain: Complains of pain in chest Pain radiates to scalp Pain currently is 5 out of 10 on a pain scale. Quality of pain is described as heavy, pressure, radiating, radiates to neck Pain began gradually, pt. reports, "I used meth a day or two ago, and I have been drinking alcohol all day outside in the heat." Is continuous. Neuro: Level of Consciousness is awake, alert, obeys commands, Oriented to person, place, time, situation. Cardiovascular: Reports chest pain, nausea, shortness of breath, vomiting, Capillary refill < 3 seconds Rhythm is regular Chest pain is described as diffuse, quality is indigestion, pressure, is located in right left anterior radiates neck began 1 day ago episodes are continuous. Respiratory: Airway is patent. GI: Abdomen is flat, non-distended, Bowel sounds present X 4 quads. Reports nausea, vomiting. : No signs and/or symptoms were reported regarding the genitourinary system. EENT: Oral mucosa is moist. Derm: Skin is intact, is healthy with good turgor, Skin is dry. Musculoskeletal: No signs and/or symptoms reported regarding the musculoskeletal system. 17:20 Reassessment: Patient appears in no apparent distress at this time. Patient and/or iw family updated on plan of care and expected duration. Pain level reassessed. Patient is alert, oriented x 3, equal unlabored respirations, skin warm/dry/pink. pt c/o right sided chest pain. Vital Signs: 16:02 BP 116 / 79; Pulse 85; Resp 16; Temp 97.8; Pulse Ox 100% ; iw 16:15 BP 121 / 83; Pulse 88; Resp 18; Pulse Ox 100% on R/A; Weight 68.04 kg; Height 5 ft. 8 ar6 in. ; Pain 5/10; 17:59 BP 126 / 83; Pulse 77; Resp 18; Pulse Ox 100% on R/A; ld1 18:37 BP 118 / 88; Pulse 71; Resp 18; Pulse Ox 100% on R/A; ld1 16:15 Body Mass Index 22.81 (68.04 kg, 172.72 cm) ar6 16:15 Pain Scale: Adult ar6 ED Course: 15:56 Patient arrived in ED. ld1 15:59 Triage completed. iw 15:59 Nahid Stark MD is Attending Physician. rivka 15:59 Arm band placed on. iw 16:22 Acetaminophen Sent. ar6 16:22 Basic Metabolic Panel Sent. ar6 16:22 CBC with Diff Sent. ar6 16:22 ETOH Level Sent. ar6 16:22 Hepatic Function Sent. ar6 16:22 PT-INR Sent. ar6 16:22 Ptt, Activated Sent. ar6 16:22 Salicylate Sent. ar6 16:33 No apparent distress. Appears restless. ar6 16:33 Patient has correct armband on for positive identification. Bed in low position. Call ar6 light in reach. Side rails up X2. Provided Education on: use call light before standing; verbalized understanding; plan of care ongoing. groundwater monitoring technician on. Pulse ox on. NIBP on. Door closed. Warm blanket given. 16:33 No provider procedures requiring assistance completed. Maintain EMS IV. Dressing ar6 intact. Good blood return noted. Site clean \\T\\ dry. Gauge \\T\\ site: 20g LH. 16:43 EKG done, by ED staff, reviewed by Nahid Stark MD. em1 16:57 Garima Morrow, KATHLEEN is Primary Nurse. iw 17:24 Tyree Antonio MD is Referral Physician. rivka 17:45 Chest Single View XRAY In Process Unspecified. EDMS 18:23 Hubert Prajapati MD is Referral Physician. rivka Administered Medications: 16:29 Drug: NS 0.9% IV 1000 ml IV at 1 bolus Per protocol; 1000 mL bolus Route: IV; Rate: 1 ar6 bolus; Site: left hand; 18:00 Follow up: IV Status: Completed infusion iw 16:29 Drug: Ondansetron IVP 4 mg IVP once; over 2 minutes Route: IVP; Site: left hand; ar6 18:00 Follow up: Response: No adverse reaction; Nausea is decreased iw 17:09 Drug: Potassium PO Effervescent Tablet 25 mEq PO once; dissolve in 4 ounces of water or ar6 juice Route: PO; 18:09 Follow up: Response: No adverse reaction iw 18:01 Drug: Aspirin PO Chewable Tablet 162 mg PO once Route: PO; iw 18:30 Follow up: Response: No adverse reaction iw Outcome: 17:25 Discharge ordered by . rivka 18:23 Discharge ordered by . rivka 18:44 Patient left the ED. ar6 Signatures: Dispatcher [employer] EDMS Nahid Stark MD MD cha Williams, Irene, RN RN iw Bryan Negrete em1 Susu Del Castillo RN RN ld1 Francine Orantes RN RN ar6 Corrections: (The following items were deleted from the chart) 16:00 15:58 Chief complaint: Patient states: feels anxious, SOB, chest pain, vomited, stopped iw meth a few days ago iw 16:00 15:57 Chief complaint: ld1 ld1
--- NOTE | 2024-01-27 17:54 | RAD REPORT ---
EXAM DESCRIPTION: RAD - Chest Single View - 01/27/2024 5:44 pm CLINICAL HISTORY: CHEST PAIN COMPARISON: Chest Single View dated 11/10/2023; Chest Single View dated 09/18/2023; Chest Single View d ated 04/23/2023 FINDINGS: Lines: None. Lungs: No evidence of edema or pneumonia. Pleural: No significant pleural effusions or pneumothorax. Cardiac: The heart size is within normal limits. Mediastinum: Within normal limits. Bones: No acute fractures. Other: None IMPRESSION: No acute cardiopulmonary disease.
[2024-01-27] MEDS ORDERED: ASPIRIN 81 MG CHEWABLE TABLET ONE (17:56)
[2024-01-27 18:50] VITALS: TEMP 97.8; O2SAT 100
[2024-01-27 18:54] VITALS: BP 118/88
== END 2024-01-27 18:44 | disposition home or self-care (01) ==
LOC: ER 15:55
DX: R07.9 Chest pain, unspecified (principal); F55.8 Abuse of other non-psychoactive substances; T43.625A Adverse effect of amphetamines, initial encounter; E87.6 Hypokalemia; F10.229 Alcohol dependence with intoxication, unspecified
CPT/HCPCS: 36415; 71045; 80048; 80076; 80143; 80179; 80307; 81001; 82077; 84484; 85025; 85610; 85730; 93005; 96361; 96374; 99285; J2405; J7030

== ENCOUNTER 2024-07-17 14:04 | Emergency (ER) | payer SELFPAY ==
--- NOTE | 2024-07-17 16:10 | ER ---
Nurse's Notes [facility] Name: James Dupree Age: 48 yrs Sex: Male : 1975 Arrival Date: 07/17/2024 Time: 14:04 Bed 10 Private MD: Diagnosis: Nausea with vomiting, unspecified;Tachycardia, unspecified Presentation: 07/17 14:25 Chief complaint: Patient states: "I started using drugs again and i'm having a headache cm10 and nausea." Pt last used meth yesterday and drank alcohol last night. Coronavirus screen: Client denies travel out of the [place] in the last 14 days. Ebola Screen: Patient denies travel to an Ebola-affected area in the 21 days before illness onset. Initial Sepsis Screen: Does the patient meet any 2 criteria? HR > 90 bpm. Does the patient have a suspected source of infection? No. Patient's initial sepsis screen is negative. Risk Assessment: Do you want to hurt yourself or someone else? Patient reports no desire to harm self or others. Onset of symptoms was July 17, 2024. 14:25 Method Of Arrival: Ambulatory cm10 14:25 Acuity: DORETHA 3 cm10 Triage Assessment: 14:28 General: Appears in no apparent distress. uncomfortable, Behavior is calm, cooperative. cm10 Neuro: No deficits noted. Level of Consciousness is awake, alert, obeys commands, Oriented to person, place, time, situation, Appropriate for age. Respiratory: No deficits noted. Airway is patent Respiratory effort is even, unlabored, Respiratory pattern is regular, symmetrical. GI: Reports nausea, vomiting. Historical: - Allergies: 14:27 NKA; cm10 - PMHx: 14:27 Alcoholism; Anxiety; depressive disorder; drug abuse; GERD; cm10 - Immunization history:: Adult Immunizations not up to date. - Infectious Disease History:: Denies. - Social history:: Smoking status: Patient denies any tobacco usage or history of. Patient uses alcohol, on a daily basis. street drugs, Methamphetamine (Meth). Screenin:04 [facility] ED Fall Risk Assessment (Adult) History of falling in the last 3 months, iw including since admission No falls in past 3 months (0 pts) Confusion or Disorientation No (0 pts) Intoxicated or Sedated No (0 pts) Impaired Gait No (0 pts) Mobility Assist Device Used No (0 pt) Altered Elimination No (0 pt) Score/Fall Risk Level 0 - 2 = Low Risk Oriented to surroundings, Maintained a safe environment. Abuse screen: Denies threats or abuse. Denies injuries from another. Nutritional screening: No deficits noted. Tuberculosis screening: No symptoms or risk factors identified. Assessment: 16:40 Reassessment: Patient appears in no apparent distress at this time. iw 17:40 General: Appears in no apparent distress. Behavior is cooperative, anxious. Pain: iw Complains of pain in abdomen. Neuro: Level of Consciousness is awake, alert, obeys commands, Oriented to person, place, time, situation, Moves all extremities. Cardiovascular: Patient's skin is warm and dry. Respiratory: Respiratory effort is even, unlabored, Respiratory pattern is regular, symmetrical. GI: Abdomen is flat, non-distended. Derm: Skin is intact, is healthy with good turgor. Vital Signs: 14:25 BP 115 / 85; Pulse 118; Resp 19; Temp 96.3(TE); Pulse Ox 98% ; Weight 70.31 kg; Height cm10 5 ft. 9 in. ; 16:39 BP 135 / 98; Pulse 97; Resp 16; Pulse Ox 97% on R/A; iw 14:25 Body Mass Index 22.89 (70.31 kg, 175.26 cm) cm10 ED Course: 14:07 Patient arrived in ED. al6 14:08 Jeffry Scales MD is Attending Physician. ec2 14:27 Triage completed. cm10 14:28 Arm band placed on right wrist. Patient placed in waiting room. cm10 16:23 Garima Morrow, RN is Primary Nurse. iw 16:40 Patient has correct armband on for positive identification. Provided Education on: . iw 17:00 Inserted saline lock: 22 gauge in left hand, using aseptic technique. iw 18:04 No provider procedures requiring assistance completed. IV discontinued, bleeding iw controlled, No redness/swelling at site. Pressure dressing applied. Administered Medications: 16:39 Drug: NS 0.9% IV 1000 ml IV at 1 bolus Per protocol; to be given as a bolus over 60 iw minutes Route: IV; Rate: 1 bolus; Site: left hand; 17:45 Follow up: IV Status: Completed infusion iw 16:39 Drug: Ativan IVP 2 mg IVP once Route: IVP; Site: left hand; iw 19:59 Follow up: Response: No adverse reaction; Marked relief of symptoms; Pain is decreased iw 16:39 Drug: metoCLOPramide IVP 10 mg IVP once; over 1 to 2 minutes Route: IVP; Site: left iw hand; 17:15 Follow up: Response: No adverse reaction iw 16:39 Drug: diphenhydrAMINE IVP 50 mg IVP once Route: IVP; Site: left hand; iw 17:15 Follow up: Response: No adverse reaction iw Medication: 16:40 VIS not applicable for this client. iw Outcome: 17:05 Discharge ordered by . ec2 18:04 Discharged to home ambulatory, iw 18:04 Condition: good 18:04 Discharge instructions given to patient, Instructed on discharge instructions, follow up and referral plans. Demonstrated understanding of instructions, follow-up care, medications, Prescriptions given X 1, 18:05 Patient left the ED. iw Signatures: Garima Morrow RN RN iw Sonia Negrete RN RN cm10 Jeffry Scales MD MD ec2 Xiao Coe al6
--- NOTE | 2024-07-17 16:10 | EDPHYS ---
Physician Documentation [facility] Name: James Dupree Age: 48 yrs Sex: Male : 1975 Arrival Date: 07/17/2024 Time: 14:04 Bed 10 Private MD: ED Physician Jeffry Scales HPI: 07/17 14:31 This 48 yrs old Male presents to ER via Ambulatory with complaints of feeling ec2 unwell. 14:31 Patient arrives today for evaluation of feeling unwell. Reports that he has been having ec2 some nausea and vomiting but generally feeling unwell. Reports anxiety, heart palpitations, states that he does take significant substances including alcohol and methamphetamines.. Historical: - Allergies: 14:27 NKA; cm10 - PMHx: 14:27 Alcoholism; Anxiety; depressive disorder; drug abuse; GERD; cm10 - Immunization history:: Adult Immunizations not up to date. - Infectious Disease History:: Denies. - Social history:: Smoking status: Patient denies any tobacco usage or history of. Patient uses alcohol, on a daily basis. street drugs, Methamphetamine (Meth). ROS: 14:31 Constitutional: as per hpi ec2 Exam: 14:31 Constitutional: GEN: NAD Head: atraumatic Eyes: EOMI Ears: External ears are ec2 normal. CV: Tachycardia LUNGS: no respiratory distress ABD: non-distended SKIN: no evidence of rashes MSK: no evidence of trauma Vital Signs: 14:25 BP 115 / 85; Pulse 118; Resp 19; Temp 96.3(TE); Pulse Ox 98% ; Weight 70.31 kg; Height cm10 5 ft. 9 in. ; 16:39 BP 135 / 98; Pulse 97; Resp 16; Pulse Ox 97% on R/A; iw 14:25 Body Mass Index 22.89 (70.31 kg, 175.26 cm) cm10 MDM: 14:31 Data reviewed: vital signs, nurses notes. ED course: Patient arrives today for ec2 evaluation of feeling unwell. Examination is revealing for tachycardia otherwise normal blood pressure. Will obtain labs, treat the patient's symptoms and reassess. 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 14:32 Medical Screening Exam initiated ec2 16:09 ED course: Patient eloped prior to completion of services without notification of any ec2 medical professional.. 16:14 ED course: Patient has returned and will complete rest of services.. ec2 17:05 ED course: Labs with slight hypokalemia otherwise unrevealing. Will discharge home. ec2 Return precautions given.. 07/17 14:30 Order name: CBC with Diff; Complete Time: 17:05 ec2 07/17 14:30 Order name: BMP; Complete Time: 17: ec2 07/17 14:30 Order name: IV; Complete Time: 16:23 ec2 Administered Medications: 16:39 Drug: NS 0.9% IV 1000 ml IV at 1 bolus Per protocol; to be given as a bolus over 60 iw minutes Route: IV; Rate: 1 bolus; Site: left hand; 17:45 Follow up: IV Status: Completed infusion iw 16:39 Drug: Ativan IVP 2 mg IVP once Route: IVP; Site: left hand; iw 19:59 Follow up: Response: No adverse reaction; Marked relief of symptoms; Pain is decreased iw 16:39 Drug: metoCLOPramide IVP 10 mg IVP once; over 1 to 2 minutes Route: IVP; Site: left iw hand; 17:15 Follow up: Response: No adverse reaction iw 16:39 Drug: diphenhydrAMINE IVP 50 mg IVP once Route: IVP; Site: left hand; iw 17:15 Follow up: Response: No adverse reaction iw Disposition Summary: 07/17/24 17:05 Discharge Ordered Notes: Location: Home ec2 Condition: Stable ec2 Diagnosis - Nausea with vomiting, unspecified ec2 - Tachycardia, unspecified(07/17/24 17:05) ec2 Followup: ec2 - With: Private Physician - When: - Reason: Re-evaluation by your physician Discharge Instructions: - Discharge Summary Sheet ec2 - Nausea and Vomiting, Adult ec2 Forms: - Medication Reconciliation Form ec2 - Antibiotic Education ec2 - Prescription Opioid Use ec2 - Patient Portal Instructions ec2 - Leadership Thank You Letter ec2 Prescriptions: - Zofran 4 mg Oral Tablet - take 1 tablet ORAL route every 12 hours As needed; 20 tablet; Refills: 0, ec2 Product Selection Permitted Signatures: Dispatcher [employer] Garima Lam RN RN iw Martinez, Clarissa, RN RN cm10 Jeffry Scales MD MD ec2 Corrections: (The following items were deleted from the chart) 16: 16:09 post triage evaluation and consult ec2 ec2 16: 16:09 unknown ec2 ec2 16: 16:09 Tachycardia, unspecified ec2 ec2 16: 16:09 Feels Unwell ec2 ec2
[2024-07-17] MEDS ORDERED: DIPHENHYDRAMINE 50 MG/ML VIAL ONE (16:28)
[2024-07-17] MEDS ORDERED: NA CHLORIDE 0.9% 1,000 ML ONE (16:28)
[2024-07-17] MEDS ORDERED: LORazepam 2 MG/ML VIAL ONE (16:28)
[2024-07-17] MEDS ORDERED: METOCLOPRAMIDE 10 MG/2mL INJ ONE (16:28)
[2024-07-17 16:47] LABS: Anion Gap 12.3 mEq/L (5.0-15.0); Potassium 3.3 mEq/L (3.5-5.1)
[2024-07-17 16:48] LABS: Absolute Eosinophils 0.1 K/uL (0-0.5); Absolute Monocytes 0.3 K/uL (0.1-1.3); Absolute Neutrophil 3.7 K/uL (1.8-8.0); Basophils % 0.6 % (0-1.3); Eosinophils % 0.9 % (0-4.4); Hematocrit 40.3 % (39.6-49.0); Hemoglobin 14.2 g/dL (13.6-17.9); Lymphocytes % 32.5 % (15.3-44.8); MCH 33.4 pg (27.0-35.0); MCHC 35.2 g/dL (32.0-36.0); MCV 94.8 fL (80-100); Monocytes % 5.5 % (3.3-12.3); Neutrophils % 60.5 % (41.7-73.7); Nucleated Red Blood Cells % 0.1 % (0-0); Platelets 283 thou/uL (152-406); RBC Red Blood Cell Count 4.25 M/uL (4.33-5.43); Red Cell Distribution Width 13.4 % (12.1-15.2)
[2024-07-17 18:45] VITALS: TEMP 96.3
[2024-07-17 18:46] VITALS: BP 135/98; O2SAT 97
== END 2024-07-17 18:05 | disposition home or self-care (01) ==
LOC: ER 14:04
DX: R11.2 Nausea with vomiting, unspecified (principal); R00.0 Tachycardia, unspecified; F10.20 Alcohol dependence, uncomplicated
CPT/HCPCS: 36415; 80048; 85025; J1200; J2765; J7030

== ENCOUNTER 2024-07-19 04:30 | Emergency (ER) | payer SELFPAY ==
[2024-07-19] MEDS ORDERED: NA CHLORIDE 0.9% 1,000 ML ONE ×2 (05:18→07:12)
[2024-07-19] MEDS ORDERED: droPERidol 5 MG/2 ML VIAL ONE (05:18)
[2024-07-19 06:17] LABS: Albumin 3.6 g/dL (3.4-5.0); Albumin/Globulin Ratio 0.8 (1.1-1.8); Anion Gap 13.4 mEq/L (5.0-15.0); Bilirubin Total 1.6 mg/dL (0.2-1.0); Globulin 4.3 g/dL (2.3-3.5); Potassium 3.4 mEq/L (3.5-5.1); Protein, Total 7.9 g/dL (6.4-8.2); Troponin High Sensitivity 6.3 pg/mL (<58.9)
[2024-07-19 06:18] LABS: Absolute Eosinophils 0.1 K/uL (0-0.5); Absolute Lymphocytes (CBC) 1.5 K/uL (0.7-4.9); Absolute Monocytes 0.3 K/uL (0.1-1.3); Basophils % 0.7 % (0-1.3); Eosinophils % 2.2 % (0-4.4); Hematocrit 41.4 % (39.6-49.0); Hemoglobin 14.4 g/dL (13.6-17.9); MCH 33.3 pg (27.0-35.0); MCHC 34.8 g/dL (32.0-36.0); MCV 95.8 fL (80-100); MPV 7.3 fL (7.6-11.3); Monocytes % 5.8 % (3.3-12.3); Neutrophils % 61.3 % (41.7-73.7); Nucleated Red Blood Cells % 0.3 % (0-0); Platelets 227 thou/uL (152-406); RBC Red Blood Cell Count 4.32 M/uL (4.33-5.43); Red Cell Distribution Width 13.1 % (12.1-15.2)
--- NOTE | 2024-07-19 07:07 | RAD REPORT ---
EXAMINATION: CTA CHEST PE CLINICAL INDICATION: Male, 48 years old. PAIN TECHNIQUE: This examination was performed according to an angiographic protocol with 3D post-processi ng. This involves 3D reconstructions, MIPs, volume rendered images and/or shaded surface rendering. One or more of the following dose reduction techniques were used: Automated exposure control, adjustm ent of the mA and/or kV according to patient size, and/or iterative reconstruction. Unless otherwise specified, incidental findings do not require dedicated imaging follow-up. [id number]. COMPARISON: 01/27/2024 FINDINGS: LOWER NECK: Visualized thyroid gland and soft tissues are normal. LUNGS AND AIRWAYS: Airways are clear. No evidence of airspace or interstitial process.No suspicious a nd/or stable pulmonary nodules. PLEURA: No pleural effusion. No pneumothorax. Hemidiaphragms are normally positioned. MEDIASTINUM AND LYMPH NODES: No mediastinal mass or fluid collection. Normal size mediastinal, hilar, and axillary lymph nodes. Mild distal esophageal thickening. THORACIC AORTA: No thoracic aortic aneurysm. PULMONARY ARTERIES: Caliber is within normal limits. No pulmonary emboli identified. HEART: Normal heart size. No coronary calcifications.No significant pericardial effusion. OSSEOUS STRUCTURES AND CHEST WALL: No fracture or suspicious osseous lesions. UPPER ABDOMEN: See separate report IMPRESSION: No evidence of pulmonary emboli to the subsegmental level. Lungs are clear.
--- NOTE | 2024-07-19 07:15 | RAD REPORT ---
EXAMINATION: CT ABDOMEN AND PELVIS WITH CONTRAST CLINICAL INDICATION: Male, 48 years old.ABD PAIN TECHNIQUE: CT abdomen and pelvis was performed, after the administration of IV contrast, as per [facility] protocol. Axial, sagittal and coronal reconstructions were obtained. One or more of the following dose reduction techniques were used: Automated exposure control, adjustment of the mA and/o r kV according to patient size, and/or iterative reconstruction. Unless otherwise specified, incidental findings do not require dedicated imaging follow-up. [id number]. COMPARISON: 09/19/2023 FINDINGS: LOWER CHEST: No acute process identified.No significant pericardial effusion. Moderate circumferentia l thickening of the distal esophagus which could reflect esophagitis. Endoscopy could better evaluate. UPPER GI: No significant abnormality. LIVER: Pronounced hepatic steatosis. GALLBLADDER/BILE DUCTS: No biliary ductal dilatation.? PANCREAS: No mass, ductal dilation, or bela-pancreatic fluid. SPLEEN: Unremarkable. ADRENALS: No adrenal masses. KIDNEYS AND URETERS: No hydronephrosis.No suspicious renal mass. ABDOMINAL AORTA AND OTHER VESSELS: Normal caliber aorta and IVC. PERITONEUM: No abnormal free fluid. No free air. LYMPH NODES: No pathologic lymphadenopathy. ABDOMINAL WALL: Unremarkable SMALL BOWEL/COLON: Small bowel has normal course and caliber. No colonic wall thickening or pericolon ic inflammatory changes.Normal appendix. URINARY BLADDER: Underdistended but grossly unremarkable. REPRODUCTIVE ORGANS: No pathologic process. MUSCULOSKELETAL: No acute or suspicious osseous abnormality. ADDITIONAL FINDINGS: None. IMPRESSION: No acute or significant abnormalities seen in the abdomen or pelvis. Pronounced hepatic steatosis. Th is could reflect steatohepatitis. Correlate with LFTs. Also noted is moderate thickening of the distal esophagus likely reflect esophagitis.
--- NOTE | 2024-07-19 08:06 | ER ---
Nurse's Notes [facility] Name: James Dupree Age: 48 yrs Sex: Male : 1975 Arrival Date: 07/19/2024 Time: 04:30 Bed 20 Private MD: Diagnosis: Rhabdomyolysis Presentation: 07/19 04:51 Chief complaint: Patient states: PT C/O MID-STERNAL CP, SOB, NAUSEA/VOMITING, HEADACHE. br2 PT STATES WAS IN ER MONDAY FOR SAME SYMPTOMS BUT IS WORSE NOW. Coronavirus screen: Client denies travel out of the [place] in the last 14 days. Ebola Screen: Patient denies exposure to infectious person. Initial Sepsis Screen: Does the patient meet any 2 criteria? No. Patient's initial sepsis screen is negative. Does the patient have a suspected source of infection? No. Patient's initial sepsis screen is negative. Risk Assessment: Do you want to hurt yourself or someone else? Patient reports no desire to harm self or others. Onset of symptoms was July 17, 2024. 04:51 Method Of Arrival: Ambulatory br2 04:51 Acuity: DORETHA 3 br2 Historical: - Allergies: 04:54 NKA; br2 - PMHx: 04:54 Alcoholism; Anxiety; depressive disorder; drug abuse; GERD; br2 - Immunization history:: Adult Immunizations not up to date. - Infectious Disease History:: Denies. - Social history:: Smoking status: Patient uses alcohol, on a daily basis. street drugs, Methamphetamine (Meth). - Family history:: not pertinent. Screenin:00 [facility] ED Fall Risk Assessment (Adult) History of falling in the last 3 months, ay including since admission No falls in past 3 months (0 pts) Confusion or Disorientation No (0 pts) Intoxicated or Sedated Yes (3 pts) Impaired Gait No (0 pts) Mobility Assist Device Used No (0 pt) Altered Elimination No (0 pt) Score/Fall Risk Level 0 - 2 = Low Risk Oriented to surroundings, Maintained a safe environment, Educated pt \T\ family on fall prevention, incl call for assistance when getting out of bed. Abuse screen: Denies threats or abuse. Nutritional screening: No deficits noted. Tuberculosis screening: No symptoms or risk factors identified. Assessment: 04:45 General: Appears distressed, uncomfortable, Behavior is cooperative, restless. Pain: ay Complains of pain in epigastric Pain currently is 8 out of 10 on a pain scale. Neuro: Level of Consciousness is awake, alert, obeys commands, Oriented to person, place, time, situation, Speech is normal. Cardiovascular: Reports chest pain, nausea, vomiting, Capillary refill < 3 seconds Rhythm is sinus tachycardia. Respiratory: Airway is patent Respiratory effort is even, unlabored, Breath sounds are clear bilaterally. GI: Abdomen is flat. : No signs and/or symptoms were reported regarding the genitourinary system. EENT: No signs and/or symptoms were reported regarding the EENT system. Derm: No signs and/or symptoms reported regarding the dermatologic system. 07:00 General: Appears in no apparent distress. comfortable, well groomed, well developed, kc6 Behavior is calm, cooperative, appropriate for age, Smells of alcohol. Neuro: Level of Consciousness is awake, alert, obeys commands, Oriented to person, place, time, situation, Appropriate for age Reports headache. Cardiovascular: Heart tones S1 S2 present Capillary refill < 3 seconds Rhythm is regular. Respiratory: Reports shortness of breath on exertion Airway is patent Trachea midline Respiratory effort is even, unlabored, Respiratory pattern is regular, symmetrical. GI: Reports upper abdominal pain, nausea, vomiting, Patient currently denies diarrhea. : No signs and/or symptoms were reported regarding the genitourinary system. EENT: No signs and/or symptoms were reported regarding the EENT system. Derm: No signs and/or symptoms reported regarding the dermatologic system. Skin is intact, is healthy with good turgor, Skin is pink, warm \T\ dry. Musculoskeletal: No signs and/or symptoms reported regarding the musculoskeletal system. Circulation, motion, and sensation intact. Range of motion: intact in all extremities. 08:28 Reassessment: Patient appears in no apparent distress at this time. No changes from kc6 previously documented assessment. Patient and/or family updated on plan of care and expected duration. Pain level reassessed. Patient is alert, oriented x 3, equal unlabored respirations, skin warm/dry/pink. Patient states feeling better. Patient states symptoms have improved. Vital Signs: 04:51 BP 122 / 97; Pulse 112; Resp 16; Temp 97.7; Pulse Ox 95% ; Weight 70.31 kg; Height 5 br2 ft. 9 in. ; Pain 8/10; 06:35 BP 122 / 97; Pulse 107; Pulse Ox 96% ; ay 06:40 BP 110 / 76; Pulse 76; Pulse Ox 100% ; ay 07:21 BP 123 / 93; Pulse 80; Resp 16 S; Pulse Ox 97% on R/A; kc6 08:28 BP 120 / 88; Pulse 85; Resp 18 S; Pulse Ox 99% on R/A; kc6 04:51 Body Mass Index 22.89 (70.31 kg, 175.26 cm) br2 04:51 Pain Scale: Adult br2 ED Course: 04:33 Patient arrived in ED. gm2 04:33 Yuval Dewitt MD is Attending Physician. rt 04:54 Triage completed. br2 05:00 EKG done, by ED staff, reviewed by Yuval Dewitt MD. Inserted saline lock: 22 gauge ay in right hand, using aseptic technique. 05:00 Patient has correct armband on for positive identification. Placed in gown. Bed in low ay position. Call light in reach. Side rails up X2. rough carpenter on. Pulse ox on. NIBP on. 05:37 Troponin High Sensitivity Sent. ay 05:37 ETOH Level Sent. ay 06:30 Fouzia Sims, RN is Primary Nurse. ay 06:50 CT Abd/Pelvis - IV Contrast Only In Process Unspecified. EDMS 06:51 CT Chest For PE Angio In Process Unspecified. EDMS 07:00 Report received from KATHLEEN Fragoso. kc6 07:00 rough carpenter on. Pulse ox on. NIBP on. Door closed. Noise minimized. Lights dimmed. kc6 Warm blanket given. Pillow given. 07:00 Arm band placed on. kc6 07:01 Attending Physician role handed off by Yuval Dewitt MD ec2 07:01 Jeffry Scales MD is Attending Physician. ec2 08:30 No provider procedures requiring assistance completed. IV discontinued, intact, kc6 bleeding controlled, No redness/swelling at site. Pressure dressing applied. Administered Medications: 05:37 Drug: NS 0.9% IV 1000 ml IV at 1 bolus Per protocol; to be given as a bolus over 60 ay minutes Route: IV; Rate: 1 bolus; Site: right hand; 07:19 Follow up: Response: No adverse reaction; IV Status: Completed infusion; IV Intake: kc6 1000ml 05:37 Drug: Droperidol IVP 1.25 mg IVP once Route: IVP; Site: right hand; ay 07:05 Follow up: Response: No adverse reaction ay 07:19 Drug: NS 0.9% IV 1000 ml IV at 1 bolus Per protocol; to be given as a bolus over 60 kc6 minutes Route: IV; Rate: 1 bolus; Site: right wrist; 08:27 Follow up: Response: No adverse reaction; IV Status: Completed infusion; IV Intake: kc6 1000ml Medication: 08:31 VIS not applicable for this client. kc6 Intake: 07:19 IV: 1000ml; Total: 1000ml. kc6 08:27 IV: 1000ml; Total: 2000ml. kc6 Outcome: 08:06 Discharge ordered by . ec2 08:31 Discharged to home ambulatory, 6 08:31 Condition: good 08:31 Discharge instructions given to patient, Instructed on discharge instructions, follow up and referral plans. Demonstrated understanding of instructions, follow-up care, 08:31 Patient left the ED. kc6 Signatures: Dispatcher [employer] Lucila Sam RN RN kc6 Yuval Dewitt MD MD rt Corral, Edwin, MD MD ec2 Farideh Rodrigues Belinda, RN RN avila2 Fouzia Sims RN RN ay
--- NOTE | 2024-07-19 08:07 | EDPHYS ---
Physician Documentation [facility] Name: James Dupree Age: 48 yrs Sex: Male : 1975 Arrival Date: 07/19/2024 Time: 04:30 Bed 20 Private MD: ED Physician Jeffry Scales HPI: 07/19 05:59 This 48 yrs old Male presents to ER via Ambulatory with complaints of rt Shortness Of Breath, Headache, vomiting blood. 05:59 Patient presents to the ED with headache, chest pain, shortness of breath. He states ec2 that he was vomiting brown material which he stated was blood. Denies any melena. Reports an abdominal pain. The symptoms have been present for several days. States that he was here recently for similar symptoms that worsened. Denies other acute complaints at this time, symptoms are moderate in severity, no other aggravating alleviating factors.. Historical: - Allergies: 04:54 NKA; br2 - PMHx: 04:54 Alcoholism; Anxiety; depressive disorder; drug abuse; GERD; br2 - Immunization history:: Adult Immunizations not up to date. - Infectious Disease History:: Denies. - Social history:: Smoking status: Patient uses alcohol, on a daily basis. street drugs, Methamphetamine (Meth). - Family history:: not pertinent. ROS: 05:59 Constitutional: Negative for fever, chills, and weight loss, MS/Extremity: Negative for rt injury and deformity, Skin: Negative for injury, rash, and discoloration, Neuro: Negative for headache, weakness, numbness, tingling, and seizure, 05:59 Cardiovascular: Positive for chest pain, Negative for edema, 05:59 Respiratory: Positive for cough, shortness of breath, 05:59 Abdomen/GI: Positive for abdominal pain, nausea and vomiting, Negative for black/tarry stool, Exam: 05:59 Constitutional: This is a well developed, well nourished patient who is awake, alert, rt and in no acute distress. Chest/axilla: Normal chest wall appearance and motion. Nontender with no deformity. No lesions are appreciated. Cardiovascular: Regular rate and rhythm with a normal S1 and S2. No gallops, murmurs, or rubs. Normal PMI, no JVD. No pulse deficits. Respiratory: Lungs have equal breath sounds bilaterally, clear to auscultation and percussion. No rales, rhonchi or wheezes noted. No increased work of breathing, no retractions or nasal flaring. 05:59 Skin: Warm, dry with normal turgor. Normal color with no rashes, no lesions, and no evidence of cellulitis. MS/ Extremity: Pulses equal, no cyanosis. Neurovascular intact. Full, normal range of motion. 05:59 ECG was reviewed by the Attending Physician. 05:59 Abdomen/GI: Mild tenderness diffusely without rebound, guarding, distention, Vital Signs: 04:51 BP 122 / 97; Pulse 112; Resp 16; Temp 97.7; Pulse Ox 95% ; Weight 70.31 kg; Height 5 br2 ft. 9 in. ; Pain 8/10; 06:35 BP 122 / 97; Pulse 107; Pulse Ox 96% ; ay 06:40 BP 110 / 76; Pulse 76; Pulse Ox 100% ; ay 07:21 BP 123 / 93; Pulse 80; Resp 16 S; Pulse Ox 97% on R/A; kc6 08:28 BP 120 / 88; Pulse 85; Resp 18 S; Pulse Ox 99% on R/A; kc6 04:51 Body Mass Index 22.89 (70.31 kg, 175.26 cm) br2 04:51 Pain Scale: Adult br2 MDM: 04:55 Medical Screening Exam initiated rt 07:05 Data reviewed: vital signs, nurses notes. ec2 07:06 ED course: Patient signed out to me by. Physician, brief arrives today for evaluation ec2 of feeling unwell with associated nausea and vomiting along with headache. CBC is unrevealing. Metabolic profile shows slight hypokalemia, slight elevation in CPK at 2000, alcohol level elevated. Pending CT imaging. Plan is follow-up CT imaging and reassess.. 07:58 ED course: On reassessment patient is well-appearing no acute distress, reports some ec2 improvement in symptoms. I discussed possible inpatient hospitalization versus patient fluid resuscitation and patient felt comfortable to go home. Will discharge home. Return precautions given. Did give patient second liter of fluid to ensure we do not worsen kidney function.. 07:59 ED course: Additionally I did discuss patient's lab abnormalities and instructed him to ec2 follow-up with PCP and to stop using substances.. 07/19 05:03 Order name: CBC with Diff; Complete Time: 06:41 rt 02 05:03 Order name: CMP; Complete Time: 06:41 rt 02 05:03 Order name: Lipase; Complete Time: 06:41 rt 02 05:03 Order name: CPK; Complete Time: 06:41 rt 02 05:03 Order name: Troponin High Sensitivity; Complete Time: 06:41 rt 02 05:04 Order name: ETOH Level; Complete Time: 06:41 rt 07/19 05:03 Order name: CT Abd/Pelvis - IV Contrast Only; Complete Time: 07:21 rt 02 05:03 Order name: CT Chest For PE Angio; Complete Time: 07:07 rt 07/19 05:03 Order name: EKG; Complete Time: 05:03 rt 07/19 05:03 Order name: IV Saline Lock; Complete Time: 05:38 rt 02 05:03 Order name: Labs collected and sent; Complete Time: 07:04 rt 02 05:03 Order name: EKG - Nurse/Tech; Complete Time: 05:37 rt EC:59 Rate is 99 beats/min. Rhythm is regular, Normal Sinus Rhythm with No ectopy. QRS Hunter rt is Normal. CO interval is normal. QRS interval is normal. QT interval is normal. No Q waves. No ST changes noted. Interpreted by me. Administered Medications: 05:37 Drug: NS 0.9% IV 1000 ml IV at 1 bolus Per protocol; to be given as a bolus over 60 ay minutes Route: IV; Rate: 1 bolus; Site: right hand; 07:19 Follow up: Response: No adverse reaction; IV Status: Completed infusion; IV Intake: kc6 1000ml 05:37 Drug: Droperidol IVP 1.25 mg IVP once Route: IVP; Site: right hand; ay 07:05 Follow up: Response: No adverse reaction ay 07:19 Drug: NS 0.9% IV 1000 ml IV at 1 bolus Per protocol; to be given as a bolus over 60 kc6 minutes Route: IV; Rate: 1 bolus; Site: right wrist; 08:27 Follow up: Response: No adverse reaction; IV Status: Completed infusion; IV Intake: kc6 1000ml Disposition Summary: 07/19/24 08:06 Discharge Ordered Notes: Location: Home ec2 Condition: Stable ec2 Diagnosis - Rhabdomyolysis ec2 Followup: ec2 - With: Private Physician - When: - Reason: Re-evaluation by your physician Discharge Instructions: - Discharge Summary Sheet ec2 - Rhabdomyolysis ec2 Forms: - Medication Reconciliation Form ec2 - Antibiotic Education ec2 - Prescription Opioid Use ec2 - Patient Portal Instructions ec2 - Leadership Thank You Letter ec2 Signatures: Dispatcher [employer] EDMS Lucila Mcdonald RN RN kc6 Yuval Dewitt MD MD rt Jeffry Scales MD MD ec2 Lizzette Moya RN RN br2 Fouzia Sims RN RN ay Corrections: (The following items were deleted from the chart) 05:03 05:03 CBC+H.LAB.BRZ ordered. EDMS EDMS 05:03 05:03 COMPREHENSIVE METABOLIC PANEL+C.LAB.BRZ ordered. EDMS EDMS 05:03 05:03 LIPASE+C.LAB.BRZ ordered. EDMS EDMS 05:03 05:03 Urinalysis+U.LAB.BRZ ordered. EDMS EDMS 05:03 05:03 CREATINE PHOSPHOKINASE+C.LAB.BRZ ordered. EDMS EDMS 05:03 05:03 Troponin High Sensitivity+C.LAB.BRZ ordered. EDMS EDMS 07:53 05:59 Patient presents to the ED with headache, chest pain, shortness of breath. He ec2 states that he was vomiting brown material which he stated was blood. Denies any melena. Reports an abdominal pain. The symptoms have been present for several days. States that he was here recently for similar symptoms that worsened. Denies other acute complaints at this time, symptoms are moderate in severity, no other aggravating alleviating factors.. rt
[2024-07-19 08:37] VITALS: TEMP 97.7
[2024-07-19 08:42] VITALS: BP 120/88; O2SAT 99
--- NOTE | 2024-07-19 13:38 | EKG ---
Test Date: 2024-07-19 Test Time: 05:33:47 Chief Dispatcher Service: FRANCESCA MEASUREMENT RESULTS: Intervals: Rate: 99 SD: 174 QRSD: 92 QT: 358 QTc: 459 [place]ill[place]: P: 59 SD: 174 QRS: 70 T: 62 INTERPRETIVE STATEMENTS: Normal sinus rhythm Septal infarct, age undetermined Abnormal ECG Compared to ECG 01/27/2024 17:59:10 Myocardial infarct finding now present Electronically Signed On 07-19-24 13:37:33 PIPELINE WELDER by Hubert Prajapati
== END 2024-07-19 08:31 | disposition home or self-care (01) ==
LOC: ER 04:30
DX: M62.82 Rhabdomyolysis (principal)
CPT/HCPCS: 36415; 71275; 74177; 80053; 82077; 82550; 83690; 84484; 85025; 93005; 96361; 96374; 99285; J1790; J7030; Q9967